=== PATIENT | female | born 1945 | race Caucasian/White ===

== ENCOUNTER → 2017-05-24 | Outpatient (CLI) | payer MEDICARE ==
--- NOTE | 2017-05-24 15:43 | MR ---
MR brain without contrast HISTORY: Change in vision, TIA Multiplanar multisequence imaging through the brain and correlated to prior CT brain 07/03/2014 There are changes of hyperostosis frontalis interna. Mucosal disease present within the maxillary sin uses. The orbits show symmetric appearance. Periventricular white matter shows confluent and scattere d hyperintensities on inversion recovery and T2-weighted sequences. There is cortical atrophy. Impression: no acute abnormality. Chronic small vessel ischemia and cortical atrophy.
== END | disposition home or self-care (01) ==
LOC: RADMRIMAIN 14:24
PROVIDERS: ATTEND Family Medicine
DX: I67.82 Cerebral ischemia (principal); G31.9 Degenerative disease of nervous system, unspecified
CPT/HCPCS: 70551

== ENCOUNTER → 2017-06-28 | Outpatient (CLI) | payer MEDICARE ==
--- NOTE | 2017-06-29 11:20 | MM ---
Reason for exam: screening (asymptomatic). Last mammogram was performed 2 years and 8 months ago. History: Patient is postmenopausal. Physical Findings: A clinical breast exam by your physician is recommended on an annual basis and results should be correlated with mammographic findings. MG 3D Screening Mammo W/Cad Bilateral CC and MLO view(s) were taken. Prior study comparison: October 16, 2014, bilateral MG screening mammo w CAD. August 13, 2002, left breast diagnostic mammogram. The breast tissue is heterogeneously dense. This may lower the sensitivity of mammography. Finding: There are typically benign vascular, round calcifications in both breasts. There is no discrete abnormality. ASSESSMENT: Benign, BI-RAD 2 RECOMMENDATION: Routine screening mammogram of both breasts in 1 year.
== END | disposition home or self-care (01) ==
LOC: RADMAMWWP 10:45
PROVIDERS: ATTEND Family Medicine
DX: Z12.31 Encounter for screening mammogram for malignant neoplasm of breast (principal)
CPT/HCPCS: 77063; G0202

== ENCOUNTER 2017-12-24 16:08 | Emergency (ER) | payer MEDICARE ==
[2017-12-24 16:17] VITALS: BP 144/63; PULSE 88; RESP 18; TEMP 98
--- NOTE | 2017-12-24 16:53 | ED ---
General Adult HPI - General Chief complaint: Upper Respiratory Infection Stated complaint: Cold Symptoms Time Seen by Provider: 12/24/17 16:34 Source: patient Mode of arrival: ambulatory Limitations: no limitations - History of Present Illness Initial comments: 72-year-old female patient presents to the emergency department today for complaints of nasal congestion, postnasal drip, and watery itchy eyes times one month. Patient states that she has been trying natural remedies but it does not seem to be helping. Patient states that she often has a scratchy throat with this. She denies any cough or sputum production. She denies any fevers or chills with this. States that occasionally she does have facial pressure and mild headaches. Patient denies taking any antihistamines or decongestants. Patient denies any recent rash, shortness breath, chest pain, abdominal pain, nausea, vomiting, diarrhea, constipation, back pain, numbness, tingling, dizziness, weakness, hematuria, dysuria, urinary urgency, urinary frequency, visual changes, or any other complaints. - Related Data Previous Rx's Medication Instructions Recorded Fluticasone Nasal [place] [Flonase 0 spr EA NOSTRIL DAILY #1 bottle 12/24/17 Nasal [place]] Loratadine [Claritin] 10 mg PO DAILY #30 tab 12/24/17 Allergies Allergy/AdvReac Type Severity Reaction Status Date / Time Penicillins Allergy Unknown Verified 12/24/17 16:35 Sulfa (Sulfonamide Allergy Unknown Verified 12/24/17 16:35 Antibiotics) Review of Systems ROS Statement: Those systems with pertinent positive or pertinent negative responses have been documented in the HPI. ROS Other: All systems not noted in ROS Statement are negative. Past Medical History Past Medical History: No Reported History History of Any Multi-Drug Resistant Organisms: None Reported Past Surgical History: Section, Hysterectomy Past Psychological History: No Psychological Hx Reported Smoking Status: Never smoker Past Alcohol Use History: None Reported Past Drug Use History: None Reported General Exam Limitations: no limitations General appearance: alert, in no apparent distress, other (This is a well- developed, well-nourished elderly female patient in no acute distress. Vital signs upon presentation are temperature 98.0F, pulse 88, respirations 18, blood pressure 144/63, pulse ox 98% on room air.) Eye exam: Present: normal appearance, PERRL, EOMI. Absent: scleral icterus, conjunctival injection, periorbital swelling ENT exam: Present: normal exam, mucous membranes moist, TM's normal bilaterally , normal external ear exam, other (Nasal passages are erythematous. No frontal or maxillary sinus tenderness.). Absent: normal oropharynx (Postnasal drip) Neck exam: Present: normal inspection. Absent: tenderness, meningismus, lymphadenopathy Respiratory exam: Present: normal lung sounds bilaterally. Absent: respiratory distress, wheezes, rales, rhonchi, stridor Cardiovascular Exam: Present: regular rate, normal rhythm, normal heart sounds. Absent: systolic murmur, diastolic murmur, rubs, gallop, clicks Neurological exam: Present: alert, oriented X3, CN II-XII intact Psychiatric exam: Present: normal affect, normal mood Skin exam: Present: warm, dry, intact, normal color. Absent: rash Course Vital Signs 12/24/17 16:15 Temperature 98 F Pulse Rate 88 Respiratory 18 Rate Blood Pressure 144/63 O2 Sat by Pulse 98 Oximetry Medical Decision Making - Medical Decision Making 72-year-old female patient presented to the emergency department today for evaluation of sinus drainage, postnasal drip, and itchy watery eyes. Physical examination is unremarkable. Nasal passages are erythematous. There doesn't appear to be some postnasal drip. Sinuses are nontender. She is afebrile. We will give her prescription for Claritin and Flonase. She is instructed to use these daily. She is instructed to follow-up with her primary care physician for recheck as soon as possible. She is instructed to return here immediately for any new, worsening, or concerning symptoms. She verbalizes understanding and agrees with this plan. Disposition Clinical Impression: Allergic rhinitis Disposition: HOME SELF-CARE Condition: Good Instructions: Allergic Rhinitis (ED) Additional Instructions: Use Claritin and nasal spray daily. Follow-up with her primary care physician for recheck. Return here immediately for any new, worsening, or concerning symptoms. Prescriptions: Fluticasone Nasal [place] [Flonase Nasal [place]] 0 spr EA NOSTRIL DAILY #1 bottle Loratadine [Claritin] 10 mg PO DAILY #30 tab Referrals: Cecil Nolasco MD [Primary Care Provider] - 1-2 days Time of Disposition: 16:51
== END 2017-12-24 17:01 | disposition home or self-care (01) ==
LOC: EC 16:08
DX: J30.9 Allergic rhinitis, unspecified (principal); Z88.0 Allergy status to penicillin; Z88.2 Allergy status to sulfonamides
CPT/HCPCS: 99283

== ENCOUNTER → 2019-05-13 | Outpatient (CLI) | payer MEDICARE ==
--- NOTE | 2019-05-13 15:33 | CT ---
EXAMINATION TYPE: CT sinus w con, CT brain wo/w con DATE OF EXAM: 05/13/2019 COMPARISON: MRI of the brain dated through . HISTORY: chronic sinus congestion, rt eye drainage X [address] in pacs. 60cc iso [address] DLP: 493.7 (accession [id number]), 1945.3 (accession [id number]) mGycm Automated exposure control for dose reduction was used. CONTRAST: CT scan of the brain and sinuses is performed with IV Contrast, patient injected with 60cc mL of Isov ue 300. TECHNIQUE: CT scan of the remaining and sinuses is performed without contrast, axial images are obtai dav, coronal reformatted images are also reviewed. FINDINGS: Incidental note is made of hyperostosis frontalis internus. Inspissated secretions are seen within th e sphenoid sinus on the right. Very mild mucosal thickening is seen within the ethmoid sinuses and tr linette mucosal thickening is also noted within the maxillary sinuses. The frontal sinuses are well aerat ed. No significant nasal turbinate mucosal hypertrophy is seen. There is undulation of the nasal sept um and very mild leftward nasal septal deviation. The ostiomeatal complexes are patent. The frontal recesses are also patent. The temporomandibular kristen nts are symmetric and display moderate degenerative change. The osseous structures appear intact. Vis ualized mastoid air cells are well aerated. No middle ear cavity fluid is seen. The orbits are symmetric as are the extraocular muscles and optic nerves. The lenses are also symmetr ic and appear in place. No pre or post septal inflammatory fat stranding is seen nor intraconal or ex traconal mass. The lacrimal glands are symmetric and unremarkable. The unenhanced images of the brain demonstrate no acute intracranial hemorrhage. The enhanced images of the brain demonstrate no abnormal intracranial enhancement. There are patchy areas of hypoattenuat ion within the subcortical and periventricular white matter, mild in degree and most commonly on the basis of microangiopathy. There is symmetric prominence of the peripheral sulci and ventricular syste m compatible with age-related volume loss. No suspicious extra-axial fluid collection is seen. IMPRESSION: 1. No evidence of abnormal intracranial enhancement, abnormal enhancement nor asymmetric morphology o f the lacrimal glands, extraconal mass, or intraconal mass in this patient with right eye drainage. 2. Mild paranasal sinus disease with inspissated secretions in the sphenoid sinus. Ostiomeatal comple xes are patent as are the frontal recesses. 3. As seen on the prior MRI brain of 2017 there is mild burden nonspecific white matter change, likel y on the basis of chronic microangiopathy and age-related volume loss.
== END | disposition home or self-care (01) ==
LOC: RADCTMAIN 13:42
PROVIDERS: ATTEND Otolaryngology
DX: J34.89 Other specified disorders of nose and nasal sinuses (principal); R90.89 Other abnormal findings on diagnostic imaging of central nervous system; G50.1 Atypical facial pain; J32.9 Chronic sinusitis, unspecified; H05.20 Unspecified exophthalmos
CPT/HCPCS: 82565; 84520; 70470; 36415; 70487; Q9967

== ENCOUNTER → 2019-05-21 | Outpatient (CLI) | payer MEDICARE | END | disposition home or self-care (01) | LOC: LABWHC1 12:39 | PROVIDERS: ATTEND Otolaryngology | DX: J30.89 Other allergic rhinitis (principal) | CPT/HCPCS: 36415 ==

== ENCOUNTER 2021-10-26 14:53 | Inpatient (IN) | payer MEDICARE ==
--- NOTE | 2021-10-26 15:29 | ED ---
General Adult HPI - General Chief complaint: Neuro Symptoms/Deficit Stated complaint: TIA Source: patient, RN notes reviewed, old records reviewed Mode of arrival: ambulatory Limitations: no limitations - History of Present Illness Initial comments: Patient is a 76-year-old female with past medical history remarkable for ALLERGIES. She presents emergency department over concern for neuro deficits. Patient had a period of aphasia what sounds like mild dysarthria home. She s tates she was unable to find the correct words to speak to her son who came to pick her up earlier today. She states it lasted from about 1 to 1:30pm. She states she also had a mild left-sided headache at this time which continues currently. She denies any nausea or vomiting. She states her symptoms resolved but she called EMS for further evaluation. I evaluated the patient when she was placed in a room. She only has no other acute complaints at this time. She presents over concern for possible TIA or stroke, which she has no prior history of. - Related Data Home Medications Medication Instructions Recorded Confirmed ALPRAZolam [Xanax] 0.25 mg PO HS PRN 10/26/21 10/26/21 Albuterol Sulfate [Proventil Hfa] 1 puff INHALATION RT-Q4H PRN 10/26/21 10/26/21 Montelukast [Singulair] 10 mg PO HS 10/26/21 10/26/21 Allergies Allergy/AdvReac Type Severity Reaction Status Date / Time Penicillins Allergy Unknown Verified 10/26/21 15:42 Sulfa (Sulfonamide Allergy Unknown Verified 10/26/21 15:42 Antibiotics) Review of Systems ROS Statement: Those systems with pertinent positive or pertinent negative responses have been documented in the HPI. Review of Systems: CONST: Denies fever EYES: Denies blurry vision ENT: Denies nasal congestion C/V: Denies Chest pain RESP: Denies shortness of breath GI: Denies abdominal pain : Denies dysuria SKIN: Denies rash. MSK: Denies joint pain. NEURO: Endorses mild left-sided headache. Throbbing. Typical headache for her. ROS Other: All systems not noted in ROS Statement are negative. Past Medical History Past Medical History: No Reported History History of Any Multi-Drug Resistant Organisms: None Reported Past Surgical History: Section, Hysterectomy Past Psychological History: No Psychological Hx Reported Smoking Status: Never smoker Past Alcohol Use History: None Reported Past Drug Use History: None Reported General Exam - General Exam Comments Initial Comments: General: Appears in no acute distress. HEAD: Normal with no signs of head trauma. EYES: PERRLA, EOMI, conjunctiva normal, no discharge. Pupils are 3 mm and equal bilaterally. ENT: Hearing grossly intact, normal oropharynx. RESPIRATORY: Clear breath sounds bilaterally. No wheezes, rales, or rhonchi. C/V: Regular rate and rhythm. S1 and S2 auscultated, no edema, peripheral pulses 2+ and intact throughout ABD: Abd is soft, nontender, nondistended EXT: Normal range of motion, no obvious deformity SKIN: No rashes or lesions observed on exposed skin. NEURO: Alert and oriented x 4. Cranial nerves II-XII intact. No focal sensory or strength deficits. NIH is currently 0. Aphasia mild dysarthria seem to have resolved. GCS is 15. Limitations: no limitations Course Vital Signs 10/26/21 10/26/21 10/26/21 14:55 15:15 15:30 Temperature 97.5 F L Pulse Rate 84 82 86 Respiratory 18 18 18 Rate Blood Pressure 140/75 141/68 126/97 O2 Sat by Pulse 95 95 96 Oximetry 10/26/21 10/26/21 10/26/21 15:45 16:00 16:15 Temperature Pulse Rate 81 73 77 Respiratory 18 18 18 Rate Blood Pressure 136/70 131/74 137/70 O2 Sat by Pulse 95 96 94 L Oximetry Medical Decision Making - Medical Decision Making Based on the patient's presentation and physical exam, I do believe that she needs criteria for strep activation. Deficits started at 1 PM and resolved at 1:30 PM. Therefore last known well was 1 PM. She currently isn't in nature 0. She is technically in the TPA window, however I believe that the risks of administering an elderly the benefits at this time. I spoke with no intervention is circulation sales representative Dr. Love as he was in agreement this plan. Therefore we will obtain imaging as well as laboratory studies. She will likely be admitted for medical management and results of imaging. I discussed this with the patient she was in agreement this plan. Patient's EKG showed no signs of acute ischemia. POC glucose was wnl.Patient's laboratory studies are remarkable for a negative troponin. Covid is negative. Patient's white blood cell count is mildly decreased at 2.3. Patient also has thrombocytopenia at 58, which is lower than her previous low level of 111 obtained 8 years ago. This does appear to be chronic. Chest x-ray showed no acute cardiopulmonary process. CT brain revealed chronic changes with no acute intracranial process. CT angiogram shows no acute process. I discussed the results with the patient of her labs and imaging. I would like to admitted to the hospital for further neurological monitoring. She was in ag reement this plan. She'll be given 325 mg of aspirin. MRI will be ordered. I consulted Dr. Hightower of neurology who was in agreement this plan. I spoke with the admitting team under Dr. Welch who accepted the patient. Patient was therefore admitted in stable condition, for a TIA. Patient was given analgesia for her headache and it improved. - Lab Data Result diagrams: 10/26/21 15:21 10/26/21 15:21 Lab Results 10/26/21 10/26/21 10/26/21 Range/Units 15:21 15:21 15:21 WBC 2.3 L (3.8-10.6) k/uL RBC 4.36 (3.80-5.40) m/uL Hgb 12.0 (11.4-16.0) gm/dL Hct 38.5 (34.0-46.0) % MCV 88.4 (80.0-100.0) fL MCH 27.5 (25.0-35.0) pg MCHC 31.1 (31.0-37.0) g/dL RDW 14.7 (11.5-15.5) % Plt Count 58 L (150-450) k/uL MPV 8.7 Neutrophils % 56 % Lymphocytes % 36 % Monocytes % 5 % Eosinophils % 2 % Basophils % 0 % Neutrophils # 1.3 (1.3-7.7) k/uL Lymphocytes # 0.8 L (1.0-4.8) k/uL Monocytes # 0.1 (0-1.0) k/uL Eosinophils # 0.0 (0-0.7) k/uL Basophils # 0.0 (0-0.2) k/uL Hypochromasia Moderate PT 11.0 (9.0-12.0) sec INR 1.0 (<1.2) APTT 22.1 (22.0-30.0) sec Sodium 139 (137-145) mmol/L Potassium 3.8 (3.5-5.1) mmol/L Chloride 104 (98-107) mmol/L Carbon Dioxide 22 (22-30) mmol/L Anion Gap 13 mmol/L BUN 10 (7-17) mg/dL Creatinine 0.97 (0.52-1.04) mg/dL Est GFR (CKD-EPI)AfAm 65 (>60 ml/min/1.73 sqM) Est GFR (CKD-EPI)NonAf 56 (>60 ml/min/1.73 sqM) Glucose 106 H (74-99) mg/dL POC Glucose (mg/dL) (75-99) mg/dL POC Glu Plant Quality Manager ID Calcium 8.7 (8.4-10.2) mg/dL Total Bilirubin 0.9 (0.2-1.3) mg/dL AST 25 (14-36) U/L ALT 10 (4-34) U/L Alkaline Phosphatase 65 (38-126) U/L Troponin I (0.000-0.034) ng/mL Total Protein 6.2 L (6.3-8.2) g/dL Albumin 4.0 (3.5-5.0) g/dL Coronavirus (PCR) (Not Detectd) 10/26/21 10/26/21 10/26/21 Range/Units 15:21 15:21 16:31 WBC (3.8-10.6) k/uL RBC (3.80-5.40) m/uL Hgb (11.4-16.0) gm/dL Hct (34.0-46.0) % MCV (80.0-100.0) fL MCH (25.0-35.0) pg MCHC (31.0-37.0) g/dL RDW (11.5-15.5) % Plt Count (150-450) k/uL MPV Neutrophils % % Lymphocytes % % Monocytes % % Eosinophils % % Basophils % % Neutrophils # (1.3-7.7) k/uL Lymphocytes # (1.0-4.8) k/uL Monocytes # (0-1.0) k/uL Eosinophils # (0-0.7) k/uL Basophils # (0-0.2) k/uL Hypochromasia PT (9.0-12.0) sec INR (<1.2) APTT (22.0-30.0) sec Sodium (137-145) mmol/L Potassium (3.5-5.1) mmol/L Chloride (98-107) mmol/L Carbon Dioxide (22-30) mmol/L Anion Gap mmol/L BUN (7-17) mg/dL Creatinine (0.52-1.04) mg/dL Est GFR (CKD-EPI)AfAm (>60 ml/min/1.73 sqM) Est GFR (CKD-EPI)NonAf (>60 ml/min/1.73 sqM) Glucose (74-99) mg/dL POC Glucose (mg/dL) 86 (75-99) mg/dL POC Glu Plant Quality Manager ID Sincere Son Calcium (8.4-10.2) mg/dL Total Bilirubin (0.2-1.3) mg/dL AST (14-36) U/L ALT (4-34) U/L Alkaline Phosphatase (38-126) U/L Troponin I <0.012 (0.000-0.034) ng/mL Total Protein (6.3-8.2) g/dL Albumin (3.5-5.0) g/dL Coronavirus (PCR) Not Detected (Not Detectd) - EKG Data -: EKG Interpreted by Me EKG Comments: 12-lead Electrocardiogram Interpretation Note EKG was reviewed and interpreted by myself. 12-lead ECG performed at 1506 is interpreted by me as revealing normal sinus rhythm at a rate of 83 beats per minute. [place] is normal. [place] interval is 140 ms, QRS duration is 76 ms, QTc is 467 ms.. There is an isolated T-wave inversion in lead V2 which is seen on prior ekgs. No other acute ST segment or T-wave abnormalities.. R wave progression across the precordium was satisfactory. By my interpretation this EKG is non-diagnostic for acute ischemia. Critical Care Time Critical Care Time: Yes Total Critical Care Time: 30 Critical Care Time: Upon my evaluation, this patient had a high probability of imminent or life-threatening deterioration due to TIA, stroke pager activation, which required my direct attention, intervention, and personal management. I have personally provided 30 minutes of critical care time exclusive of time spent on separately billable procedures. Time includes review of laboratory data, radiology results, discussion with consultants, and monitoring for potential decompensation. Interventions were performed as documented in my note. Disposition Clinical Impression: Headache, TIA (transient ischemic attack), Thrombocytopenia Disposition: ADMITTED IP TO THIS HOSP Condition: Stable
[2021-10-26 15:31] LABS: Basophils % (A) 0 %; Eosinophils % (A) 2 %; HCT 38.5 % (34.0-46.0); Hypochromasia Moderate; Lymphocytes # (A) 0.8 k/uL (1.0-4.8); Lymphocytes % (A) 36 %; MCH 27.5 pg (25.0-35.0); MCHC 31.1 g/dL (31.0-37.0); MCV 88.4 fL (80.0-100.0); Mean Platelet Volume 8.7; Monocytes # (A) 0.1 k/uL (0-1.0); Monocytes % (A) 5 %; Neutrophils # (A) 1.3 k/uL (1.3-7.7); Neutrophils % (A) 56 %; RBC 4.36 m/uL (3.80-5.40); RDW 14.7 % (11.5-15.5); WBC 2.3 k/uL (3.8-10.6)
[2021-10-26 15:32] LABS: Platelet Count 58 k/uL (150-450)
[2021-10-26 15:33] LABS: Glucose,Whole Blood 86 mg/dL (75-99)
[2021-10-26 15:41] LABS: Calcium 8.7 mg/dL (8.4-10.2); Potassium 3.8 mmol/L (3.5-5.1); Total Bilirubin 0.9 mg/dL (0.2-1.3); Total Protein 6.2 g/dL (6.3-8.2)
--- NOTE | 2021-10-26 15:46 | CT ---
EXAMINATION TYPE: CT brain wo con for TPA DATE OF EXAM: 10/26/2021 COMPARISON: 05/13/2019 INDICATION: Episode of aphasia, altered mental status. DLP: 1075.8 mGycm, Automated exposure control for dose reduction was used. CONTRAST: None CT of the brain is performed utilizing 3 mm thick sections through the posterior fossa and 3 mm thick sections through the remaining calvarium. Study is performed within 24 hours of arrival to the hosp ital. No abnormal hyperdensity is present to suggest an acute intracranial hemorrhage. No mass lesion is evident. No acute infarcts are evident. Very minimal chronic appearing periventricular white matter hypodensit y is present, present previously. Findings are nonspecific but could be related to chronic white penelope er ischemic changes. Ventricles and sulci are appropriate for the patient age. Paranasal sinuses and mastoid air cells within the [id number] are clear.. Hyperostosis frontalis internus is present, normal variant. IMPRESSIONS: 1. Mild chronic appearing periventricular white matter ischemic-type changes. 2. No acute intracranial process. Acute infarct is not radiographically apparent. Consider MRI if luis fernando ser evaluation is required.
[2021-10-26 15:48] LABS: Partial Thromboplastin Time 22.1 sec (22.0-30.0)
--- NOTE | 2021-10-26 16:09 | CT ---
EXAMINATION TYPE: CT angio head neck DATE OF EXAM: 10/26/2021 HISTORY: Episode of aphasia, altered mental status. COMPARISON: CT DLP: 311.8 mGycm. Automated Exposure Control for Dose Reduction was Utilized. TECHNIQUE: CTA scan of the neck is performed with IV Contrast, patient injected with 65 mL of Isovue 300, axial images are obtained, coronal and sagittal reformatted images are reviewed. Three-D recons tructed images are created on an independent workstation and reviewed. Source images are reviewed. FINDINGS: Carotid/Vascular Structures: There is a three-vessel arch. The left vertebral artery is dominant. Com mon carotid arteries appear unremarkable. Some atheromatous calcifications at the left carotid bifurc ation. No significant flow-limiting stenosis within the bilateral internal carotid arteries. Internal carotid arteries are patent to the skull base. Cervical of [place]: Vertebral basilar system appears normal. Posterior cerebral vasculature is unrema rkable. Internal carotid arteries bifurcate normally into A1 and M1 segments. A2 segments are normal. The anterior communicating artery is small but patent. Left Posterior communicating artery is faintl y patent. Right posterior communicating artery is patent. IMPRESSION: 1. No flow-limiting stenosis bilateral carotid bifurcations. 2. Normal burns pa[place] of [place] NASCET criteria was used in interpretation of this exam?
[2021-10-26] MEDS ORDERED: ASPIRIN 325 MG TAB PO STA (16:15)
[2021-10-26] MEDS ORDERED: KETOROLAC 15 MG/ML 1 ML VIAL IVP STA (16:16)
[2021-10-26] MEDS ORDERED: SODIUM CHLORIDE 0.9% 1,000 ML IV STA (16:16)
[2021-10-26] MEDS ORDERED: ALPRAZolam 0.25 MG TAB PO PRN (16:45)
--- NOTE | 2021-10-26 17:41 | XR ---
EXAMINATION TYPE: XR chest 2V DATE OF EXAM: 10/26/2021 COMPARISON: NONE HISTORY: Altered mental status TECHNIQUE: 2 views FINDINGS: Heart is normal. Lungs are clear of infiltrate. There is no heart failure. There are no hil ar masses. There are chest leads. Costophrenic angles are clear. IMPRESSION: No active cardiopulmonary disease. Normal heart.
[2021-10-26 18:06] LABS: Appearance,Urine Clear (Clear); Bilirubin,Urine Negative (Negative); Blood,Urine Negative (Negative); Color,Urine Light Yellow; Glucose,Urine (UA) Negative (Negative); Ketones,Urine Negative (Negative); Leukocyte Esterase,Urine Negative (Negative); Nitrite,Urine Negative (Negative); PH, Urine 5.5 (5.0-8.0); Protein,Urine Negative (Negative); Specific Gravity,Urine 1.032 (1.001-1.035); Urobilinogen,Urine <2.0 mg/dL (<2.0)
[2021-10-26] MEDS ORDERED: LACTULOSE 20 GM/30 ML CUP PO PRN (18:19)
[2021-10-26] MEDS ORDERED: ACETAMINOPHEN TAB 325 MG TAB PO PRN (18:19)
[2021-10-26] MEDS ORDERED: NALOXONE 0.4 MG/ML 1 ML VIAL IV PRN (18:19)
[2021-10-26] MEDS ORDERED: ONDANSETRON 4 MG/2 ML VIAL IVP PRN (18:19)
[2021-10-26] MEDS ORDERED: MELATONIN 3 MG TABLET PO PRN (18:19)
[2021-10-26] MEDS ORDERED: CALCIUM CARBONATE 500 MG CHEWABLE PO PRN (18:19)
--- NOTE | 2021-10-26 18:24 | P.HPIM ---
History of Present Illness H&P Date: 10/26/21 Chief Complaint: Loss of speech History of presenting complaint: This is a pleasant 76-year-old patient follows Dr. Nolasco. Patient has a long- standing history of environmental ALLERGIES supposed to take medications but does not take the same. This morning patient suddenly noticed that she had some light headache. And then she could not speak words are coming on, could not form sentences. She managed to call her son who could not understand her on the phone. Symptoms lasted for about 45 minutes. She had some more significant headache with the same. That all subsided. No change in vision. No trouble walking no trouble swallowing. Patient has trouble sleeping. Otherwise in good health. Fairly active. Patient's daughter at the bedside currently. Review of systems: GEN.: None EYES: Running nose and eyes HEENT: None NECK: None RESPIRATORY: None CARDIOVASCULAR: None GASTROINTESTINAL: None GENITOURINARY: None MUSCULOSKELETAL: None LYMPHATICS: None HEMATOLOGICAL: None PSYCHIATRY: None NEUROLOGICAL: As above Past medical history to include: Environmental ALLERGIES Social history: No history of smoking or alcohol. Lives alone. Physical examination: VITAL SIGNS: Afebrile, 73, 18, 131/74, 96% room air GENERAL: BMI 23, sitting of which edges bed, awake, comfortable. EYES: Pupils equal. Conjunctiva normal. HEENT: External appearance of nose and ears normal, oral cavity grossly normal. NECK: JVD not raised; masses not palpable. HEART: First and second heart sounds are normal; no edema. LUNGS: Respiratory rate normal; clear to auscultation. ABDOMEN: Soft, nontender, liver spleen not palpable, no masses palpable. PSYCH: Alert and oriented x3; mood and affect normal. MUSCULAR skeletal: Evidence of OA especially in the hands NEUROLOGICAL: Cranial nerves grossly intact; no facial asymmetry, power and sensation grossly intact. LYMPHATICS: No lymph nodes palpable in the axilla and neck INVESTIGATIONS, reviewed in the clinical context: White count 2.3 hemoglobin 12 platelets 58 potassium 3.8 creatinine 0.97 UA: Negative Coronavirus [PCR]: Not detected EKG tracing personally reviewed by me-sinus rhythm. Rate 83 per minute. Poor baseline. Chest x-ray film personally reviewed by me-borderline cardiomegaly HEENT head and neck: No stenosis. Assessment and plan: -TIA. Patient manifesting unable to speak speech was garbled for lasting about 45 minutes. Also had associated headache. All resolved. No residual symptoms. Patient does not have any additional risk factors except for her age. Aspirin. Lipitor. 2-D echo. Neuro checks. MR of the brain. -Chronic seasonal ALLERGIES Claritin 5 mg twice a day -Primary osteoarthritis multiple joints bilateral, symptoms well controlled Tylenol when necessary Aspirin, Lipitor, 2-D echo, neuro checks, MRI of the brain, carotid Doppler. Claritin 5 mg twice a day. Melatonin. Subcu heparin. Past Medical History Past Medical History: No Reported History History of Any Multi-Drug Resistant Organisms: None Reported Past Surgical History: Section, Hysterectomy Past Psychological History: No Psychological Hx Reported Smoking Status: Never smoker Past Alcohol Use History: None Reported Past Drug Use History: None Reported Medications and Allergies Home Medications Medication Instructions Recorded Confirmed Type ALPRAZolam [Xanax] 0.25 mg PO HS PRN 10/26/21 10/26/21 History Albuterol Sulfate [Proventil Hfa] 1 puff INHALATION RT-Q4H PRN 10/26/21 10/26/21 History Montelukast [Singulair] 10 mg PO HS 10/26/21 10/26/21 History Allergies Allergy/AdvReac Type Severity Reaction Status Date / Time Penicillins Allergy Unknown Verified 10/26/21 15:42 Sulfa (Sulfonamide Allergy Unknown Verified 10/26/21 15:42 Antibiotics) Physical Exam Vitals: Vital Signs Temp Pulse Resp BP Pulse Ox 10/26/21 16:15 77 18 137/70 94 L 10/26/21 16:00 73 18 131/74 96 10/26/21 15:45 81 18 136/70 95 10/26/21 15:30 86 18 126/97 96 10/26/21 15:15 82 18 141/68 95 10/26/21 14:55 97.5 F L 84 18 140/75 95 Intake and Output 10/26/21 10/26/21 10/26/21 06:59 14:59 22:59 Other: Weight 53.524 kg Results CBC & Chem 7: 10/26/21 15:21 10/26/21 15:21 Labs: Abnormal Lab Results - Last 24 Hours (Table) 10/26/21 10/26/21 Range/Units 15:21 15:21 WBC 2.3 L (3.8-10.6) k/uL Plt Count 58 L (150-450) k/uL Lymphocytes # 0.8 L (1.0-4.8) k/uL Glucose 106 H (74-99) mg/dL Total Protein 6.2 L (6.3-8.2) g/dL
[2021-10-26] MEDS: LORATADINE 10 MG TAB PO SCH (20:17)
[2021-10-26] MEDS: ENOXAPARIN 40 MG/0.4 ML SYRINGE SQ SCH (20:21)
[2021-10-26] MEDS ORDERED: ATORVASTATIN 20 MG TAB PO SCH (21:00)
[2021-10-26] MEDS ORDERED: MONTELUKAST 10 MG TAB PO SCH (21:00)
[2021-10-26] MEDS ORDERED: TEMAZEPAM 7.5 MG CAP PO SCH (21:00)
--- NOTE | 2021-10-26 22:50 | US ---
EXAMINATION TYPE: US carotid duplex BILAT DATE OF EXAM: 10/26/2021 COMPARISON: CTa CLINICAL HISTORY: TIA/loss of speech. TIA/loss of speech. EXAM MEASUREMENTS: RIGHT: Peak Systolic Velocity (PSV) cm/sec ----- Right CCA: 80.6 ----- Right ICA: 87.7 ----- Right ECA: 88.3 ICA/CCA ratio: 1.09 RIGHT: End Diastole cm/sec ----- Right CCA: 22.1 ----- Right ICA: 27.9 ----- Right ECA: 7.8 LEFT: Peak Systolic Velocity (PSV) cm/sec ----- Left CCA: 82.5 ----- Left ICA: 89.0 ----- Left ECA: 82.5 ICA/CCA ratio: 1.08 LEFT: End Diastole cm/sec ----- Left CCA: 20.8 ----- Left ICA: 20.8 ----- Left ECA: 11.7 VERTEBRALS (direction of flow): Right Vertebral: Antegrade Left Vertebral: Antegrade Rhythm: Normal No elevated velocities at this time. Intimal thickening seen bilaterally. Minimal plaque seen within left bulb. Hypoechoic area with hyperechoic center seen right neck: 1.8 x 2.0 x 0.5 cm. IMPRESSION: There is antegrade flow in the vertebral arteries. The images and measurement suggests less than 15% stenosis in both internal carotid arteries. Criteria for Assigning % of Stenosis / Diameter reduction (Estimation based on the indirect measurements of the internal carotid artery velocities (ICA PSV). 1. Normal (no stenosis)=ICA PSV < 125 cm/s: ratio < 2.0: ICA EDV<40 cm/s. 2. Less than 50% stenosis=ICA PSV < 125 cm/s: ratio < 2.0: ICA EDV<40 cm/s. 3. 50 to 69% stenosis=ICA PSV of 125 to 230 cm/s: ration 2.0 ? 4.0: ICA EDV 40-100 cm/s. 4. Greater than 70% stenosis to near occlusion= ICA PSV > 230 cm/s: ratio > 4.0: ICA EDV > 100 cm/s. 5. Near occlusion= ICA PSV velocities may be low or undetectable: variable ratio and ICA EDV. 6. Total occlusion=unable to detect flow.
[2021-10-27] MEDS: LORATADINE 10 MG TAB PO SCH (08:08)
[2021-10-27 08:44] VITALS: RESP 16
[2021-10-27] MEDS ORDERED: ASPIRIN 325 MG TAB PO SCH (09:00)
[2021-10-27 09:40] LABS: Chol/HDL Ratio 3.26 Ratio; LDL Cholesterol,Calculated 60.7 mg/dL (0.0-131.0); VLDL Calculation 15.64 mg/dL (5.00-40.00)
--- NOTE | 2021-10-27 10:03 | MR ---
MR brain without contrast HISTORY: Neuro deficit, acute stroke suspected, episode of aphasia, altered mental status Multiplanar multisequence imaging obtained through the brain, correlation to CT brain dated 10/26/2021, brain MRI 05/24/2017. There is cortical atrophy. No hemorrhage or hydrocephalus. There is no restricted diffusion to sugges t acute or subacute ischemia. Periventricular, pericallosal, subcortical confluent and scattered hype rintensity on inversion recovery and T2-weighted sequences noted similar to prior exam. Mucosal disea se present within the bilateral maxillary sinuses. Corpus callosum, pituitary, cervical medullary garfield ction, cerebellopontine angles are stable. There are expected vascular flow voids. Orbits show symmet jeremías appearance. Hyperostosis from [place] changes are again seen. IMPRESSION: No evident cerebrovascular accident. Age-related changes of atrophy and chronic small ves andrzej ischemia. Sinus disease.
--- NOTE | 2021-10-27 10:13 | P.CNNES ---
History of Present Illness Consult date: 10/27/21 Requesting physician: Jose Daniel Lvoe Reason for Consult: TIA History of Present Illness: This is a 76-year-old right-handed woman who presented emergency departments on 10/26/2021 because of aphasia and mild dysarthria. Patient was having difficulty getting her words out and she felt like she sounded slurred. She fe lt her symptoms started around 1pm on 10/26/2021 and lasted for 15-20 minutes. She had the mild headache over the left side. She denies any other neurological problems. She currently feels back to baseline. She denies history of TIA or stroke in the past. She is not on any medications at home. She denies any significant medical history. She denies of tobacco use, alcohol use or illicit drug use. She resides by herself. Some of the workup in the hospital consisted of: Initial vital signs his blood pressure of 140/75, heart rate of 84, respiratory of 18, temperature of 97.5 Fahrenheit oral and pulse ox of 95% room air. White blood cell is 2.3, lately is 58 otherwise the rest of the CBC with differential is unremarkable Chemistry panel is unremarkable. Calcium is 8.7, AST 25, ALT of 10. PT, INR and PTT are normal. Mckeon virus PCR was not detected. Urinalysis negative for urinary tract infection CT of the head is reported as mild chronic-appearing periventricular white matter ischemic type changes. No acute intracranial process. Personally reviewed the CT of the head and I felt the patient has supple hypodensity over the left parietal region. There is no intraparenchymal bleed or encephalomalacia the was able to appreciate that. CT angiography of the head and neck was reported as normal. NIH stroke scale in the ED was 0. Stroke code was activated by the ED team and they spoke with the stroke attending. No IV TPA since the patient symptoms resolved and had NIH stroke scale of 0. Carotid duplex was reported as no elevated velocities at this time. Intimal thickening seen bilaterally. Minimal plaque seen within the left bulb. Hypoechoic area with hyper echoic centers seen right neck 1.8 x 2 x 0.5 cm Review of Systems Review of system: The 12 point system was reviewed and apparent positive and negative per HPI. Past Medical History Past Medical History: No Reported History History of Any Multi-Drug Resistant Organisms: None Reported Past Surgical History: Section, Hysterectomy Past Psychological History: No Psychological Hx Reported Smoking Status: Never smoker Past Alcohol Use History: None Reported Past Drug Use History: None Reported - Past Family History Son(s) Family Medical History: Diabetes Mellitus Medications and Allergies Home Medications Medication Instructions Recorded Confirmed Type ALPRAZolam [Xanax] 0.25 mg PO HS PRN 10/26/21 10/26/21 History Albuterol Sulfate [Proventil Hfa] 1 puff INHALATION RT-Q4H PRN 10/26/21 10/26/21 History Montelukast [Singulair] 10 mg PO HS 10/26/21 10/26/21 History Aspirin 81 mg PO DAILY tab 10/27/21 Rx Atorvastatin [Lipitor] 20 mg PO HS #30 tab 10/27/21 Rx Loratadine [Claritin] 5 mg PO Q12HR #30 tab 10/27/21 Rx Melatonin 3 mg PO HS #30 tablet 10/27/21 Rx Allergies Allergy/AdvReac Type Severity Reaction Status Date / Time Penicillins Allergy Unknown Verified 10/26/21 15:42 Sulfa (Sulfonamide Allergy Unknown Verified 10/26/21 15:42 Antibiotics) Physical Examination - Vital Signs Vital Signs: Vital Signs Temp Pulse Resp BP Pulse Ox 10/26/21 16:15 77 18 137/70 94 L 10/26/21 16:00 73 18 131/74 96 10/26/21 15:45 81 18 136/70 95 10/26/21 15:30 86 18 126/97 96 10/26/21 15:15 82 18 141/68 95 10/26/21 14:55 97.5 F L 84 18 140/75 95 Intake and Output 10/26/21 10/26/21 10/26/21 06:59 14:59 22:59 Other: Weight 53.524 kg GENERAL: The patient is lying in bed and is not in acute distress. CHEST: The heart rate is regular rate rhythm. No murmurs to auscultation. No carotid bruit bilaterally. LUNG: Clear to auscultation bilaterally no wheezing noted throughout. Not labored breathing. ABDOMEN/GI: Bowel sounds present in all 4 quadrants. No tenderness to palpation throughout. NEUROLOGICAL: Higher mental function: The patient is awake, alert, oriented to self, place and time. Patient is following commands. No aphasia and no neglect. Cranial nerves: The pupils are round, equal and reactive to light and accommodation. Visual hermosillo are full to confrontation throughout. Extraocular movement is intact no nystagmus is noted. Facial sensation is normal to touch throughout. The facial strength is normal throughout. Hearing is mildly decreased bilaterally to hand rub. Tongue is midline and moved [id number] without any difficulty. No dysarthria is noted. Shoulder shrug is normal bi laterally. Motor: Gait is normal with normal arm swings. The strength is 5 over 5 throughout. Normal tone and bulk. Cerebellum: Normal finger to nose bilaterally. Sensation: Sensation is normal to touch throughout. Reflexes (right/left): 2+ throughout except ankles are 1+. Plantars are downgoing bilaterally. 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 I'll decreased aspirin from 325mg to 81mg especially with a thrombocytopenia. I will not start the patient on dual antiplatelets because of the thrombocytopenia. Patient was started on Lipitor 20 mg daily at bedtime for secondary stroke prophylaxis and that to be continued * MRI of the brain is ordered by the ED team * 2-D echo and lipid panel are ordered and are pending * PT, OT and CONSOLE ASSEMBLER are consulted * Continue neuro checks * On cardiac monitoring. So far no a-fib or flutter on cardiac monitoring. * Will defer the rest of medical management to the primary team. * For DVT prophylaxis the patient is on Lovenox * Upon discharge, the patient needs to follow-up with a neurologist within 1-2 weeks as outpatient. The plan is discussed with the patient. Thank you for the consultation. UPDATE: MRI Brain: As reported as no evident cerebrovascular accident. Age-related changes of atrophy and chronic small vessel ischemia. Sinus disease. 2-D echo was reported as a ejection fraction of 55%. Left atrial size is normal. Lipid panel is triglyceride of 78, cholesterol 110, LDL 60 and HDL 33. Since the workup has been complete from a neurological perspective patient is clear for discharge. Recommend patient follow up with a neurologist within 1-2 weeks as an outpatient. Gideon Preston M.D. Neuro-Hospitalist Time with Patient: Greater than 30
[2021-10-27] MEDS: ENOXAPARIN 40 MG/0.4 ML SYRINGE SQ SCH (10:18)
--- NOTE | 2021-10-27 10:28 | ECHOF ---
Referral Reason:Rule out thrombus/TIA MEASUREMENTS -------- HEIGHT: 152.4 cm WEIGHT: 53.5 kg BP: 155/86 RVIDd: 3.2 cm (< 3.3) IVSd: 0.9 cm (0.6 - 1.1) LVIDd: 4.1 cm (3.9 - 5.3) LVPWd: 1.2 cm (0.6 - 1.1) IVSs: 1.3 cm LVIDs: 2.6 cm LVPWs: 1.2 cm LA Diam: 3.6 cm (2.7 - 3.8) Ao Diam: 2.4 cm (2.0 - 3.7) AV Cusp: 1.7 cm (1.5 - 2.6) LA Diam: 3.3 cm (2.7 - 3.8) MV EXCURSION: 16.312 mm (> 18.000) MV EF SLOPE: 72 mm/s (70 - 150) EPSS: 0.2 cm MV E Juan: 0.64 m/s MV DecT: 230 ms MV A Juan: 0.91 m/s MV E/A Ratio: 0.70 RAP: 5.00 mmHg RVSP: 36.66 mmHg FINDINGS -------- Sinus rhythm. This was a technically good study. LV size, wall thickness and systolic function are normal, with an EF greater than 55%. The left gatito tricular size is normal. The right ventricle is normal in size. The left atrial size is normal. The right atrial size is normal. The aortic valve is trileaflet, and appears structurally normal. No aortic stenosis or regurgitation. Mild mitral regurgitation is present. Mild tricuspid regurgitation present. There is mild pulmonary hypertension. The right ventricular systolic pressure, as measured by Doppler, is 36.66mmHg. There is no pulmonic regurgitation present. There is no pericardial effusion. CONCLUSIONS -------- 1. LV size, wall thickness and systolic function are normal, with an EF greater than 55%. 2. The left ventricular size is normal. 3. The right ventricle is normal in size. 4. The left atrial size is normal. 5. The right atrial size is normal. 6. The aortic valve is trileaflet, and appears structurally normal. No aortic stenosis or regurgitati on. 7. Mild mitral regurgitation is present. 8. Mild tricuspid regurgitation present. 9. There is mild pulmonary hypertension. 10. The right ventricular systolic pressure, as measured by Doppler, is 36.66mmHg. 11. There is no pericardial effusion. JOB COUNSELOR: Glo Shaver RDCS
[2021-10-27 12:03] VITALS: BP 124/72; PULSE 77; TEMP 97.9
[2021-10-28] MEDS ORDERED: ASPIRIN 81 MG PO SCH (09:00)
--- NOTE | 2021-10-28 17:23 | P.DS ---
Providers Date of admission: 10/26/21 16:42 Expected date of discharge: 10/28/21 Attending physician: Matt Welch Consults: 10/26/21 16:43 Consult Physician Routine Consulting Provider: Gideon Preston Consult Reason/Comments: tia Do you want consulting provider notified?: Yes Primary care physician: [facility] Course: Chief Complaint: Loss of speech History of presenting complaint: This is a pleasant 76-year-old patient follows Dr. Nolasco. Patient has a long- standing history of environmental ALLERGIES supposed to take medications but does not take the same. This morning patient suddenly noticed that she had some light headache. And then she could not speak words are coming on, could not form sentences. She managed to call her son who could not understand her on the phone. Symptoms lasted for about 45 minutes. She had some more significant headache with the same. That all subsided. No change in vision. No trouble walking no trouble swallowing. Patient has trouble sleeping. Otherwise in good health. Fairly active. Patient's daughter at the bedside currently. 2-D echocardiogram, MRI, carotid Doppler or unremarkable. Cleared by neurology. Discussed with the patient and daughter the bedside. Questions answered. Consultation: Dr. Preston from neurology Past medical history to include: Environmental ALLERGIES Social history: No history of smoking or alcohol. Lives alone. Physical examination: VITAL SIGNS: 97.9, 77, 16, 120/72, 87% room air GENERAL: Sitting up, comfortable. EYES: Pupils equal. Conjunctiva normal. HEENT: External appearance of nose and ears normal, oral cavity grossly normal. NECK: JVD not raised; masses not palpable. HEART: First and second heart sounds are normal; no edema. LUNGS: Respiratory rate normal; clear to auscultation. ABDOMEN: Soft, nontender, liver spleen not palpable, no masses palpable. PSYCH: Alert and oriented x3; mood and affect normal. MUSCULAR skeletal: Evidence of OA especially in the hands NEUROLOGICAL: Cranial nerves grossly intact; no facial asymmetry, power and sensation grossly intact. INVESTIGATIONS, reviewed in the clinical context: MRI brain: Chronic changes. Carotid Doppler: No significant stenosis 2-D echocardiogram: EF greater than 55%. White count 2.3 hemoglobin 12 platelets 58 potassium 3.8 creatinine 0.97 UA: Negative Coronavirus [PCR]: Not detected EKG tracing personally reviewed by me-sinus rhythm. Rate 83 per minute. Poor baseline. Chest x-ray film personally reviewed by me-borderline cardiomegaly HEENT head and neck: No stenosis. Assessment and plan: -TIA. Patient manifesting unable to speak speech was garbled for lasting about 45 minutes. Also had associated headache. All resolved. No residual symptoms. Patient does not have any additional risk factors except for her age. Aspirin. Lipitor. -Chronic seasonal ALLERGIES Claritin 5 mg twice a day -Primary osteoarthritis multiple joints bilateral, symptoms well controlled Tylenol when necessary -Chronic insomnia Melatonin 3 mg daily at bedtime Disposition: Home Plan - Discharge Summary Discharge Rx Participant: No New Discharge Prescriptions: New Aspirin 81 mg PO DAILY tab Loratadine [Claritin] 5 mg PO Q12HR #30 tab Melatonin 3 mg PO HS #30 tablet Atorvastatin [Lipitor] 20 mg PO HS #30 tab Continue Montelukast [Singulair] 10 mg PO HS Albuterol Sulfate [Proventil Hfa] 1 puff INHALATION RT-Q4H PRN PRN Reason: Shortness Of Breath ALPRAZolam [Xanax] 0.25 mg PO HS PRN PRN Reason: Insomnia Discharge Medication List ALPRAZolam [Xanax] 0.25 mg PO HS PRN 10/26/21 [History] Albuterol Sulfate [Proventil Hfa] 1 puff INHALATION RT-Q4H PRN 10/26/21 [History] Montelukast [Singulair] 10 mg PO HS 10/26/21 [History] Aspirin 81 mg PO DAILY tab 10/27/21 [Rx] Atorvastatin [Lipitor] 20 mg PO HS #30 tab 10/27/21 [Rx] Loratadine [Claritin] 5 mg PO Q12HR #30 tab 10/27/21 [Rx] Melatonin 3 mg PO HS #30 tablet 10/27/21 [Rx] Follow up Appointment(s)/Referral(s): Cecil Nolasco MD [Primary Care Provider] - 1-2 days (Please call to schedule follow up appointment.) Dean Berry MD [Medical Doctor] - 1 Week (Please call office to schedule follow up. ) Patient Instructions/Handouts: Transient Ischemic Attack (DC) Discharge Disposition: HOME SELF-CARE
== END 2021-10-27 15:56 | disposition home or self-care (01) | DRG 69 ==
LOC: EC 14:53 → 3SCARD 16:42
PROVIDERS: ADMIT Hospitalist; ATTEND Hospitalist
DX: G45.9 Transient cerebral ischemic attack, unspecified (principal); R47.01 Aphasia; D69.6 Thrombocytopenia, unspecified; R47.1 Dysarthria and anarthria; D72.819 Decreased white blood cell count, unspecified; I08.1 Rheumatic disorders of both mitral and tricuspid valves; F51.04 Psychophysiologic insomnia; J30.2 Other seasonal allergic rhinitis; M15.9 Polyosteoarthritis, unspecified; Z20.822 Contact with and (suspected) exposure to COVID-19; Z79.82 Long term (current) use of aspirin; Z79.899 Other long term (current) drug therapy; Z83.3 Family history of diabetes mellitus; Z90.710 Acquired absence of both cervix and uterus; Z88.0 Allergy status to penicillin; Z88.2 Allergy status to sulfonamides
CPT/HCPCS: 36415; 70450; 70496; 70498; 70551; 71046; 80053; 80061; 81003; 84484; 85025; 85610; 85730; 87635; 93005; 93306; 93880; 96374; 99291

== ENCOUNTER → 2022-01-18 | Outpatient (CLI) | payer MEDICARE ==
--- NOTE | 2022-01-18 18:55 | CT ---
EXAMINATION TYPE: CT ChestAbdPelvis wo con DATE OF EXAM: 01/18/2022 COMPARISON: None available HISTORY: Splenomegaly CT DLP: 316.5 mGycm. Automated Exposure Control for Dose Reduction was Utilized. TECHNIQUE: CT scan of the thorax, abdomen and pelvis is performed without IV contrast. FINDINGS: LUNGS: Extensive bilateral pulmonary centrilobular micronodules seen throughout the lungs with interv ening areas of reduced lung density/COPD, nonspecific. The pulmonary nodules measures up to 2 mm in d iameter. Patent central airways. No pleural effusion. MEDIASTINUM: No gross cardiomegaly. Arterial and coronary atherosclerotic calcifications. No pericard ial effusion. Scattered subcentimeter bilateral axillary, left internal mammary and mediastinal lymph nodes measuring up to 8 mm in the precarinal location. No pathologically enlarged lymph nodes in the chest. OTHER: Tiny bilateral breast calcifications, please correlate with breast ultrasound/mammography res ults. No aggressive bone lesion. LIVER/GB: No definite hepatic focal lesion by this nonenhanced CT scan. No hepatic enlargement. Mary lithiasis without evidence of acute cholecystitis. PANCREAS: No significant abnormality is seen. SPLEEN: Markedly enlarged spleen measuring 10.9 x 20.7 x 26.8 cm. No definite hepatic focal lesion by this nonenhanced CT scan. ADRENALS: 2.5 cm oval-shaped structure is seen adjacent to the right adrenal gland, possibly represen ting a displaced IVC versus an adrenal nodule, suboptimally assessed by this nonenhanced CT scan. Unr emarkable left adrenal. KIDNEYS: The left kidney is compressed by the splenomegaly. Unremarkable right kidney. BOWEL: The stomach is displaced to the right side by the enlarged spleen, and appears nondistended. Suboptimal assessment of the small and large bowel. There is no evidence of bowel obstruction. Fecal loading of the visualized portion of the colon. The small and large bowel are also displaced by splen omegaly. REPRODUCTIVE ORGANS: Suspected previous hysterectomy. No gross adnexal mass. LYMPH NODES: Prominent mesenteric lymph nodes measuring up to 12 mm. Right external iliac lymph node measuring up to 12 mm with prominent bilateral external iliac lymph nodes. No pathologically enlarged inguinal lymph nodes. No gross retroperitoneal lymphadenopathy yet suboptimally assessed. OSSEOUS STRUCTURES: No aggressive bone lesion. OTHER: Scattered arterial atherosclerotic calcifications. No sizable ascites. IMPRESSION: Suboptimal assessment due to the lack of IV contrast administration. Huge splenomegaly with enlarged mesenteric and right external iliac lymph nodes as described above, l ymphoma or other lymphoproliferative disease can't be excluded. Recommend clinical correlation and fu rther workup. Prominent subcentimeter lymph nodes in the chest as described above, nonspecific. No pathologically e nlarged lymph nodes in the chest. Extensive pulmonary centrilobular micronodular infiltration as described above, nonspecific and could be related to chronic infiltrative lung disease. Recommend clinical correlation, correlation with pu lmonary function tests and further pulmonology consultation. Follow-up CT scan in 2-3 months can be c onsidered for reassessment. Other incidental findings as described above.
== END | disposition home or self-care (01) ==
LOC: RADCTMAIN 10:12
PROVIDERS: ATTEND Internal Medicine Hematology & Oncology
DX: R16.1 Splenomegaly, not elsewhere classified (principal); R59.0 Localized enlarged lymph nodes; R91.8 Other nonspecific abnormal finding of lung field
CPT/HCPCS: 36415; 71250; 74176; 82565; 84520

== ENCOUNTER 2022-01-28 22:34 | Emergency (ER) | payer MEDICARE ==
[2022-01-29 01:16] LABS: Albumin 4.2 g/dL (3.5-5.0); Calcium 8.6 mg/dL (8.4-10.2); Potassium 3.1 mmol/L (3.5-5.1); Total Bilirubin 1.1 mg/dL (0.2-1.3); Total Protein 6.7 g/dL (6.3-8.2)
[2022-01-29 01:18] LABS: Creatine Kinase 26 U/L (30-135)
[2022-01-29 01:21] LABS: Basophils % (A) 0 %; Eosinophils # (A) 0.1 k/uL (0-0.7); Eosinophils % (A) 2 %; HCT 35.1 % (34.0-46.0); HGB 11.3 gm/dL (11.4-16.0); Hypochromasia Slight; Lymphocytes % (A) 44 %; MCHC 32.3 g/dL (31.0-37.0); MCV 86.8 fL (80.0-100.0); Mean Platelet Volume 9.3; Monocytes # (A) 0.1 k/uL (0-1.0); Monocytes % (A) 4 %; Neutrophils # (A) 1.1 k/uL (1.3-7.7); Neutrophils % (A) 46 %; RBC 4.04 m/uL (3.80-5.40); RDW 15.7 % (11.5-15.5); WBC 2.4 k/uL (3.8-10.6)
[2022-01-29 01:27] LABS: Creatine Kinase MB 0.4 ng/mL (0.0-2.4); Troponin I <0.012 ng/mL (0.000-0.034)
[2022-01-29] MEDS ORDERED: IBUPROFEN 600 MG TAB PO STA (01:43)
[2022-01-29] MEDS ORDERED: ACETAMINOPHEN TAB 500 MG TAB PO STA (01:43)
[2022-01-29] MEDS ORDERED: SODIUM CHLORIDE 0.9% 500 ML 500 ML IV STA (01:52)
[2022-01-29] MEDS ORDERED: MORPHINE SULFATE 4 MG/ML SYRINGE IV STA (01:52)
[2022-01-29 02:02] LABS: Platelet Count 68 k/uL (150-450)
[2022-01-29] MEDS ORDERED: SODIUM CHLORIDE 0.9% 1,000 ML IV ONE (03:03)
[2022-01-29] MEDS ORDERED: POTASSIUM CHLORIDE ER 20 MEQ TAB.ER PO STA (03:04)
--- NOTE | 2022-01-29 03:07 | ED ---
General Adult HPI - General Chief complaint: Recheck/Abnormal Lab/Rx Stated complaint: back pain Time Seen by Provider: 01/29/22 01:00 Source: patient Mode of arrival: wheelchair Limitations: no limitations - History of Present Illness Initial comments: This patient is 77-year-old woman who is here with aches to the left mid back left abdomen and headache. Patient states she does have history of marked splenomegaly and that this is where the back pain is. She states she has taken Tylenol at home with no relief. Patient has not had any trauma to that area. She is not having fever or chills. In relation to the headache, she is not having worst headache of life. No associated neurologic symptoms. No neck stiffness. The patient initially stating she would not take anything stronger, but after speaking with her daughters she does agree to. -: days(s) Location: head, back Radiation: non-radiation Quality: aching Consistency: constant Improves with: none Worsens with: none Associated Symptoms: denies other symptoms - Related Data Home Medications Medication Instructions Recorded Confirmed Acetaminophen Tab [Tylenol Tab] 500 mg PO Q6H PRN 01/26/22 01/26/22 Vitamin B Complex 1 each PO DAILY 01/26/22 01/26/22 traMADol HCl [Ultram] 50 mg PO Q6HR PRN 01/26/22 01/26/22 Previous Rx's Medication Instructions Recorded Acetaminophen-Codeine 300-30mg 1 tab PO Q4H PRN #20 tablet 01/29/22 [Tylenol w/codeine #3] Docusate Sodium [Dok] 100 mg PO DAILY #30 capsule 01/29/22 Allergies Allergy/AdvReac Type Severity Reaction Status Date / Time Penicillins Allergy Unknown Verified 01/28/22 22:35 Sulfa (Sulfonamide Allergy Unknown Verified 01/28/22 22:35 Antibiotics) Review of Systems ROS Statement: Those systems with pertinent positive or pertinent negative responses have been documented in the HPI. ROS Other: All systems not noted in ROS Statement are negative. Constitutional: Denies: fever, chills, weakness Eyes: Denies: eye pain, vision change ENT: Denies: ear pain Respiratory: Denies: cough, dyspnea Cardiovascular: Denies: chest pain, palpitations, edema Gastrointestinal: Reports: abdominal pain Genitourinary: Denies: dysuria, hematuria Musculoskeletal: Reports: back pain Skin: Denies: rash Neurological: Reports: headache. Denies: weakness, numbness, paresthesias, confusion Past Medical History Past Medical History: No Reported History History of Any Multi-Drug Resistant Organisms: None Reported Past Surgical History: Section, Hysterectomy Past Psychological History: No Psychological Hx Reported Smoking Status: Never smoker Past Alcohol Use History: None Reported Past Drug Use History: None Reported - Past Family History Son(s) Family Medical History: Diabetes Mellitus General Exam Limitations: no limitations General appearance: alert, in no apparent distress Head exam: Present: atraumatic, normocephalic Eye exam: Present: normal appearance, PERRL, EOMI. Absent: scleral icterus, conjunctival injection ENT exam: Present: normal oropharynx Neck exam: Present: normal inspection, full ROM Respiratory exam: Present: normal lung sounds bilaterally. Absent: respiratory distress, wheezes, rales, rhonchi, stridor Cardiovascular Exam: Present: regular rate, normal rhythm, normal heart sounds. Absent: systolic murmur, diastolic murmur, rubs, gallop GI/Abdominal exam: Present: soft, organomegaly. Absent: distended, tenderness, guarding, rebound, rigid, mass Back exam: Present: normal inspection. Absent: CVA tenderness (R), CVA tenderness (L) Neurological exam: Present: alert, oriented X3, CN II-XII intact. Absent: motor sensory deficit Skin exam: Present: warm, dry, intact, normal color. Absent: rash Course Vital Signs 01/28/22 01/29/22 01/29/22 22:35 01:00 02:00 Temperature 97.5 F L Pulse Rate 87 70 74 Respiratory 16 20 20 Rate Blood Pressure 126/69 121/61 125/72 O2 Sat by Pulse 92 L 97 96 Oximetry 01/29/22 04:20 Temperature 98 F Pulse Rate 80 Respiratory 22 Rate Blood Pressure 137/77 O2 Sat by Pulse 97 Oximetry Medical Decision Making - Medical Decision Making Patient is 77-year-old woman with pain related to splenomegaly as well as he adache. She did a cream to take some analgesia and then had relief of most of her symptoms. She is feeling much better after some additional IV fluids and wanted to go home. She does have an already scheduled follow-up for further evaluation and treatment of the splenomegaly. - Lab Data Result diagrams: 01/29/22 00:52 01/29/22 00:52 Lab Results 01/29/22 01/29/22 01/29/22 Range/Units 00:52 00:52 00:52 WBC 2.4 L (3.8-10.6) k/uL RBC 4.04 (3.80-5.40) m/uL Hgb 11.3 L (11.4-16.0) gm/dL Hct 35.1 (34.0-46.0) % MCV 86.8 (80.0-100.0) fL MCH 28.0 (25.0-35.0) pg MCHC 32.3 (31.0-37.0) g/dL RDW 15.7 H (11.5-15.5) % Plt Count 68 L (150-450) k/uL MPV 9.3 Neutrophils % 46 % Lymphocytes % 44 % Monocytes % 4 % Eosinophils % 2 % Basophils % 0 % Neutrophils # 1.1 L (1.3-7.7) k/uL Lymphocytes # 1.0 (1.0-4.8) k/uL Monocytes # 0.1 (0-1.0) k/uL Eosinophils # 0.1 (0-0.7) k/uL Basophils # 0.0 (0-0.2) k/uL Manual Slide Review Performed Hypochromasia Slight Sodium 140 (137-145) mmol/L Potassium 3.1 L (3.5-5.1) mmol/L Chloride 102 (98-107) mmol/L Carbon Dioxide 27 (22-30) mmol/L Anion Gap 11 mmol/L BUN 17 (7-17) mg/dL Creatinine 1.46 H (0.52-1.04) mg/dL Est GFR (CKD-EPI)AfAm 39 (>60 ml/min/1.73 sqM) Est GFR (CKD-EPI)NonAf 34 (>60 ml/min/1.73 sqM) Glucose 106 H (74-99) mg/dL Calcium 8.6 (8.4-10.2) mg/dL Total Bilirubin 1.1 (0.2-1.3) mg/dL AST 22 (14-36) U/L ALT 6 (4-34) U/L Alkaline Phosphatase 75 (38-126) U/L Total Creatine Kinase 26 L (30-135) U/L CK-MB (CK-2) 0.4 (0.0-2.4) ng/mL CK-MB (CK-2) Rel Index 1.5 Troponin I <0.012 (0.000-0.034) ng/mL Total Protein 6.7 (6.3-8.2) g/dL Albumin 4.2 (3.5-5.0) g/dL Disposition Clinical Impression: Splenomegaly, Hypokalemia Disposition: HOME SELF-CARE Condition: Fair Prescriptions: Docusate Sodium [Dok] 100 mg PO DAILY #30 capsule Acetaminophen-Codeine 300-30mg [Tylenol w/codeine #3] 1 tab PO Q4H PRN #20 tablet PRN Reason: Pain Is patient prescribed a controlled substance at d/c from ED?: Yes Referrals: Cecil Nolasco MD [Primary Care Provider] - 1-2 days
[2022-01-29 04:30] VITALS: BP 137/77; PULSE 80; RESP 22; TEMP 98
== END 2022-01-29 04:31 | disposition home or self-care (01) ==
LOC: EC 22:34
DX: E87.6 Hypokalemia (principal); R16.1 Splenomegaly, not elsewhere classified
CPT/HCPCS: 36415; 93005; 80053; 82550; 82553; 84484; 85025; 99284; 96374; 96361; J2270

== ENCOUNTER 2022-01-30 10:51 | Day surgery (SDC) | payer MEDICARE ==
[2022-01-26 14:39] VITALS: BMI 21.4
[~2022-01-30 10:51] MED LIST: LACTATED RINGERS 1,000 ML IV SCH
[2022-01-30 11:38] VITALS: TEMP 98.8
[2022-01-30] MEDS ORDERED: LIDOCAINE 1% (10MG/ML) FOR IV START INTRADERMA ONE (11:50)
[2022-01-30] MEDS ORDERED: PROPOFOL 10 MG/ML 20 ML VIAL IV ONE (12:18)
[2022-01-30 12:57] VITALS: BP 122/69; PULSE 87; RESP 20
[2022-01-30] MEDS ORDERED: Acetaminophen-Codeine 300-30mg TAB ONE (13:24)
[2022-01-30] MEDS ORDERED: Acetaminophen-Codeine 300-30mg TAB PO ONE (13:27)
[2022-01-30 14:14] LABS: Basophils % (A) 2 %; Eosinophils # (A) 0.1 k/uL (0-0.7); Eosinophils % (A) 3 %; HCT 34.5 % (34.0-46.0); HGB 10.8 gm/dL (11.4-16.0); Hypochromasia Moderate; Lymphocytes # (A) 0.7 k/uL (1.0-4.8); Lymphocytes % (A) 41 %; MCH 27.9 pg (25.0-35.0); MCHC 31.4 g/dL (31.0-37.0); MCV 88.9 fL (80.0-100.0); Mean Platelet Volume 8.8; Monocytes # (A) 0.1 k/uL (0-1.0); Monocytes % (A) 5 %; Neutrophils # (A) 0.7 k/uL (1.3-7.7); Neutrophils % (A) 46 %; RBC 3.88 m/uL (3.80-5.40); RDW 15.9 % (11.5-15.5); Reticulocyte % 2.5 % (0.5-2.0); WBC 1.6 k/uL (3.8-10.6)
[2022-01-30 14:37] LABS: Platelet Count 68 k/uL (150-450)
--- NOTE | 2022-01-30 18:22 | PCN ---
PROCEDURE NOTE DATE OF SERVICE: 01/30/2022 PROCEDURE: Bone marrow aspirate and biopsy. INDICATIONS: Splenomegaly and pancytopenia. Rule out lymphoma. PROCEDURE DESCRIPTION: After obtaining consent from the patient, the procedure was performed in the endoscopy suite under general anesthesia performed by anesthesia team. The patient was put in the left lateral decubitus position. The right posterior superior iliac crest was localized. Skin was prepped with ChloraPrep. All sterile procedures were followed. Two mL of 2% xylocaine was used for local anesthetic. Monoject needle was inserted and about 15 mL of aspirate and 1 cm core biopsy was obtained without any difficulties. Pressure was applied afterwards. There was negligible blood loss. Patient tolerated the procedure very well without any immediate complications. MMODL / IJN: [id number] /
== END 2022-01-30 14:10 | disposition home or self-care (01) ==
LOC: OR 10:51
PROVIDERS: ATTEND Internal Medicine Hematology & Oncology
DX: D69.6 Thrombocytopenia, unspecified (principal); D61.818 Other pancytopenia
CPT/HCPCS: 38222; 85025; 85045; J2704

== ENCOUNTER → 2022-02-18 | Outpatient (CLI) | payer MEDICARE ==
--- NOTE | 2022-02-21 06:34 | PE ---
EXAMINATION TYPE: PET CT fusion skull to thigh DATE OF EXAM: 02/18/2022 COMPARISON: Most recent CT January 18, 2022 HISTORY: Non-Hodgkin's lymphoma on recent bone marrow biopsy January 14, 2022 TECHNIQUE: Following the intravenous administration of 10.44 mCi of F-18 FDG, whole body images are performed from the skull base to the midthigh. Images are reviewed on the computer in the coronal, a xial, and sagittal planes. Reconstructed rotating images are created on independent workstation and reviewed on the computer. A localization and attenuation correction CT is performed in conjunction with the PET scan. Blood glucose level equals 111. SCAN: Initial Scan FINDINGS: Mean SUV mediastinum: 1.03 Mean SUV liver: 1.57 SKULL BASE AND NECK: No suspicious hypermetabolic lymph nodes or masses. CHEST, MEDIASTINUM, AND HILAR REGION: Mild underlying emphysematous change with areas of mosaic atten uation seen bilaterally redemonstrated. Some anterior focal atelectasis or consolidation left lung ba se axial image 104 is noted. No abnormal hypermetabolic lymph nodes or masses identified. ABDOMEN AND PELVIS: Marked splenomegaly occupying majority of the left abdomen is redemonstrated. Mil d diffuse hypermetabolic uptake. Mean SUV is 2.28. No suspicious increased abnormal focal hypermetabo lic uptake. Liver is normal in size without suspicious focal increased hypermetabolic uptake. No defi nitive abnormal hypermetabolic enlarged lymph nodes identified in the abdomen or pelvis OSSEOUS STRUCTURES: No focal abnormal hypermetabolic uptake. OTHER CT: Mild to moderate mucosal thickening involving the moderate and maxillary sinuses bilaterall y is present. Rim calcified gallstones in the gallbladder. Uterus surgically absent. IMPRESSION: Marked splenomegaly with local mass effect redemonstrated. Mild diffuse hypermetabolic up take. No hypermetabolic adenopathy or suspicious masses above or below the diaphragm.
== END | disposition home or self-care (01) ==
LOC: RADPETMAIN 12:10
PROVIDERS: ATTEND Internal Medicine Hematology & Oncology
DX: C85.17 Unspecified B-cell lymphoma, spleen (principal); R16.1 Splenomegaly, not elsewhere classified
CPT/HCPCS: 78815; A9552

== ENCOUNTER 2022-02-25 10:11 | Inpatient (IN) | payer MEDICARE ==
[2022-02-25] MEDS ORDERED: IPRATROPIUM-ALBUTEROL 3 ML NEB INHALATION STA (10:46)
[2022-02-25] MEDS ORDERED: MAGNESIUM SULFATE-D5W PMX 1 GM in DEXTROSE/WATER 1 100ML.BAG IVPB ONE (10:46)
[2022-02-25] MEDS ORDERED: methylPREDNISolone SOD SUCCI 125 MG/2 ML VIAL IV STA (10:47)
[2022-02-25 11:20] LABS: Anisocytosis Slight; HCT 30.9 % (34.0-46.0); HGB 9.5 gm/dL (11.4-16.0); Hypochromasia Moderate; MCH 28.1 pg (25.0-35.0); MCHC 30.8 g/dL (31.0-37.0); MCV 91.2 fL (80.0-100.0); RBC 3.39 m/uL (3.80-5.40); RDW 16.2 % (11.5-15.5); WBC 1.9 k/uL (3.8-10.6)
[2022-02-25 11:30] LABS: Partial Thromboplastin Time 23.4 sec (22.0-30.0); Prothrombin Time 11.3 sec (9.0-12.0)
[2022-02-25 11:31] LABS: Albumin 3.3 g/dL (3.5-5.0); Calcium 7.8 mg/dL (8.4-10.2); Potassium 3.5 mmol/L (3.5-5.1); Total Protein 5.8 g/dL (6.3-8.2)
--- NOTE | 2022-02-25 11:34 | XR ---
EXAMINATION TYPE: XR chest 2V DATE OF EXAM: 02/25/2022 COMPARISON: 10/26/2021 HISTORY: Shortness of breath TECHNIQUE: Frontal and lateral views of the chest are obtained. FINDINGS: There has been interval development of small focal partially consolidative opacities in th e right mid and lower lung with marked interval increase in the interstitial markings in the right. F indings are most consistent with an acute pneumonic process. The heart size is normal. The left lung is clear. There is no pleural effusion or pneumothorax. The osseous structures are intact. IMPRESSION: Increased interstitial and airspace infiltrates in the right mid and lower lung zone most consistent with an acute pneumonic process.
[2022-02-25 11:55] LABS: Platelet Count 56 k/uL (150-450)
[2022-02-25 12:21] LABS: Basophils # (M) 0.02 k/uL (0-0.2); Lymphocytes # (M) 0.29 k/uL (1.0-4.8); Monocytes # (M) 0.06 k/uL (0-1.0); Neutrophils # (M) 1.54 k/uL (1.3-7.7); Neutrophils % (M) 81 %; Nucleated Red Blood Cells 0 /100 WBC (0-0); Total Cells Counted 100
[2022-02-25 12:22] LABS: Poikilocytosis (M) Present
[2022-02-25] MEDS ORDERED: CEFEPIME 2 GM in SODIUM CHLORIDE 0.9% 100 ML IVPB STA (12:39)
[2022-02-25] MEDS ORDERED: AZITHROMYCIN 500 MG in SODIUM CHLORIDE 0.9% 250 ML IVPB STA (12:39)
[2022-02-25] MEDS ORDERED: PNEUMONIA PROTOCOL UTILIZED 1 EACH MISC PO PRN (12:39)
[2022-02-25] MEDS ORDERED: NALOXONE 0.4 MG/ML 1 ML VIAL IV PRN (13:10)
--- NOTE | 2022-02-25 13:10 | ED ---
General Adult HPI - General Chief complaint: Shortness of Breath Stated complaint: CLAIRE Time Seen by Provider: 02/25/22 10:25 Source: patient, family, EMS, RN notes reviewed, old records reviewed Mode of arrival: EMS Limitations: no limitations - History of Present Illness Initial comments: Patient is a 77-year-old female with past medical history remarkable for asthma, splenic mass currently being worked up by hematology, oncology presents over concern for worsening infectious symptoms since . Over the last few days it has been acutely worse. Is having a productive cough of greenish yellow mucus. A short of breath. Was found to be hypoxic on room air to 86%. Improved on 6 L nasal cannula. No respiratory distress. Denies any nausea, vomiting. She was not vaccinated for Covid or flu. Denies chest pain. Denies abdominal pain. Denies lower extremity swelling. Endorses chronic abdominal distention secondary to the mass in her spleen which is unchanged. No chemo or radiation. Presents for further evaluation she believes she has never respiratory infection. Was hospitalized within the last 90 days. - Related Data Home Medications Medication Instructions Recorded Confirmed Acetaminophen Tab [Tylenol Tab] 500 mg PO Q6H PRN 01/26/22 02/25/22 Allergies Allergy/AdvReac Type Severity Reaction Status Date / Time Penicillins Allergy Rash/Hives Verified 02/25/22 12:43 Sulfa (Sulfonamide Allergy Rash/Hives Verified 02/25/22 12:43 Antibiotics) Review of Systems ROS Statement: Those systems with pertinent positive or pertinent negative responses have been documented in the HPI. Review of Systems: CONST: Denies fever EYES: Denies blurry vision ENT: Endorses nasal congestion C/V: Denies Chest pain RESP: Endorses shortness breath GI: Denies abdominal pain : Denies dysuria SKIN: Denies rash. MSK: Denies joint pain. NEURO: Denies headache ROS Other: All systems not noted in ROS Statement are negative. Past Medical History Past Medical History: No Reported History Additional Past Medical History / Comment(s): having abdominal and back pain,low platelets, increased fatigue,hx TIAs-no residual History of Any Multi-Drug Resistant Organisms: None Reported Past Surgical History: Section, Hysterectomy Additional Past Surgical History / Comment(s): 3 c sections Past Anesthesia/Blood Transfusion Reactions: No Reported Reaction Past Psychological History: No Psychological Hx Reported Smoking Status: Never smoker Past Alcohol Use History: None Reported Past Drug Use History: None Reported - Past Family History Son(s) Family Medical History: Diabetes Mellitus Additional Family Medical History / Comment(s): kidney recipient General Exam - General Exam Comments Initial Comments: General: Appears in no acute distress. HEAD: Normal with no signs of head trauma. EYES: PERRLA, EOMI, conjunctiva normal, no discharge. ENT: Hearing grossly intact, normal oropharynx. RESPIRATORY: Clear breath sounds bilaterally. No wheezes, rales, or rhonchi. No respiratory distress. Mildly hypoxic on room air improved with oxygen. C/V: Regular rate and rhythm. S1 and S2 auscultated, no edema, peripheral pulses 2+ and intact throughout ABD: Abd is soft, nontender, nondistended EXT: Normal range of motion, no obvious deformity SKIN: No rashes or lesions observed on exposed skin. NEURO: Alert and oriented 4. Limitations: no limitations Course Vital Signs 02/25/22 02/25/22 02/25/22 10:12 10:17 10:21 Temperature 99.4 F Pulse Rate 109 H 107 H Respiratory 18 18 18 Rate Blood Pressure 144/69 136/78 O2 Sat by Pulse 86 L 95 Oximetry 02/25/22 02/25/22 02/25/22 11:02 11:13 11:45 Temperature Pulse Rate 100 101 H 102 H Respiratory 22 Rate Blood Pressure 117/73 O2 Sat by Pulse 92 L Oximetry 02/25/22 13:39 Temperature Pulse Rate 94 Respiratory Rate Blood Pressure O2 Sat by Pulse Oximetry Medical Decision Making - Medical Decision Making This on the patient's presentation and physical exam, I'm concerned for acute upper respiratory infectious etiology for her current symptoms. We will obtain cardiac labs as well as generalized laboratory studies. Covid and flu swabs will be obtained. EKG and chest x-ray will be obtained. She has a mild asthma exacerbation will be started on IV steroids as well as breathing treatments. She was in agreement this plan. EKG showed no signs of acute ischemia. Chest x-ray revealed right mid and lower lobe pneumonia. There are trace studies are remarkable for a mild leukopenia of 1.9. Patient has a normocytic anemia with a hemoglobin of 9.5. Platelet count is low at 56, which has been chronic for the patient. Troponin is undetected. BNP is mildly elevated at 2000. Covid and flu are negative. After the patient that she has a right-sided pneumonia. She'll be started on antibiotics, cefepime as well as azithromycin per our pneumonia admission criteria having been admitted within the last 90 days with a penicillin ALLERGY. They were in agreement this plan. We will continue treating her asthma with steroids as well as breathing treatments. Wheezing has improved at this time. She'll be admitted to the hospital. She is still on nasal cannula oxygen. The vital signs are within normal limits. I spoke with the admitting team, Dr. Kamara who accepted the patient. Patient was admitted in stable condition. I consulted her oncologist Dr. Britt for evaluation while she is here. - Lab Data Result diagrams: 02/25/22 10:39 02/25/22 10:39 Lab Results 02/25/22 02/25/22 02/25/22 Range/Units 10:39 10:39 10:39 WBC 1.9 L (3.8-10.6) k/uL RBC 3.39 L (3.80-5.40) m/uL Hgb 9.5 L (11.4-16.0) gm/dL Hct 30.9 L (34.0-46.0) % MCV 91.2 (80.0-100.0) fL MCH 28.1 (25.0-35.0) pg MCHC 30.8 L (31.0-37.0) g/dL RDW 16.2 H (11.5-15.5) % Plt Count 56 L (150-450) k/uL MPV 9.0 Neutrophils % (Manual) 81 % Lymphocytes % (Manual) 15 % Monocytes % (Manual) 3 % Basophils % (Manual) 1 % Neutrophils # (Manual) 1.54 (1.3-7.7) k/uL Lymphocytes # (Manual) 0.29 L (1.0-4.8) k/uL Monocytes # (Manual) 0.06 (0-1.0) k/uL Basophils # (Manual) 0.02 (0-0.2) k/uL Nucleated RBCs 0 (0-0) /100 WBC Manual Slide Review Performed Hypochromasia Moderate Poikilocytosis (manual Present Anisocytosis Slight PT 11.3 (9.0-12.0) sec INR 1.0 (<1.2) APTT 23.4 (22.0-30.0) sec Sodium 135 L (137-145) mmol/L Potassium 3.5 (3.5-5.1) mmol/L Chloride 103 (98-107) mmol/L Carbon Dioxide 23 (22-30) mmol/L Anion Gap 9 mmol/L BUN 10 (7-17) mg/dL Creatinine 1.05 H (0.52-1.04) mg/dL Est GFR (CKD-EPI)AfAm 58 (>60 ml/min/1.73 sqM) Est GFR (CKD-EPI)NonAf 51 (>60 ml/min/1.73 sqM) Glucose 111 H (74-99) mg/dL Plasma Lactic Acid Black (0.7-2.0) mmol/L Calcium 7.8 L (8.4-10.2) mg/dL Total Bilirubin 1.0 (0.2-1.3) mg/dL AST 25 (14-36) U/L ALT 8 (4-34) U/L Alkaline Phosphatase 69 (38-126) U/L Troponin I (0.000-0.034) ng/mL NT-Pro-B Natriuret Pep pg/mL Total Protein 5.8 L (6.3-8.2) g/dL Albumin 3.3 L (3.5-5.0) g/dL Coronavirus (PCR) (Not Detectd) Influenza Type A RNA (Not Detectd) Influenza Type B (PCR) (Not Detectd) 02/25/22 02/25/22 02/25/22 Range/Units 10:39 10:39 10:39 WBC (3.8-10.6) k/uL RBC (3.80-5.40) m/uL Hgb (11.4-16.0) gm/dL Hct (34.0-46.0) % MCV (80.0-100.0) fL MCH (25.0-35.0) pg MCHC (31.0-37.0) g/dL RDW (11.5-15.5) % Plt Count (150-450) k/uL MPV Neutrophils % (Manual) % Lymphocytes % (Manual) % Monocytes % (Manual) % Basophils % (Manual) % Neutrophils # (Manual) (1.3-7.7) k/uL Lymphocytes # (Manual) (1.0-4.8) k/uL Monocytes # (Manual) (0-1.0) k/uL Basophils # (Manual) (0-0.2) k/uL Nucleated RBCs (0-0) /100 WBC Manual Slide Review Hypochromasia Poikilocytosis (manual Anisocytosis PT (9.0-12.0) sec INR (<1.2) APTT (22.0-30.0) sec Sodium (137-145) mmol/L Potassium (3.5-5.1) mmol/L Chloride (98-107) mmol/L Carbon Dioxide (22-30) mmol/L Anion Gap mmol/L BUN (7-17) mg/dL Creatinine (0.52-1.04) mg/dL Est GFR (CKD-EPI)AfAm (>60 ml/min/1.73 sqM) Est GFR (CKD-EPI)NonAf (>60 ml/min/1.73 sqM) Glucose (74-99) mg/dL Plasma Lactic Acid Black 1.3 (0.7-2.0) mmol/L Calcium (8.4-10.2) mg/dL Total Bilirubin (0.2-1.3) mg/dL AST (14-36) U/L ALT (4-34) U/L Alkaline Phosphatase (38-126) U/L Troponin I <0.012 (0.000-0.034) ng/mL NT-Pro-B Natriuret Pep 2040 pg/mL Total Protein (6.3-8.2) g/dL Albumin (3.5-5.0) g/dL Coronavirus (PCR) (Not Detectd) Influenza Type A RNA (Not Detectd) Influenza Type B (PCR) (Not Detectd) 02/25/22 02/25/22 Range/Units 11:26 11:26 WBC (3.8-10.6) k/uL RBC (3.80-5.40) m/uL Hgb (11.4-16.0) gm/dL Hct (34.0-46.0) % MCV (80.0-100.0) fL MCH (25.0-35.0) pg MCHC (31.0-37.0) g/dL RDW (11.5-15.5) % Plt Count (150-450) k/uL MPV Neutrophils % (Manual) % Lymphocytes % (Manual) % Monocytes % (Manual) % Basophils % (Manual) % Neutrophils # (Manual) (1.3-7.7) k/uL Lymphocytes # (Manual) (1.0-4.8) k/uL Monocytes # (Manual) (0-1.0) k/uL Basophils # (Manual) (0-0.2) k/uL Nucleated RBCs (0-0) /100 WBC Manual Slide Review Hypochromasia Poikilocytosis (manual Anisocytosis PT (9.0-12.0) sec INR (<1.2) APTT (22.0-30.0) sec Sodium (137-145) mmol/L Potassium (3.5-5.1) mmol/L Chloride (98-107) mmol/L Carbon Dioxide (22-30) mmol/L Anion Gap mmol/L BUN (7-17) mg/dL Creatinine (0.52-1.04) mg/dL Est GFR (CKD-EPI)AfAm (>60 ml/min/1.73 sqM) Est GFR (CKD-EPI)NonAf (>60 ml/min/1.73 sqM) Glucose (74-99) mg/dL Plasma Lactic Acid Black (0.7-2.0) mmol/L Calcium (8.4-10.2) mg/dL Total Bilirubin (0.2-1.3) mg/dL AST (14-36) U/L ALT (4-34) U/L Alkaline Phosphatase (38-126) U/L Troponin I (0.000-0.034) ng/mL NT-Pro-B Natriuret Pep pg/mL Total Protein (6.3-8.2) g/dL Albumin (3.5-5.0) g/dL Coronavirus (PCR) Not Detected (Not Detectd) Influenza Type A RNA Not Detected (Not Detectd) Influenza Type B (PCR) Not Detected (Not Detectd) - EKG Data -: EKG Interpreted by Me EKG Comments: 12-lead Electrocardiogram Interpretation Note EKG was reviewed and interpreted by myself. 12-lead ECG performed at 1034 is interpreted by me as revealing sinus tachycardia at a rate of 100 beats per minute. Ferris is normal. OH interval is 145 ms, QRS duration is 90 ms, QTc is 421 ms.. There were no ST or T wave abnormalities to suggest myocardial ischemia or injury. R wave progression across the precordium was satisfactory. By my interpretation this EKG is non-diagnostic for acute ischemia. Disposition Clinical Impression: CAP (community acquired pneumonia), Acute respiratory failure with hypoxia, History of spleen cancer, History of anemia, History of thrombocytopenia Disposition: ADMITTED IP TO THIS HOSP Condition: Stable Time of Disposition: 12:45
[2022-02-25] MEDS: IPRATROPIUM-ALBUTEROL 3 ML NEB INHALATION SCH ×3 (13:38→19:57)
[2022-02-25 16:21] LABS: Glucose,Whole Blood 215 mg/dL (75-99)
[2022-02-25] MEDS: INSULIN ASPART (NovoLOG) 100 UNIT/ML VIAL SQ SCH ×2 (16:48→20:59)
[2022-02-25 17:55] LABS: Appearance,Urine Clear (Clear); Bilirubin,Urine Negative (Negative); Blood,Urine Negative (Negative); Color,Urine Light Yellow; Glucose,Urine (UA) Negative (Negative); Ketones,Urine Negative (Negative); Leukocyte Esterase,Urine Negative (Negative); Nitrite,Urine Negative (Negative); PH, Urine 5.5 (5.0-8.0); Protein,Urine Trace (Negative); Specific Gravity,Urine 1.007 (1.001-1.035); Urobilinogen,Urine <2.0 mg/dL (<2.0)
[2022-02-25] MEDS ORDERED: methylPREDNISolone SOD SUCCI 40 MG/ML 1 ML VIAL IV SCH (18:00)
--- NOTE | 2022-02-25 18:42 | CT ---
EXAMINATION TYPE: CT angio chest DATE OF EXAM: 02/25/2022 COMPARISON: CT scan 02/18/2022 HISTORY: elevated d-dimer CT DLP: 183.2 mGycm Automated exposure control for dose reduction was used. CONTRAST: Performed with IV Contrast, patient injected with 80cc mL of Isovue 370. There are Three-D postprocessed images. There are multiple enlarged mediastinal lymph nodes that measure up to 3 cm. There are enlarged bronc hial lymph nodes up to 1.5 cm. Thoracic aorta is intact. No aneurysm or dissection. Ascending aorta m easures 3 cm. There is no evidence of filling defect in the pulmonary arteries. There is some coarse reticular nodular interstitial type infiltrate throughout both lungs. Heart size is fairly normal. No pericardial effusion. The thoracic spine is intact. Sternum is intact. There is massive splenomegaly. In the axial images s pleen measures 19 cm. There are calcified gallstones. IMPRESSION: No evidence of pulmonary embolism. Mediastinal adenopathy which is increased compared to recent exam. Extensive lung disease appears new compared to the old exam. Massive splenomegaly unchanged.
--- NOTE | 2022-02-25 19:51 | HP ---
HISTORY AND PHYSICAL DATE OF SERVICE: 02/25/2022 CHIEF COMPLAINT: Shortness of breath. HISTORY OF PRESENT ILLNESS: This 77-year-old woman with a past medical history of splenic mass, lymphoma and asthma, being followed by Dr. Britt in the outpatient setting, was not feeling well over the past several weeks. The patient apparently had outpatient antibiotic and with lack of improvement the patient came to [facility] and was admitted for further evaluation and treatment. Evaluation in the ER, including a chest x-ray which was reviewed personally by me, showed significant evidence of infiltrates in the right middle lobe zones with consistent acute pneumonia. Patient was started on IV antibiotics. The influenza and COVID-19 were negative, but please note that the patient has not taken either the influenza vaccination or COVID vaccination. D-dimer is also elevated. There is no history of any fever, rigors or chills. No history of headache, loss of consciousness, seizures. PAST MEDICAL HISTORY: History of lymphoma, history of asthma. HOME MEDICATIONS: Reviewed. They include Tylenol. ALLERGIES: PENICILLIN. FAMILY HISTORY: History of diabetes mellitus, kidney transplantation. SOCIAL HISTORY: No history of smoking. REVIEW OF SYSTEMS: Fourteen-point review of systems negative except as mentioned earlier. PHYSICAL EXAMINATION: Pulse is 100, blood pressure 114/86, respirations 20, pulse ox 92% on 4 L. HEENT: Conjunctivae normal. NECK: No jugular venous distention. CARDIOVASCULAR: S1, S2 muffled. RESPIRATION: Breath sounds diminished at the bases. A few scattered rhonchi and crackles. ABDOMEN: Soft, nontender. Huge splenomegaly present. LEGS: No edema. No swelling. NERVOUS SYSTEM: Higher functions as mentioned earlier. Cranial nerves normal. No focal deficit. SKIN: No ulcer, rash, bleeding. JOINTS: No active deforming arthropathy. LABS: Reviewed. WBC 1.9, hemoglobin 9.5. ASSESSMENT: 1. Acute right-sided pneumonia with failure of outpatient treatment. 2. History of lymphoma and splenomegaly. 3. Elevated D-dimer. 4. History of asthma. 5. Asthma, acute exacerbation. RECOMMENDATIONS AND DISCUSSION: In this 77-year-old woman who presented with multiple complex medical issues, we will monitor the patient closely. I would recommend intensive bronchodilators and IV steroids. I would also recommend continuing the antibiotics. Obtain cultures. COVID- 19 is negative. Recommend RSV also. Flu is also negative. Overall prognosis is guarded because of multiple complex medical issues in this possibly immunosuppressed individual. Further recommendations to follow. MMODL / IJN: [id number] /
[2022-02-25] MEDS: SYMBICORT 160-4.5 MCG INHALER INHALATION SCH (19:57)
[2022-02-25] MEDS ORDERED: IPRATROPIUM-ALBUTEROL 3 ML NEB INHALATION PRN (20:08)
[2022-02-25 20:15] LABS: Glucose,Whole Blood 178 mg/dL (75-99)
[2022-02-25] MEDS: HEPARIN SODIUM,PORCINE/PF 5,000 UNIT/0.5 ML SYRINGE SQ SCH (20:59)
--- NOTE | 2022-02-25 21:32 | US ---
EXAMINATION TYPE: US venous doppler duplex LE DATE OF EXAM: 02/25/2022 9:23 PM COMPARISON: NONE CLINICAL HISTORY: dvt. Elevated D Dimer. SIDE PERFORMED: Bilateral TECHNIQUE: The lower extremity deep venous system is examined utilizing real time linear array sonog ora with graded compression, doppler sonography and color-flow sonography. VESSELS IMAGED: Common Femoral Vein Deep Femoral Vein Greater Saphenous Vein * Femoral Vein Popliteal Vein Small Saphenous Vein * Proximal Calf Veins (* superficial vessels) Right Leg: Duplicate femoral vein noted. Color flow seen in all veins imaged. CFV appears to mamadou s incompletely-possible chronic internal echoes along wall. Hypoechoic area with hyperechoic center seen right groin: 1.4 x 1.6 x 0.4 cm. Left Leg: Color flow seen in all veins imaged. CFV appears to compress incompletely-possible chronic internal echoes along wall. IMPRESSION: There is evidence for some bilateral mild chronic deep vein thrombosis in the femoral ve ins. No evidence of acute deep vein thrombosis.
[2022-02-25] MEDS: guaiFENesin-DM 100-10MG/5ML 10 ML CUP PO PRN (23:03)
[2022-02-25] MEDS: methylPREDNISolone SOD SUCCI 125 MG/2 ML VIAL IV SCH (23:08)
[2022-02-25] MEDS: CEFEPIME 2 GM in SODIUM CHLORIDE 0.9% 100 ML IVPB SCH (23:08)
--- NOTE | 2022-02-26 00:56 | P.CONS ---
History of Present Illness - Reason for Consult Consult date: 02/25/22 Splenomegaly, pancytopenia, B-cell lymphoma - History of Present Illness The patient is 77-year-old white female, well known to our service. She follows with Dr. Britt in the outpatient setting. The patient was referred because of decreased blood counts, especially low platelets. On further evaluation with imaging, she was found to have splenomegaly. Patient's lab workup was essentially negative. She underwent bone marrow aspiration biopsy on 01/30/22 which showed 15-20% involvement with a B-cell lymphoma. However this could not be further classified. The patient was therefore referred to Dr. Painting, [facility], [place] for opinion re treatment. A PET scan was recommended, that was performed this prior to this admission. This showed some diffuse nonspecific uptake throughout the markedly a large spleen, but no other sites of involvement. The patient presented to the ER, and she had developed a cough about 2 weeks ago, that had been persistently worsening since then. It was associated with expectoration of greenish sputum. Patient was also having slowly progressive shortness of breath. In the emergency room. Noted to have evidence of right middle and lower lobe infiltrate consistent with pneumonia. Patient was also complaining of progressive nausea and weakness. She was therefore admitted for further management. Patient was again found to have pancytopenia, which is within her usual baseline Review of Systems Constitutional: Reports fatigue, Reports poor appetite, Reports weight loss Eyes: denies blurred vision, denies pain Ears: deny: decreased hearing, ear discharge, earache, tinnitus Ears, nose, mouth and throat: Denies headache, Denies sore throat Cardiovascular: Reports decreased exercise tolerance Respiratory: Reports cough with sputum, Reports dyspnea, Denies cough Gastrointestinal: Reports abdominal pain, Reports dyspepsia, Reports early satiety, Reports nausea, Reports vomiting Menstruation: Reports postmenopausal Musculoskeletal: Reports muscle weakness Integumentary: Denies pruritus, Denies rash Neurological: Reports weakness Psychiatric: Denies anxiety, Denies depression Endocrine: Reports weight change Hematologic/Lymphatic: Reports as per HPI Past Medical History Past Medical History: No Reported History Additional Past Medical History / Comment(s): having abdominal and back pain,low platelets, increased fatigue,hx TIAs-no residual, splenomegaly, bone marrow positive for lymphoma. History of Any Multi-Drug Resistant Organisms: None Reported Past Surgical History: Section, Hysterectomy Additional Past Surgical History / Comment(s): 3 c sections Past Anesthesia/Blood Transfusion Reactions: No Reported Reaction Past Psychological History: No Psychological Hx Reported Smoking Status: Never smoker Past Alcohol Use History: None Reported Past Drug Use History: None Reported - Past Family History Son(s) Family Medical History: Diabetes Mellitus Additional Family Medical History / Comment(s): kidney recipient Medications and Allergies Home Medications Medication Instructions Recorded Confirmed Type Acetaminophen Tab [Tylenol Tab] 500 mg PO Q6H PRN 01/26/22 02/25/22 History Allergies Allergy/AdvReac Type Severity Reaction Status Date / Time Penicillins Allergy Rash/Hives Verified 02/25/22 12:43 Sulfa (Sulfonamide Allergy Rash/Hives Verified 02/25/22 12:43 Antibiotics) Physical Exam Vitals: Vital Signs Temp Pulse Pulse Resp BP BP Pulse Ox 02/25/22 15:32 95 02/25/22 15:24 94 90 L 02/25/22 14:45 97.4 F L 100 114/66 92 L 02/25/22 13:48 95 02/25/22 13:39 94 02/25/22 11:45 102 H 22 117/73 92 L 02/25/22 11:13 101 H 02/25/22 11:02 100 02/25/22 10:21 107 H 18 136/78 95 02/25/22 10:17 18 02/25/22 10:12 99.4 F 109 H 18 144/69 86 L Intake and Output 02/25/22 02/25/22 02/25/22 06:59 14:59 22:59 Other: # Voids 1 Weight 49.895 kg - Constitutional General appearance: no acute distress, thin - EENT Eyes: EOMI ENT: hearing grossly normal, normal oropharynx - Neck Neck: no lymphadenopathy Thyroid: bilateral: normal size - Respiratory Respiratory: right: rales, left: diminished, bilateral: wheezing - Cardiovascular Rhythm: regular Heart sounds: normal: S1, S2 - Gastrointestinal General gastrointestinal: normal bowel sounds, soft, splenomegaly (extending into distal LLQ) - Integumentary Integumentary: normal - Neurologic Neurologic: CNII-XII intact - Musculoskeletal Musculoskeletal: generalized weakness, strength equal bilaterally - Psychiatric Psychiatric: A&O x's 3, appropriate affect Results CBC & Chem 7: 02/25/22 10:39 02/25/22 10:39 Labs: Abnormal Lab Results - Last 24 Hours (Table) 02/25/22 02/25/22 02/25/22 Range/Units 04:30 04:30 10:39 WBC 1.9 L (3.8-10.6) k/uL RBC 3.39 L (3.80-5.40) m/uL Hgb 9.5 L (11.4-16.0) gm/dL Hct 30.9 L (34.0-46.0) % MCHC 30.8 L (31.0-37.0) g/dL RDW 16.2 H (11.5-15.5) % Plt Count 56 L (150-450) k/uL Lymphocytes # (Manual) 0.29 L (1.0-4.8) k/uL D-Dimer 1.57 H (<0.60) mg/L FEU Sodium (137-145) mmol/L Creatinine (0.52-1.04) mg/dL Glucose (74-99) mg/dL POC Glucose (mg/dL) (75-99) mg/dL Calcium (8.4-10.2) mg/dL C-Reactive Protein 2.3 H (<1.0) mg/dL Total Protein (6.3-8.2) g/dL Albumin (3.5-5.0) g/dL 02/25/22 02/25/22 Range/Units 10:39 16:19 WBC (3.8-10.6) k/uL RBC (3.80-5.40) m/uL Hgb (11.4-16.0) gm/dL Hct (34.0-46.0) % MCHC (31.0-37.0) g/dL RDW (11.5-15.5) % Plt Count (150-450) k/uL Lymphocytes # (Manual) (1.0-4.8) k/uL D-Dimer (<0.60) mg/L FEU Sodium 135 L (137-145) mmol/L Creatinine 1.05 H (0.52-1.04) mg/dL Glucose 111 H (74-99) mg/dL POC Glucose (mg/dL) 215 H (75-99) mg/dL Calcium 7.8 L (8.4-10.2) mg/dL C-Reactive Protein (<1.0) mg/dL Total Protein 5.8 L (6.3-8.2) g/dL Albumin 3.3 L (3.5-5.0) g/dL Comments: PET scan report reviewed Chest x-ray: report reviewed CT scan - chest: report reviewed Assessment and Plan (1) CAP (community acquired pneumonia) Narrative/Plan: The pt is on treatment per the admitting service, with partial improvement. COVID and flu were negative - Defer to admitting service for treatment - Check Ig levels. If low, plan IVIg if pt's response is not optimal Current Visit: Yes Status: Acute Code(s): J18.9 - PNEUMONIA, UNSPECIFIED ORGANISM SNOMED Code(s): 398652191 (2) Splenomegaly Narrative/Plan: Known, stable symptoms. Due to B cell lymphoma. No acute intervention planned Current Visit: No Status: Acute Code(s): R16.1 - SPLENOMEGALY, NOT ELSEWHERE CLASSIFIED SNOMED Code(s): 60777659 (3) B-cell lymphoma Narrative/Plan: Recent diagnosis. The pt is also being seen at [facility] for opinion re treatment, as the lymphoma has not been able to be exactly classified. The PET scan results were discussed with the pt. F/U with Dr Painting and Vasu after d/c Current Visit: Yes Status: Acute Code(s): C85.10 - UNSPECIFIED B-CELL LYMPHOMA, UNSPECIFIED SITE SNOMED Code(s): 255127777 (4) Pancytopenia Narrative/Plan: Most likely due to splenic sequestration, as bone marrow involvement was not very heavy. Counts are stable in the same range as in the office. Follow with m onitoring as all counts are in a safe range ( ANC > 1000, plt > 50, Hgb > 7) Current Visit: Yes Status: Acute Code(s): D61.818 - OTHER PANCYTOPENIA SNOMED Code(s): 318810071
[2022-02-26] MEDS: methylPREDNISolone SOD SUCCI 125 MG/2 ML VIAL IV SCH ×3 (06:24→17:01)
--- NOTE | 2022-02-26 06:56 | XR ---
EXAMINATION TYPE: XR chest 2V DATE OF EXAM: 02/26/2022 COMPARISON: 02/25/2022 HISTORY: Pneumonia TECHNIQUE: Frontal and lateral views of the chest are obtained. FINDINGS: Diffuse mild to moderate interstitial opacity and a few scattered small partially consolid ative airspace opacities in the right mid and lower lung unchanged compared to previous. The heart size normal. There is no pleural effusion or pneumothorax. There is prominence of the right hilum which possibly reflects hilar adenopathy which is unchanged. The osseous structures are intact IMPRESSION: 1. No change in the bilateral lung infiltrates. 2. No change in the right hilar prominence possibly indicating right hilar adenopathy.
[2022-02-26 07:12] LABS: Glucose,Whole Blood 141 mg/dL (75-99)
[2022-02-26] MEDS: INSULIN ASPART (NovoLOG) 100 UNIT/ML VIAL SQ SCH ×4 (07:24→20:59)
[2022-02-26] MEDS: HEPARIN SODIUM,PORCINE/PF 5,000 UNIT/0.5 ML SYRINGE SQ SCH (07:26)
[2022-02-26] MEDS: AZITHROMYCIN 500 MG in SODIUM CHLORIDE 0.9% 250 ML IVPB SCH (08:42)
[2022-02-26] MEDS: IPRATROPIUM-ALBUTEROL 3 ML NEB INHALATION SCH ×4 (08:52→20:47)
[2022-02-26] MEDS: SYMBICORT 160-4.5 MCG INHALER INHALATION SCH ×2 (08:52→20:47)
[2022-02-26 09:18] LABS: African American GFR (CKD) 70.5 (60.0-200.0); Albumin 3.4 g/dL (3.8-4.9); Albumin/Globulin Ratio 1.7 (1.60-3.17); Anion Gap 10.4 mmol/L (10.00-18.00); BUN/Creat Ratio 15.44 Ratio (12.00-20.00); Blood Urea Nitrogen 13.9 mg/dL (9.0-27.0); Calcium 8.1 mg/dL (8.7-10.3); Carbon Dioxide 23.6 mmol/L (20.0-27.5); Non-African American GFR(CKD) 60.8 (60.0-200.0); Total Bilirubin 0.4 mg/dL (0.30-1.20); Total Protein 5.4 g/dL (6.2-8.2)
[2022-02-26 09:29] LABS: Immunoglobulin M <25.0 mg/dL (40.0-280.0)
[2022-02-26 10:05] LABS: Basophils # (A) 0 X 10*3/uL (0.00-0.10); Basophils % (A) 0 %; Eosinophils # (A) 0 X 10*3/uL (0.04-0.35); Eosinophils % (A) 0 %; HCT 25.4 % (37.2-46.3); HGB 7.6 g/dL (12.0-15.0); Immature Grans, Automated 1.3 %; Immature Platelet Fraction 6.1 % (1.1-6.1); Lymphocytes % (A) 25.5 %; MCH 27.4 pg (27.0-32.0); MCHC 29.9 g/dL (32.0-37.0); MCV 91.7 fL (80.0-97.0); Mean Platelet Volume 11.3 fL (9.5-12.2); Monocytes # (A) 0.06 X 10*3/uL (0.20-1.00); Monocytes % (A) 3.8 %; NRBC Per 100 WBC 0 /100 WBCS (0.0-0.0); Neutrophils # (A) 1.09 X 10*3/uL (1.80-7.70); Neutrophils % (A) 69.4 %; Platelet Count 45 X 10*3/uL (140-440); RBC 2.77 X 10*6/uL (4.10-5.20); RDW 17.3 % (11.5-14.5); WBC 1.57 X 10*3/uL (4.50-10.00)
[2022-02-26 11:18] LABS: Glucose,Whole Blood 135 mg/dL (75-99)
[2022-02-26] MEDS: CEFEPIME 2 GM in SODIUM CHLORIDE 0.9% 100 ML IVPB SCH (11:35)
--- NOTE | 2022-02-26 13:08 | P.CNPUL ---
History of Present Illness Consult date: 02/26/22 Requesting physician: Kevin Kamara Reason for consult: dyspnea, abnormal CXR/CT Chief complaint: Shortness of breath, cough, congestion History of present illness: This is a very pleasant 77-year-old female patient with a history of splenomegaly and pancytopenia with a recent diagnosis of non-Hodgkin's B-cell lymphoma via bone marrow biopsy on 01/30/2022 and has been seen by Dr. Britt. She has not received any treatment yet. She presented to the emergency room yesterday with complaints of increasing shortness of breath, cough and congestion. She was found to be hypoxemic at 86% on room air. No nausea vomiting or diarrhea. Positive for chills. Chest x-ray was positive for right lung pneumonia and she was admitted for the same. CT angiogram of the chest ruled out pulmonary embolism. There is noted mediastinal adenopathy which is increased compared to a recent exam of 02/18/2022. Extensive lung disease appears new compared to old exam. Massive splenomegaly unchanged. Dopplers of the lower extremity revealed some mild bilateral chronic DVT in the femoral veins but no acute DVTs. White count 1.57. Hemoglobin 7.6. Platelet count 45,000. Sodium 138. Potassium 4.0. BUN 14. Creatinine 0.9. Glucose 139. D- dimer 1.57. Coronavirus, influenza and RSV screens negative. Urinalysis negative. Today's chest x-ray continues to show diffuse mild to moderate interstitial opacity and a few scattered small partially consolidative airspace opacities in the right mid and lower lung hermosillo. No change in right hilar prominence possibly indicating a right hilar adenopathy. The patient is seen today in consultation on the regular medical floor. She is currently resting fairly comfortably in bed. Awake and alert. Her family is at the bedside. They state she does have some short-term memory issues. She is currently afebrile. Maintaining O2 saturations in the mid 90s on 4 L/m per nasal cannula. Hemodynamically stable. She been initiated on Symbicort, DuoNeb inhalations, IV Solu-Medrol. Antibiotics in the form of cefepime and azithromycin. Heparin for DVT prophylaxis. Review of Systems REVIEW OF SYSTEMS: CONSTITUTIONAL: Positive for 20 pound weight loss. EYES: Denies change in vision. EARS, NOSE, MOUTH, THROAT: Denies headaches, denies sore throat. CARDIOVASCULAR: Denies chest pain, palpitations or syncopal episodes. RESPIRATORY: Positive for shortness of breath, cough, congestion no hemoptysis. GASTROINTESTINAL: Positive for abdominal pain and bloating GENITOURINARY: Denies hematuria, denies infections. MUSKULOSKELETAL: Denies pain, denies swelling. INTEGUMENTARY: Denies rash, denies eczema. NEUROLOGICAL: Denies recent memory loss, no recent seizure activity. PSYCHIATRIC: Denies anxiety, denies depression. HEMATOLOGIC/LYMPHATIC: Positive for anemia and enlarged lymph nodes. Past Medical History Past Medical History: No Reported History Additional Past Medical History / Comment(s): having abdominal and back pain,low platelets, increased fatigue,hx TIAs-no residual, splenomegaly, bone marrow positive for lymphoma. History of Any Multi-Drug Resistant Organisms: None Reported Past Surgical History: Section, Hysterectomy Additional Past Surgical History / Comment(s): 3 c sections Past Anesthesia/Blood Transfusion Reactions: No Reported Reaction Past Psychological History: No Psychological Hx Reported Smoking Status: Never smoker Past Alcohol Use History: None Reported Past Drug Use History: None Reported - Past Family History Son(s) Family Medical History: Diabetes Mellitus Additional Family Medical History / Comment(s): kidney recipient Medications and Allergies Home Medications Medication Instructions Recorded Confirmed Type Acetaminophen Tab [Tylenol Tab] 500 mg PO Q6H PRN 01/26/22 02/25/22 History Allergies Allergy/AdvReac Type Severity Reaction Status Date / Time Penicillins Allergy Rash/Hives Verified 02/25/22 12:43 Sulfa (Sulfonamide Allergy Rash/Hives Verified 02/25/22 12:43 Antibiotics) Physical Exam Vitals: Vital Signs Temp Pulse Pulse Resp BP Pulse Ox 02/26/22 12:38 72 16 02/26/22 09:15 97.5 F L 78 17 116/71 96 02/26/22 09:05 78 18 02/26/22 08:52 75 16 95 02/26/22 01:45 97.5 F L 84 18 111/64 96 02/25/22 20:07 99 02/25/22 19:58 95 02/25/22 19:00 98.0 F 85 18 94/52 93 L 02/25/22 15:32 95 02/25/22 15:24 94 90 L 02/25/22 14:45 97.4 F L 100 114/66 92 L 02/25/22 13:48 95 02/25/22 13:39 94 Intake and Output 02/25/22 02/26/22 02/26/22 22:59 06:59 14:59 Other: Voiding Method Toilet # Voids 1 4 1 GENERAL EXAM: Alert, pleasant 77-year-old female patient, on 4 L nasal cannula, fairly comfortable in no apparent distress. HEAD: Normocephalic. EYES: Normal reaction of pupils, equal size. NOSE: Clear with pink turbinates. THROAT: No erythema or exudates. NECK: No masses, no JVD. CHEST: No chest wall deformity. LUNGS: Equal air entry with crackles, few scattered rhonchi of the right lung. CVS: S1 and S2 normal with no audible murmur, regular rhythm. ABDOMEN: Splenomegaly, normal bowel sounds, no guarding or rigidity. SPINE: No scoliosis or deformity SKIN: No rashes CENTRAL NERVOUS SYSTEM: No focal deficits, tone is normal in all 4 extremities. EXTREMITIES: There is trace peripheral edema. No clubbing, no cyanosis. Peripheral pulses are intact. Results - Laboratory Findings CBC and BMP: 02/26/22 05:26 02/26/22 05:26 PT/INR, D-dimer PT 11.3 sec (9.0-12.0) 02/25/22 10:39 INR 1.0 (<1.2) 02/25/22 10:39 D-Dimer 1.57 mg/L FEU (<0.60) H 02/25/22 04:30 Abnormal lab findings: Abnormal Labs 02/25/22 02/25/22 02/25/22 04:30 04:30 10:39 WBC 1.9 L RBC 3.39 L Hgb 9.5 L Hct 30.9 L MCHC 30.8 L RDW 16.2 H Plt Count 56 L Plt Count Comment Neutrophils # Lymphocytes # Lymphocytes # (Manual) 0.29 L Monocytes # Eosinophils # D-Dimer 1.57 H Sodium Creatinine Glucose POC Glucose (mg/dL) Calcium ALT C-Reactive Protein 2.3 H Total Protein Albumin Procalcitonin Urine Protein IgG IgA IgM 02/25/22 02/25/22 02/25/22 10:39 16:19 17:45 WBC RBC Hgb Hct MCHC RDW Plt Count Plt Count Comment Neutrophils # Lymphocytes # Lymphocytes # (Manual) Monocytes # Eosinophils # D-Dimer Sodium 135 L Creatinine 1.05 H Glucose 111 H POC Glucose (mg/dL) 215 H Calcium 7.8 L ALT C-Reactive Protein Total Protein 5.8 L Albumin 3.3 L Procalcitonin Urine Protein Trace H IgG IgA IgM 02/25/22 02/26/22 02/26/22 20:14 05:26 05:26 WBC 1.57 L RBC 2.77 L Hgb 7.6 L Hct 25.4 L MCHC 29.9 L RDW 17.3 H Plt Count 45 L Plt Count Comment A Neutrophils # 1.09 L Lymphocytes # 0.40 L Lymphocytes # (Manual) Monocytes # 0.06 L Eosinophils # 0 L D-Dimer Sodium Creatinine Glucose 139 H POC Glucose (mg/dL) 178 H Calcium 8.1 L ALT 7 L C-Reactive Protein Total Protein 5.4 L Albumin 3.4 L Procalcitonin Urine Protein IgG IgA IgM 02/26/22 02/26/22 02/26/22 05:26 05:26 07:10 WBC RBC Hgb Hct MCHC RDW Plt Count Plt Count Comment Neutrophils # Lymphocytes # Lymphocytes # (Manual) Monocytes # Eosinophils # D-Dimer Sodium Creatinine Glucose POC Glucose (mg/dL) 141 H Calcium ALT C-Reactive Protein Total Protein Albumin Procalcitonin 0.32 H Urine Protein IgG 621.0 L IgA 386.0 H IgM <25.0 L 02/26/22 11:17 WBC RBC Hgb Hct MCHC RDW Plt Count Plt Count Comment Neutrophils # Lymphocytes # Lymphocytes # (Manual) Monocytes # Eosinophils # D-Dimer Sodium Creatinine Glucose POC Glucose (mg/dL) 135 H Calcium ALT C-Reactive Protein Total Protein Albumin Procalcitonin Urine Protein IgG IgA IgM - Diagnostic Findings Chest x-ray: image reviewed CT scan - chest: image reviewed Assessment and Plan Assessment: 1 Acute hypoxemic respiratory failure secondary to an acute right lung pneumonia, community-acquired. Currently the various, influenza and RSV screens negative 2 Recent diagnosis of non-Hodgkin's B-cell lymphoma, positive bone marrow biopsy 01/30/2022, awaiting recommendations for treatment. 3 Weight loss of approximately 20 pounds secondary to above 4 Splenomegaly secondary to above 5 Pancytopenia secondary to above 6 Chronic bilateral DVTs in lower extremities, Dopplers revealed no acute DVT Plan: The patient was seen and evaluated Chest x-rays, CAT scan and labs reviewed Medications reviewed Continue bronchodilators, IV Solu-Medrol Continue antibiotics in the form of cefepime and azithromycin Pro-calcitonin 0.32 Titrate the FiO2 as tolerated Oncology consult We will continue to follow and make further recommendations based on her clinical status I have personally seen and examined the patient, performed the documentation and the assessment and plan as written. Number of minutes spent on the visit: 20 .
[2022-02-26 16:30] LABS: Glucose,Whole Blood 133 mg/dL (75-99)
[2022-02-26] MEDS: ENOXAPARIN 40 MG/0.4 ML SYRINGE SQ SCH (16:57)
--- NOTE | 2022-02-26 18:16 | PN ---
PROGRESS NOTE DATE OF SERVICE: 03/18/2022 This 77-year-old woman who was admitted with right-sided pneumonia has history of lymphoma also. The most recent chest x-ray showed some bilateral infiltrates, and some bilateral mild chronic DVTs in the femoral veins are noted. Dr. Black is following the patient closely. The patient is receiving bronchodilators and antibiotics at this time. Past medical history reviewed. REVIEW OF SYSTEMS: Fourteen-point review of systems negative except as mentioned earlier. CURRENT MEDICATIONS: Reviewed. They include DuoNeb. Doses and the rest of the medications noted. PHYSICAL EXAMINATION: Pulse is 78, blood pressure 116/74, respiration 17. HEENT: Oral mucosa moist. CARDIOVASCULAR: S1, S2 normal. RESPIRATORY SYSTEM: Bilateral scattered rhonchi and crackles. ABDOMEN: Soft. NERVOUS SYSTEM: No focal deficit. LABS: Hemoglobin 7.6. ASSESSMENT: 1. Acute right-sided pneumonia with failure of outpatient treatment. 2. History of lymphoma and splenomegaly. 3. Elevated D-dimer. 4. History of asthma. 5. Asthma, acute exacerbation. 6. Chronic deep vein thromboses in the lungs. RECOMMENDATIONS AND DISCUSSION: In this 77-year-old woman who presented with multiple complex medical issues, at this time I recommend to continue current medications, continue with bronchodilators, IV steroids. Continue with empiric antibiotics. Closely follow with Pulmonary as well as Hematology/Oncology. Guarded prognosis. Further recommendations to follow. MMODL / IJN: [id number] /
[2022-02-26 20:15] LABS: Glucose,Whole Blood 155 mg/dL (75-99)
[2022-02-26] MEDS: guaiFENesin-DM 100-10MG/5ML 10 ML CUP PO PRN (22:22)
[2022-02-27] MEDS: methylPREDNISolone SOD SUCCI 125 MG/2 ML VIAL IV SCH ×4 (00:25→17:16)
[2022-02-27] MEDS: CEFEPIME 2 GM in SODIUM CHLORIDE 0.9% 100 ML IVPB SCH ×2 (00:27→13:30)
[2022-02-27] MEDS ORDERED: VANCOMYCIN IV PER PHARMACY 1 EACH MISC MISCELLANE PRN (06:37)
[2022-02-27 06:57] LABS: Glucose,Whole Blood 126 mg/dL (75-99)
[2022-02-27] MEDS: INSULIN ASPART (NovoLOG) 100 UNIT/ML VIAL SQ SCH ×4 (07:01→20:57)
[2022-02-27] MEDS: AZITHROMYCIN 500 MG in SODIUM CHLORIDE 0.9% 250 ML IVPB SCH (07:44)
[2022-02-27] MEDS: ENOXAPARIN 40 MG/0.4 ML SYRINGE SQ SCH (07:44)
[2022-02-27] MEDS: IPRATROPIUM-ALBUTEROL 3 ML NEB INHALATION SCH ×4 (08:19→19:54)
[2022-02-27] MEDS: SYMBICORT 160-4.5 MCG INHALER INHALATION SCH ×2 (08:19→19:54)
[2022-02-27] MEDS: VANCOMYCIN 750 MG in SODIUM CHLORIDE 0.9% 250 ML IVPB SCH (09:55)
[2022-02-27 11:37] LABS: Anisocytosis Slight; Basophils % (A) 0 %; Eosinophils % (A) 0 %; HGB 8.7 gm/dL (11.4-16.0); Hypochromasia Marked; Lymphocytes # (A) 0.4 k/uL (1.0-4.8); Lymphocytes % (A) 9 %; MCH 28.8 pg (25.0-35.0); MCHC 31.1 g/dL (31.0-37.0); MCV 92.5 fL (80.0-100.0); Mean Platelet Volume 9.2; Monocytes # (A) 0.1 k/uL (0-1.0); Monocytes % (A) 2 %; Neutrophils # (A) 3.6 k/uL (1.3-7.7); Neutrophils % (A) 87 %; RBC 3.03 m/uL (3.80-5.40); RDW 16.6 % (11.5-15.5); WBC 4.2 k/uL (3.8-10.6)
[2022-02-27 11:39] LABS: Glucose,Whole Blood 159 mg/dL (75-99)
[2022-02-27 11:42] LABS: Platelet Count 66 k/uL (150-450)
[2022-02-27 11:57] LABS: African American GFR (CKD) 58 (>60 ml/min/1.73 sqM); Anion Gap 6 mmol/L; Blood Urea Nitrogen 18 mg/dL (7-17); Calcium 8.1 mg/dL (8.4-10.2); Carbon Dioxide 26 mmol/L (22-30); Chloride 105 mmol/L (98-107); Glucose 144 mg/dL (74-99); Non-African American GFR(CKD) 51 (>60 ml/min/1.73 sqM); Sodium 137 mmol/L (137-145)
--- NOTE | 2022-02-27 13:41 | P.PN ---
Subjective Progress Note Date: 02/27/22 Principal diagnosis: Shortness of breath This is a very pleasant 77-year-old female patient with a history of splenomegaly and pancytopenia with a recent diagnosis of non-Hodgkin's B-cell lymphoma via bone marrow biopsy on 01/30/2022 and has been seen by Dr. Britt. She has not received any treatment yet. She presented to the emergency room yesterday with complaints of increasing shortness of breath, cough and congestion. She was found to be hypoxemic at 86% on room air. No nausea vomiting or diarrhea. Positive for chills. Chest x-ray was positive for right lung pneumonia and she was admitted for the same. CT angiogram of the chest ruled out pulmonary embolism. There is noted mediastinal adenopathy which is increased compared to a recent exam of 02/18/2022. Extensive lung disease appears new compared to old exam. Massive splenomegaly unchanged. Dopplers of the lower extremity revealed some mild bilateral chronic DVT in the femoral veins but no acute DVTs. White count 1.57. Hemoglobin 7.6. Platelet count 45,000. Sodium 138. Potassium 4.0. BUN 14. Creatinine 0.9. Glucose 139. D- dimer 1.57. Coronavirus, influenza and RSV screens negative. Urinalysis negative. Today's chest x-ray continues to show diffuse mild to moderate interstitial opacity and a few scattered small partially consolidative airspace opacities in the right mid and lower lung hermosillo. No change in right hilar prominence possibly indicating a right hilar adenopathy. The patient is seen today in consultation on the regular medical floor. She is currently resting fairly comfortably in bed. Awake and alert. Her family is at the bedside. They state she does have some short-term memory issues. She is currently afebrile. Maintaining O2 saturations in the mid 90s on 4 L/m per nasal cannula. Hemodynamically stable. She been initiated on Symbicort, DuoNeb inhalations, IV Solu-Medrol. Antibiotics in the form of cefepime and azithromycin. Heparin for DVT prophylaxis. On 02/27/2022 patient seen in follow-up on selective care unit. She is currently on 4 L of oxygen, pulse ox is 96%, she is wheezy on today's exam, mild short of breath at rest, but no acute distress noted. She is sitting up in bed, her daughter is at the bedside. Denies any chest discomfort, no hemoptysis, current antibiotic coverage includes azithromycin cefepime and vancomycin, blood culture showed gram-positive cocci in clusters, ID service has been consulted. Patient remains on IV steroids and nebulized bronchodilators. Follow blood culture has been ordered and pending, sputum culture has been ordered, but patient has been unable to produce a sputum sample Objective - Vital Signs Vital signs: Vital Signs Temp 97.9 F 02/27/22 08:00 Pulse 88 02/27/22 12:48 Resp 18 02/27/22 12:48 BP 112/64 02/27/22 08:00 Pulse Ox 96 02/27/22 08:19 Intake & Output 02/26/22 02/27/22 02/27/22 18:59 06:59 18:59 Other: # Voids 1 3 - Exam GENERAL EXAM: Alert, very pleasant, 77-year-old white female, sitting up in bed, short of breath at rest, no acute distress noted, on 4 L of oxygen satting 96% comfortable in no apparent distress. HEAD: Normocephalic/atraumatic. EYES: Normal reaction of pupils, equal size. Conjunctiva pink, sclera white. NOSE: Clear with pink turbinates. THROAT: No erythema or exudates. NECK: No masses, no JVD, no thyroid enlargement, no adenopathy. CHEST: No chest wall deformity. Symmetrical expansion. LUNGS: Equal air entry with diffuse wheezes and coarse bibasilar crackles CVS: Regular rate and rhythm, normal S1 and S2, no gallops, no murmurs, no rubs ABDOMEN: Soft, nontender. No hepatosplenomegaly, normal bowel sounds, no guarding or rigidity. EXTREMITIES: No clubbing, no edema, no cyanosis, 2+ pulses and upper and lower extremities. MUSCULOSKELETAL: Muscle strength and tone normal. SPINE: No scoliosis or deformity SKIN: No rashes CENTRAL NERVOUS SYSTEM: Alert and oriented -3. No focal deficits, tone is n ormal in all 4 extremities. PSYCHIATRIC: Alert and oriented -3. Appropriate affect. Intact judgment and insight. - Labs CBC & Chem 7: 02/27/22 11:10 02/27/22 11:10 Labs: Abnormal Lab Results - Last 24 Hours (Table) 02/26/22 02/26/22 02/27/22 Range/Units 16:28 20:11 06:55 RBC (3.80-5.40) m/uL Hgb (11.4-16.0) gm/dL Hct (34.0-46.0) % RDW (11.5-15.5) % Plt Count (150-450) k/uL Lymphocytes # (1.0-4.8) k/uL BUN (7-17) mg/dL Creatinine (0.52-1.04) mg/dL Glucose (74-99) mg/dL POC Glucose (mg/dL) 133 H 155 H 126 H (75-99) mg/dL Calcium (8.4-10.2) mg/dL 02/27/22 02/27/22 02/27/22 Range/Units 11:10 11:10 11:38 RBC 3.03 L (3.80-5.40) m/uL Hgb 8.7 L (11.4-16.0) gm/dL Hct 28.0 L (34.0-46.0) % RDW 16.6 H (11.5-15.5) % Plt Count 66 L (150-450) k/uL Lymphocytes # 0.4 L (1.0-4.8) k/uL BUN 18 H (7-17) mg/dL Creatinine 1.05 H (0.52-1.04) mg/dL Glucose 144 H (74-99) mg/dL POC Glucose (mg/dL) 159 H (75-99) mg/dL Calcium 8.1 L (8.4-10.2) mg/dL Microbiology - Last 24 Hours (Table) 02/25/22 10:39 Blood Culture Gram Stain - Preliminary Blood 02/25/22 10:39 Blood Culture - Final Blood Assessment and Plan Plan: Assessment: #1. Acute hypoxic respiratory failure secondary to acute right lung pneumonia, possibly community acquired #2. Bacteremia, blood culture showed gram-positive cocci in clusters, final culture is pending. Patient is on vancomycin #3. Recent diagnosis of non-Hodgkin's B-cell lymphoma, patient had a positive bone marrow biopsy on 01/30/2022, has not started treatment yet #4. 20 pound weight loss secondary to the above #5. Splenomegaly #6. Pancytopenia #7. 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 Number of minutes spent on the visit: [10] Time with Patient: Less than 30
[2022-02-27 14:14] VITALS: BMI 21.4
[2022-02-27 14:38] LABS: Phosphorus 3.1 mg/dL (2.5-4.5); Uric Acid 4.8 mg/dL (3.7-7.4)
[2022-02-27 16:27] LABS: Glucose,Whole Blood 176 mg/dL (75-99)
[2022-02-27 20:07] LABS: Glucose,Whole Blood 147 mg/dL (75-99)
[2022-02-28] MEDS: methylPREDNISolone SOD SUCCI 125 MG/2 ML VIAL IV SCH ×2 (00:14→05:52)
[2022-02-28] MEDS: CEFEPIME 2 GM in SODIUM CHLORIDE 0.9% 100 ML IVPB SCH ×2 (00:14→12:12)
[2022-02-28] MEDS: VANCOMYCIN 750 MG in SODIUM CHLORIDE 0.9% 250 ML IVPB SCH ×2 (00:14→16:16)
--- NOTE | 2022-02-28 01:43 | P.PN ---
Subjective Progress Note Date: 02/27/22 This is a 77-year-old female who was recently admitted with shortness of breath and found to have right sided pneumonia and is being closely monitored. Patient has lymphoma as well and oncology consulted and following. Patient is also being followed by pulmonary and is maintained on IV steroids and breathing inhalational treatments and will continue. Patient is maintained on 2-3 L of 02 via NC and recommend to wean FI02 as tolerated. Patient with positive blood cultures and maintained on IV antibiotics and ID consulted. Repeat blood cultures ordered as well as a sputum culture. Patient denies chest pain or palpitations. Patient is afebrile. Patient continues with some shortness of breath although reports feeling a little better today. Daughter at the bedside. Review of systems: Constitutional: No reports of fatigue, fever, or chills Cardiovascular: No reports of chest pain or palpitations Respiratory: reports of shortness of breath and dry cough GI: no reports of nausea, no reports of of vomiting : No reports of dysuria or retention Neurovascular: reports of generalized weakness All medications have been reviewed Active Medications Albuterol/Ipratropium (Ipratropium-Albuterol 3 Ml Neb) 3 ml INHALATION RT-QID [facility] Last Admin: 02/27/22 15:09 Dose: 3 ml Documented by: Albuterol/Ipratropium (Ipratropium-Albuterol 3 Ml Neb) 3 ml INHALATION RT-Q2H PRN PRN Reason: Shortness Of Breath Or Wheezing Budesonide/Formoterol Fumarate (Symbicort 160-4.5 Mcg Inhaler) 2 puff INHALATION RT-BID [facility] Last Admin: 02/27/22 08:19 Dose: 2 puff Documented by: Enoxaparin Sodium (Enoxaparin 40 Mg/0.4 Ml Syringe) 40 mg SQ DAILY [facility] Last Admin: 02/27/22 07:44 Dose: 40 mg Documented by: Guaifenesin/Dextromethorphan (Guaifenesin-Dm 100-10mg/5ml 10 Ml Cup) 10 ml PO Q8HR PRN PRN Reason: Cough Last Admin: 02/26/22 22:22 Dose: 10 ml Documented by: Cefepime HCl 2 gm/ Sodium (Chloride) 100 mls @ 25 mls/hr IVPB Q12H [facility]; Protocol Last Admin: 02/27/22 13:30 Dose: 25 mls/hr Documented by: Azithromycin 500 mg/ Sodium (Chloride) 250 mls @ 250 mls/hr IVPB DAILY [facility]; Protocol Stop: 02/28/22 09:01 Last Admin: 02/27/22 07:44 Dose: 250 mls/hr Documented by: Vancomycin HCl 750 mg/ Sodium (Chloride) 250 mls @ 125 mls/hr IVPB Q16H [facility] Last Admin: 02/27/22 09:55 Dose: 125 mls/hr Documented by: Insulin Aspart (Insulin Aspart (Novolog) 100 Unit/Ml Vial) 0 unit SQ ACHS [facility]; Protocol Last Admin: 02/27/22 12:33 Dose: 1 unit Documented by: Methylprednisolone Sodium Succinate (Methylprednisolone Sod Succi 125 Mg/2 Ml Vial) 60 mg IV Q6HR [facility] Last Admin: 02/27/22 12:31 Dose: 60 mg Documented by: Miscellaneous Information (Pneumonia Protocol Utilized 1 Each [facility]) 1 each PO ONCE PRN PRN Reason: Per Protocol Naloxone HCl (Naloxone 0.4 Mg/Ml 1 Ml Vial) 0.2 mg IV Q2M PRN PRN Reason: Opioid Reversal PHYSICAL EXAMINATION: GENERAL: The patient is alert and oriented x4, Well developed, well nourished. HEENT: Pupils are round and equally reacting to light. EOMI. no scleral icterus. No conjunctival pallor. Normocephalic, atraumatic. No pharyngeal erythema. No thyromegaly. CARDIOVASCULAR: S1 and S2 muffled PULMONARY: diminished breath sounds bilaterally with some scattered rhonchi and expiratory wheezing noted. ABDOMEN: soft. Nontender on exam. non-distended, normoactive bowel sounds. No palpable organomegaly. MUSCULOSKELETAL: No joint swelling or deformity. EXTREMITIES: No cyanosis, clubbing, or pedal edema. NEUROLOGICAL: Gross neurological examination did not reveal any focal deficits. Diffuse weakness SKIN: No rashes. Assessment: Acute right-sided pneumonia with failure of outpatient treatment History of lymphoma and splenomegaly Elevated d-dimer History of asthma asthma, acute exacerbation Chronic deep vein thromboses in the lungs GI prophylaxis DVT prophylaxis Full code Plan: Recommend to continue with current medications and management pulmonary and oncology following. Patient is on IV antibiotic therapy and had a positive blood culture and will repeat and monitor for clearance of bacteremia. ID consulted. Sputum culture pending collection as well as patient not having much phlegm prod uction. Patient is continued on breathing inhalational treatments and IV steroids and will continue. Wean FI02 as tolerated. Encouraged increased activity as tolerated. Encouraged oral intake. Recommend repeat labs in the am. Due to multiple complex medical issues, prognosis is guarded. The impression and plan of care has been dictated by Mable Mann, nurse practitioner as directed. MD Jenna I have performed a history and examination and MDM of this patient, discussed the same with the dictator, and agree with the dictator's assessment and plan as written ,documented as a scribe. Based on total visit time, I have performed more than 50% of the visit. Any additional findings or plans will be noted. Objective - Vital Signs Vital signs: Vital Signs Temp 97.9 F 02/27/22 14:00 Pulse 90 02/27/22 15:20 Resp 18 02/27/22 15:20 BP 113/67 02/27/22 14:00 Pulse Ox 91 L 02/27/22 14:00 Intake & Output 02/26/22 02/27/22 02/27/22 18:59 06:59 18:59 Weight 49.895 kg Other: # Voids 1 3 - Labs CBC & Chem 7: 02/27/22 11:10 02/27/22 11:10 Labs: Abnormal Lab Results - Last 24 Hours (Table) 02/26/22 02/26/22 02/27/22 Range/Units 16:28 20:11 06:55 RBC (3.80-5.40) m/uL Hgb (11.4-16.0) gm/dL Hct (34.0-46.0) % RDW (11.5-15.5) % Plt Count (150-450) k/uL Lymphocytes # (1.0-4.8) k/uL BUN (7-17) mg/dL Creatinine (0.52-1.04) mg/dL Glucose (74-99) mg/dL POC Glucose (mg/dL) 133 H 155 H 126 H (75-99) mg/dL Calcium (8.4-10.2) mg/dL 02/27/22 02/27/22 02/27/22 Range/Units 11:10 11:10 11:38 RBC 3.03 L (3.80-5.40) m/uL Hgb 8.7 L (11.4-16.0) gm/dL Hct 28.0 L (34.0-46.0) % RDW 16.6 H (11.5-15.5) % Plt Count 66 L (150-450) k/uL Lymphocytes # 0.4 L (1.0-4.8) k/uL BUN 18 H (7-17) mg/dL Creatinine 1.05 H (0.52-1.04) mg/dL Glucose 144 H (74-99) mg/dL POC Glucose (mg/dL) 159 H (75-99) mg/dL Calcium 8.1 L (8.4-10.2) mg/dL Microbiology - Last 24 Hours (Table) 02/25/22 10:39 Blood Culture Gram Stain - Preliminary Blood 02/25/22 10:39 Blood Culture - Final Blood
[2022-02-28] MEDS: guaiFENesin-DM 100-10MG/5ML 10 ML CUP PO PRN ×2 (03:59→10:05)
[2022-02-28 05:14] LABS: Anisocytosis Slight; Basophils % (A) 0 %; Eosinophils % (A) 0 %; HCT 28.8 % (34.0-46.0); HGB 8.7 gm/dL (11.4-16.0); Hypochromasia Marked; Lymphocytes # (A) 0.5 k/uL (1.0-4.8); Lymphocytes % (A) 10 %; MCH 28.1 pg (25.0-35.0); MCHC 30.3 g/dL (31.0-37.0); MCV 92.6 fL (80.0-100.0); Mean Platelet Volume 9.3; Monocytes # (A) 0.1 k/uL (0-1.0); Monocytes % (A) 1 %; Neutrophils # (A) 4.1 k/uL (1.3-7.7); Neutrophils % (A) 87 %; RBC 3.11 m/uL (3.80-5.40); RDW 16.6 % (11.5-15.5); WBC 4.7 k/uL (3.8-10.6)
[2022-02-28 05:29] LABS: Platelet Count 76 k/uL (150-450)
[2022-02-28 05:31] LABS: African American GFR (CKD) 67 (>60 ml/min/1.73 sqM); Anion Gap 7 mmol/L; Blood Urea Nitrogen 18 mg/dL (7-17); Calcium 8.3 mg/dL (8.4-10.2); Carbon Dioxide 23 mmol/L (22-30); Chloride 106 mmol/L (98-107); Glucose 136 mg/dL (74-99); Non-African American GFR(CKD) 58 (>60 ml/min/1.73 sqM); Potassium 4.1 mmol/L (3.5-5.1); Sodium 136 mmol/L (137-145)
[2022-02-28 06:50] LABS: Glucose,Whole Blood 133 mg/dL (75-99)
[2022-02-28] MEDS: INSULIN ASPART (NovoLOG) 100 UNIT/ML VIAL SQ SCH ×4 (07:22→21:34)
[2022-02-28] MEDS: AZITHROMYCIN 500 MG in SODIUM CHLORIDE 0.9% 250 ML IVPB SCH (07:29)
[2022-02-28] MEDS: ENOXAPARIN 40 MG/0.4 ML SYRINGE SQ SCH (07:29)
[2022-02-28] MEDS: SYMBICORT 160-4.5 MCG INHALER INHALATION SCH ×2 (09:05→20:36)
[2022-02-28] MEDS: IPRATROPIUM-ALBUTEROL 3 ML NEB INHALATION SCH ×4 (09:05→20:36)
[2022-02-28] MEDS: ACETAMINOPHEN TAB 325 MG TAB PO PRN (09:22)
--- NOTE | 2022-02-28 09:34 | P.CONS ---
History of Present Illness - Reason for Consult Consult date: 02/27/22 Bacteremia Requesting physician: Kevin Kamara - Chief Complaint Shortness of breath and cough x few days - History of Present Illness Patient is a 77 year old female with a past medical history significant for asthma presenting to the hospital 2 days ago for evaluation of increasing shortness of breath and cough symptom has been going on since Easter the patient cough is noted in intensity and has been bringing up some greenish yellow mucus patient was noticed to be hypoxic with O2 sats of 86% with the symptoms and the patient has been evaluated by the ER physician on arrival to the patient did have a low-grade fever of 99.4F the patient did have a leuk openia with white count of 1.9, influenza, de [place] and RSV PCR was negative, patient chest x-ray and it shows interstitial right mid and lower lung infiltrate CT in April was negative for PE however did shows coarse reticulonodular interstitial Infiltrate which is new compared to old exam patient has been admitted to hospital concerning for possible pneumonia currently being treated with vancomycin and cefepime with a blood cultures coming back positive with gram-positive cocci has prompted infectious disease consultation Review of Systems Positive point has been mentioned in the HPI rest of the systems are negative Past Medical History Past Medical History: No Reported History Additional Past Medical History / Comment(s): having abdominal and back pain,low platelets, increased fatigue,hx TIAs-no residual, splenomegaly, bone marrow positive for lymphoma. History of Any Multi-Drug Resistant Organisms: None Reported Past Surgical History: Section, Hysterectomy Additional Past Surgical History / Comment(s): 3 c sections Past Anesthesia/Blood Transfusion Reactions: No Reported Reaction Past Psychological History: No Psychological Hx Reported Smoking Status: Never smoker Past Alcohol Use History: None Reported Past Drug Use History: None Reported - Past Family History Son(s) Family Medical History: Diabetes Mellitus Additional Family Medical History / Comment(s): kidney recipient Medications and Allergies Home Medications Medication Instructions Recorded Confirmed Type Acetaminophen Tab [Tylenol Tab] 500 mg PO Q6H PRN 01/26/22 02/25/22 History Allergies Allergy/AdvReac Type Severity Reaction Status Date / Time Penicillins Allergy Rash/Hives Verified 02/25/22 12:43 Sulfa (Sulfonamide Allergy Rash/Hives Verified 02/25/22 12:43 Antibiotics) Physical Exam Vitals: Vital Signs Temp Pulse Pulse Resp BP Pulse Ox 02/27/22 08:33 88 18 02/27/22 08:19 87 18 96 02/27/22 08:00 97.9 F 84 18 112/64 98 02/27/22 01:09 97.8 F 86 17 117/67 96 02/26/22 21:03 86 02/26/22 20:48 85 02/26/22 18:59 97.8 F 98 17 127/74 96 02/26/22 16:55 86 02/26/22 16:45 90 94 L 02/26/22 14:00 98.0 F 95 18 107/63 91 L 02/26/22 12:50 77 16 02/26/22 12:38 72 16 Intake and Output 02/26/22 02/27/22 02/27/22 22:59 06:59 14:59 Other: # Voids 3 GENERAL DESCRIPTION: An elderly female lying in bed, no distress. No tachypnea or accessory muscle of respiration use. HEENT: Shows Pallor , no scleral icterus. Oral mucous membrane is dry. No pharyngeal erythema or thrush NECK: Trachea central, no thyromegaly. LUNGS: Unlabored breathing. Coarse breath sounds bilaterally. No wheeze or crackle. HEART: S1, S2, regular rate and rhythm. No loud murmur ABDOMEN: Soft, no tenderness , guarding or rigidity, no organomegaly EXTREMITIES: No edema of feet. SKIN: No rash, no masses palpable. NEUROLOGICAL: The patient is awake, alert, oriented x3, mood and affect normal. Results CBC & Chem 7: 02/28/22 04:47 02/28/22 04:47 Labs: Abnormal Lab Results - Last 24 Hours (Table) 02/26/22 02/26/22 02/26/22 Range/Units 05:26 05:26 05:26 WBC 1.57 L (4.50-10.00) X 10*3/uL RBC 2.77 L (4.10-5.20) X 10*6/uL Hgb 7.6 L (12.0-15.0) g/dL Hct 25.4 L (37.2-46.3) % MCHC 29.9 L (32.0-37.0) g/dL RDW 17.3 H (11.5-14.5) % Plt Count 45 L (140-440) X 10*3/uL Plt Count Comment A Neutrophils # 1.09 L (1.80-7.70) X 10*3/uL Lymphocytes # 0.40 L (0.90-5.00) X 10*3/uL Monocytes # 0.06 L (0.20-1.00) X 10*3/uL Eosinophils # 0 L (0.04-0.35) X 10*3/uL POC Glucose (mg/dL) (75-99) mg/dL Procalcitonin 0.32 H (0.02-0.09) ng/mL IgM <25.0 L (40.0-280.0) mg/dL 02/26/22 02/26/22 02/26/22 Range/Units 11:17 16:28 20:11 WBC (4.50-10.00) X 10*3/uL RBC (4.10-5.20) X 10*6/uL Hgb (12.0-15.0) g/dL Hct (37.2-46.3) % MCHC (32.0-37.0) g/dL RDW (11.5-14.5) % Plt Count (140-440) X 10*3/uL Plt Count Comment Neutrophils # (1.80-7.70) X 10*3/uL Lymphocytes # (0.90-5.00) X 10*3/uL Monocytes # (0.20-1.00) X 10*3/uL Eosinophils # (0.04-0.35) X 10*3/uL POC Glucose (mg/dL) 135 H 133 H 155 H (75-99) mg/dL Procalcitonin (0.02-0.09) ng/mL IgM (40.0-280.0) mg/dL 02/27/22 Range/Units 06:55 WBC (4.50-10.00) X 10*3/uL RBC (4.10-5.20) X 10*6/uL Hgb (12.0-15.0) g/dL Hct (37.2-46.3) % MCHC (32.0-37.0) g/dL RDW (11.5-14.5) % Plt Count (140-440) X 10*3/uL Plt Count Comment Neutrophils # (1.80-7.70) X 10*3/uL Lymphocytes # (0.90-5.00) X 10*3/uL Monocytes # (0.20-1.00) X 10*3/uL Eosinophils # (0.04-0.35) X 10*3/uL POC Glucose (mg/dL) 126 H (75-99) mg/dL Procalcitonin (0.02-0.09) ng/mL IgM (40.0-280.0) mg/dL Microbiology - Last 24 Hours (Table) 02/25/22 10:39 Blood Culture - Final Blood Assessment and Plan (1) Bacteremia Current Visit: Yes Status: Acute Code(s): R78.81 - BACTEREMIA SNOMED Code(s): 7348152 Plan: 1 Patient with gram-positive bacteremia in this patient presented to hospital with increasing shortness of breath or cough and yellow sputum with evidence of extensive pneumonia on the CT likely source with pneumonia and question of possible strep pneumo was staph aureus. 2blood cultures will be repeated document clearance of bacteremia. 3obtain a sputum for gram strain and culture. 4Vancomycin pharmacy to dose target trough of 15 while watching kidney function and Vanco trough closely We will follow on clinical condition and cultures to further adjust medication if needed Thank you for this consultation will follow this patient with you
--- NOTE | 2022-02-28 11:01 | P.PN ---
Subjective Progress Note Date: 02/28/22 Principal diagnosis: Bacteremia and pneumonia Patient is a 77 year old female presented to the hospital for increasing shortness of breath or cough productive some greenish sputum in this patient with evidence of pneumonia subsequently did have a positive blood culture with gram-positive cocci. On today's evaluation that is 02/28/2022, the patient denies having any fever or any chills, she has been complaining of some hiccups nausea but no vomiting patient did have a cough and was unable to bring up the sputum no hemoptysis no vomiting no abdominal pain no diarrhea Objective - Vital Signs Vital signs: Vital Signs Temp 97.9 F 02/28/22 08:00 Pulse 96 02/28/22 09:23 Resp 18 02/28/22 08:00 BP 147/80 02/28/22 08:00 Pulse Ox 94 L 02/28/22 08:00 Intake & Output 02/27/22 02/28/22 02/28/22 18:59 06:59 18:59 Intake Total 480 Balance 480 Weight 49.895 kg Intake: Oral 480 Other: # Voids 1 - Exam GENERAL DESCRIPTION: An elderly female lying in bed in no distress RESPIRATORY SYSTEM: Unlabored breathing , course breath sounds bilaterally HEART: S1 S2 regular rate and rhythm , ABDOMEN: Soft , no tenderness EXTREMITIES: No edema feet - Labs CBC & Chem 7: 02/28/22 04:47 02/28/22 04:47 Labs: Abnormal Lab Results - Last 24 Hours (Table) 02/27/22 02/27/22 02/27/22 Range/Units 11:10 11:10 11:38 RBC 3.03 L (3.80-5.40) m/uL Hgb 8.7 L (11.4-16.0) gm/dL Hct 28.0 L (34.0-46.0) % MCHC (31.0-37.0) g/dL RDW 16.6 H (11.5-15.5) % Plt Count 66 L (150-450) k/uL Lymphocytes # 0.4 L (1.0-4.8) k/uL Sodium (137-145) mmol/L BUN 18 H (7-17) mg/dL Creatinine 1.05 H (0.52-1.04) mg/dL Glucose 144 H (74-99) mg/dL POC Glucose (mg/dL) 159 H (75-99) mg/dL Calcium 8.1 L (8.4-10.2) mg/dL 02/27/22 02/27/22 02/28/22 Range/Units 16:25 20:05 04:47 RBC 3.11 L (3.80-5.40) m/uL Hgb 8.7 L (11.4-16.0) gm/dL Hct 28.8 L (34.0-46.0) % MCHC 30.3 L (31.0-37.0) g/dL RDW 16.6 H (11.5-15.5) % Plt Count 76 L (150-450) k/uL Lymphocytes # 0.5 L (1.0-4.8) k/uL Sodium (137-145) mmol/L BUN (7-17) mg/dL Creatinine (0.52-1.04) mg/dL Glucose (74-99) mg/dL POC Glucose (mg/dL) 176 H 147 H (75-99) mg/dL Calcium (8.4-10.2) mg/dL 02/28/22 02/28/22 Range/Units 04:47 06:49 RBC (3.80-5.40) m/uL Hgb (11.4-16.0) gm/dL Hct (34.0-46.0) % MCHC (31.0-37.0) g/dL RDW (11.5-15.5) % Plt Count (150-450) k/uL Lymphocytes # (1.0-4.8) k/uL Sodium 136 L (137-145) mmol/L BUN 18 H (7-17) mg/dL Creatinine (0.52-1.04) mg/dL Glucose 136 H (74-99) mg/dL POC Glucose (mg/dL) 133 H (75-99) mg/dL Calcium 8.3 L (8.4-10.2) mg/dL Microbiology - Last 24 Hours (Table) 02/25/22 10:39 Blood Culture Gram Stain - Final Blood Blood Culture - Final Micrococcus species 02/27/22 16:09 Gram Stain - Preliminary Sputum Sputum Culture - Preliminary Assessment and Plan (1) Bacteremia Current Visit: Yes Status: Acute Code(s): R78.81 - BACTEREMIA SNOMED Code(s): 4437343 Plan: 1 Patient with gram-positive bacteremia in this patient presented to hospital with increasing shortness of breath or cough and yellow sputum with evidence of extensive pneumonia on the CT likely source with pneumonia and initial concern for possible strep pneumo was staph aureus,, however the blood culture had been finalized as Micrococcus more likely contamination 2blood cultures will be repeated document clearance of bacteremia. 3sputum cultures are currently pending. 4patient to continue with Vancomycin pharmacy to dose target trough of 15 while watching kidney function and Vanco trough closely and cefepime while waiting for the sputum culture to be finalize Family at the bedside questions were answered Time with Patient: Less than 30
[2022-02-28 11:30] LABS: Glucose,Whole Blood 125 mg/dL (75-99)
[2022-02-28] MEDS: methylPREDNISolone SOD SUCCI 40 MG/ML 1 ML VIAL IV SCH ×2 (12:11→17:08)
--- NOTE | 2022-02-28 14:00 | P.PN ---
Subjective Progress Note Date: 02/28/22 Principal diagnosis: Shortness of breath This is a very pleasant 77-year-old female patient with a history of splenomegaly and pancytopenia with a recent diagnosis of non-Hodgkin's B-cell lymphoma via bone marrow biopsy on 01/30/2022 and has been seen by Dr. Britt. She has not received any treatment yet. She presented to the emergency room yesterday with complaints of increasing shortness of breath, cough and congestion. She was found to be hypoxemic at 86% on room air. No nausea vomiting or diarrhea. Positive for chills. Chest x-ray was positive for right lung pneumonia and she was admitted for the same. CT angiogram of the chest ruled out pulmonary embolism. There is noted mediastinal adenopathy which is increased compared to a recent exam of 02/18/2022. Extensive lung disease appears new compared to old exam. Massive splenomegaly unchanged. Dopplers of the lower extremity revealed some mild bilateral chronic DVT in the femoral veins but no acute DVTs. White count 1.57. Hemoglobin 7.6. Platelet count 45,000. Sodium 138. Potassium 4.0. BUN 14. Creatinine 0.9. Glucose 139. D- dimer 1.57. Coronavirus, influenza and RSV screens negative. Urinalysis negative. Today's chest x-ray continues to show diffuse mild to moderate interstitial opacity and a few scattered small partially consolidative airspace opacities in the right mid and lower lung hermosillo. No change in right hilar prominence possibly indicating a right hilar adenopathy. The patient is seen today in consultation on the regular medical floor. She is currently resting fairly comfortably in bed. Awake and alert. Her family is at the bedside. They state she does have some short-term memory issues. She is currently afebrile. Maintaining O2 saturations in the mid 90s on 4 L/m per nasal cannula. Hemodynamically stable. She been initiated on Symbicort, DuoNeb inhalations, IV Solu-Medrol. Antibiotics in the form of cefepime and azithromycin. Heparin for DVT prophylaxis. On 02/27/2022 patient seen in follow-up on selective care unit. She is currently on 4 L of oxygen, pulse ox is 96%, she is wheezy on today's exam, mild short of breath at rest, but no acute distress noted. She is sitting up in bed, her daughter is at the bedside. Denies any chest discomfort, no hemoptysis, current antibiotic coverage includes azithromycin cefepime and vancomycin, blood culture showed gram-positive cocci in clusters, ID service has been consulted. Patient remains on IV steroids and nebulized bronchodilators. Follow blood culture has been ordered and pending, sputum culture has been ordered, but patient has been unable to produce a sputum sample On 02/28/2022 patient seen in follow-up on medical surgical floor. Patient is awake and alert, does not look to be in any acute distress, breathing comfortably, she remains on cefepime and vancomycin, compared to yesterday her dyspnea has improved, still has a congested cough, but slightly better. Sputum specimen was sent, pending at this time. Vital signs have been stable, patient is afebrile. Denies any hemoptysis or chest discomfort. Objective - Vital Signs Vital signs: Vital Signs Temp 97.9 F 02/28/22 08:00 Pulse 88 02/28/22 12:41 Resp 18 02/28/22 08:00 BP 147/80 02/28/22 08:00 Pulse Ox 94 L 02/28/22 08:00 Intake & Output 02/27/22 02/28/22 02/28/22 18:59 06:59 18:59 Intake Total 480 Balance 480 Weight 49.895 kg Intake: Oral 480 Other: # Voids 1 - Exam GENERAL EXAM: Alert, very pleasant, 77-year-old white female, sitting up in bed, short of breath at rest, no acute distress noted, on 2 L of oxygen satting 96% comfortable in no apparent distress. HEAD: Normocephalic/atraumatic. EYES: Normal reaction of pupils, equal size. Conjunctiva pink, sclera white. NOSE: Clear with pink turbinates. THROAT: No erythema or exudates. NECK: No masses, no JVD, no thyroid enlargement, no adenopathy. CHEST: No chest wall deformity. Symmetrical expansion. LUNGS: Equal air entry with diffuse wheezes and coarse bibasilar crackles CVS: Regular rate and rhythm, normal S1 and S2, no gallops, no murmurs, no rubs ABDOMEN: Soft, nontender. No hepatosplenomegaly, normal bowel sounds, no guarding or rigidity. EXTREMITIES: No clubbing, no edema, no cyanosis, 2+ pulses and upper and lower extremities. MUSCULOSKELETAL: Muscle strength and tone normal. SPINE: No scoliosis or deformity SKIN: No rashes CENTRAL NERVOUS SYSTEM: Alert and oriented -3. No focal deficits, tone is normal in all 4 extremities. PSYCHIATRIC: Alert and oriented -3. Appropriate affect. Intact judgment and insight. - Labs CBC & Chem 7: 02/28/22 04:47 02/28/22 04:47 Labs: Abnormal Lab Results - Last 24 Hours (Table) 02/27/22 02/27/22 02/28/22 Range/Units 16:25 20:05 04:47 RBC (3.80-5.40) m/uL Hgb (11.4-16.0) gm/dL Hct (34.0-46.0) % MCHC (31.0-37.0) g/dL RDW (11.5-15.5) % Plt Count (150-450) k/uL Lymphocytes # (1.0-4.8) k/uL Sodium (137-145) mmol/L BUN (7-17) mg/dL Glucose (74-99) mg/dL POC Glucose (mg/dL) 176 H 147 H (75-99) mg/dL Calcium (8.4-10.2) mg/dL Procalcitonin 0.22 H (0.02-0.09) ng/mL 02/28/22 02/28/22 02/28/22 Range/Units 04:47 04:47 06:49 RBC 3.11 L (3.80-5.40) m/uL Hgb 8.7 L (11.4-16.0) gm/dL Hct 28.8 L (34.0-46.0) % MCHC 30.3 L (31.0-37.0) g/dL RDW 16.6 H (11.5-15.5) % Plt Count 76 L (150-450) k/uL Lymphocytes # 0.5 L (1.0-4.8) k/uL Sodium 136 L (137-145) mmol/L BUN 18 H (7-17) mg/dL Glucose 136 H (74-99) mg/dL POC Glucose (mg/dL) 133 H (75-99) mg/dL Calcium 8.3 L (8.4-10.2) mg/dL Procalcitonin (0.02-0.09) ng/mL 02/28/22 Range/Units 11:29 RBC (3.80-5.40) m/uL Hgb (11.4-16.0) gm/dL Hct (34.0-46.0) % MCHC (31.0-37.0) g/dL RDW (11.5-15.5) % Plt Count (150-450) k/uL Lymphocytes # (1.0-4.8) k/uL Sodium (137-145) mmol/L BUN (7-17) mg/dL Glucose (74-99) mg/dL POC Glucose (mg/dL) 125 H (75-99) mg/dL Calcium (8.4-10.2) mg/dL Procalcitonin (0.02-0.09) ng/mL Microbiology - Last 24 Hours (Table) 02/27/22 11:10 Blood Culture - Preliminary Blood No Growth after 24 hours 02/25/22 10:39 Blood Culture Gram Stain - Final Blood Blood Culture - Final Micrococcus species 02/27/22 16:09 Gram Stain - Preliminary Sputum Sputum Culture - Preliminary Assessment and Plan Plan: Assessment: #1. Acute hypoxic respiratory failure secondary to acute right lung pneumonia, possibly community acquired #2. Bacteremia, blood culture showed gram-positive cocci in clusters, final culture is pending. Patient is on vancomycin #3. Recent diagnosis of non-Hodgkin's B-cell lymphoma, patient had a positive bone marrow biopsy on 01/30/2022, has not started treatment yet #4. 20 pound weight loss secondary to the above #5. Splenomegaly #6. Pancytopenia #7. 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 Number of minutes spent on the visit: [10] Time with Patient: Less than 30
--- NOTE | 2022-02-28 14:16 | P.PN ---
Subjective Progress Note Date: 02/28/22 Principal diagnosis: Pneumonia/bacteremia. Non-Hodgkin's lymphoma, NOS In follow-up today patient is reporting moderate to severe fatigue, just wants to sleep. She is denying any recent fever, sweats, appetite is poor but denies nausea or vomiting, does have early satiety, abdomen is feeling very bloated from the splenomegaly, no chest pain report, shortness of breath, acute changes in bowel or bladder habits. Objective - Vital Signs Vital signs: Vital Signs Temp 97.9 F 02/28/22 08:00 Pulse 88 02/28/22 12:41 Resp 18 02/28/22 08:00 BP 147/80 02/28/22 08:00 Pulse Ox 94 L 02/28/22 08:00 Intake & Output 02/27/22 02/28/22 02/28/22 18:59 06:59 18:59 Intake Total 480 Balance 480 Weight 49.895 kg Intake: Oral 480 Other: # Voids 1 - Constitutional General appearance: Present: average body habitus, cooperative, no acute distress - EENT Eyes: Present: anicteric sclerae, EOMI ENT: Present: hearing grossly normal - Respiratory Respiratory: bilateral: rhonchi (Anterior) - Cardiovascular Rhythm: regular Heart sounds: normal: S1, S2 Abnormal Heart Sounds: Absent: systolic murmur, diastolic murmur, rub, S3 Gallop, S4 Gallop, click, other - Peripheral edema leg Peripheral Edema: bilateral: None - Gastrointestinal General gastrointestinal: Present: normal bowel sounds, soft, splenomegaly (Palpated into the left lower quadrant) - Integumentary Integumentary: Present: pale - Neurologic Neurologic: Present: CNII-XII intact - Musculoskeletal Musculoskeletal: Present: generalized weakness - Psychiatric Psychiatric: Present: A&O x's 3, appropriate affect, intact judgment & insight - Labs CBC & Chem 7: 02/28/22 04:47 02/28/22 04:47 Labs: Abnormal Lab Results - Last 24 Hours (Table) 02/27/22 02/27/22 02/28/22 Range/Units 16:25 20:05 04:47 RBC (3.80-5.40) m/uL Hgb (11.4-16.0) gm/dL Hct (34.0-46.0) % MCHC (31.0-37.0) g/dL RDW (11.5-15.5) % Plt Count (150-450) k/uL Lymphocytes # (1.0-4.8) k/uL Sodium (137-145) mmol/L BUN (7-17) mg/dL Glucose (74-99) mg/dL POC Glucose (mg/dL) 176 H 147 H (75-99) mg/dL Calcium (8.4-10.2) mg/dL Procalcitonin 0.22 H (0.02-0.09) ng/mL 02/28/22 02/28/22 02/28/22 Range/Units 04:47 04:47 06:49 RBC 3.11 L (3.80-5.40) m/uL Hgb 8.7 L (11.4-16.0) gm/dL Hct 28.8 L (34.0-46.0) % MCHC 30.3 L (31.0-37.0) g/dL RDW 16.6 H (11.5-15.5) % Plt Count 76 L (150-450) k/uL Lymphocytes # 0.5 L (1.0-4.8) k/uL Sodium 136 L (137-145) mmol/L BUN 18 H (7-17) mg/dL Glucose 136 H (74-99) mg/dL POC Glucose (mg/dL) 133 H (75-99) mg/dL Calcium 8.3 L (8.4-10.2) mg/dL Procalcitonin (0.02-0.09) ng/mL 02/28/22 Range/Units 11:29 RBC (3.80-5.40) m/uL Hgb (11.4-16.0) gm/dL Hct (34.0-46.0) % MCHC (31.0-37.0) g/dL RDW (11.5-15.5) % Plt Count (150-450) k/uL Lymphocytes # (1.0-4.8) k/uL Sodium (137-145) mmol/L BUN (7-17) mg/dL Glucose (74-99) mg/dL POC Glucose (mg/dL) 125 H (75-99) mg/dL Calcium (8.4-10.2) mg/dL Procalcitonin (0.02-0.09) ng/mL Microbiology - Last 24 Hours (Table) 02/27/22 11:10 Blood Culture - Preliminary Blood No Growth after 24 hours 02/25/22 10:39 Blood Culture Gram Stain - Final Blood Blood Culture - Final Micrococcus species 02/27/22 16:09 Gram Stain - Preliminary Sputum Sputum Culture - Preliminary Assessment and Plan (1) Splenomegaly Current Visit: Yes Status: Acute Priority: High Code(s): R16.1 - SPLENOMEGALY, NOT ELSEWHERE CLASSIFIED SNOMED Code(s): 53017321 (2) Pancytopenia Current Visit: Yes Status: Acute Priority: High Code(s): D61.818 - OTHER PANCYTOPENIA SNOMED Code(s): 804865589 Plan: Patient currently admitted with pneumonia and bacteremia. Defer treatment of the same to ID and Pulm. Immunoglobulin levels checked, IgG 621, no IVIG ordered at this time. Non-Hodgkin's lymphoma, NOS. Patient was just seen at [facility] in [place] on February 23 for further classification of NHL. We're pending those reports. Massive splenomegaly secondary to above. Patient is currently on Solu-Medrol 60mg every 6 hours per Pulmonary. As this is weaned Oncology will order change it to prednisone 30mg PO twice a day when the IV dose is equal to/going to be less than. Follow-up with Dr. Britt planned.
[2022-02-28 16:00] LABS: Glucose,Whole Blood 185 mg/dL (75-99)
[2022-02-28 20:51] LABS: Glucose,Whole Blood 142 mg/dL (75-99)
[2022-03-01] MEDS: CEFEPIME 2 GM in SODIUM CHLORIDE 0.9% 100 ML IVPB SCH ×2 (00:08→11:53)
[2022-03-01] MEDS: methylPREDNISolone SOD SUCCI 40 MG/ML 1 ML VIAL IV SCH ×4 (00:08→16:58)
--- NOTE | 2022-03-01 01:15 | P.PN ---
Subjective Progress Note Date: 02/28/22 This is a 77-year-old female who was recently admitted with shortness of breath and found to have right sided pneumonia and is being closely monitored. Patient has lymphoma as well and oncology consulted and following. Patient is also being followed by pulmonary and is maintained on IV steroids and breathing inhalational treatments and will continue. Patient is maintained on 2-3 L of 02 via NC and recommend to wean FI02 as tolerated. Patient with positive blood cultures and maintained on IV antibiotics and ID consulted. Repeat blood cultures ordered as well as a sputum culture. Patient denies chest pain or palpitations. Patient is afebrile. Patient continues with some shortness of breath although reports feeling a little better today. Daughter at the bedside. 02/28/2022 Patient is seen in follow-up this morning and is maintained on IV cefepime and vancomycin with ID following closely. Blood cultures showed micrococcus species and awaiting sputum culture as evelyne was able to provide a sputum sample today. Patient is continued on IV steroids and breathing inhalational treatments. Currently continued on 2L via NC and encouraged to wean as tolerated. Possible home 02 evaluation with case management following. Pulmonary and oncology following as well and awaiting medical records from [facility]. Patient will be following with Dr. Dalton outpatient. Repeat blood cultures thus far are negative. Patient is afebrile, denies worsening shortness of breath, or chest pain. Patient continues with frequent coughing spells. Review of systems: Constitutional: No reports of fatigue, fever, or chills Cardiovascular: No reports of chest pain or palpitations Respiratory: reports of shortness of breath and dry cough with some coughing spells more frequently at night GI: no reports of nausea, no reports of of vomiting, reports poor oral intake : No reports of dysuria or retention Neurovascular: reports of generalized weakness All medications have been reviewed Active Medications Acetaminophen (Acetaminophen Tab 325 Mg Tab) 650 mg PO Q6HR PRN PRN Reason: Fever and/ or Pain Albuterol/Ipratropium (Ipratropium-Albuterol 3 Ml Neb) 3 ml INHALATION RT-QID [facility] Last Admin: 02/28/22 09:05 Dose: 3 ml Documented by: Albuterol/Ipratropium (Ipratropium-Albuterol 3 Ml Neb) 3 ml INHALATION RT-Q2H PRN PRN Reason: Shortness Of Breath Or Wheezing Budesonide/Formoterol Fumarate (Symbicort 160-4.5 Mcg Inhaler) 2 puff INHALATION RT-BID [facility] Last Admin: 02/28/22 09:05 Dose: 2 puff Documented by: Enoxaparin Sodium (Enoxaparin 40 Mg/0.4 Ml Syringe) 40 mg SQ DAILY [facility] Last Admin: 02/28/22 07:29 Dose: 40 mg Documented by: Guaifenesin/Dextromethorphan (Guaifenesin-Dm 100-10mg/5ml 10 Ml Cup) 10 ml PO Q8HR PRN PRN Reason: Cough Last Admin: 02/28/22 03:59 Dose: 10 ml Documented by: Cefepime HCl 2 gm/ Sodium (Chloride) 100 mls @ 25 mls/hr IVPB Q12H [facility]; Protocol Last Admin: 02/28/22 00:14 Dose: 25 mls/hr Documented by: Vancomycin HCl 750 mg/ Sodium (Chloride) 250 mls @ 125 mls/hr IVPB Q16H [facility] Last Admin: 02/28/22 00:14 Dose: 125 mls/hr Documented by: Insulin Aspart (Insulin Aspart (Novolog) 100 Unit/Ml Vial) 0 unit SQ ACHS [facility]; Protocol Last Admin: 02/28/22 07:22 Dose: Not Given Documented by: Methylprednisolone Sodium Succinate (Methylprednisolone Sod Succi 125 Mg/2 Ml Vial) 60 mg IV Q6HR [facility] Last Admin: 02/28/22 05:52 Dose: 60 mg Documented by: Miscellaneous Information (Pneumonia Protocol Utilized 1 Each [facility]) 1 each PO ONCE PRN PRN Reason: Per Protocol Naloxone HCl (Naloxone 0.4 Mg/Ml 1 Ml Vial) 0.2 mg IV Q2M PRN PRN Reason: Opioid Reversal PHYSICAL EXAMINATION: GENERAL: The patient is alert and oriented x4, Well developed, well nourished. HEENT: Pupils are round and equally reacting to light. EOMI. no scleral icterus. No conjunctival pallor. Normocephalic, atraumatic. No pharyngeal erythema. No thyromegaly. CARDIOVASCULAR: S1 and S2 muffled PULMONARY: diminished breath sounds bilaterally with some scattered rhonchi and expiratory wheezing noted. ABDOMEN: soft. Nontender on exam. non-distended, normoactive bowel sounds. No palpable organomegaly. MUSCULOSKELETAL: No joint swelling or deformity. EXTREMITIES: No cyanosis, clubbing, or pedal edema. NEUROLOGICAL: Gross neurological examination did not reveal any focal deficits. Diffuse weakness SKIN: No rashes. Assessment: Acute right-sided pneumonia with failure of outpatient treatment History of lymphoma and splenomegaly Elevated d-dimer History of asthma asthma, acute exacerbation Chronic deep vein thromboses in the lungs GI prophylaxis DVT prophylaxis Full code Plan: Recommend to continue with current medications and management pulmonary and oncology following. Patient is on IV antibiotic therapy and had a positive blood culture and will repeat and monitor for clearance of bacteremia. ID following. Sputum culture has been collected and sent. Pending at this time. Blood culture grew micrococcus species and repeat thus far are negative. Patient is continued on breathing inhalational treatments and IV steroids and will continue. Wean FI02 as tolerated. Encouraged increased activity as tolerated. Encouraged oral intake. Recommend repeat labs in the am. Room was cold upon entry for examinati on and discussed with the patient as well as family at bedside about keeping room air warm and encouraged coughing and deep breathing. Will add incentive spirometer and follow up chest xray in the am. Due to multiple complex medical issues, prognosis is guarded. The impression and plan of care has been dictated by Mable Mann, nurse practitioner as directed. MD Jenna I have performed a history and examination and MDM of this patient, discussed the same with the dictator, and agree with the dictator's assessment and plan as written ,documented as a scribe. Based on total visit time, I have performed more than 50% of the visit. Any additional findings or plans will be noted. Objective - Vital Signs Vital signs: Vital Signs Temp 98.1 F 02/28/22 00:25 Pulse 89 02/28/22 00:25 Resp 14 02/28/22 00:25 BP 121/67 02/28/22 00:25 Pulse Ox 95 02/28/22 00:25 Intake & Output 02/27/22 02/28/22 02/28/22 18:59 06:59 18:59 Intake Total 480 Balance 480 Weight 49.895 kg Intake: Oral 480 Other: # Voids 1 - Labs CBC & Chem 7: 02/28/22 04:47 02/28/22 04:47 Labs: Abnormal Lab Results - Last 24 Hours (Table) 02/27/22 02/27/22 02/27/22 Range/Units 11:10 11:10 11:38 RBC 3.03 L (3.80-5.40) m/uL Hgb 8.7 L (11.4-16.0) gm/dL Hct 28.0 L (34.0-46.0) % MCHC (31.0-37.0) g/dL RDW 16.6 H (11.5-15.5) % Plt Count 66 L (150-450) k/uL Lymphocytes # 0.4 L (1.0-4.8) k/uL Sodium (137-145) mmol/L BUN 18 H (7-17) mg/dL Creatinine 1.05 H (0.52-1.04) mg/dL Glucose 144 H (74-99) mg/dL POC Glucose (mg/dL) 159 H (75-99) mg/dL Calcium 8.1 L (8.4-10.2) mg/dL 02/27/22 02/27/22 02/28/22 Range/Units 16:25 20:05 04:47 RBC 3.11 L (3.80-5.40) m/uL Hgb 8.7 L (11.4-16.0) gm/dL Hct 28.8 L (34.0-46.0) % MCHC 30.3 L (31.0-37.0) g/dL RDW 16.6 H (11.5-15.5) % Plt Count 76 L (150-450) k/uL Lymphocytes # 0.5 L (1.0-4.8) k/uL Sodium (137-145) mmol/L BUN (7-17) mg/dL Creatinine (0.52-1.04) mg/dL Glucose (74-99) mg/dL POC Glucose (mg/dL) 176 H 147 H (75-99) mg/dL Calcium (8.4-10.2) mg/dL 02/28/22 02/28/22 Range/Units 04:47 06:49 RBC (3.80-5.40) m/uL Hgb (11.4-16.0) gm/dL Hct (34.0-46.0) % MCHC (31.0-37.0) g/dL RDW (11.5-15.5) % Plt Count (150-450) k/uL Lymphocytes # (1.0-4.8) k/uL Sodium 136 L (137-145) mmol/L BUN 18 H (7-17) mg/dL Creatinine (0.52-1.04) mg/dL Glucose 136 H (74-99) mg/dL POC Glucose (mg/dL) 133 H (75-99) mg/dL Calcium 8.3 L (8.4-10.2) mg/dL Microbiology - Last 24 Hours (Table) 02/27/22 16:09 Gram Stain - Preliminary Sputum Sputum Culture - Preliminary 02/25/22 10:39 Blood Culture Gram Stain - Preliminary Blood
[2022-03-01 04:43] LABS: Anisocytosis Slight; Basophils % (A) 0 %; Eosinophils % (A) 0 %; HCT 27.7 % (34.0-46.0); HGB 8.1 gm/dL (11.4-16.0); Hypochromasia Marked; Lymphocytes # (A) 0.5 k/uL (1.0-4.8); Lymphocytes % (A) 13 %; MCH 27.1 pg (25.0-35.0); MCHC 29.3 g/dL (31.0-37.0); MCV 92.4 fL (80.0-100.0); Mean Platelet Volume 8.5; Monocytes # (A) 0.1 k/uL (0-1.0); Monocytes % (A) 3 %; Neutrophils # (A) 3.3 k/uL (1.3-7.7); Neutrophils % (A) 83 %; RDW 16.3 % (11.5-15.5)
[2022-03-01 04:55] LABS: Platelet Count 74 k/uL (150-450)
[2022-03-01 06:17] LABS: African American GFR (CKD) 62 (>60 ml/min/1.73 sqM); Anion Gap 8 mmol/L; Blood Urea Nitrogen 17 mg/dL (7-17); Calcium 8.3 mg/dL (8.4-10.2); Carbon Dioxide 22 mmol/L (22-30); Chloride 109 mmol/L (98-107); Glucose 122 mg/dL (74-99); Magnesium 2.5 mg/dL (1.6-2.3); Non-African American GFR(CKD) 54 (>60 ml/min/1.73 sqM); Potassium 3.8 mmol/L (3.5-5.1); Sodium 139 mmol/L (137-145)
[2022-03-01 07:02] LABS: Glucose,Whole Blood 117 mg/dL (75-99)
[2022-03-01] MEDS: IPRATROPIUM-ALBUTEROL 3 ML NEB INHALATION SCH ×4 (07:09→19:13)
[2022-03-01] MEDS: INSULIN ASPART (NovoLOG) 100 UNIT/ML VIAL SQ SCH ×4 (07:09→21:45)
[2022-03-01] MEDS: SYMBICORT 160-4.5 MCG INHALER INHALATION SCH ×2 (07:09→19:13)
[2022-03-01] MEDS: VANCOMYCIN 750 MG in SODIUM CHLORIDE 0.9% 250 ML IVPB SCH (07:13)
[2022-03-01] MEDS: ENOXAPARIN 40 MG/0.4 ML SYRINGE SQ SCH (07:13)
[2022-03-01] MEDS: ACETAMINOPHEN TAB 325 MG TAB PO PRN (08:02)
--- NOTE | 2022-03-01 09:08 | XR ---
EXAMINATION TYPE: XR chest 2V DATE OF EXAM: 03/01/2022 COMPARISON: 02/26/2022 TECHNIQUE: PA and lateral views submitted. HISTORY: Cough FINDINGS: The lungs are clear and there is no pneumothorax, pleural effusion, or focal pneumonia. Heart size is prominent there is a coarsened interstitium. Diffuse osteopenia. Arthropathy of the shoulders. IMPRESSION: 1. Correlate for chronic interstitial lung disease or superimposed interstitial pneumonitis.. Mild im provement in some of the areas of small consolidation
[2022-03-01 11:10] LABS: Glucose,Whole Blood 122 mg/dL (75-99)
--- NOTE | 2022-03-01 13:51 | P.PN ---
Subjective Progress Note Date: 03/01/22 This is a 77-year-old female who was recently admitted with shortness of breath and found to have right sided pneumonia and is being closely monitored. Patient has lymphoma as well and oncology consulted and following. Patient is also being followed by pulmonary and is maintained on IV steroids and breathing inhalational treatments and will continue. Patient is maintained on 2-3 L of 02 via NC and recommend to wean FI02 as tolerated. Patient with positive blood cultures and maintained on IV antibiotics and ID consulted. Repeat blood cultures ordered as well as a sputum culture. Patient denies chest pain or palpitations. Patient is afebrile. Patient continues with some shortness of breath although reports feeling a little better today. Daughter at the bedside. 02/28/2022 Patient is seen in follow-up this morning and is maintained on IV cefepime and vancomycin with ID following closely. Blood cultures showed micrococcus species and awaiting sputum culture as evelyne was able to provide a sputum sample today. Patient is continued on IV steroids and breathing inhalational treatments. Currently continued on 2L via NC and encouraged to wean as tolerated. Possible home 02 evaluation with case management following. Pulmonary and oncology following as well and awaiting medical records from [facility] in [place]. Patient will be following with Dr. Dalton outpatient. Repeat blood cultures thus far are negative. Patient is afebrile, denies worsening shortness of breath, or chest pain. Patient continues with frequent coughing spells. 03/01/2022 Patient is seen this morning and is being closely monitored with multiple medical consultations. Patient continues on IV antibiotics in the form of cefepime and vancomycin. Initial blood cultures revealed micrococcus and per infectious disease recommendations possibly a contaminant with repeat blood cultures being negative. Grams sputum culture showing Evita albicans and will initiate Diflucan. Patient is continued on IV steroids and are being titrated down and also continued breathing inhalational treatments and patient also using Robitussin as needed. Encourage the patient to use cough suppressant minimally as we would encourage coughing and deep breathing given the extent of pneumonia. Patient remains afebrile and currently continued on 2 L via nasal cannula. Chest x-ray this morning shows for correlating for chronic interstitial lung disease or superimposed interstitial pneumonitis with mild improvement and some small area of consolidation. Oncology also following as well. Review of systems: Constitutional: No reports of fatigue, fever, or chills Cardiovascular: No reports of chest pain or palpitations Respiratory: reports of shortness of breath and dry cough with some coughing spells more frequently at night GI: no reports of nausea, no reports of of vomiting, reports slightly improved oral intake : No reports of dysuria or retention Neurovascular: reports of generalized weakness All medications have been reviewed Active Medications Acetaminophen (Acetaminophen Tab 325 Mg Tab) 650 mg PO Q6HR PRN PRN Reason: Fever and/ or Pain Last Admin: 03/01/22 08:02 Dose: 650 mg Documented by: Albuterol/Ipratropium (Ipratropium-Albuterol 3 Ml Neb) 3 ml INHALATION RT-QID ARGELIA Last Admin: 03/01/22 07:09 Dose: Not Given Documented by: Albuterol/Ipratropium (Ipratropium-Albuterol 3 Ml Neb) 3 ml INHALATION RT-Q2H PRN PRN Reason: Shortness Of Breath Or Wheezing Budesonide/Formoterol Fumarate (Symbicort 160-4.5 Mcg Inhaler) 2 puff INHALATION RT-BID [facility] Last Admin: 03/01/22 07:09 Dose: Not Given Documented by: Enoxaparin Sodium (Enoxaparin 40 Mg/0.4 Ml Syringe) 40 mg SQ DAILY [facility] Last Admin: 03/01/22 07:13 Dose: 40 mg Documented by: Guaifenesin/Dextromethorphan (Guaifenesin-Dm 100-10mg/5ml 10 Ml Cup) 10 ml PO Q8HR PRN PRN Reason: Cough Last Admin: 02/28/22 10:05 Dose: 10 ml Documented by: Cefepime HCl 2 gm/ Sodium (Chloride) 100 mls @ 25 mls/hr IVPB Q12H [facility]; Protocol Last Admin: 03/01/22 00:08 Dose: 25 mls/hr Documented by: Vancomycin HCl 750 mg/ Sodium (Chloride) 250 mls @ 125 mls/hr IVPB Q16H ARGELIA Last Admin: 03/01/22 07:13 Dose: 125 mls/hr Documented by: Insulin Aspart (Insulin Aspart (Novolog) 100 Unit/Ml Vial) 0 unit SQ ACHS ARGELIA; Protocol Last Admin: 03/01/22 07:09 Dose: Not Given Documented by: Methylprednisolone Sodium Succinate (Methylprednisolone Sod Succi 40 Mg/Ml 1 Ml Vial) 40 mg IV Q6HR ARGELIA Last Admin: 03/01/22 06:27 Dose: 40 mg Documented by: Miscellaneous Information (Pneumonia Protocol Utilized 1 Each [facility]) 1 each PO ONCE PRN PRN Reason: Per Protocol Naloxone HCl (Naloxone 0.4 Mg/Ml 1 Ml Vial) 0.2 mg IV Q2M PRN PRN Reason: Opioid Reversal PHYSICAL EXAMINATION: GENERAL: The patient is alert and oriented x4, Well developed, well nourished. HEENT: Pupils are round and equally reacting to light. EOMI. no scleral icterus. No conjunctival pallor. Normocephalic, atraumatic. No pharyngeal erythema. No thyromegaly. CARDIOVASCULAR: S1 and S2 muffled PULMONARY: diminished breath sounds bilaterally with some scattered rhonchi and expiratory wheezing noted. Improved aeration and mild wheezing noted on expiration. ABDOMEN: soft. Nontender on exam. non-distended, normoactive bowel sounds. No palpable organomegaly. MUSCULOSKELETAL: No joint swelling or deformity. EXTREMITIES: No cyanosis, clubbing, or pedal edema. NEUROLOGICAL: Gross neurological examination did not reveal any focal deficits. Diffuse weakness SKIN: No rashes. 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 Patient is on IV antibiotic therapy and had a positive blood culture and have repeated and monitoring for clearance of bacteremia. ID following. Sputum culture showing Evita albicans and will add oral Diflucan. Blood culture grew micrococcus species and repeat thus far are negative. Patient is continued on breathing inhalational treatments and IV steroids and will continue. IV steroids being titrated down with pulmonary following closely. Wean FI02 as tolerated. Patient continues to require 2 L of oxygen via nasal cannula and may require oxygen on discharge. Discussed with case management and will perform home O2 eval. Patient will need supplemental oxygen at 2 L to manage asthma and underlying COPD. Encouraged increased activity as tolerated. Encouraged oral intake. Discussed with family about bringing in foods that she will like and eat to encourage oral intake. Recommend repeat labs and chest x-ray in the am. Recommend to continue encouraging coughing and deep breathing along with incentive spirometer use. Due to multiple complex medical issues, prognosis is guarded. The impression and plan of care has been dictated by Mable Mann, nurse practitioner as directed. MD Jenna I have performed a history and examination and MDM of this patient, discussed the same with the dictator, and agree with the dictator's assessment and plan as written ,documented as a scribe. Based on total visit time, I have performed more than 50% of the visit. Any additional findings or plans will be noted. Objective - Vital Signs Vital signs: Vital Signs Temp 97.5 F L 03/01/22 08:22 Pulse 84 03/01/22 08:22 Resp 20 03/01/22 08:22 BP 128/65 03/01/22 08:22 Pulse Ox 95 03/01/22 08:22 Intake & Output 02/28/22 03/01/22 03/01/22 18:59 06:59 18:59 Intake Total 1080 180 Balance 1080 180 Intake: Oral 1080 180 Other: Voiding Method Toilet # Voids 3 3 # Bowel Movements 2 - Labs CBC & Chem 7: 03/01/22 03:11 03/01/22 03:11 Labs: Abnormal Lab Results - Last 24 Hours (Table) 02/28/22 02/28/22 02/28/22 Range/Units 04:47 11:29 15:59 RBC (3.80-5.40) m/uL Hgb (11.4-16.0) gm/dL Hct (34.0-46.0) % MCHC (31.0-37.0) g/dL RDW (11.5-15.5) % Plt Count (150-450) k/uL Lymphocytes # (1.0-4.8) k/uL Chloride (98-107) mmol/L Glucose (74-99) mg/dL POC Glucose (mg/dL) 125 H 185 H (75-99) mg/dL Calcium (8.4-10.2) mg/dL Magnesium (1.6-2.3) mg/dL Procalcitonin 0.22 H (0.02-0.09) ng/mL 02/28/22 03/01/22 03/01/22 Range/Units 20:50 03:11 03:11 RBC 3.00 L (3.80-5.40) m/uL Hgb 8.1 L (11.4-16.0) gm/dL Hct 27.7 L (34.0-46.0) % MCHC 29.3 L (31.0-37.0) g/dL RDW 16.3 H (11.5-15.5) % Plt Count 74 L (150-450) k/uL Lymphocytes # 0.5 L (1.0-4.8) k/uL Chloride 109 H (98-107) mmol/L Glucose 122 H (74-99) mg/dL POC Glucose (mg/dL) 142 H (75-99) mg/dL Calcium 8.3 L (8.4-10.2) mg/dL Magnesium 2.5 H (1.6-2.3) mg/dL Procalcitonin (0.02-0.09) ng/mL 03/01/22 Range/Units 06:59 RBC (3.80-5.40) m/uL Hgb (11.4-16.0) gm/dL Hct (34.0-46.0) % MCHC (31.0-37.0) g/dL RDW (11.5-15.5) % Plt Count (150-450) k/uL Lymphocytes # (1.0-4.8) k/uL Chloride (98-107) mmol/L Glucose (74-99) mg/dL POC Glucose (mg/dL) 117 H (75-99) mg/dL Calcium (8.4-10.2) mg/dL Magnesium (1.6-2.3) mg/dL Procalcitonin (0.02-0.09) ng/mL Microbiology - Last 24 Hours (Table) 02/27/22 16:09 Gram Stain - Final Sputum Sputum Culture - Final Evita albicans 02/28/22 04:47 Blood Culture - Preliminary Blood No Growth after 24 hours 02/27/22 11:10 Blood Culture - Preliminary Blood No Growth after 24 hours 02/25/22 10:39 Blood Culture Gram Stain - Final Blood Blood Culture - Final Micrococcus species
[2022-03-01] MEDS: FLUCONAZOLE 100 MG TAB PO SCH (14:15)
--- NOTE | 2022-03-01 14:58 | P.PN ---
Subjective Progress Note Date: 03/01/22 Principal diagnosis: Shortness of breath This is a very pleasant 77-year-old female patient with a history of splenomegaly and pancytopenia with a recent diagnosis of non-Hodgkin's B-cell lymphoma via bone marrow biopsy on 01/30/2022 and has been seen by Dr. Britt. She has not received any treatment yet. She presented to the emergency room yesterday with complaints of increasing shortness of breath, cough and congestion. She was found to be hypoxemic at 86% on room air. No nausea vomiting or diarrhea. Positive for chills. Chest x-ray was positive for right lung pneumonia and she was admitted for the same. CT angiogram of the chest ruled out pulmonary embolism. There is noted mediastinal adenopathy which is increased compared to a recent exam of 02/18/2022. Extensive lung disease appears new compared to old exam. Massive splenomegaly unchanged. Dopplers of the lower extremity revealed some mild bilateral chronic DVT in the femoral veins but no acute DVTs. White count 1.57. Hemoglobin 7.6. Platelet count 45,000. Sodium 138. Potassium 4.0. BUN 14. Creatinine 0.9. Glucose 139. D- dimer 1.57. Coronavirus, influenza and RSV screens negative. Urinalysis negative. Today's chest x-ray continues to show diffuse mild to moderate interstitial opacity and a few scattered small partially consolidative airspace opacities in the right mid and lower lung hermosillo. No change in right hilar prominence possibly indicating a right hilar adenopathy. The patient is seen today in consultation on the regular medical floor. She is currently resting fairly comfortably in bed. Awake and alert. Her family is at the bedside. They state she does have some short-term memory issues. She is currently afebrile. Maintaining O2 saturations in the mid 90s on 4 L/m per nasal cannula. Hemodynamically stable. She been initiated on Symbicort, DuoNeb inhalations, IV Solu-Medrol. Antibiotics in the form of cefepime and azithromycin. Heparin for DVT prophylaxis. On 02/27/2022 patient seen in follow-up on selective care unit. She is currently on 4 L of oxygen, pulse ox is 96%, she is wheezy on today's exam, mild short of breath at rest, but no acute distress noted. She is sitting up in bed, her daughter is at the bedside. Denies any chest discomfort, no hemoptysis, current antibiotic coverage includes azithromycin cefepime and vancomycin, blood culture showed gram-positive cocci in clusters, ID service has been consulted. Patient remains on IV steroids and nebulized bronchodilators. Follow blood culture has been ordered and pending, sputum culture has been ordered, but patient has been unable to produce a sputum sample On 02/28/2022 patient seen in follow-up on medical surgical floor. Patient is awake and alert, does not look to be in any acute distress, breathing comfortably, she remains on cefepime and vancomycin, compared to yesterday her dyspnea has improved, still has a congested cough, but slightly better. Sputum specimen was sent, pending at this time. Vital signs have been stable, patient is afebrile. Denies any hemoptysis or chest discomfort. On 03/01/2022 patient seen in follow-up on medical surgical floor. Patient is awake and alert, in no acute distress. She is breathing comfortably, she remains on 2 L of oxygen pulse ox is 94%, she's been afebrile, hemodynamically she has been stable. Generally patient is weak, but denies any worsening symptoms of shortness of breath,ore cough. Today's chest x-ray showing chronic interstitial lung disease with superimposed interstitial pneumonitis, and mild improvements at some of the areas of small consolidation. Today's labs have been reviewed, white blood cell count is 4.0, hemoglobin is 8.1, platelet count is 74, total level is improving and is down to 0.22. Márquez no acute events overnight. Patient remains on cefepime for antibiotic coverage, IV steroids with Solu-Medrol 40 mg every 6 hours, and nebulized bronchodilators. Objective - Vital Signs Vital signs: Vital Signs Temp 98.3 F 03/01/22 13:07 Pulse 92 03/01/22 13:07 Resp 24 03/01/22 13:07 BP 110/54 03/01/22 13:07 Pulse Ox 94 L 03/01/22 13:07 Intake & Output 02/28/22 03/01/22 03/01/22 18:59 06:59 18:59 Intake Total 1080 180 Balance 1080 180 Intake: Oral 1080 180 Other: Voiding Method Toilet # Voids 3 3 # Bowel Movements 2 - Exam GENERAL EXAM: Alert, very pleasant, 77-year-old white female, sitting up in bed, short of breath at rest, no acute distress noted, on 2 L of oxygen satting 96% comfortable in no apparent distress. HEAD: Normocephalic/atraumatic. EYES: Normal reaction of pupils, equal size. Conjunctiva pink, sclera white. NOSE: Clear with pink turbinates. THROAT: No erythema or exudates. NECK: No masses, no JVD, no thyroid enlargement, no adenopathy. CHEST: No chest wall deformity. Symmetrical expansion. LUNGS: Equal air entry with diffuse wheezes and coarse bibasilar crackles CVS: Regular rate and rhythm, normal S1 and S2, no gallops, no murmurs, no rubs ABDOMEN: Soft, nontender. No hepatosplenomegaly, normal bowel sounds, no guarding or rigidity. EXTREMITIES: No clubbing, no edema, no cyanosis, 2+ pulses and upper and lower extremities. MUSCULOSKELETAL: Muscle strength and tone normal. SPINE: No scoliosis or deformity SKIN: No rashes CENTRAL NERVOUS SYSTEM: Alert and oriented -3. No focal deficits, tone is normal in all 4 extremities. PSYCHIATRIC: Alert and oriented -3. Appropriate affect. Intact judgment and insight. - Labs CBC & Chem 7: 03/01/22 03:11 03/01/22 03:11 Labs: Abnormal Lab Results - Last 24 Hours (Table) 02/28/22 02/28/22 03/01/22 Range/Units 15:59 20:50 03:11 RBC 3.00 L (3.80-5.40) m/uL Hgb 8.1 L (11.4-16.0) gm/dL Hct 27.7 L (34.0-46.0) % MCHC 29.3 L (31.0-37.0) g/dL RDW 16.3 H (11.5-15.5) % Plt Count 74 L (150-450) k/uL Lymphocytes # 0.5 L (1.0-4.8) k/uL Chloride (98-107) mmol/L Glucose (74-99) mg/dL POC Glucose (mg/dL) 185 H 142 H (75-99) mg/dL Calcium (8.4-10.2) mg/dL Magnesium (1.6-2.3) mg/dL 05/11/22 05/11/22 05/11/22 Range/Units 03:11 06:59 11:08 RBC (3.80-5.40) m/uL Hgb (11.4-16.0) gm/dL Hct (34.0-46.0) % MCHC (31.0-37.0) g/dL RDW (11.5-15.5) % Plt Count (150-450) k/uL Lymphocytes # (1.0-4.8) k/uL Chloride 109 H (98-107) mmol/L Glucose 122 H (74-99) mg/dL POC Glucose (mg/dL) 117 H 122 H (75-99) mg/dL Calcium 8.3 L (8.4-10.2) mg/dL Magnesium 2.5 H (1.6-2.3) mg/dL Microbiology - Last 24 Hours (Table) 02/27/22 11:10 Blood Culture - Preliminary Blood No Growth after 48 hours 02/27/22 16:09 Gram Stain - Final Sputum Sputum Culture - Final Evita albicans 02/28/22 04:47 Blood Culture - Preliminary Blood No Growth after 24 hours Assessment and Plan Plan: Assessment: #1. Acute hypoxic respiratory failure secondary to acute right lung pneumonia, possibly community acquired #2. Bacteremia, blood culture showed gram-positive cocci in clusters, final culture is pending. Patient is on vancomycin #3. Recent diagnosis of non-Hodgkin's B-cell lymphoma, patient had a positive bone marrow biopsy on 01/30/2022, has not started treatment yet #4. 20 pound weight loss secondary to the above #5. Splenomegaly #6. Pancytopenia #7. 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 Number of minutes spent on the visit: [10] Time with Patient: Less than 30
[2022-03-01 16:23] LABS: Glucose,Whole Blood 185 mg/dL (75-99)
[2022-03-01 21:23] LABS: Glucose,Whole Blood 169 mg/dL (75-99)
[2022-03-02] MEDS: methylPREDNISolone SOD SUCCI 40 MG/ML 1 ML VIAL IV SCH ×4 (00:39→19:25)
[2022-03-02] MEDS: CEFEPIME 2 GM in SODIUM CHLORIDE 0.9% 100 ML IVPB SCH ×3 (00:39→22:57)
[2022-03-02 07:05] LABS: Glucose,Whole Blood 140 mg/dL (75-99)
--- NOTE | 2022-03-02 07:19 | P.PN ---
Subjective Progress Note Date: 03/01/22 Principal diagnosis: Bacteremia and pneumonia Patient is a 77 year old female presented to the hospital for increasing shortness of breath or cough productive some greenish sputum in this patient with evidence of pneumonia subsequently did have a positive blood culture with gram-positive cocci. On today's evaluation that is 03/01/2022, the patient is afebrile, the patient is breathing comfortably on nasal cannula Oxygen patient denies nausea no vomiting patient did have a cough which has decreased in intensity occasional sputum, no abdominal pain no diarrhea Objective - Vital Signs Vital signs: Vital Signs Temp 97.5 F L 03/01/22 08:22 Pulse 72 03/01/22 10:57 Resp 20 03/01/22 08:22 BP 128/65 03/01/22 08:22 Pulse Ox 95 03/01/22 08:22 Intake & Output 02/28/22 03/01/22 03/01/22 18:59 06:59 18:59 Intake Total 1080 180 Balance 1080 180 Intake: Oral 1080 180 Other: Voiding Method Toilet # Voids 3 3 # Bowel Movements 2 - Exam GENERAL DESCRIPTION: An elderly female lying in bed in no distress RESPIRATORY SYSTEM: Unlabored breathing , course breath sounds bilaterally HEART: S1 S2 regular rate and rhythm , ABDOMEN: Soft , no tenderness EXTREMITIES: No edema feet - Labs CBC & Chem 7: 03/01/22 03:11 03/01/22 03:11 Labs: Abnormal Lab Results - Last 24 Hours (Table) 02/28/22 02/28/22 03/01/22 Range/Units 15:59 20:50 03:11 RBC 3.00 L (3.80-5.40) m/uL Hgb 8.1 L (11.4-16.0) gm/dL Hct 27.7 L (34.0-46.0) % MCHC 29.3 L (31.0-37.0) g/dL RDW 16.3 H (11.5-15.5) % Plt Count 74 L (150-450) k/uL Lymphocytes # 0.5 L (1.0-4.8) k/uL Chloride (98-107) mmol/L Glucose (74-99) mg/dL POC Glucose (mg/dL) 185 H 142 H (75-99) mg/dL Calcium (8.4-10.2) mg/dL Magnesium (1.6-2.3) mg/dL 03/01/22 03/01/22 03/01/22 Range/Units 03:11 06:59 11:08 RBC (3.80-5.40) m/uL Hgb (11.4-16.0) gm/dL Hct (34.0-46.0) % MCHC (31.0-37.0) g/dL RDW (11.5-15.5) % Plt Count (150-450) k/uL Lymphocytes # (1.0-4.8) k/uL Chloride 109 H (98-107) mmol/L Glucose 122 H (74-99) mg/dL POC Glucose (mg/dL) 117 H 122 H (75-99) mg/dL Calcium 8.3 L (8.4-10.2) mg/dL Magnesium 2.5 H (1.6-2.3) mg/dL Microbiology - Last 24 Hours (Table) 02/27/22 16:09 Gram Stain - Final Sputum Sputum Culture - Final Evita albicans 02/28/22 04:47 Blood Culture - Preliminary Blood No Growth after 24 hours 02/27/22 11:10 Blood Culture - Preliminary Blood No Growth after 24 hours 02/25/22 10:39 Blood Culture Gram Stain - Final Blood Blood Culture - Final Micrococcus species Assessment and Plan (1) Bacteremia Current Visit: Yes Status: Acute Code(s): R78.81 - BACTEREMIA SNOMED Code(s): 9550170 Plan: 1 Patient with gram-positive bacteremia in this patient presented to hospital with increasing shortness of breath or cough and yellow sputum with evidence of extensive pneumonia on the CT likely source with pneumonia and initial concern for possible strep pneumo was staph aureus,, however the blood culture had been finalized as Micrococcus more likely contamination 2blood cultures repeat or so far negative 3sputum cultures are currently pending. 4patient to continue with cefepime for the pneumonia while waiting for the sputum culture to be finalize Time with Patient: Less than 30
--- NOTE | 2022-03-02 07:33 | XR ---
EXAMINATION TYPE: XR chest 1V portable DATE OF EXAM: 03/02/2022 Comparison: 03/01/2022 Clinical History: 77-year-old female Shortness of breath Findings: Heart upper limits of normal in size. Mild to moderate interstitial infiltrates persist. No progressi ve consolidation or pleural effusion. Bilateral hilar prominence. Impression: Ongoing interstitial infiltrates, possible atypical pneumonia/infection including possibility of TB/f ungal infections or infectious bronchitis. Hilar lymphadenopathy ongoing.
[2022-03-02] MEDS: INSULIN ASPART (NovoLOG) 100 UNIT/ML VIAL SQ SCH ×4 (07:50→21:42)
[2022-03-02] MEDS: IPRATROPIUM-ALBUTEROL 3 ML NEB INHALATION SCH ×4 (09:00→21:11)
[2022-03-02] MEDS: SYMBICORT 160-4.5 MCG INHALER INHALATION SCH ×2 (09:01→21:11)
[2022-03-02] MEDS: ENOXAPARIN 40 MG/0.4 ML SYRINGE SQ SCH (09:50)
[2022-03-02] MEDS: FLUCONAZOLE 100 MG TAB PO SCH (09:50)
[2022-03-02 11:35] LABS: Glucose,Whole Blood 149 mg/dL (75-99)
--- NOTE | 2022-03-02 12:11 | P.PN ---
Subjective Progress Note Date: 03/02/22 Principal diagnosis: Pneumonia/bacteremia. Non-Hodgkin's lymphoma, NOS In follow-up today patient is sitting up in the chair eating a cookie. She states feeling pretty decent today. No fevers, sweats, her breathing is much more comfortable, abdominal bloating from splenomegaly is somewhat improved. No other complaints today. Objective - Vital Signs Vital signs: Vital Signs Temp 97.9 F 03/02/22 07:49 Pulse 78 03/02/22 11:53 Resp 20 03/02/22 07:49 BP 123/62 03/02/22 07:49 Pulse Ox 88 L 03/02/22 09:01 Intake & Output 03/01/22 03/02/22 03/02/22 18:59 06:59 18:59 Intake Total 180 360 Balance 180 360 Intake: Oral 180 360 Other: Voiding Method Toilet # Voids 3 - Constitutional General appearance: Present: average body habitus, cooperative, no acute distress - EENT Eyes: Present: anicteric sclerae, EOMI ENT: Present: hearing grossly normal - Respiratory Respiratory: bilateral: CTA - Cardiovascular Rhythm: regular Heart sounds: normal: S1, S2 Abnormal Heart Sounds: Absent: systolic murmur, diastolic murmur, rub, S3 Gallop, S4 Gallop, click, other - Peripheral edema leg Peripheral Edema: bilateral: None - Gastrointestinal General gastrointestinal: Present: normal bowel sounds, soft, splenomegaly - Neurologic Neurologic: Present: CNII-XII intact - Psychiatric Psychiatric: Present: A&O x's 3, appropriate affect, intact judgment & insight - Labs CBC & Chem 7: 03/01/22 03:11 03/01/22 03:11 Labs: Abnormal Lab Results - Last 24 Hours (Table) 03/01/22 03/01/22 03/02/22 Range/Units 16:21 21:22 07:03 POC Glucose (mg/dL) 185 H 169 H 140 H (75-99) mg/dL 03/02/22 Range/Units 11:33 POC Glucose (mg/dL) 149 H (75-99) mg/dL Microbiology - Last 24 Hours (Table) 02/28/22 04:47 Blood Culture - Preliminary Blood No Growth after 48 hours 02/27/22 11:10 Blood Culture - Preliminary Blood No Growth after 48 hours 02/27/22 16:09 Gram Stain - Final Sputum Sputum Culture - Final Evita albicans - Imaging and Cardiology Chest x-ray: report reviewed Assessment and Plan (1) Splenomegaly Current Visit: Yes Status: Inactive Priority: High Code(s): R16.1 - SPLENOMEGALY, NOT ELSEWHERE CLASSIFIED SNOMED Code(s): 04493311 (2) Pancytopenia Current Visit: Yes Status: Acute Priority: High Code(s): D61.818 - OTHER PANCYTOPENIA SNOMED Code(s): 924953280 Plan: Patient currently admitted with pneumonia and bacteremia. Defer treatment of the same to ID and Pulm. Immunoglobulin levels checked, IgG 621, no IVIG ordered at this time. Non-Hodgkin's lymphoma, NOS. Patient was just seen at [facility] in [place] on February 23 for further classification of NHL. We're pending those reports. Massive splenomegaly secondary to above. Patient is currently on Solu-Medrol 60mg every 6 hours per Pulmonary. Confirmed with Dr. Britt, Pulmonary steroid taper is perfectly adequate. Follow-up with Dr. Britt next week.
--- NOTE | 2022-03-02 12:33 | P.PN ---
Subjective Progress Note Date: 03/02/22 Principal diagnosis: Shortness of breath This is a very pleasant 77-year-old female patient with a history of splenomegaly and pancytopenia with a recent diagnosis of non-Hodgkin's B-cell lymphoma via bone marrow biopsy on 01/30/2022 and has been seen by Dr. Britt. She has not received any treatment yet. She presented to the emergency room yesterday with complaints of increasing shortness of breath, cough and congestion. She was found to be hypoxemic at 86% on room air. No nausea vomiting or diarrhea. Positive for chills. Chest x-ray was positive for right lung pneumonia and she was admitted for the same. CT angiogram of the chest ruled out pulmonary embolism. There is noted mediastinal adenopathy which is increased compared to a recent exam of 02/18/2022. Extensive lung disease appears new compared to old exam. Massive splenomegaly unchanged. Dopplers of the lower extremity revealed some mild bilateral chronic DVT in the femoral veins but no acute DVTs. White count 1.57. Hemoglobin 7.6. Platelet count 45,000. Sodium 138. Potassium 4.0. BUN 14. Creatinine 0.9. Glucose 139. D- dimer 1.57. Coronavirus, influenza and RSV screens negative. Urinalysis negative. Today's chest x-ray continues to show diffuse mild to moderate interstitial opacity and a few scattered small partially consolidative airspace opacities in the right mid and lower lung hermosillo. No change in right hilar prominence possibly indicating a right hilar adenopathy. The patient is seen today in consultation on the regular medical floor. She is currently resting fairly comfortably in bed. Awake and alert. Her family is at the bedside. They state she does have some short-term memory issues. She is currently afebrile. Maintaining O2 saturations in the mid 90s on 4 L/m per nasal cannula. Hemodynamically stable. She been initiated on Symbicort, DuoNeb inhalations, IV Solu-Medrol. Antibiotics in the form of cefepime and azithromycin. Heparin for DVT prophylaxis. On 02/27/2022 patient seen in follow-up on selective care unit. She is currently on 4 L of oxygen, pulse ox is 96%, she is wheezy on today's exam, mild short of breath at rest, but no acute distress noted. She is sitting up in bed, her daughter is at the bedside. Denies any chest discomfort, no hemoptysis, current antibiotic coverage includes azithromycin cefepime and vancomycin, blood culture showed gram-positive cocci in clusters, ID service has been consulted. Patient remains on IV steroids and nebulized bronchodilators. Follow blood culture has been ordered and pending, sputum culture has been ordered, but patient has been unable to produce a sputum sample On 02/28/2022 patient seen in follow-up on medical surgical floor. Patient is awake and alert, does not look to be in any acute distress, breathing comfortably, she remains on cefepime and vancomycin, compared to yesterday her dyspnea has improved, still has a congested cough, but slightly better. Sputum specimen was sent, pending at this time. Vital signs have been stable, patient is afebrile. Denies any hemoptysis or chest discomfort. On 03/01/2022 patient seen in follow-up on medical surgical floor. Patient is awake and alert, in no acute distress. She is breathing comfortably, she remains on 2 L of oxygen pulse ox is 94%, she's been afebrile, hemodynamically she has been stable. Generally patient is weak, but denies any worsening symptoms of shortness of breath,ore cough. Today's chest x-ray showing chronic interstitial lung disease with superimposed interstitial pneumonitis, and mild improvements at some of the areas of small consolidation. Today's labs have been reviewed, white blood cell count is 4.0, hemoglobin is 8.1, platelet count is 74, total level is improving and is down to 0.22. Márquez no acute events overnight. Patient remains on cefepime for antibiotic coverage, IV steroids with Solu-Medrol 40 mg every 6 hours, and nebulized bronchodilators. On 03/02/2022 patient seen in follow-up on medical surgical floor. She is awake and alert, in no acute distress, vital signs have been stable, patient is on 3 L of oxygen pulse ox of 90%, room air pulse ox is 80%, she does qualify for home oxygen. Afebrile, she is breathing quite comfortably, no chest discomfort, no hemoptysis, lung sounds are positive for some coarse crackles at the bases, no wheezing. Chest x-ray showing some interstitial infiltrates with hilar lymphadenopathy. No progressive consolidation or pleural effusion. Patient remains on cefepime for antibiotic coverage, vancomycin has been discontinued. Culture showed Evita albicans, follow blood cultures have been negative, today's labs are still pending, yesterday's labs have been reviewed showing normal white count of 4.0, hemoglobin of 8.1, platelet count of 74, electrolytes and renal profile were unremarkable. Objective - Vital Signs Vital signs: Vital Signs Temp 97.9 F 03/02/22 07:49 Pulse 78 03/02/22 12:02 Resp 20 03/02/22 07:49 BP 123/62 03/02/22 07:49 Pulse Ox 98 03/02/22 12:02 Intake & Output 03/01/22 03/02/22 03/02/22 18:59 06:59 18:59 Intake Total 180 360 Balance 180 360 Intake: Oral 180 360 Other: Voiding Method Toilet # Voids 3 - Exam GENERAL EXAM: Alert, very pleasant, 77-year-old white female, sitting up in bed, short of breath at rest, no acute distress noted, on 3 L of oxygen satting 98% comfortable in no apparent distress. HEAD: Normocephalic/atraumatic. EYES: Normal reaction of pupils, equal size. Conjunctiva pink, sclera white. NOSE: Clear with pink turbinates. THROAT: No erythema or exudates. NECK: No masses, no JVD, no thyroid enlargement, no adenopathy. CHEST: No chest wall deformity. Symmetrical expansion. LUNGS: Equal air entry with diffuse wheezes and coarse bibasilar crackles CVS: Regular rate and rhythm, normal S1 and S2, no gallops, no murmurs, no rubs ABDOMEN: Soft, nontender. No hepatosplenomegaly, normal bowel sounds, no gua rding or rigidity. EXTREMITIES: No clubbing, no edema, no cyanosis, 2+ pulses and upper and lower extremities. MUSCULOSKELETAL: Muscle strength and tone normal. SPINE: No scoliosis or deformity SKIN: No rashes CENTRAL NERVOUS SYSTEM: Alert and oriented -3. No focal deficits, tone is normal in all 4 extremities. PSYCHIATRIC: Alert and oriented -3. Appropriate affect. Intact judgment and insight. - Labs CBC & Chem 7: 03/01/22 03:11 03/01/22 03:11 Labs: Abnormal Lab Results - Last 24 Hours (Table) 03/01/22 03/01/22 03/02/22 Range/Units 16:21 21:22 07:03 POC Glucose (mg/dL) 185 H 169 H 140 H (75-99) mg/dL 03/02/22 Range/Units 11:33 POC Glucose (mg/dL) 149 H (75-99) mg/dL Microbiology - Last 24 Hours (Table) 02/28/22 04:47 Blood Culture - Preliminary Blood No Growth after 48 hours 02/27/22 11:10 Blood Culture - Preliminary Blood No Growth after 48 hours 02/27/22 16:09 Gram Stain - Final Sputum Sputum Culture - Final Evita albicans Assessment and Plan Plan: Assessment: #1. Acute hypoxic respiratory failure secondary to acute right lung pneumonia, possibly community acquired #2. Bacteremia, blood culture showed gram-positive cocci in clusters, final culture is pending. Patient is on vancomycin #3. Recent diagnosis of non-Hodgkin's B-cell lymphoma, patient had a positive bone marrow biopsy on 01/30/2022, has not started treatment yet #4. 20 pound weight loss secondary to the above #5. Splenomegaly #6. Pancytopenia #7. 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 Moreno in the office in one or 2 weeks Antibiotic recommendation upon discharge per ID service I have personally seen and examined the patient, performed the documentation and the assessment and plan as written. Number of minutes spent on the visit: [10] Time with Patient: Less than 30
--- NOTE | 2022-03-02 14:59 | PN ---
PROGRESS NOTE DATE OF SERVICE: 03/02/2022 This 77-year-old woman who was admitted with acute right-sided pneumonia and failure of outpatient treatment also had lymphoma. The is improving significantly, but patient is short of breath and complains of significant weakness also. Patient is on IV steroids. No chest pain. No palpitations. No fever. PHYSICAL EXAMINATION: Pulse is 89, blood pressure 120/60, respiration 20. CHEST: Bilateral scattered rhonchi and crackles. ABDOMEN: Soft. Splenomegaly. NERVOUS SYSTEM: Diffusely weak. LABS: Reviewed. ASSESSMENT: 1. Acute right-sided pneumonia with failure of outpatient treatment. 2. History of lymphoma and splenomegaly. 3. Elevated D-dimer. 4. Shortness of breath. 5. Gait dysfunction. 6. Asthma, acute exacerbation, with underlying chronic obstructive pulmonary disease. RECOMMENDATIONS AND DISCUSSION: I recommend to continue current medications, continue with the monitoring, symptomatic treatment. Continue with IV steroids. Continue with the rest of the medications. PT/OT evaluation. Possible ECF rehab. I had a detailed discussion with the patient and family. Discussed with the counseling case manager. Further recommendations to follow. MMODL / IJN: [id number] / EVER
[2022-03-02 16:18] LABS: Glucose,Whole Blood 157 mg/dL (75-99)
[2022-03-02 16:26] LABS: African American GFR (CKD) 61 (>60 ml/min/1.73 sqM); Anion Gap 7 mmol/L; Blood Urea Nitrogen 19 mg/dL (7-17); Calcium 8.2 mg/dL (8.4-10.2); Carbon Dioxide 23 mmol/L (22-30); Chloride 106 mmol/L (98-107); Glucose 160 mg/dL (74-99); Non-African American GFR(CKD) 53 (>60 ml/min/1.73 sqM); Potassium 4.4 mmol/L (3.5-5.1); Sodium 136 mmol/L (137-145)
[2022-03-02 21:30] LABS: Glucose,Whole Blood 213 mg/dL (75-99)
--- NOTE | 2022-03-02 22:27 | P.PN ---
Subjective Progress Note Date: 03/02/22 Principal diagnosis: Bacteremia and pneumonia Patient is a 77 year old female presented to the hospital for increasing shortness of breath or cough productive some greenish sputum in this patient with evidence of pneumonia subsequently did have a positive blood culture with gram-positive cocci. On today's evaluation that is 03/02/2022, the patient remains to be afebrile, the patient is breathing comfortably on nasal cannula Oxygen patient denies nausea no vomiting patient cough has decreased in intensity occasional sputum, no abdominal pain no diarrhea Objective - Vital Signs Vital signs: Vital Signs Temp 97.9 F 03/02/22 07:49 Pulse 78 03/02/22 12:02 Resp 20 03/02/22 07:49 BP 123/62 03/02/22 07:49 Pulse Ox 98 03/02/22 12:02 Intake & Output 03/01/22 03/02/22 03/02/22 18:59 06:59 18:59 Intake Total 180 360 Balance 180 360 Intake: Oral 180 360 Other: Voiding Method Toilet # Voids 3 - Exam GENERAL DESCRIPTION: An elderly female lying in bed in no distress RESPIRATORY SYSTEM: Unlabored breathing , course breath sounds bilaterally HEART: S1 S2 regular rate and rhythm , ABDOMEN: Soft , no tenderness EXTREMITIES: No edema feet - Labs CBC & Chem 7: 03/01/22 03:11 03/02/22 15:16 Labs: Abnormal Lab Results - Last 24 Hours (Table) 03/01/22 03/01/22 03/02/22 Range/Units 16:21 21:22 07:03 POC Glucose (mg/dL) 185 H 169 H 140 H (75-99) mg/dL 03/02/22 Range/Units 11:33 POC Glucose (mg/dL) 149 H (75-99) mg/dL Microbiology - Last 24 Hours (Table) 02/28/22 04:47 Blood Culture - Preliminary Blood No Growth after 48 hours 02/27/22 11:10 Blood Culture - Preliminary Blood No Growth after 48 hours 02/27/22 16:09 Gram Stain - Final Sputum Sputum Culture - Final Evita albicans Assessment and Plan (1) Bacteremia Current Visit: Yes Status: Acute Code(s): R78.81 - BACTEREMIA SNOMED Code(s): 1111093 Plan: 1 Patient with gram-positive bacteremia in this patient presented to hospital with increasing shortness of breath or cough and yellow sputum with evidence of extensive pneumonia on the CT likely source with pneumonia and initial concern for possible strep pneumo was staph aureus,, however the blood culture had been finalized as Micrococcus more likely contamination 2blood cultures repeat or so far negative 3sputum cultures growing Evita likely colonizer 4patient has shown overall clinical improvement and will continue with cefepime for the pneumonia with a plan to finish therapy with oral Ceftin Time with Patient: Less than 30
[2022-03-03] MEDS: methylPREDNISolone SOD SUCCI 40 MG/ML 1 ML VIAL IV SCH ×2 (05:50→06:08)
[2022-03-03 06:56] LABS: Glucose,Whole Blood 144 mg/dL (75-99)
[2022-03-03] MEDS: INSULIN ASPART (NovoLOG) 100 UNIT/ML VIAL SQ SCH ×2 (07:39→11:43)
[2022-03-03] MEDS: FLUCONAZOLE 100 MG TAB PO SCH (07:39)
[2022-03-03] MEDS: ENOXAPARIN 40 MG/0.4 ML SYRINGE SQ SCH (07:39)
[2022-03-03 07:59] VITALS: BP 124/73; RESP 17; TEMP 97.6
[2022-03-03] MEDS: SYMBICORT 160-4.5 MCG INHALER INHALATION SCH (08:31)
[2022-03-03] MEDS: IPRATROPIUM-ALBUTEROL 3 ML NEB INHALATION SCH ×2 (08:31→12:29)
[2022-03-03 09:32] LABS: African American GFR (CKD) 62.1 (60.0-200.0); Albumin 3.7 g/dL (3.8-4.9); Albumin/Globulin Ratio 1.85 (1.60-3.17); BUN/Creat Ratio 21.6 Ratio (12.00-20.00); Blood Urea Nitrogen 21.6 mg/dL (9.0-27.0); Calcium 8.5 mg/dL (8.7-10.3); Non-African American GFR(CKD) 53.5 (60.0-200.0); Potassium 4.3 mmol/L (3.5-5.5); Total Bilirubin 0.4 mg/dL (0.30-1.20); Total Protein 5.7 g/dL (6.2-8.2)
[2022-03-03 10:22] LABS: HCT 29.1 % (37.2-46.3); HGB 8.6 g/dL (12.0-15.0); MCH 27.3 pg (27.0-32.0); MCHC 29.6 g/dL (32.0-37.0); MCV 92.4 fL (80.0-97.0); Mean Platelet Volume 10.7 fL (9.5-12.2); NRBC Per 100 WBC 0 /100 WBCS (0.0-0.0); Platelet Count 67 X 10*3/uL (140-440); RBC 3.15 X 10*6/uL (4.10-5.20); RDW 17.6 % (11.5-14.5)
[2022-03-03 10:30] LABS: Basophils # (M) 0 X 10*3/uL (0.00-0.10); Eosinophils # (M) 0 X 10*3/uL (0.04-0.35); Immature Platelet Fraction 5.3 % (1.1-6.1); Lymphocytes # (M) 0.23 X 10*3/uL (0.90-5.00); Metamyelocytes % 1 % (0-0); Monocytes # (M) 0.12 X 10*3/uL (0.20-1.00); Myelocytes % 4 % (0-0); Neutrophils # (M) 5.16 X 10*3/uL (2.00-8.90); Neutrophils % (M) 89 %
[2022-03-03 11:37] LABS: Glucose,Whole Blood 131 mg/dL (75-99)
[2022-03-03] MEDS: CEFEPIME 2 GM in SODIUM CHLORIDE 0.9% 100 ML IVPB SCH (11:46)
--- NOTE | 2022-03-03 12:27 | P.PN ---
Subjective Progress Note Date: 03/03/22 This is a very pleasant 77-year-old female patient with a history of splenomegaly and pancytopenia with a recent diagnosis of non-Hodgkin's B-cell lymphoma via bone marrow biopsy on 01/30/2022 and has been seen by Dr. Britt. She has not received any treatment yet. She presented to the emergency room yes terday with complaints of increasing shortness of breath, cough and congestion. She was found to be hypoxemic at 86% on room air. No nausea vomiting or diarrhea. Positive for chills. Chest x-ray was positive for right lung pneumonia and she was admitted for the same. CT angiogram of the chest ruled out pulmonary embolism. There is noted mediastinal adenopathy which is increased compared to a recent exam of 02/18/2022. Extensive lung disease appears new compared to old exam. Massive splenomegaly unchanged. Dopplers of the lower extremity revealed some mild bilateral chronic DVT in the femoral veins but no acute DVTs. White count 1.57. Hemoglobin 7.6. Platelet count 45,000. Sodium 138. Potassium 4.0. BUN 14. Creatinine 0.9. Glucose 139. D- dimer 1.57. Coronavirus, influenza and RSV screens negative. Urinalysis negative. Today's chest x-ray continues to show diffuse mild to moderate interstitial opacity and a few scattered small partially consolidative airspace opacities in the right mid and lower lung hermos[place]. No change in right hilar prominence possibly indicating a right hilar adenopathy. The patient is seen today in consultation on the regular medical floor. She is currently resting fairly comfortably in bed. Awake and alert. Her family is at the bedside. They state she does have some short-term memory issues. She is currently afebrile. Maintaining O2 saturations in the mid 90s on 4 L/m per nasal cannula. Hemodynamically stable. She been initiated on Symbicort, DuoNeb inhalations, IV Solu-Medrol. Antibiotics in the form of cefepime and azithromycin. Heparin for DVT prophylaxis. On 02/27/2022 patient seen in follow-up on selective care unit. She is currently on 4 L of oxygen, pulse ox is 96%, she is wheezy on today's exam, mild short of breath at rest, but no acute distress noted. She is sitting up in bed, her daughter is at the bedside. Denies any chest discomfort, no hemoptysis, current antibiotic coverage includes azithromycin cefepime and vancomycin, blood culture showed gram-positive cocci in clusters, ID service has been consulted. Patient remains on IV steroids and nebulized bronchodilators. Follow blood culture has been ordered and pending, sputum culture has been ordered, but patient has been unable to produce a sputum sample On 02/28/2022 patient seen in follow-up on medical surgical floor. Patient is awake and alert, does not look to be in any acute distress, breathing comfortably, she remains on cefepime and vancomycin, compared to yesterday her dyspnea has improved, still has a congested cough, but slightly better. Sputum specimen was sent, pending at this time. Vital signs have been stable, patient is afebrile. Denies any hemoptysis or chest discomfort. On 03/01/2022 patient seen in follow-up on medical surgical floor. Patient is awake and alert, in no acute distress. She is breathing comfortably, she remains on 2 L of oxygen pulse ox is 94%, she's been afebrile, hemodynamically she has been stable. Generally patient is weak, but denies any worsening symptoms of shortness of breath,ore cough. Today's chest x-ray showing chronic interstitial lung disease with superimposed interstitial pneumonitis, and mild improvements at some of the areas of small consolidation. Today's labs have been reviewed, white blood cell count is 4.0, hemoglobin is 8.1, platelet count is 74, total level is improving and is down to 0.22. Márquez no acute events overnight. Patient remains on cefepime for antibiotic coverage, IV steroids with Solu-Medrol 40 mg every 6 hours, and nebulized bronchodilators. On 03/02/2022 patient seen in follow-up on medical surgical floor. She is awake and alert, in no acute distress, vital signs have been stable, patient is on 3 L of oxygen pulse ox of 90%, room air pulse ox is 80%, she does qualify for home oxygen. Afebrile, she is breathing quite comfortably, no chest discomfort, no hemoptysis, lung sounds are positive for some coarse crackles at the bases, no wheezing. Chest x-ray showing some interstitial infiltrates with hilar lymphadenopathy. No progressive consolidation or pleural effusion. Patient remains on cefepime for antibiotic coverage, vancomycin has been discontinued. Culture showed Evita albicans, follow blood cultures have been negative, today's labs are still pending, yesterday's labs have been reviewed showing normal white count of 4.0, hemoglobin of 8.1, platelet count of 74, electrolytes and renal profile were unremarkable. The patient is seen today 03/03/2022 in follow-up on the regular medical floor. She is currently sitting up in the recliner. Awake and alert in no acute distress. Maintaining good O2 saturations in the 90s on 2 L/m per nasal cannula. Afebrile. Hemodynamically stable. Blood culture revealed no growth. Sputum culture revealed Evita only. White count 5.8. Hemoglobin 8.6. Platelet count 67,000. Sodium 139. Potassium 4.3. BUN 21. Creatinine 1.0. Glucose 143. She is continued on DuoNeb inhalations, Symbicort. Lovenox for DVT prophylaxis. Antibiotics in the form of cefepime and Diflucan. Objective - Vital Signs Vital signs: Vital Signs Temp 97.6 F 03/03/22 07:58 Pulse 85 03/03/22 08:45 Resp 17 03/03/22 07:58 BP 124/73 03/03/22 07:58 Pulse Ox 92 L 03/03/22 08:32 Intake & Output 03/02/22 03/03/22 03/03/22 18:59 06:59 18:59 Intake Total 540 Balance 540 Weight 49.895 kg Intake: Oral 540 Other: Voiding Method Toilet # Voids 2 # Bowel Movements 1 - Exam GENERAL EXAM: Alert, pleasant, 77-year-old female, sitting up in the chair, no acute distress noted, on 2 L of oxygen satting 92% comfortable in no apparent distress. HEAD: Normocephalic/atraumatic. EYES: Normal reaction of pupils, equal size. Conjunctiva pink, sclera white. NOSE: Clear with pink turbinates. THROAT: No erythema or exudates. NECK: No masses, no JVD, no thyroid enlargement, no adenopathy. CHEST: No chest wall deformity. Symmetrical expansion. LUNGS: Equal air entry with end expiratory wheeze wheezes and coarse bibasilar crackles CVS: Regular rate and rhythm, normal S1 and S2, no gallops, no murmurs, no rubs ABDOMEN: Soft, nontender. No hepatosplenomegaly, normal bowel sounds, no guarding or rigidity. EXTREMITIES: No clubbing, no edema, no cyanosis, 2+ pulses and upper and lower extremities. MUSCULOSKELETAL: Muscle strength and tone normal. SPINE: No scoliosis or deformity SKIN: No rashes CENTRAL NERVOUS SYSTEM: No focal deficits, tone is normal in all 4 extremities. PSYCHIATRIC: Alert and oriented -3. Appropriate affect. Intact judgment and insight. - Labs CBC & Chem 7: 03/03/22 06:00 03/03/22 06:00 Labs: Abnormal Lab Results - Last 24 Hours (Table) 03/02/22 03/02/22 03/02/22 Range/Units 15:16 16:14 21:28 RBC (4.10-5.20) X 10*6/uL Hgb (12.0-15.0) g/dL Hct (37.2-46.3) % MCHC (32.0-37.0) g/dL RDW (11.5-14.5) % Plt Count (140-440) X 10*3/uL Plt Count Comment Metamyelocytes % (0-0) % Myelocytes % (0-0) % Lymphocytes # (Manual) (0.90-5.00) X 10*3/uL Monocytes # (Manual) (0.20-1.00) X 10*3/uL Eosinophils # (Manual) (0.04-0.35) X 10*3/uL Sodium 136 L (137-145) mmol/L BUN 19 H (7-17) mg/dL Est GFR (CKD-EPI)NonAf (60.0-200.0) BUN/Creatinine Ratio (12.00-20.00) Ratio Glucose 160 H (74-99) mg/dL POC Glucose (mg/dL) 157 H 213 H (75-99) mg/dL Calcium 8.2 L (8.4-10.2) mg/dL AST (13-35) U/L Total Protein (6.2-8.2) g/dL Albumin (3.8-4.9) g/dL 03/03/22 03/03/22 03/03/22 Range/Units 06:00 06:00 06:55 RBC 3.15 L (4.10-5.20) X 10*6/uL Hgb 8.6 L (12.0-15.0) g/dL Hct 29.1 L (37.2-46.3) % MCHC 29.6 L (32.0-37.0) g/dL RDW 17.6 H (11.5-14.5) % Plt Count 67 L (140-440) X 10*3/uL Plt Count Comment DECREASED A Metamyelocytes % 1 H (0-0) % Myelocytes % 4 H (0-0) % Lymphocytes # (Manual) 0.23 L (0.90-5.00) X 10*3/uL Monocytes # (Manual) 0.12 L (0.20-1.00) X 10*3/uL Eosinophils # (Manual) 0 L (0.04-0.35) X 10*3/uL Sodium (137-145) mmol/L BUN (7-17) mg/dL Est GFR (CKD-EPI)NonAf 53.5 L (60.0-200.0) BUN/Creatinine Ratio 21.60 H (12.00-20.00) Ratio Glucose 143 H (74-99) mg/dL POC Glucose (mg/dL) 144 H (75-99) mg/dL Calcium 8.5 L (8.4-10.2) mg/dL AST 12 L (13-35) U/L Total Protein 5.7 L (6.2-8.2) g/dL Albumin 3.7 L (3.8-4.9) g/dL 03/03/22 Range/Units 11:36 RBC (4.10-5.20) X 10*6/uL Hgb (12.0-15.0) g/dL Hct (37.2-46.3) % MCHC (32.0-37.0) g/dL RDW (11.5-14.5) % Plt Count (140-440) X 10*3/uL Plt Count Comment Metamyelocytes % (0-0) % Myelocytes % (0-0) % Lymphocytes # (Manual) (0.90-5.00) X 10*3/uL Monocytes # (Manual) (0.20-1.00) X 10*3/uL Eosinophils # (Manual) (0.04-0.35) X 10*3/uL Sodium (137-145) mmol/L BUN (7-17) mg/dL Est GFR (CKD-EPI)NonAf (60.0-200.0) BUN/Creatinine Ratio (12.00-20.00) Ratio Glucose (74-99) mg/dL POC Glucose (mg/dL) 131 H (75-99) mg/dL Calcium (8.4-10.2) mg/dL AST (13-35) U/L Total Protein (6.2-8.2) g/dL Albumin (3.8-4.9) g/dL Microbiology - Last 24 Hours (Table) 02/28/22 04:47 Blood Culture - Preliminary Blood No Growth after 72 hours 02/27/22 11:10 Blood Culture - Preliminary Blood No Growth after 72 hours Assessment and Plan Assessment: 1 Acute hypoxemic respiratory failure secondary to an acute right lung pneumonia, community-acquired. Currently the various, influenza and RSV screens negative 2 Recent diagnosis of non-Hodgkin's B-cell lymphoma, positive bone marrow biopsy 01/30/2022, awaiting recommendations for treatment. 3 Weight loss of approximately 20 pounds secondary to above 4 Splenomegaly secondary to above 5 Pancytopenia secondary to above 6 Chronic bilateral DVTs in lower extremities, Dopplers revealed no acute DVT Plan: The patient was seen and evaluated Labs and medications reviewed Continue bronchodilators Discontinue Solu-Medrol Antibiotics per ID service Evaluated for possible home oxygen Home once cleared by medicine I have personally seen and examined the patient, performed the documentation and the assessment and plan as written. Number of minutes spent on the visit: 10.
[2022-03-03 12:41] VITALS: PULSE 91
== END 2022-03-03 13:47 | disposition home or self-care (01) | DRG 193 ==
LOC: EC 10:11 → 6NMEDSUR 12:41 → 4SSUR 12:46
PROVIDERS: ADMIT Internal Medicine; ATTEND Internal Medicine
DX: J18.9 Pneumonia, unspecified organism (principal); J96.01 Acute respiratory failure with hypoxia; D61.818 Other pancytopenia; J45.901 Unspecified asthma with (acute) exacerbation; J44.0 Chronic obstructive pulmonary disease with (acute) lower respiratory infection; I82.513 Chronic embolism and thrombosis of femoral vein, bilateral; C85.99 Non-Hodgkin lymphoma, unspecified, extranodal and solid organ sites; R16.1 Splenomegaly, not elsewhere classified; Z20.822 Contact with and (suspected) exposure to COVID-19; J84.89 Other specified interstitial pulmonary diseases; Z86.73 Personal history of transient ischemic attack (TIA), and cerebral infarction without residual deficits; Z88.0 Allergy status to penicillin; Z88.2 Allergy status to sulfonamides; Z90.710 Acquired absence of both cervix and uterus; Z83.3 Family history of diabetes mellitus; Z84.1 Family history of disorders of kidney and ureter
CPT/HCPCS: 36415; 71045; 71046; 71275; 80048; 80053; 81003; 82784; 83605; 83735; 83880; 84100; 84145; 84484; 84550; 85025; 85379; 85610; 85652; 85730; 86140; 87040; 87070; 87205; 87502; 87634; 87635; 93005; 93970; 94640; 94760; 96365; 96367; 96368; 96375; 99285

== ENCOUNTER 2022-03-24 10:44 | Inpatient (IN) | payer MEDICARE ==
[2022-03-24] MEDS ORDERED: SODIUM CHLORIDE 0.9% 1,000 ML IV STA (10:59)
[2022-03-24] MEDS ORDERED: ACETAMINOPHEN TAB 500 MG TAB PO STA (11:02)
--- NOTE | 2022-03-24 11:14 | ED ---
Fever HPI - General Chief Complaint: Fever Stated Complaint: Fever Time Seen by Provider: 03/24/22 10:52 Source: patient, family, RN notes reviewed Mode of arrival: wheelchair Limitations: no limitations - History of Present Illness Initial Comments: This is a 77-year-old female with a past medical history of non-Hodgkin's lymphoma recently diagnosed 2 months ago, who presents to the emergency department with a fever. This morning her temperature was 102.5 degrees F and in the emergency department it is 102.6. They contacted Dr. Britt, her oncologi st, who advised she come to the emergency department out of concern for an infectious process, low white blood cell count, and low platelets. Patient was admitted to the hospital from 02/25-03/03 for hypoxia secondary to pneumonia. She denies any shortness of breath, coughing, or chest pain associated with the fever. She does however feel slightly fatigued and has been experiencing hot flashes. Also had some nausea yesterday which was treated with Zofran and has since resolved. She did not take any medication for the fever this morning. Denies any chills, sore throat, cough, dyspnea, chest pain, palpitations, abdominal pain, nausea, vomiting, diarrhea, back pain, or headaches. MD Complaint: fever Context: recent antibiotic use, on chemotherapy - Related Data Home Medications Medication Instructions Recorded Confirmed Acetaminophen Tab [Tylenol] 1,000 mg PO Q6H PRN 01/26/22 03/24/22 Albuterol Inhaler [Ventolin Hfa 2 puff INHALATION RT-Q4H PRN 03/24/22 03/24/22 Inhaler] Albuterol Nebulized [Ventolin 2.5 mg INHALATION RT-Q4H PRN 03/24/22 03/24/22 Nebulized] allopurinoL [Zyloprim] 300 mg PO DAILY 03/24/22 03/24/22 Previous Rx's Medication Instructions Recorded Budesonide-Formot 160-4.5 Mcg 2 puff INHALATION RT-BID 30 Days 03/03/22 [Symbicort 160-4.5 Mcg Inhaler] #1 gm Allergies Allergy/AdvReac Type Severity Reaction Status Date / Time Penicillins Allergy Dyspnea Verified 03/24/22 11:52 Sulfa (Sulfonamide Allergy Rash/Hives Verified 03/24/22 11:52 Antibiotics) Review of Systems ROS Statement: Those systems with pertinent positive or pertinent negative responses have been documented in the HPI. ROS Other: All systems not noted in ROS Statement are negative. 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 NON HODGKINS LYMPHOMA. History of Any Multi-Drug Resistant Organisms: None Reported Past Surgical History: Section, Hysterectomy Additional Past Surgical History / Comment(s): 3 c sections Past Anesthesia/Blood Transfusion Reactions: No Reported Reaction Past Psychological History: No Psychological Hx Reported Smoking Status: Never smoker Past Alcohol Use History: None Reported Past Drug Use History: None Reported - Past Family History Son(s) Family Medical History: Diabetes Mellitus Additional Family Medical History / Comment(s): kidney recipient General Exam Limitations: no limitations General appearance: alert, in no apparent distress Head exam: Present: atraumatic, normocephalic, normal inspection Respiratory exam: Present: normal lung sounds bilaterally. Absent: respiratory distress, wheezes, rales, rhonchi, stridor Cardiovascular Exam: Present: regular rate, normal rhythm, normal heart sounds. Absent: systolic murmur, diastolic murmur, rubs, gallop, clicks Neurological exam: Present: alert, oriented X3, CN II-XII intact Psychiatric exam: Present: normal affect, normal mood Skin exam: Present: warm, dry, intact, normal color. Absent: rash Course Vital Signs 03/24/22 03/24/22 03/24/22 10:49 11:06 12:03 Temperature 102.6 F H Pulse Rate 119 H 110 H 109 H Respiratory 16 18 18 Rate Blood Pressure 111/54 122/47 127/59 O2 Sat by Pulse 93 L 93 L 94 L Oximetry 03/24/22 03/24/22 13:08 14:03 Temperature 101.3 F H 100.0 F H Pulse Rate 104 H 98 Respiratory 18 18 Rate Blood Pressure 102/55 96/47 O2 Sat by Pulse 94 L 9 L Oximetry Medical Decision Making - Medical Decision Making This is a 77-year-old female who presents to the emergency department for a fever. Given the patient's recent history of pneumonia and immunocompromised state secondary to non-Hodgkin's lymphoma and chemotherapy, will obtain a full panel of lab work and a chest x-ray. Chest x-ray revealed no acute cardiopulmonary process. Patient given normal saline and Tylenol for the fever. Her temperature went down from 102.6 to 101.3 after approximately 1.5 hours. Her white blood cell count returned at 2.2 and her platelets were 75,000. Both her neutrophils and lymphocytes were also low. I contacted hematology oncology, who advised she be admitted. At this point there is no source of the fever and she must be fever free for 24 hours prior to discharge. Per the request of hem/onc she'll be started on cefepime and vancomycin after blood cultures are obtained. This case was discussed in detail with the attending ED physician. Presentation, findings, and treatment plan discussed in detail as well. - Lab Data Result diagrams: 03/24/22 11:29 03/24/22 11:29 Lab Results 03/24/22 03/24/22 03/24/22 Range/Units 11:29 11:29 11:29 WBC 2.2 L (3.8-10.6) k/uL RBC 3.55 L (3.80-5.40) m/uL Hgb 10.0 L D (11.4-16.0) gm/dL Hct 32.5 L (34.0-46.0) % MCV 91.3 (80.0-100.0) fL MCH 28.1 (25.0-35.0) pg MCHC 30.7 L (31.0-37.0) g/dL RDW 16.4 H (11.5-15.5) % Plt Count 75 L (150-450) k/uL MPV 8.4 Neutrophils % Not Reportable Neutrophils % (Manual) 56 % Band Neuts % (Manual) 3 % Lymphocytes % Not Reportable Lymphocytes % (Manual) 22 % Monocytes % Not Reportable Monocytes % (Manual) 16 % Eosinophils % Not Reportable Eosinophils % (Manual) 5 % Basophils % Not Reportable Neutrophils # Not Reportable Neutrophils # (Manual) 1.20 L (1.3-7.7) k/uL Lymphocytes # Not Reportable Lymphocytes # (Manual) 0.48 L (1.0-4.8) k/uL Monocytes # Not Reportable Monocytes # (Manual) 0.35 (0-1.0) k/uL Eosinophils # Not Reportable Eosinophils # (Manual) 0.11 (0-0.7) k/uL Basophils # Not Reportable Nucleated RBCs 0 (0-0) /100 WBC Manual Slide Review Performed Toxic Vacuolation Present Hypochromasia Slight Anisocytosis Slight Tear Drop Cells Present Sodium 133 L (137-145) mmol/L Potassium 4.7 (3.5-5.1) mmol/L Chloride 101 (98-107) mmol/L Carbon Dioxide 23 (22-30) mmol/L Anion Gap 9 mmol/L BUN 10 (7-17) mg/dL Creatinine 0.94 (0.52-1.04) mg/dL Est GFR (CKD-EPI)AfAm 67 (>60 ml/min/1.73 sqM) Est GFR (CKD-EPI)NonAf 58 (>60 ml/min/1.73 sqM) Glucose 116 H (74-99) mg/dL Plasma Lactic Acid Black (0.7-2.0) mmol/L Calcium 8.0 L (8.4-10.2) mg/dL Total Bilirubin 1.3 (0.2-1.3) mg/dL AST 22 (14-36) U/L ALT 9 (4-34) U/L Alkaline Phosphatase 62 (38-126) U/L Troponin I (0.000-0.034) ng/mL Total Protein 6.1 L (6.3-8.2) g/dL Albumin 3.8 (3.5-5.0) g/dL Urine Color Yellow Urine Appearance Clear (Clear) Urine pH 7.0 (5.0-8.0) Ur Specific [place] 1.013 (1.001-1.035) Urine Protein Trace H (Negative) Urine Glucose (UA) Negative (Negative) Urine Ketones Negative (Negative) Urine Blood Negative (Negative) Urine Nitrite Negative (Negative) Urine Bilirubin Negative (Negative) Urine Urobilinogen 8.0 (<2.0) mg/dL Ur Leukocyte Esterase Negative (Negative) Coronavirus (PCR) (Not Detectd) Influenza Type A RNA (Not Detectd) Influenza Type B (PCR) (Not Detectd) 03/24/22 03/24/22 03/24/22 Range/Units 11:29 11:29 11:29 WBC (3.8-10.6) k/uL RBC (3.80-5.40) m/uL Hgb (11.4-16.0) gm/dL Hct (34.0-46.0) % MCV (80.0-100.0) fL MCH (25.0-35.0) pg MCHC (31.0-37.0) g/dL RDW (11.5-15.5) % Plt Count (150-450) k/uL MPV Neutrophils % Neutrophils % (Manual) % Band Neuts % (Manual) % Lymphocytes % Lymphocytes % (Manual) % Monocytes % Monocytes % (Manual) % Eosinophils % Eosinophils % (Manual) % Basophils % Neutrophils # Neutrophils # (Manual) (1.3-7.7) k/uL Lymphocytes # Lymphocytes # (Manual) (1.0-4.8) k/uL Monocytes # Monocytes # (Manual) (0-1.0) k/uL Eosinophils # Eosinophils # (Manual) (0-0.7) k/uL Basophils # Nucleated RBCs (0-0) /100 WBC Manual Slide Review Toxic Vacuolation Hypochromasia Anisocytosis Tear Drop Cells Sodium (137-145) mmol/L Potassium (3.5-5.1) mmol/L Chloride (98-107) mmol/L Carbon Dioxide (22-30) mmol/L Anion Gap mmol/L BUN (7-17) mg/dL Creatinine (0.52-1.04) mg/dL Est GFR (CKD-EPI)AfAm (>60 ml/min/1.73 sqM) Est GFR (CKD-EPI)NonAf (>60 ml/min/1.73 sqM) Glucose (74-99) mg/dL Plasma Lactic Acid Black 1.6 (0.7-2.0) mmol/L Calcium (8.4-10.2) mg/dL Total Bilirubin (0.2-1.3) mg/dL AST (14-36) U/L ALT (4-34) U/L Alkaline Phosphatase (38-126) U/L Troponin I <0.012 (0.000-0.034) ng/mL Total Protein (6.3-8.2) g/dL Albumin (3.5-5.0) g/dL Urine Color Urine Appearance (Clear) Urine pH (5.0-8.0) Ur Specific [place] (1.001-1.035) Urine Protein (Negative) Urine Glucose (UA) (Negative) Urine Ketones (Negative) Urine Blood (Negative) Urine Nitrite (Negative) Urine Bilirubin (Negative) Urine Urobilinogen (<2.0) mg/dL Ur Leukocyte Esterase (Negative) Coronavirus (PCR) (Not Detectd) Influenza Type A RNA Not Detected (Not Detectd) Influenza Type B (PCR) Not Detected (Not Detectd) 03/24/22 Range/Units 11:29 WBC (3.8-10.6) k/uL RBC (3.80-5.40) m/uL Hgb (11.4-16.0) gm/dL Hct (34.0-46.0) % MCV (80.0-100.0) fL MCH (25.0-35.0) pg MCHC (31.0-37.0) g/dL RDW (11.5-15.5) % Plt Count (150-450) k/uL MPV Neutrophils % Neutrophils % (Manual) % Band Neuts % (Manual) % Lymphocytes % Lymphocytes % (Manual) % Monocytes % Monocytes % (Manual) % Eosinophils % Eosinophils % (Manual) % Basophils % Neutrophils # Neutrophils # (Manual) (1.3-7.7) k/uL Lymphocytes # Lymphocytes # (Manual) (1.0-4.8) k/uL Monocytes # Monocytes # (Manual) (0-1.0) k/uL Eosinophils # Eosinophils # (Manual) (0-0.7) k/uL Basophils # Nucleated RBCs (0-0) /100 WBC Manual Slide Review Toxic Vacuolation Hypochromasia Anisocytosis Tear Drop Cells Sodium (137-145) mmol/L Potassium (3.5-5.1) mmol/L Chloride (98-107) mmol/L Carbon Dioxide (22-30) mmol/L Anion Gap mmol/L BUN (7-17) mg/dL Creatinine (0.52-1.04) mg/dL Est GFR (CKD-EPI)AfAm (>60 ml/min/1.73 sqM) Est GFR (CKD-EPI)NonAf (>60 ml/min/1.73 sqM) Glucose (74-99) mg/dL Plasma Lactic Acid Black (0.7-2.0) mmol/L Calcium (8.4-10.2) mg/dL Total Bilirubin (0.2-1.3) mg/dL AST (14-36) U/L ALT (4-34) U/L Alkaline Phosphatase (38-126) U/L Troponin I (0.000-0.034) ng/mL Total Protein (6.3-8.2) g/dL Albumin (3.5-5.0) g/dL Urine Color Urine Appearance (Clear) Urine pH (5.0-8.0) Ur Specific [place] (1.001-1.035) Urine Protein (Negative) Urine Glucose (UA) (Negative) Urine Ketones (Negative) Urine Blood (Negative) Urine Nitrite (Negative) Urine Bilirubin (Negative) Urine Urobilinogen (<2.0) mg/dL Ur Leukocyte Esterase (Negative) Coronavirus (PCR) Not Detected (Not Detectd) Influenza Type A RNA (Not Detectd) Influenza Type B (PCR) (Not Detectd) - EKG Data EKG Comments: Sinus tachycardia. Ventricular rate 114 bpm, MD interval 137 ms, QRS duration 82 ms, QTC 379 ms. - Radiology Data Radiology results: report reviewed, image reviewed Disposition Clinical Impression: Neutropenic fever Disposition: ADMITTED IP TO THIS HOSP Referrals: Meeta Mendiola MD [Primary Care Provider] - 1-2 days
[2022-03-24 12:01] LABS: Anisocytosis Slight; HCT 32.5 % (34.0-46.0); Hypochromasia Slight; MCH 28.1 pg (25.0-35.0); MCHC 30.7 g/dL (31.0-37.0); MCV 91.3 fL (80.0-100.0); Mean Platelet Volume 8.4; RBC 3.55 m/uL (3.80-5.40); RDW 16.4 % (11.5-15.5); WBC 2.2 k/uL (3.8-10.6)
[2022-03-24 12:09] LABS: Appearance,Urine Clear (Clear); Bilirubin,Urine Negative (Negative); Blood,Urine Negative (Negative); Color,Urine Yellow; Glucose,Urine (UA) Negative (Negative); Ketones,Urine Negative (Negative); Leukocyte Esterase,Urine Negative (Negative); Nitrite,Urine Negative (Negative); Protein,Urine Trace (Negative); Specific Gravity,Urine 1.013 (1.001-1.035)
[2022-03-24 12:16] LABS: Albumin 3.8 g/dL (3.5-5.0); Potassium 4.7 mmol/L (3.5-5.1); Total Bilirubin 1.3 mg/dL (0.2-1.3); Total Protein 6.1 g/dL (6.3-8.2)
--- NOTE | 2022-03-24 12:28 | XR ---
EXAMINATION TYPE: XR chest 2V DATE OF EXAM: 03/24/2022 COMPARISON: Chest x-ray March 02, 2022. HISTORY: History of cancer with fever. TECHNIQUE: Frontal and lateral views of the chest are obtained. FINDINGS: Mild chronic parenchymal changes bilaterally redemonstrated. There is no suspicious new fo [place] air space opacity, pleural effusion, or pneumothorax seen. The cardiac silhouette size remains w ithin normal limits with atherosclerotic change aortic knob. The osseous structures are intact. IMPRESSION: Chronic changes without acute pulmonary process.
[2022-03-24 12:46] LABS: Band Neutrophils % 3 %; Eosinophils # (M) 0.11 k/uL (0-0.7); Lymphocytes # (M) 0.48 k/uL (1.0-4.8); Monocytes # (M) 0.35 k/uL (0-1.0); Neutrophils % (M) 56 %; Nucleated Red Blood Cells 0 /100 WBC (0-0); Tear Drop Cells Present; Total Cells Counted 200; Toxic Vacuolation Present
[2022-03-24 12:47] LABS: Platelet Count 75 k/uL (150-450)
[2022-03-24] MEDS ORDERED: VANCOMYCIN IV PER PHARMACY 1 EACH MISC MISCELLANE PRN (13:31)
[2022-03-24] MEDS ORDERED: CEFEPIME 2 GM in SODIUM CHLORIDE 0.9% 100 ML IVPB STA (13:31)
[2022-03-24] MEDS ORDERED: ONDANSETRON 4 MG/2 ML VIAL IVP PRN (13:51)
[2022-03-24] MEDS ORDERED: HYDROcodone/APAP 5-325MG 1 EACH TAB PO PRN (13:51)
[2022-03-24] MEDS ORDERED: NALOXONE 0.4 MG/ML 1 ML VIAL IV PRN (13:51)
[2022-03-24] MEDS: SODIUM CHLORIDE 0.9% 1,000 ML IV SCH (13:59)
[2022-03-24] MEDS ORDERED: VANCOMYCIN 750 MG in SODIUM CHLORIDE 0.9% 250 ML IVPB ONE (14:00)
[2022-03-24 16:40] LABS: INR 1.2 (<1.2); Partial Thromboplastin Time 26.7 sec (22.0-30.0); Prothrombin Time 12.6 sec (9.0-12.0)
[2022-03-24 16:43] LABS: Reticulocyte % 3.8 % (0.5-2.0)
[2022-03-24 16:55] LABS: Uric Acid 2.8 mg/dL (3.7-7.4)
[2022-03-24] MEDS ORDERED: ALBUTEROL NEBULIZED 2.5 MG/3 ML INHALATION PRN (16:55)
[2022-03-24] MEDS ORDERED: ALBUTEROL HFA INHALER INHALATION PRN (16:55)
--- NOTE | 2022-03-24 18:01 | HP ---
HISTORY AND PHYSICAL CHIEF COMPLAINTS: Fever and weakness. HISTORY OF PRESENT ILLNESS: This 77-year-old woman with a past medical history of multiple medical problems, including history of non-Hodgkin lymphoma, history of TIA and splenomegaly, being followed by [facility] in the outpatient setting, is also receiving chemotherapy per Oncology. The patient received her first cycle of chemotherapy recently and then yesterday the patient was found to have pancytopenia and found to be leukopenic and today the patient has a fever and some chills. The temperature was up to 102.6 and the patient was admitted for further evaluation. Broad-spectrum IV antibiotics were initiated. There is no history of any dysuria. No history headache, loss of consciousness or seizures. PAST MEDICAL HISTORY: Past medical history includes recent non-Hodgkin lymphoma, on chemotherapy. HOME MEDICATIONS: These include Symbicort b.i.d. Doses and the rest of the medications are reviewed. ALLERGIES: ALLERGIES INCLUDE PENICILLIN. FAMILY HISTORY: History of diabetes. SOCIAL HISTORY: No history of smoking. REVIEW OF SYSTEMS: Fourteen-point review of systems negative except as mentioned earlier. PHYSICAL EXAMINATION: Pulse is 104, blood pressure ntd_, respiration 18, temperature 100.3. HEENT: Conjunctivae normal. Oral mucosa moist. NECK: No jugular venous distention. CARDIOVASCULAR: S1, S2 muffled. RESPIRATION: Breath sounds diminished at the bases. No rhonchi. ABDOMEN: Soft, distended. Splenomegaly present up to the midline of the abdomen. No ascites. Bowel sounds present. LEGS: No edema. No swelling. NERVOUS SYSTEM: Higher functions as mentioned earlier. Moves all 4 limbs. No focal motor or sensory deficit. LYMPHATICS: No lymph node palpable in neck, axillae or groin. SKIN: No ulcer, rash, bleeding. JOINTS: No active deforming arthropathy. LABS: Reviewed. They include WBC 2.2. ASSESSMENT: 1. Neutropenic sepsis, present on admission. 2. Non-Hodgkin lymphoma, on chemotherapy. 3. Splenomegaly. RECOMMENDATIONS AND DISCUSSION: In this 77-year-old woman who presented with multiple complex medical issues, we will monitor the patient closely, broad-spectrum IV antibiotics, cultures, hematology/oncology consultation. The prognosis is guarded because of multiple complex medical issues. Further recommendations to follow. A copy of this dictation is being forwarded to who is the primary physician. MMODL / IJN: [id number] / EVER
[2022-03-24] MEDS: SYMBICORT 160-4.5 MCG INHALER INHALATION SCH (20:00)
[2022-03-24] MEDS: ACETAMINOPHEN TAB 325 MG TAB PO PRN (21:46)
--- NOTE | 2022-03-24 22:40 | P.CONS ---
History of Present Illness - Reason for Consult Consult date: 03/24/22 B Cell Lymphoma - Chief Complaint Fever - History of Present Illness This is a very nice lady who was referred because of thrombocytopenia and leukoepnia found during routine blood work. On 05/09/2017,CBC revealed total wbc 1.86K,platelets counts of 101K,hgh 12.6gm/dl On 08/19/2018,CBC revealed total wbc of 2.06K,ANC 1.12,platelets counts 88K,hgh 13.5 gm/dl,CMP was remarkable for creatinine of 1.2,normal LFT. On 12/02/2021,serum B12 was 224,CBC revealed total wbc of 2.49K,ANC 1.2,platelets counts 79K,hgh 12.1gm/dl. On 01/18/2022,laboratory work showed small IgG Lambda M protein (0.8 gm/dl). On 01/18/2022,CT scan of chest/abdomen/pelvis without contrast revealed massive splenomegaly,borderline enlarged mesenteric nodes (12 mm) On 01/30/2022,bone marrow biopsy revealed hypercellular bone marrow,20% lambda restricted monoclonal B cell ,CD10 positive by flow but negative by IHC,FISH n egative for BCL2 and IGH 14q32. She feels was recently in the hospital for pnemonia,recovered,finishing a course of oral antibiotics tomorrow,she was give a course of steroids as inpatient and her symptoms from large spleen slightly improved. 03/14/22-Pt fell Sunday, reports from family that pt fell on her butt, no bruising but, noted lump on abd LUQ, showed up on Sunday evening. She has bruising on the lt lateral foot. Denies fever, no recent BM to assess consistency or color, no other bleeding, no N,V She is status post cycle one of Rituxan and treanda and spiked fever of 102.7 at home therefore presenting to hospital. Full epstein cultures ordered and drawn and then broad spectrum antibiotics and fluid bolus given per [facility] in ER. She is hypotensive after bolus and fever only decreased to 101 after tylenol. Therefore recommendation was to continue with admission to monitor and await results of cultures Review of Systems All systems: negative Constitutional: Reports as per HPI Past Medical History Past Medical History: Cancer Additional Past Medical History / Comment(s): having abdominal and back pain,low platelets, increased fatigue,hx TIAs-no residual, splenomegaly, bone marrow positive for lymphoma. NON HODGKINS LYMPHOMA. History of Any Multi-Drug Resistant Organisms: None Reported Past Surgical History: Section, Hysterectomy Additional Past Surgical History / Comment(s): 3 c sections Past Anesthesia/Blood Transfusion Reactions: No Reported Reaction Past Psychological History: No Psychological Hx Reported Smoking Status: Never smoker Past Alcohol Use History: None Reported Past Drug Use History: None Reported - Past Family History Son(s) Family Medical History: Diabetes Mellitus Additional Family Medical History / Comment(s): kidney recipient Medications and Allergies Home Medications Medication Instructions Recorded Confirmed Type Acetaminophen Tab [Tylenol] 1,000 mg PO Q6H PRN 01/26/22 03/24/22 History Budesonide-Formot 160-4.5 Mcg 2 puff INHALATION RT-BID 30 Days 03/03/22 03/24/22 Rx [Symbicort 160-4.5 Mcg Inhaler] #1 gm Albuterol Inhaler [Ventolin Hfa 2 puff INHALATION RT-Q4H PRN 03/24/22 03/24/22 History Inhaler] Albuterol Nebulized [Ventolin 2.5 mg INHALATION RT-Q4H PRN 03/24/22 03/24/22 History Nebulized] allopurinoL [Zyloprim] 300 mg PO DAILY 03/24/22 03/24/22 History Allergies Allergy/AdvReac Type Severity Reaction Status Date / Time Penicillins Allergy Dyspnea Verified 03/24/22 11:52 Sulfa (Sulfonamide Allergy Rash/Hives Verified 03/24/22 11:52 Antibiotics) Physical Exam Vitals: Vital Signs Temp Pulse Resp BP Pulse Ox 03/24/22 15:45 98.7 F 90 18 106/55 98 03/24/22 14:46 100.1 F H 93 16 98/50 03/24/22 14:03 100.0 F H 98 18 96/47 9 L 03/24/22 13:08 101.3 F H 104 H 18 102/55 94 L 03/24/22 12:03 109 H 18 127/59 94 L 03/24/22 11:06 110 H 18 122/47 93 L 03/24/22 10:49 102.6 F H 119 H 16 111/54 93 L Intake and Output 03/24/22 03/24/22 03/24/22 06:59 14:59 22:59 Other: Weight 46.72 kg - Constitutional General appearance: cooperative, no acute distress - EENT Eyes: EOMI ENT: NA/AT - Neck Neck: normal ROM - Respiratory Respiratory: bilateral: CTA - Cardiovascular Rhythm: regularly irregular - Gastrointestinal General gastrointestinal: soft, splenomegaly - Integumentary Integumentary: pale - Neurologic Neurologic: CNII-XII intact - Musculoskeletal Musculoskeletal: generalized weakness - Psychiatric Psychiatric: A&O x's 3, appropriate affect, intact judgment & insight Results CBC & Chem 7: 03/24/22 11:29 03/24/22 11:29 Labs: Abnormal Lab Results - Last 24 Hours (Table) 03/24/22 03/24/22 03/24/22 Range/Units 11:29 11:29 11:29 WBC 2.2 L (3.8-10.6) k/uL RBC 3.55 L (3.80-5.40) m/uL Hgb 10.0 L D (11.4-16.0) gm/dL Hct 32.5 L (34.0-46.0) % MCHC 30.7 L (31.0-37.0) g/dL RDW 16.4 H (11.5-15.5) % Plt Count 75 L (150-450) k/uL Neutrophils # (Manual) 1.20 L (1.3-7.7) k/uL Lymphocytes # (Manual) 0.48 L (1.0-4.8) k/uL Sodium 133 L (137-145) mmol/L Glucose 116 H (74-99) mg/dL Calcium 8.0 L (8.4-10.2) mg/dL Total Protein 6.1 L (6.3-8.2) g/dL Urine Protein Trace H (Negative) Assessment and Plan (1) Neutropenic fever Narrative/Plan: Leukopenia, Neutrophils are adequate at this time but immunosuppression secondary to B cell lymphoma diagnosis and T-Max 102.7 Continue to awit results of cultures - Await lysis work-up, possible from initial tumor burden and necrosis resultin elevated temp, but full infectious work-up necessary - Continue broad spectrum in interim and supportive care - Monitor DIC with SIRS, possible sepsis Current Visit: Yes Status: Acute Code(s): D70.9 - NEUTROPENIA, UNSPECIFIED; R50.81 - FEVER PRESENTING WITH CONDITIONS CLASSIFIED ELSEWHERE SNOMED Code(s): 148078838 (2) B-cell lymphoma Narrative/Plan: Status post first cycle Rituxan and Treanda on 03/17/22 On hold until resolution of hospital admission Current Visit: No Status: Acute Code(s): C85.10 - UNSPECIFIED B-CELL LYMPHOMA, UNSPECIFIED SITE SNOMED Code(s): 927944319 (3) Pancytopenia Narrative/Plan: Secondary to cancer and chemo Transfuse Irradiated PRBC Hg<7, pLatlets <15K Current Visit: No Status: Acute Priority: High Code(s): D61.818 - OTHER PANCYTOPENIA SNOMED Code(s): 404292721 Plan: Dr. Rodriguez: I have completed the full history and physical and developed the above impression and plan, agree with dictation, dictated as a scribe
[2022-03-24 23:46] LABS: % Iron Saturation 4.91 (12.00-45.00); Ferritin 93.8 ng/mL (10.0-291.0)
[2022-03-25] MEDS: SODIUM CHLORIDE 0.9% 1,000 ML IV SCH ×2 (02:34→14:37)
[2022-03-25] MEDS: ACETAMINOPHEN TAB 325 MG TAB PO PRN ×3 (05:00→20:24)
[2022-03-25] MEDS: VANCOMYCIN 750 MG in SODIUM CHLORIDE 0.9% 250 ML IVPB SCH ×2 (05:03→22:00)
[2022-03-25] MEDS: SYMBICORT 160-4.5 MCG INHALER INHALATION SCH ×2 (07:44→18:59)
[2022-03-25] MEDS: allopurinoL 300 MG TAB PO SCH (08:11)
[2022-03-25] MEDS: LORATADINE 10 MG TAB PO SCH (09:29)
[2022-03-25 11:34] LABS: African American GFR (CKD) 66.4 (60.0-200.0); Albumin 2.9 g/dL (3.8-4.9); Albumin/Globulin Ratio 1.89 (1.60-3.17); Anion Gap 8.4 mmol/L (10.00-18.00); BUN/Creat Ratio 13.11 Ratio (12.00-20.00); Blood Urea Nitrogen 12.4 mg/dL (9.0-27.0); Carbon Dioxide 20.6 mmol/L (20.0-27.5); Globulin 1.5 g/dL (1.6-3.3); HGB 6.7 g/dL (12.0-15.0); MCHC 30.5 g/dL (32.0-37.0); MCV 92.1 fL (80.0-97.0); Magnesium 1.8 mg/dL (1.5-2.4); NRBC Per 100 WBC 0 /100 WBCS (0.0-0.0); Non-African American GFR(CKD) 57.3 (60.0-200.0); Platelet Count 95 X 10*3/uL (140-440); Potassium 3.6 mmol/L (3.5-5.5); RBC 2.39 X 10*6/uL (4.10-5.20); RDW 17.1 % (11.5-14.5); Total Bilirubin 0.8 mg/dL (0.30-1.20); Total Protein 4.4 g/dL (6.2-8.2); WBC 2.46 X 10*3/uL (4.50-10.00)
[2022-03-25 12:12] LABS: Basophils # (A) 0.01 X 10*3/uL (0.00-0.10); Basophils % (A) 0.4 %; Eosinophils # (A) 0.11 X 10*3/uL (0.04-0.35); Eosinophils % (A) 4.5 %; Immature Grans, Automated 1.6 %; Lymphocytes # (A) 0.29 X 10*3/uL (0.90-5.00); Lymphocytes % (A) 11.8 %; Monocytes # (A) 0.26 X 10*3/uL (0.20-1.00); Monocytes % (A) 10.6 %; Neutrophils # (A) 1.75 X 10*3/uL (1.80-7.70); Neutrophils % (A) 71.1 %
[2022-03-25 12:13] LABS: Acanthocytes 2+; Hypochromasia (M) 2+; Polychromasia 2+; Sickle Cells 2+; Tear Drop Cells 2+
[2022-03-25] MEDS ORDERED: VANCOMYCIN IV PER PHARMACY 1 EACH MISC MISCELLANE PRN (13:04)
[2022-03-25] MEDS: PANTOPRAZOLE 40 MG/10 ML VIAL IVP SCH ×2 (13:26→22:00)
[2022-03-25] MEDS ORDERED: CEFEPIME 2 GM in SODIUM CHLORIDE 0.9% 100 ML IVPB SCH (14:00)
--- NOTE | 2022-03-25 15:06 | PN ---
PROGRESS NOTE DATE OF SERVICE: 03/25/2022 This 77-year-old woman who was admitted with neutropenic sepsis is being closely monitored at this time. Patient recently started chemotherapy. Tumor lysis syndrome is another consideration, per Dr. Garcia No chest pain. No palpitations. The patient has some vomiting also. Past medical history reviewed. REVIEW OF SYSTEMS: Fourteen-point review of systems negative except as mentioned earlier. Patient is vomiting also. CURRENT MEDICATIONS: Reviewed. They include [place]. Doses and the rest of the medications noted. PHYSICAL EXAMINATION: Pulse is 120, blood pressure is 103/60, respirations 16, temperature 101.7. HEENT: Conjunctivae normal. NECK: No jugular venous distention. CARDIOVASCULAR: S1, S2 muffled. RESPIRATION: Breath sounds diminished at the bases. A few scattered rhonchi. ABDOMEN: Soft, nontender. LEGS: No edema. No swelling. NERVOUS SYSTEM: No focal deficit. LABS: Hemoglobin 6.7. Sodium 133. Other labs are noted. ASSESSMENT: 1. Acute neutropenic sepsis. 2. Vomiting, acute gastritis. 3. Non-Hodgkin lymphoma, on chemotherapy. 4. Splenomegaly. 5. Anemia, possibly secondary to malignancy and chemotherapy. RECOMMENDATIONS AND DISCUSSION: I recommend to continue current medications, continue with the monitoring, symptomatic treatment. One unit transfusion. Infectious disease evaluation. Continue with IV fluids. Monitor closely. Repeat cultures. The prognosis is guarded because of multiple complex medical issues. Further recommendations to follow. MMGILBERTOL / JAMES: [id number] /
[2022-03-25 15:08] VITALS: BMI 20.1
--- NOTE | 2022-03-25 16:24 | P.PN ---
Subjective Progress Note Date: 03/25/22 This is afebrile today with temperature intermittently in the 101 range. Blood pressure is improved. She denies any new symptoms, specifically any symptoms localizing for infection. No nausea or vomiting. Generalized weakness and fatigue persists. Objective - Vital Signs Vital signs: Vital Signs Temp 98.3 F 03/25/22 14:37 Pulse 121 H 03/25/22 13:00 Resp 16 03/25/22 13:00 BP 112/61 03/25/22 13:00 Pulse Ox 93 L 03/25/22 13:00 FiO2 Intake & Output 03/24/22 03/25/22 03/25/22 18:59 06:59 18:59 Intake Total 150 590 Balance 150 590 Weight 46.72 kg 46.72 kg Intake: Intake, IV Titration 150 Amount Sodium Chloride 0.9% 1, 150 000 ml @ 75 mls/hr IV . [id number] [facility] Rx#:[id number] Oral 590 Other: Voiding Method Toilet # Voids 1 - Constitutional General appearance: Present: no acute distress - EENT Eyes: Present: EOMI ENT: Present: hearing grossly normal, normal oropharynx - Respiratory Respiratory: bilateral: CTA - Cardiovascular Rhythm: regular Heart sounds: normal: S1, S2 - Gastrointestinal General gastrointestinal: Present: soft, splenomegaly - Integumentary Integumentary: Present: normal - Neurologic Neurologic: Present: CNII-XII intact - Musculoskeletal Musculoskeletal: Present: generalized weakness, strength equal bilaterally - Psychiatric Psychiatric: Present: A&O x's 3 - Labs CBC & Chem 7: 03/25/22 07:03 03/25/22 07:03 Labs: Abnormal Lab Results - Last 24 Hours (Table) 03/24/22 03/24/22 03/24/22 Range/Units 16:17 16:17 16:17 WBC (4.50-10.00) X 10*3/uL RBC (4.10-5.20) X 10*6/uL Hgb (12.0-15.0) g/dL Hct (37.2-46.3) % MCHC (32.0-37.0) g/dL RDW (11.5-14.5) % Plt Count (140-440) X 10*3/uL Plt Count Comment Neutrophils # (1.80-7.70) X 10*3/uL Lymphocytes # (0.90-5.00) X 10*3/uL Retic Count 3.8 H (0.5-2.0) % PT 12.6 H (9.0-12.0) sec INR 1.2 H (<1.2) Sodium (135-145) mmol/L Anion Gap (10.00-18.00) mmol/L Est GFR (CKD-EPI)NonAf (60.0-200.0) Uric Acid 2.8 L (3.7-7.4) mg/dL Calcium (8.7-10.3) mg/dL Iron 12 L (50-170) ug/dL % Saturation 4.91 L (12.00-45.00) Transferrin 179.0 L (204.0-354.0) mg/dL ALT (8-44) U/L Total Protein (6.2-8.2) g/dL Albumin (3.8-4.9) g/dL Globulin (1.6-3.3) g/dL Vitamin B12 192.0 L (200.0-944.0) pg/mL Crossmatch 03/25/22 03/25/22 03/25/22 Range/Units 07:03 07:03 12:53 WBC 2.46 L (4.50-10.00) X 10*3/uL RBC 2.39 L (4.10-5.20) X 10*6/uL Hgb 6.7 L* (12.0-15.0) g/dL Hct 22.0 L (37.2-46.3) % MCHC 30.5 L (32.0-37.0) g/dL RDW 17.1 H (11.5-14.5) % Plt Count 95 L (140-440) X 10*3/uL Plt Count Comment DECREASED A Neutrophils # 1.75 L (1.80-7.70) X 10*3/uL Lymphocytes # 0.29 L (0.90-5.00) X 10*3/uL Retic Count (0.5-2.0) % PT (9.0-12.0) sec INR (<1.2) Sodium 133 L (135-145) mmol/L Anion Gap 8.40 L (10.00-18.00) mmol/L Est GFR (CKD-EPI)NonAf 57.3 L (60.0-200.0) Uric Acid (3.7-7.4) mg/dL Calcium 7.0 L (8.7-10.3) mg/dL Iron (50-170) ug/dL % Saturation (12.00-45.00) Transferrin (204.0-354.0) mg/dL ALT 6 L (8-44) U/L Total Protein 4.4 L (6.2-8.2) g/dL Albumin 2.9 L (3.8-4.9) g/dL Globulin 1.5 L (1.6-3.3) g/dL Vitamin B12 (200.0-944.0) pg/mL Crossmatch See Detail Microbiology - Last 24 Hours (Table) 03/24/22 13:55 Blood Culture - Preliminary Blood No Growth after 24 hours 03/24/22 13:40 Blood Culture - Preliminary Blood No Growth after 24 hours 03/24/22 14:44 Urine Culture - Preliminary Urine,Clean Catch Assessment and Plan (1) SIRS (systemic inflammatory response syndrome) Narrative/Plan: The patient is friendly with fever, and hypertension. While her total WBC is low, she is actually not neutropenic from the infectious standpoint, with ANC persistently greater than 1000. - At this point the differential includes infection causing sepsis, versus source related to tumor necrosis from the effect of recent treatment initiation on her non-Hodgkin's lymphoma. - Case discussed with the admitting service. Cultures are negative so far. Await finalization of cultures. Continue antibiotics in the meantime. - The only if ANC drops to below 1000. continue to monitor. Current Visit: Yes Status: Acute Code(s): R65.10 - SIRS OF NON-INFECTIOUS ORIGIN W/O ACUTE ORGAN DYSFUNCTION SNOMED Code(s): 112704808 (2) Pancytopenia Narrative/Plan: The patient had underlying cytopenias even prior to starting treatment, due to her non-Hodgkin lymphoma and splenomegaly. During this admission, likely due to recent chemotherapy, as well as ongoing acute inflammation, counts are lower than baseline. Hemoglobin was 6.7. Transfuse 1 unit. Transfuse to keep hemoglobin greater than 7, and platelets > 10. Current Visit: No Status: Acute Priority: High Code(s): D61.818 - OTHER PANCYTOPENIA SNOMED Code(s): 617223314
[2022-03-25] MEDS ORDERED: FUROSEMIDE 10 MG/ML 2 ML VIAL IV ONE (17:00)
[2022-03-25] MEDS: FOLIC ACID 1 MG TAB PO SCH (17:31)
[2022-03-25] MEDS: CYANOCOBALAMIN 1,000 MCG/ML 1 ML VIAL IM SCH (17:31)
[2022-03-26] MEDS: CEFEPIME 2 GM in SODIUM CHLORIDE 0.9% 100 ML IVPB SCH ×2 (02:49→13:14)
[2022-03-26] MEDS: SODIUM CHLORIDE 0.9% 1,000 ML IV SCH ×2 (02:50→14:18)
[2022-03-26] MEDS: ACETAMINOPHEN TAB 325 MG TAB PO PRN ×3 (05:54→18:05)
[2022-03-26] MEDS: SYMBICORT 160-4.5 MCG INHALER INHALATION SCH ×2 (07:30→20:01)
[2022-03-26 08:02] LABS: African American GFR (CKD) 55 (>60 ml/min/1.73 sqM); Anion Gap 7 mmol/L; Blood Urea Nitrogen 16 mg/dL (7-17); Calcium 6.9 mg/dL (8.4-10.2); Carbon Dioxide 18 mmol/L (22-30); Chloride 105 mmol/L (98-107); Glucose 96 mg/dL (74-99); Non-African American GFR(CKD) 48 (>60 ml/min/1.73 sqM); Potassium 3.8 mmol/L (3.5-5.1); Sodium 130 mmol/L (137-145)
[2022-03-26 08:30] LABS: Anisocytosis Slight; Basophils % (A) 1 %; Eosinophils # (A) 0.1 k/uL (0-0.7); Eosinophils % (A) 3 %; HCT 26.7 % (34.0-46.0); Hypochromasia Slight; Lymphocytes # (A) 0.2 k/uL (1.0-4.8); Lymphocytes % (A) 5 %; MCH 27.8 pg (25.0-35.0); MCHC 30.7 g/dL (31.0-37.0); MCV 90.5 fL (80.0-100.0); Mean Platelet Volume 9.3; Monocytes # (A) 0.2 k/uL (0-1.0); Monocytes % (A) 5 %; Neutrophils # (A) 3.5 k/uL (1.3-7.7); Neutrophils % (A) 85 %; Poikilocytosis Slight; RBC 2.95 m/uL (3.80-5.40); RDW 16.4 % (11.5-15.5); WBC 4.2 k/uL (3.8-10.6)
[2022-03-26 08:45] LABS: HGB 8.2 gm/dL (11.4-16.0); Platelet Count 88 k/uL (150-450)
[2022-03-26] MEDS: FOLIC ACID 1 MG TAB PO SCH (09:38)
[2022-03-26] MEDS: allopurinoL 300 MG TAB PO SCH (09:38)
[2022-03-26] MEDS: LORATADINE 10 MG TAB PO SCH (09:38)
[2022-03-26] MEDS: PANTOPRAZOLE 40 MG/10 ML VIAL IVP SCH ×2 (09:38→20:23)
[2022-03-26] MEDS: CYANOCOBALAMIN 1,000 MCG/ML 1 ML VIAL IM SCH (09:39)
[2022-03-26] MEDS: VANCOMYCIN 750 MG in SODIUM CHLORIDE 0.9% 250 ML IVPB SCH (14:17)
--- NOTE | 2022-03-26 14:17 | P.PN ---
Subjective Progress Note Date: 03/26/22 Patient continues to complain of generalized weakness. Fever pattern persistent with T-max in the 101 range. No chills or rigors. Objective - Vital Signs Vital signs: Vital Signs Temp 98.4 F 03/26/22 13:57 Pulse 86 03/26/22 13:57 Resp 16 03/26/22 13:57 BP 101/57 03/26/22 13:57 Pulse Ox 94 L 03/26/22 13:57 FiO2 Intake & Output 03/25/22 03/26/22 03/26/22 18:59 06:59 18:59 Intake Total 1368 1942 Output Total 1 Balance 1367 1942 Weight 46.72 kg Intake: Intake, IV Titration 1250 350 Amount Cefepime 2 gm In Sodium 100 Chloride 0.9% 100 ml @ 25 mls/hr IVPB Q12H [facility] Rx# :[id number] Cefepime 2 gm In Sodium 100 Chloride 0.9% 100 ml @ 25 mls/hr IVPB Q8H [facility] Rx#: [id number] Sodium Chloride 0.9% 1, 900 000 ml @ 75 mls/hr IV . [id number] [facility] Rx#:[id number] Vancomycin 750 mg In 250 250 Sodium Chloride 0.9% 250 ml @ 125 mls/hr IVPB Q16H [facility] Rx#:[id number] Oral 118 1310 Blood Product 0 282 Rc Pheresis 2 As3 Unit 0 282 [id number] Output: Emesis 1 Other: Voiding Method Toilet Toilet # Voids 1 2 1 # Bowel Movements 1 1 - Constitutional General appearance: Present: no acute distress - EENT Eyes: Present: EOMI ENT: Present: hearing grossly normal, normal oropharynx - Respiratory Respiratory: bilateral: CTA - Cardiovascular Rhythm: regular Heart sounds: normal: S1, S2 - Gastrointestinal General gastrointestinal: Present: soft, splenomegaly - Integumentary Integumentary: Present: normal - Neurologic Neurologic: Present: CNII-XII intact - Musculoskeletal Musculoskeletal: Present: generalized weakness, strength equal bilaterally - Psychiatric Psychiatric: Present: A&O x's 3, appropriate affect - Labs CBC & Chem 7: 03/26/22 07:19 03/26/22 07:19 Labs: Abnormal Lab Results - Last 24 Hours (Table) 03/25/22 03/26/22 03/26/22 Range/Units 12:53 07:19 07:19 RBC 2.95 L (3.80-5.40) m/uL Hgb 8.2 L D (11.4-16.0) gm/dL Hct 26.7 L (34.0-46.0) % MCHC 30.7 L (31.0-37.0) g/dL RDW 16.4 H (11.5-15.5) % Plt Count 88 L (150-450) k/uL Lymphocytes # 0.2 L (1.0-4.8) k/uL Sodium 130 L (137-145) mmol/L Carbon Dioxide 18 L (22-30) mmol/L Creatinine 1.10 H (0.52-1.04) mg/dL Calcium 6.9 L (8.4-10.2) mg/dL Crossmatch See Detail Microbiology - Last 24 Hours (Table) 03/24/22 14:44 Urine Culture - Final Urine,Clean Catch 03/24/22 13:55 Blood Culture - Preliminary Blood No Growth after 24 hours 03/24/22 13:40 Blood Culture - Preliminary Blood No Growth after 24 hours Assessment and Plan (1) SIRS (systemic inflammatory response syndrome) Narrative/Plan: Her fever continues to persist, without any definite localizing signs for infection. Cultures are negative so far. Ongoing tumor necrosis related fever remains in the differential. The patient's WBC was noted to have increased today, and therefore cytokine release from WBC recovery could also be a contributing factor. - ID following. Patient continues on antibiotics. Current Visit: Yes Status: Acute Code(s): R65.10 - SIRS OF NON-INFECTIOUS ORIGIN W/O ACUTE ORGAN DYSFUNCTION SNOMED Code(s): 012248053 (2) Pancytopenia Narrative/Plan: Hemoglobin improved posttransfusion into the 8+ range. Continue to monitor and transfuse to keep hemoglobin greater than 7. Platelets remain in a safe range. WBC is actually improved into the 4,000 range. As noted previously the patient has actually not been neutropenic during this admission. Current Visit: No Status: Acute Priority: High Code(s): D61.818 - OTHER PANCYTOPENIA SNOMED Code(s): 721564074
--- NOTE | 2022-03-26 15:33 | PN ---
PROGRESS NOTE DATE OF SERVICE: 03/26/2022 This 77-year-old woman with a past medical history of no significant medical problems was admitted with sepsis. Cultures negative. The patient is running some fever. No chest pain. No palpitation. PHYSICAL EXAMINATION: Pulse is 101. Blood pressure 107/56, respirations 16, T-max is 100.8. HEENT: Conjunctivae normal. Neck: No JVD. Cardiovascular: S1, S2. Respiration: Breath sounds diminished in the bases. Abdomen: Splenomegaly. Nervous System: No focal deficits. LABS: Hemoglobin 8.2, white count is 4.2. ASSESSMENT: 1. Acute neutropenic sepsis possibly. 2. Vomiting and acute gastritis. 3. lymphoma on chemotherapy. 4. Splenomegaly. 5. Anemia, possibly secondary to malignancy as well as chemotherapy. RECOMMENDATIONS AND DISCUSSION: Recommend to continue management and symptomatic treatment. Continued broad spectrum IV antibiotics. Repeat cultures. Closely follow with Infectious Disease, Hematology/Oncology. Further recommendations to follow. MMODL / IJN: [id number] /
[2022-03-26] MEDS: IOPAMIDOL CONTRAST (ORAL USE) VIAL PO PRN ×2 (15:36→16:56)
--- NOTE | 2022-03-26 18:28 | CT ---
EXAMINATION TYPE: CT abdomen pelvis wo con DATE OF EXAM: 03/26/2022 COMPARISON: 01/18/2022 HISTORY: abdominal pain, fever CT DLP: 242 mGycm Automated exposure control for dose reduction was used. Images obtained from the diaphragm to the floor the pelvis with no contrast. There is a mild left pleural effusion. Heart is top normal in size. No pericardial effusion. There is some mild infiltrate and atelectasis left lung base. Spleen is moderately enlarged and measures 19 cm. There are calcified gallstones. The bile ducts are not dilated. Liver shows no focal defect. Stomach is intact. There is no sign of a pancreatic mass. Kidneys are small. No hydronephrosis. Ureters are not dilated. There is no retroperitoneal adenopathy . The bladder distends smoothly. No inguinal hernia. No free fluid in the pelvis. There is oral contr ast in the small bowel which appears fairly normal. No evidence of a bowel obstruction. No ascites or free air. No mesenteric edema. Contrast material extends down to the rectum. The lumbar vertebrae have normal alignment. There is narrowing at the L5-S1 disc space. Bony pelvis i s intact. IMPRESSION: There is massive splenomegaly which is slightly decreased compared to old exam. There is a left pleur al effusion and left basilar pulmonary infiltrate which is new compared to old exam. No bowel obstruc tion.
--- NOTE | 2022-03-26 22:46 | P.CONS ---
History of Present Illness - Reason for Consult Consult date: 03/26/22 Sepsis Requesting physician: Rhoda Brown - Chief Complaint Fever 1 day - History of Present Illness Patient is a 77-year-old female with a past medical he significant for non-Hodgkin lymphoma diagnosed about 2 months ago for the patient being started on chemotherapy last chemo has been about a week ago patient started having a problem with weakness and a fever of 102 F for which the patient presented to hospital patient denies having any significant headache or URI symptoms denies having any chest pain no shortness with occasional cough no abdominal discomfort no nausea no vomiting no diarrhea no urinary symptoms patient on presentation to the hospital was running a fever of 102.6 F patient did have tachycardia did have a low white count but not neutropenic kidney function was normal liver enzymes were normal urine has been negative influenza and de [place] PCR was negative patient did have a chest x-ray chronic changes without acute pulmonary process patient has been admitted to hospital started on cefepime and vancomycin infectious disease was consulted for further management of antibiotic therapy Review of Systems Positive point has been mentioned in the HPI rest of the systems are negative Past Medical History Past Medical History: Cancer Additional Past Medical History / Comment(s): having abdominal and back pain,low platelets, increased fatigue,hx TIAs-no residual, splenomegaly, bone marrow positive for lymphoma. NON HODGKINS LYMPHOMA. History of Any Multi-Drug Resistant Organisms: None Reported Past Surgical History: Section, Hysterectomy Additional Past Surgical History / Comment(s): 3 c sections Past Anesthesia/Blood Transfusion Reactions: No Reported Reaction Past Psychological History: No Psychological Hx Reported Smoking Status: Never smoker Past Alcohol Use History: None Reported Past Drug Use History: None Reported - Past Family History Son(s) Family Medical History: Diabetes Mellitus Additional Family Medical History / Comment(s): kidney recipient Medications and Allergies Home Medications Medication Instructions Recorded Confirmed Type Acetaminophen Tab [Tylenol] 1,000 mg PO Q6H PRN 01/26/22 03/24/22 History Budesonide-Formot 160-4.5 Mcg 2 puff INHALATION RT-BID 30 Days 03/03/22 03/24/22 Rx [Symbicort 160-4.5 Mcg Inhaler] #1 gm Albuterol Inhaler [Ventolin Hfa 2 puff INHALATION RT-Q4H PRN 03/24/22 03/24/22 History Inhaler] Albuterol Nebulized [Ventolin 2.5 mg INHALATION RT-Q4H PRN 03/24/22 03/24/22 History Nebulized] allopurinoL [Zyloprim] 300 mg PO DAILY 03/24/22 03/24/22 History Loratadine 10 mg PO DAILY 03/25/22 03/25/22 History Allergies Allergy/AdvReac Type Severity Reaction Status Date / Time Penicillins Allergy Dyspnea Verified 03/24/22 11:52 Sulfa (Sulfonamide Allergy Rash/Hives Verified 03/24/22 11:52 Antibiotics) Physical Exam Vitals: Vital Signs Temp Pulse Pulse Resp BP BP Pulse Ox 03/26/22 09:30 99.3 F 03/26/22 08:07 101.3 F H 03/26/22 05:56 100.8 F H 116 H 03/26/22 05:00 99.0 F 101 H 16 107/56 94 L 03/25/22 21:00 99.3 F 104 H 16 112/54 96 03/25/22 20:34 100.4 F H 109 H 24 110/53 94 L 03/25/22 18:30 99.5 F 100 18 104/51 94 L 03/25/22 18:00 99.1 F 97 18 95/51 93 L 03/25/22 17:50 98.3 F 97 20 97/55 94 L 03/25/22 14:37 98.3 F Intake and Output 03/25/22 03/26/22 03/26/22 22:59 06:59 14:59 Intake Total 2009 1300 Output Total Balance 2008 1300 Intake: Intake, IV Titration 1250 350 Amount Cefepime 2 gm In Sodium 100 Chloride 0.9% 100 ml @ 25 mls/hr IVPB Q12H [facility] Rx# :[id number] Cefepime 2 gm In Sodium 100 Chloride 0.9% 100 ml @ 25 mls/hr IVPB Q8H [facility] Rx#: [id number] Sodium Chloride 0.9% 1, 900 000 ml @ 75 mls/hr IV . [id number] [facility] Rx#:[id number] Vancomycin 750 mg In 250 250 Sodium Chloride 0.9% 250 ml @ 125 mls/hr IVPB Q16H [facility] Rx#:[id number] Oral 478 950 Blood Product 282 Rc Pheresis 2 As3 Unit 282 [id number] Output: Emesis 1 Other: Voiding Method Toilet Toilet # Voids 1 2 1 # Bowel Movements 1 1 GENERAL DESCRIPTION: Elderly female lying in bed, no distress. No tachypnea or accessory muscle of respiration use. HEENT: Shows Pallor , no scleral icterus. Oral mucous membrane is dry. No pharyngeal erythema or thrush NECK: Trachea central, no thyromegaly. LUNGS: Unlabored breathing. Clear to auscultation anteriorly. No wheeze or crackle. HEART: S1, S2, regular rate and rhythm. No loud murmur ABDOMEN: Soft, no tenderness , splenomegaly EXTREMITIES: No edema of feet. SKIN: No rash, no masses palpable. NEUROLOGICAL: The patient is awake, alert, oriented x3, mood and affect normal. Results CBC & Chem 7: 03/26/22 07:19 03/27/22 05:40 Labs: Abnormal Lab Results - Last 24 Hours (Table) 03/25/22 03/26/22 03/26/22 Range/Units 12:53 07:19 07:19 RBC 2.95 L (3.80-5.40) m/uL Hgb 8.2 L D (11.4-16.0) gm/dL Hct 26.7 L (34.0-46.0) % MCHC 30.7 L (31.0-37.0) g/dL RDW 16.4 H (11.5-15.5) % Plt Count 88 L (150-450) k/uL Lymphocytes # 0.2 L (1.0-4.8) k/uL Sodium 130 L (137-145) mmol/L Carbon Dioxide 18 L (22-30) mmol/L Creatinine 1.10 H (0.52-1.04) mg/dL Calcium 6.9 L (8.4-10.2) mg/dL Crossmatch See Detail Microbiology - Last 24 Hours (Table) 03/24/22 14:44 Urine Culture - Final Urine,Clean Catch 03/24/22 13:55 Blood Culture - Preliminary Blood No Growth after 24 hours 03/24/22 13:40 Blood Culture - Preliminary Blood No Growth after 24 hours Assessment and Plan (1) SIRS (systemic inflammatory response syndrome) Current Visit: Yes Status: Acute Code(s): R65.10 - SIRS OF NON-INFECTIOUS ORIGIN W/O ACUTE ORGAN DYSFUNCTION SNOMED Code(s): 746263338 Plan: 1patient with a fever in this patient who do have a history of non-Hodgkin's lymphoma with recent chemo patient currently do not have any localizing signs or symptoms of infection and initial work-up has been negative with negative chest x-ray and UA patient did have significant splenomegaly on abdominal examination but no significant tenderness, questionable the fever related to tumor fever versus tumor lysis. 2we will obtain a CT abdominal pelvis to complete the work-up looking for the source for this fever. 3continue with the vancomycin and cefepime while waiting for the culture to finalize. We will follow on clinical condition and cultures to further adjust medication if needed Thank you for this consultation will follow this patient along with you Time with Patient: Greater than 30
[2022-03-27] MEDS: CEFEPIME 2 GM in SODIUM CHLORIDE 0.9% 100 ML IVPB SCH ×2 (02:30→13:38)
[2022-03-27] MEDS ORDERED: VANCOMYCIN TROUGH DUE 1 EACH MISC MISCELLANE ONE (05:00)
[2022-03-27] MEDS: VANCOMYCIN 750 MG in SODIUM CHLORIDE 0.9% 250 ML IVPB SCH ×2 (05:42→20:55)
[2022-03-27] MEDS: ACETAMINOPHEN TAB 325 MG TAB PO PRN ×2 (05:43→16:51)
[2022-03-27 06:50] LABS: African American GFR (CKD) 61 (>60 ml/min/1.73 sqM); Anion Gap 8 mmol/L; Blood Urea Nitrogen 15 mg/dL (7-17); Calcium 7.1 mg/dL (8.4-10.2); Carbon Dioxide 17 mmol/L (22-30); Chloride 106 mmol/L (98-107); Glucose 87 mg/dL (74-99); Non-African American GFR(CKD) 53 (>60 ml/min/1.73 sqM); Potassium 3.5 mmol/L (3.5-5.1); Sodium 131 mmol/L (137-145)
[2022-03-27] MEDS: SYMBICORT 160-4.5 MCG INHALER INHALATION SCH ×2 (07:40→19:39)
[2022-03-27] MEDS: FOLIC ACID 1 MG TAB PO SCH (09:46)
[2022-03-27] MEDS: allopurinoL 300 MG TAB PO SCH (09:46)
[2022-03-27] MEDS: PANTOPRAZOLE 40 MG/10 ML VIAL IVP SCH ×2 (09:46→20:50)
[2022-03-27] MEDS: SODIUM CHLORIDE 0.9% 1,000 ML IV SCH ×2 (09:46→20:51)
[2022-03-27] MEDS: LORATADINE 10 MG TAB PO SCH (09:46)
[2022-03-27] MEDS: CYANOCOBALAMIN 1,000 MCG/ML 1 ML VIAL IM SCH (09:47)
[2022-03-27 09:55] LABS: Anisocytosis Slight; Basophils % (A) 0 %; Eosinophils # (A) 0.1 k/uL (0-0.7); Eosinophils % (A) 3 %; HCT 28.1 % (34.0-46.0); HGB 8.8 gm/dL (11.4-16.0); Hypochromasia Marked; Lymphocytes # (A) 0.2 k/uL (1.0-4.8); Lymphocytes % (A) 5 %; MCH 28.9 pg (25.0-35.0); MCHC 31.2 g/dL (31.0-37.0); MCV 92.4 fL (80.0-100.0); Mean Platelet Volume 10.4; Monocytes # (A) 0.1 k/uL (0-1.0); Monocytes % (A) 2 %; Neutrophils # (A) 4.1 k/uL (1.3-7.7); Neutrophils % (A) 88 %; Platelet Count 71 k/uL (150-450); Poikilocytosis Slight; RBC 3.04 m/uL (3.80-5.40); RDW 16.9 % (11.5-15.5); WBC 4.7 k/uL (3.8-10.6)
[2022-03-27 12:54] VITALS: RESP 16
--- NOTE | 2022-03-27 17:31 | P.PN ---
Subjective Progress Note Date: 03/27/22 Principal diagnosis: neutropenic fever, MZL In f/u today pt does have a small appetite, she did have fever overnight, denies oral irritation, nausea, chest pain, SOB, abd pain, she has ambulated to the bathroom. Objective - Vital Signs Vital signs: Vital Signs Temp 98.2 F 03/27/22 12:53 Pulse 92 03/27/22 12:53 Resp 16 03/27/22 12:53 BP 102/64 03/27/22 12:53 Pulse Ox 95 03/27/22 12:53 FiO2 Intake & Output 03/26/22 03/27/22 03/27/22 18:59 06:59 18:59 Intake Total 1000 Balance 1000 Intake: Intake, IV Titration 1000 Amount Cefepime 2 gm In Sodium 100 Chloride 0.9% 100 ml @ 25 mls/hr IVPB Q12H [facility] Rx# :[id number] Sodium Chloride 0.9% 1, 900 000 ml @ 75 mls/hr IV . [id number] [facility] Rx#:[id number] Other: Voiding Method Toilet Toilet Toilet # Voids 2 # Bowel Movements 1 1 - Constitutional General appearance: Present: average body habitus, cooperative, no acute distress - EENT Eyes: Present: anicteric sclerae, EOMI ENT: Present: hearing grossly normal, normal oropharynx - Respiratory Respiratory: bilateral: CTA - Cardiovascular Rhythm: regular Heart sounds: normal: S1, S2 - Peripheral edema leg Peripheral Edema: bilateral: None - Gastrointestinal General gastrointestinal: Present: normal bowel sounds, soft, splenomegaly, tenderness - Integumentary Integumentary: Present: normal - Neurologic Neurologic: Present: CNII-XII intact - Musculoskeletal Musculoskeletal: Present: strength equal bilaterally - Psychiatric Psychiatric: Present: A&O x's 3, appropriate affect, intact judgment & insight - Labs CBC & Chem 7: 03/27/22 05:40 03/27/22 05:40 Labs: Abnormal Lab Results - Last 24 Hours (Table) 03/27/22 03/27/22 Range/Units 05:40 05:40 RBC 3.04 L (3.80-5.40) m/uL Hgb 8.8 L (11.4-16.0) gm/dL Hct 28.1 L (34.0-46.0) % RDW 16.9 H (11.5-15.5) % Plt Count 71 L (150-450) k/uL Lymphocytes # 0.2 L (1.0-4.8) k/uL Sodium 131 L (137-145) mmol/L Carbon Dioxide 17 L (22-30) mmol/L Calcium 7.1 L (8.4-10.2) mg/dL Microbiology - Last 24 Hours (Table) 03/25/22 14:47 Blood Culture - Preliminary Blood No Growth after 48 hours 03/25/22 14:53 Blood Culture - Preliminary Blood No Growth after 48 hours 03/24/22 13:55 Blood Culture - Preliminary Blood No Growth after 72 hours 03/24/22 13:40 Blood Culture - Preliminary Blood No Growth after 72 hours 03/26/22 12:21 Blood Culture - Preliminary Blood No Growth after 24 hours 03/26/22 12:41 Blood Culture - Preliminary Blood No Growth after 24 hours - Imaging and Cardiology CT scan - abdomen: report reviewed (no bowel obstruction, splenomegaly) CT scan - chest: report reviewed (lt pulm infiltrate, small effusion) Assessment and Plan (1) Neutropenic fever Current Visit: Yes Status: Acute Priority: High Code(s): D70.9 - NEUTROPENIA, UNSPECIFIED; R50.81 - FEVER PRESENTING WITH CONDITIONS CLASSIFIED ELSEWHERE SNOMED Code(s): 428849251 (2) Marginal zone B-cell lymphoma Current Visit: Yes Status: Acute Priority: High Code(s): C85.80 - OTH TYPES OF NON-HODGKIN LYMPHOMA, UNSPECIFIED SITE SNOMED Code(s): 685935234 (3) Bicytopenia Current Visit: Yes Status: Acute Priority: Medium Code(s): D75.89 - OTHER SPECIFIED DISEASES OF BLOOD AND BLOOD-FORMING ORGANS SNOMED Code(s): 86118226 (4) B12 deficiency Current Visit: Yes Status: Acute Priority: Medium Code(s): E53.8 - DEFICIENCY OF OTHER SPECIFIED B GROUP VITAMINS SNOMED Code(s): 507908951 Plan: Neutropenic fever on admit. WBC/ANC have recovered, cultures all neg. Pt did have a temp of 100.9F-possibly tumor fever? Pt cont on empiric abx for now. Pending 24 hours no fever for discharge Pt is s/p 1st cycle of BR for MZL. Plan to continue treatment once completely recovered from current condition. Anemia and thrombocytopenia-transfuse for Hgb <7 unless symptomatic and plt count <10K unless symptomatic. CBC monitoring while inpt. B12 deficiency-started of IM B12 regimen, will cont outpt
[2022-03-27] MEDS ORDERED: POTASSIUM CHLORIDE ER 20 MEQ TAB.ER PO STA (22:21)
--- NOTE | 2022-03-27 22:32 | P.PN ---
Subjective Progress Note Date: 03/27/22 This is a 77 year old female who presents to the hospital with fever 102.5. She was diagnosed with non-Hodgkins lymphoma 2 months ago. She is status post first cycle of chemotherapy. Patient continues with low grade fever, T max in the last 24 hours 99.4. Underwent abdominal pelvis CT yesterday which reveals massive splenomegaly which is slightly decreased compared to previous imaging. There is also left pleural effusion and basilar pulmonary infiltrate which is new. She did have an episode of vomiting on admission. Infectious disease is following patient, as well as oncology. She continues on IV cefepime, IV vancomycin. Blood cultures have remained negative pending final cultures from the . Blood pressure on the lower side 90s systolic. Labs today showing white count 4.7, hgb 8.8, platelets 71, sodium 131, potassium 3.5, BUN 15, creat 1.02, magnesium 1.7. Review of Systems Constitutional: Reports fatigue, reports fever Cardio vascular: denied any chest pain, palpitations Gastrointestinal: denied any nausea, vomiting, diarrhea Pulmonary: Denied any shortness of breath cough Neurologic denied any new focal deficits All inpatient medications were reviewed and appropriate changes in these medications as dictated in the interval history and assessment and plan. PHYSICAL EXAMINATION: GENERAL: The patient is alert and oriented x3, not in any acute distress. Well developed, well nourished. HEENT: Pupils are round and equally reacting to light. EOMI. No scleral icterus. No conjunctival pallor. Normocephalic, atraumatic. No pharyngeal erythema. No thyromegaly. CARDIOVASCULAR: S1 and S2 present. No murmurs, rubs, or gallops. PULMONARY: Chest is clear to auscultation, no wheezing or crackles. ABDOMEN: Soft, nontender, nondistended, normoactive bowel sounds. No palpable organomegaly. MUSCULOSKELETAL: No joint swelling or deformity. EXTREMITIES: No cyanosis, clubbing, or pedal edema. NEUROLOGICAL: Gross neurological examination did not reveal any focal deficits. SKIN: No rashes. Assessment and Plan Neutropenic fever with possible sepsis which has resolved Anemia and thrombocytopenia History lymphoma with recent diagnosis status post 1st cycle of treatment Vomiting and acute gastritis, resolved Splenomegaly Hypomagnesemia History TIA with no residuals GI prophylaxis DVT prophylaxis deferrred Full Code Plan Continue empiric antibiotics Continue to monitor for fever Pending finalized blood cultures Replace electrolytes Follow up AM chest xray AM labs Encoure IS The impression and plan of care has been dictated by Kaleigh Meade, Nurse Practitioner as directed. Dr. Jose Alfredo MD I have performed a history and physical examination and medical decision making of this patient, discussed the same with the dictator, and agree with the dictators assessment and plan as written, documented as a scribe. Based on total visit time, I have performed more than 50% of this visit. Objective - Vital Signs Vital signs: Vital Signs Temp 99.4 F 03/27/22 05:00 Pulse 111 H 03/27/22 05:00 Resp 18 03/27/22 05:00 BP 104/50 03/27/22 05:00 Pulse Ox 94 L 03/27/22 05:00 FiO2 Intake & Output 03/26/22 03/27/22 03/27/22 18:59 06:59 18:59 Intake Total 1000 Balance 1000 Intake: Intake, IV Titration 1000 Amount Cefepime 2 gm In Sodium 100 Chloride 0.9% 100 ml @ 25 mls/hr IVPB Q12H [facility] Rx# :[id number] Sodium Chloride 0.9% 1, 900 000 ml @ 75 mls/hr IV . [id number] [facility] Rx#:[id number] Other: Voiding Method Toilet Toilet # Voids 2 # Bowel Movements 1 1 - Labs CBC & Chem 7: 03/27/22 05:40 03/27/22 05:40 Labs: Abnormal Lab Results - Last 24 Hours (Table) 03/27/22 Range/Units 05:40 Sodium 131 L (137-145) mmol/L Carbon Dioxide 17 L (22-30) mmol/L Calcium 7.1 L (8.4-10.2) mg/dL Microbiology - Last 24 Hours (Table) 03/25/22 14:47 Blood Culture - Preliminary Blood No Growth after 24 hours 03/25/22 14:53 Blood Culture - Preliminary Blood No Growth after 24 hours 03/24/22 13:55 Blood Culture - Preliminary Blood No Growth after 48 hours 03/24/22 13:40 Blood Culture - Preliminary Blood No Growth after 48 hours Assessment and Plan Time with Patient: Less than 30
[2022-03-27] MEDS: MAGNESIUM SULFATE-D5W PMX 1 GM in DEXTROSE/WATER 1 100ML.BAG IVPB SCH (23:54)
[2022-03-28] MEDS: MAGNESIUM SULFATE-D5W PMX 1 GM in DEXTROSE/WATER 1 100ML.BAG IVPB SCH (03:35)
[2022-03-28] MEDS: CEFEPIME 2 GM in SODIUM CHLORIDE 0.9% 100 ML IVPB SCH ×2 (05:08→14:08)
[2022-03-28 07:08] LABS: African American GFR (CKD) 71 (>60 ml/min/1.73 sqM); Anion Gap 6 mmol/L; Blood Urea Nitrogen 14 mg/dL (7-17); Calcium 7.1 mg/dL (8.4-10.2); Carbon Dioxide 17 mmol/L (22-30); Chloride 108 mmol/L (98-107); Glucose 97 mg/dL (74-99); Magnesium 2.6 mg/dL (1.6-2.3); Non-African American GFR(CKD) 61 (>60 ml/min/1.73 sqM); Potassium 3.7 mmol/L (3.5-5.1); Sodium 131 mmol/L (137-145)
--- NOTE | 2022-03-28 07:42 | XR ---
EXAMINATION TYPE: XR chest 2V DATE OF EXAM: 03/28/2022 COMPARISON: 03/24/2022 TECHNIQUE: PA and lateral views submitted. HISTORY: Abnormal x-ray FINDINGS: Heart size is stable and there is no pleural effusion or pneumothorax. Persistent subsegmental change s left lung base. Coarsened interstitium unchanged. IMPRESSION: 1. subsegmental linear changes left lung base atelectasis favored. Correlate clinically.
[2022-03-28] MEDS: SYMBICORT 160-4.5 MCG INHALER INHALATION SCH (08:02)
[2022-03-28] MEDS: LORATADINE 10 MG TAB PO SCH (08:42)
[2022-03-28] MEDS: PANTOPRAZOLE 40 MG/10 ML VIAL IVP SCH (08:42)
[2022-03-28] MEDS: allopurinoL 300 MG TAB PO SCH (08:42)
[2022-03-28] MEDS: FOLIC ACID 1 MG TAB PO SCH (08:42)
[2022-03-28] MEDS: ACETAMINOPHEN TAB 325 MG TAB PO PRN (08:45)
[2022-03-28] MEDS: CYANOCOBALAMIN 1,000 MCG/ML 1 ML VIAL IM SCH (08:45)
[2022-03-28] MEDS: SODIUM CHLORIDE 0.9% 1,000 ML IV SCH (09:01)
[2022-03-28 09:15] LABS: HCT 28.6 % (37.2-46.3); HGB 8.8 g/dL (12.0-15.0); MCH 27.7 pg (27.0-32.0); MCHC 30.8 g/dL (32.0-37.0); MCV 89.9 fL (80.0-97.0); Mean Platelet Volume 12.8 fL (9.5-12.2); NRBC Per 100 WBC 0 /100 WBCS (0.0-0.0); Platelet Count 84 X 10*3/uL (140-440); RBC 3.18 X 10*6/uL (4.10-5.20); RDW 17.6 % (11.5-14.5); WBC 5.92 X 10*3/uL (4.50-10.00)
[2022-03-28 10:54] LABS: Basophils # (A) 0.01 X 10*3/uL (0.00-0.10); Basophils % (A) 0.2 %; Eosinophils # (A) 0.19 X 10*3/uL (0.04-0.35); Eosinophils % (A) 3.2 %; Lymphocytes % (A) 10.1 %; Monocytes % (A) 5.1 %; Neutrophils # (A) 4.76 X 10*3/uL (1.80-7.70); Neutrophils % (A) 80.4 %
[2022-03-28 12:37] VITALS: BP 100/63; PULSE 85; TEMP 98.2
[2022-03-28] MEDS: VANCOMYCIN 750 MG in SODIUM CHLORIDE 0.9% 250 ML IVPB SCH (14:07)
[2022-03-28] MEDS ORDERED: POTASSIUM CHLORIDE ER 20 MEQ TAB.ER PO STA (14:40)
--- NOTE | 2022-03-29 22:28 | P.DS ---
Providers Date of admission: 03/24/22 15:11 Attending physician: Rhoda Brown Consults: 03/24/22 13:51 Consult Physician Urgent Consulting Provider: Lamont Garcia Consult Reason/Comments: neutropenic fever, non-Hodgkin's lymphoma Do you want consulting provider notified?: Yes 03/25/22 13:01 Consult Physician Urgent Consulting Provider: Mitul Jones Consult Reason/Comments: sepsis Do you want consulting provider notified?: Yes Primary care physician: Meeta Mendiola MD Hospital Course: Final Diagnosis Neutropenic fever with possible sepsis which has resolved Atelectasis left lung base Anemia and thrombocytopenia History lymphoma with recent diagnosis status post 1st cycle of treatment Vomiting and acute gastritis, resolved Splenomegaly Hypomagnesemia History TIA with no residuals Discharge Disposition Patient is discharge in fair condition. Follow up with primary care, which appointment is scheduled for April 03. She is scheduled to follow up with oncology on 04/05/22. New discharge medications include ceftin 500 mg PO BID for 7 more days, protonix, folic acid and she will continue with vitamin B12 IM injections at oncology office. Repeat labs in 1-2 days as well. Hospital Course This is a 77 year old female who presents to the hospital with fever 102.5. She was diagnosed with non-Hodgkins lymphoma 2 months ago. She is status post first cycle of chemotherapy. Patient was started on empiric antibiotic coverage with IV cefepime and IV vancomycin and evaluate [facility]. Blood cultures have remained negative, urinalysis negative. Underwent abdominal pelvis CT which reveals massive splenomegaly which is slightly decreased compared to previous imaging. There is also left pleural effusion and basilar pulmonary infiltrate which is new. She did have an episode of vomiting on admission. Follow up chest xray completed on 03/28 showing subsegmental linear changes left lung base atelectasis favored, there is possibility for trace pneumonia and for this patient will continue on 7 more days of oral antibiotic therapy. Hemoglobin did drop to 6.7 on 03/25 and patient received 1 unit of PRBC's and hemoglobin improved to 8.8. Chest Xray on admission showing chronic changes without acute process. EKG on admission showing sinus tachycardia with heart rate 114, QT interval 379, no ST or T wave changes. Labs on admission showing white count 2.2, hgb 10.0, platelet count 75 Retic count 3.8, LDH 376 Sodium 133, potassium 4.7, BUN 10, creat 0.94, calcium 8.0, magnesium 1.8 Iron studies - iron 12, TIBC 251, %saturation 4.91, transferrin 179.0, ferritin 93.8 Vitamin B12 192, folate 12.00, she was started on folic acid and B12 injections. COVID / Influenza A / Influenza B negative 03/28/2022 Paitent evaluated today resting in bed she is hoping to be discharged today. She has remained fever free for the last day and a half and will complete antibiotic therapy outpatient. Labs today showing white count 5.92, hgb stable at 8.8, platelets 84, sodium 131, potassium 3.7, mag 2.6. She denies chest pain, shortness of breath. Denies pain, nausea, vomiting or diarrhea. Denies dysuria. There has been no evidence for acute bleeding. Hemoglobin has remained stable. Denies fever. Lungs are clear, s1, s2 auscultated, abdomen is soft and non tender. She has been evaluated by physical therapy who is recommending home with home care. Her daughter has been at the bedside today and updated on discharge plan, both patient and family are agreeable. She is educated on importance of using incentive spirometer and will continue to monitor for fever. Vital signs today temp 98.2, heart rate 85, blood pressure 100/63, 96% on room air. Please see medication reconciliation for a list of current medication. Thank you for allowing us to participate in the care of this patient. The impression and plan of care has been dictated by Kaleigh Meade, Nurse Practitioner as directed. Dr. Jose Alfredo MD I have performed a history and physical examination and medical decision making of this patient, discussed the same with the dictator, and agree with the dictators assessment and plan as written, documented as a scribe. Based on total visit time, I have performed more than 50% of this visit. Patient Condition at Discharge: Fair Plan - Discharge Summary Discharge Rx Participant: Yes New Discharge Prescriptions: New Folic Acid 1 mg PO DAILY #30 tab Pantoprazole Sodium [Protonix] 40 mg PO DAILY #30 tab Cyanocobalamin [Vitamin B-12 Injection] 1,000 mcg IM DAILY each Cefuroxime Axetil [Ceftin] 500 mg PO BID 7 Days #14 tab Continue Acetaminophen Tab [Tylenol] 1,000 mg PO Q6H PRN PRN Reason: Pain Albuterol Nebulized [Ventolin Nebulized] 2.5 mg INHALATION RT-Q4H PRN PRN Reason: Shortness Of Breath Budesonide-Formot 160-4.5 Mcg [Symbicort 160-4.5 Mcg Inhaler] 2 puff INHAL ATION RT-BID 30 Days #1 gm allopurinoL [Zyloprim] 300 mg PO DAILY Albuterol Inhaler [Ventolin Hfa Inhaler] 2 puff INHALATION RT-Q4H PRN PRN Reason: Shortness Of Breath Loratadine 10 mg PO DAILY Discharge Medication List Acetaminophen Tab [Tylenol] 1,000 mg PO Q6H PRN 01/26/22 [History] Budesonide-Formot 160-4.5 Mcg [Symbicort 160-4.5 Mcg Inhaler] 2 puff INHALATION RT-BID 30 Days #1 gm 03/03/22 [Rx] Albuterol Inhaler [Ventolin Hfa Inhaler] 2 puff INHALATION RT-Q4H PRN 03/24/22 [History] Albuterol Nebulized [Ventolin Nebulized] 2.5 mg INHALATION RT-Q4H PRN 03/24/22 [History] allopurinoL [Zyloprim] 300 mg PO DAILY 03/24/22 [History] Loratadine 10 mg PO DAILY 03/25/22 [History] Cefuroxime Axetil [Ceftin] 500 mg PO BID 7 Days #14 tab 03/28/22 [Rx] Cyanocobalamin [Vitamin B-12 Injection] 1,000 mcg IM DAILY each 03/28/22 [Rx] Folic Acid 1 mg PO DAILY #30 tab 03/28/22 [Rx] Pantoprazole Sodium [Protonix] 40 mg PO DAILY #30 tab 03/28/22 [Rx] Follow up Appointment(s)/Referral(s): Meeta Mendiola MD [Primary Care Provider] - 04/03/22 3:00 pm Julio Britt MD [STAFF PHYSICIAN] - 04/05/22 1:45 pm Ambulatory/Diagnostic Orders: Basic Metabolic Panel [LAB.AMB] Time Frame: 2 Days, Location: None Selected Complete Blood Count w/diff [LAB.AMB] Time Frame: 2 Days, Location: None Selected Patient Instructions/Handouts: Cefuroxime (By mouth), Folic Acid (By mouth), Pantoprazole (By mouth) Activity/Diet/Wound Care/Special Instructions: Continue to monitor for fever Complete all antibiotics Follow up with PCP in 1-2 days Follow up with oncology Repeat labs in 1-2 days Discharge Disposition: HOME WITH HOME HEALTH SERVICES
== END 2022-03-28 18:14 | disposition home health service (06) | DRG 871 ==
LOC: EC 10:44 → 5NMEDONC 15:11
PROVIDERS: ADMIT Hospitalist; ATTEND Hospitalist
PROC: 30233N1 Transfusion of Nonautologous Red Blood Cells into Peripheral Vein, Percutaneous Approach (ICD-10-PCS; principal; 2022-03-25)
DX: A41.9 Sepsis, unspecified organism (principal); D65 Disseminated intravascular coagulation [defibrination syndrome]; D61.810 Antineoplastic chemotherapy induced pancytopenia; J90 Pleural effusion, not elsewhere classified; J98.11 Atelectasis; D84.9 Immunodeficiency, unspecified; C85.10 Unspecified B-cell lymphoma, unspecified site; Z20.822 Contact with and (suspected) exposure to COVID-19; D70.2 Other drug-induced agranulocytosis; K29.00 Acute gastritis without bleeding; D64.81 Anemia due to antineoplastic chemotherapy; S90.32XA Contusion of left foot, initial encounter; E53.8 Deficiency of other specified B group vitamins; E83.42 Hypomagnesemia; I10 Essential (primary) hypertension; N95.1 Menopausal and female climacteric states; R16.1 Splenomegaly, not elsewhere classified; T45.1X5A Adverse effect of antineoplastic and immunosuppressive drugs, initial encounter; Z79.51 Long term (current) use of inhaled steroids; Z79.899 Other long term (current) drug therapy; Z83.3 Family history of diabetes mellitus; Z86.73 Personal history of transient ischemic attack (TIA), and cerebral infarction without residual deficits; Z87.01 Personal history of pneumonia (recurrent); Z90.710 Acquired absence of both cervix and uterus; Z88.0 Allergy status to penicillin; Z88.2 Allergy status to sulfonamides
CPT/HCPCS: 36415; 71046; 74176; 80048; 80053; 80202; 81003; 82533; 82607; 82728; 82746; 83540; 83550; 83605; 83615; 83735; 83921; 84100; 84484; 84550; 85025; 85045; 85384; 85610; 85730; 86850; 86900; 86901; 86920; 87040; 87086; 87502; 87635; 93005; 94640; 96361; 96365; 96367; 99285

== ENCOUNTER 2022-04-12 17:30 | Observation (INO) | payer MEDICARE ==
--- NOTE | 2022-04-12 17:45 | ED ---
General Adult HPI - General Chief complaint: Fever Stated complaint: Fever,Altered Mental Status Time Seen by Provider: 04/12/22 17:34 Source: patient, EMS, RN notes reviewed, old records reviewed - History of Present Illness Initial comments: Patient is a pleasantly confused 77-year-old female was brought into the emergency room by EMS after her family called them due to the development of abdominal/back pain and fever after her chemotherapy earlier today. She received her second round of chemotherapy at the [facility] center today for non-Hodgkin's lymphoma. She developed a fever and was hospitalized afterward her first round of chemotherapy as well. She has a past medical history also significant for TIAs, GERD and splenomegaly. She received Zofran for nausea by EMS and Tylenol at home by her family prior to coming to the hospital. She was also having some hypoxia and oxygen sat of 88% on room air and was placed on 2 L nasal cannula by EMS to improve her oxygenation. She denies any shortness of breath but is complaining of abdominal pain and back pain that is overall generalized but not severe at this time. she has had some acute confusion since her chemotherapy treatment which she had last time as well. The family is concerned that it is due to Benadryl that she received prior to her treatment however given her fevers is unsure if that is the etiology. - Related Data Home Medications Medication Instructions Recorded Confirmed Acetaminophen Tab [Tylenol] 1,000 mg PO Q6H PRN 01/26/22 03/24/22 Albuterol Inhaler [Ventolin Hfa 2 puff INHALATION RT-Q4H PRN 03/24/22 03/24/22 Inhaler] Albuterol Nebulized [Ventolin 2.5 mg INHALATION RT-Q4H PRN 03/24/22 03/24/22 Nebulized] allopurinoL [Zyloprim] 300 mg PO DAILY 03/24/22 03/24/22 Loratadine 10 mg PO DAILY 03/25/22 03/25/22 Previous Rx's Medication Instructions Recorded Budesonide-Formot 160-4.5 Mcg 2 puff INHALATION RT-BID 30 Days 03/03/22 [Symbicort 160-4.5 Mcg Inhaler] #1 gm Cyanocobalamin [Vitamin B-12 1,000 mcg IM DAILY each 03/28/22 Injection] Folic Acid 1 mg PO DAILY #30 tab 03/28/22 Pantoprazole Sodium [Protonix] 40 mg PO DAILY #30 tab 03/28/22 cefUROXime axetiL [Ceftin] 500 mg PO BID 7 Days #14 tab 03/28/22 Allergies Allergy/AdvReac Type Severity Reaction Status Date / Time Penicillins Allergy Dyspnea Verified 03/24/22 11:52 Sulfa (Sulfonamide Allergy Rash/Hives Verified 03/24/22 11:52 Antibiotics) Review of Systems ROS Statement: Those systems with pertinent positive or pertinent negative responses have been documented in the HPI. ROS Other: All systems not noted in ROS Statement are negative. 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 NON HODGKINS LYMPHOMA. History of Any Multi-Drug Resistant Organisms: None Reported Past Surgical History: Section, Hysterectomy Additional Past Surgical History / Comment(s): 3 c sections Past Anesthesia/Blood Transfusion Reactions: No Reported Reaction Past Psychological History: No Psychological Hx Reported Smoking Status: Never smoker Past Alcohol Use History: None Reported Past Drug Use History: None Reported - Past Family History Son(s) Family Medical History: Diabetes Mellitus Additional Family Medical History / Comment(s): kidney recipient General Exam General appearance: alert Head exam: Present: atraumatic, normocephalic, normal inspection Eye exam: Present: normal appearance, PERRL, EOMI. Absent: scleral icterus, conjunctival injection, periorbital swelling ENT exam: Present: normal exam, mucous membranes moist Neck exam: Present: normal inspection. Absent: tenderness, meningismus, lymphadenopathy Respiratory exam: Present: normal lung sounds bilaterally. Absent: respiratory distress, wheezes, rales, rhonchi, stridor, accessory muscle use Cardiovascular Exam: Present: regular rate, normal rhythm, normal heart sounds. Absent: systolic murmur, diastolic murmur, rubs, gallop, clicks GI/Abdominal exam: Present: tenderness, normal bowel sounds, organomegaly (splenomegaly), other (rounded but soft) Extremities exam: Present: normal inspection, full ROM, normal capillary refill. Absent: tenderness, pedal edema, joint swelling, calf tenderness Neurological exam: Present: alert, CN II-XII intact Expanded Neurological exam: Present: memory loss-recent event Patient oriented to: Absent: place, time Psychiatric exam: Present: normal affect Skin exam: Present: warm, dry, intact, normal color. Absent: rash Course Vital Signs 04/12/22 04/12/22 17:37 19:24 Temperature 101.7 F H 99.4 F Pulse Rate 117 H 101 H Respiratory 22 20 Rate Blood Pressure 128/64 97/49 O2 Sat by Pulse 94 L 97 Oximetry - Reevaluation(s) Reevaluation #1: Lactic acid elevated however white count low per her normal. No obvious sign of infection at this time. Chest x-ray negative for active pulmonary pulmonary cardiopulmonary disease. Due to febrile state, confusion and concern for reaction patient to be admitted for observation to sound physician. Case and plan of care discussed with Dr. Patel. Will consult Dr. Dalton her oncologist. No indication for antibiotic therapy at this time. Time: 21:06 Medical Decision Making - Lab Data Result diagrams: 04/12/22 17:51 04/12/22 17:51 Lab Results 04/12/22 04/12/22 04/12/22 Range/Units 17:51 17:51 17:51 WBC 3.5 L (3.8-10.6) k/uL RBC 3.26 L (3.80-5.40) m/uL Hgb 10.2 L (11.4-16.0) gm/dL Hct 31.5 L (34.0-46.0) % MCV 96.5 (80.0-100.0) fL MCH 31.2 (25.0-35.0) pg MCHC 32.3 (31.0-37.0) g/dL RDW 19.9 H (11.5-15.5) % MPV 9.2 Hypochromasia Moderate Poikilocytosis Slight Anisocytosis Slight Macrocytosis Slight Sodium 136 L (137-145) mmol/L Potassium 4.5 (3.5-5.1) mmol/L Chloride 104 (98-107) mmol/L Carbon Dioxide 24 (22-30) mmol/L Anion Gap 8 mmol/L BUN 11 (7-17) mg/dL Creatinine 0.79 (0.52-1.04) mg/dL Est GFR (CKD-EPI)AfAm 83 (>60 ml/min/1.73 sqM) Est GFR (CKD-EPI)NonAf 72 (>60 ml/min/1.73 sqM) Glucose 154 H (74-99) mg/dL Lactic Ac Sepsis Rflx Plasma Lactic Acid Black (0.7-2.0) mmol/L Calcium 8.1 L (8.4-10.2) mg/dL Total Bilirubin 1.1 (0.2-1.3) mg/dL AST 28 (14-36) U/L ALT 16 (4-34) U/L Alkaline Phosphatase 64 (38-126) U/L Total Protein 5.5 L (6.3-8.2) g/dL Albumin 3.3 L (3.5-5.0) g/dL Urine Color Light Yellow Urine Appearance Clear (Clear) Urine pH 5.5 (5.0-8.0) Ur Specific [place] 1.011 (1.001-1.035) Urine Protein Negative (Negative) Urine Glucose (UA) Negative (Negative) Urine Ketones Negative (Negative) Urine Blood Negative (Negative) Urine Nitrite Negative (Negative) Urine Bilirubin Negative (Negative) Urine Urobilinogen <2.0 (<2.0) mg/dL Ur Leukocyte Esterase Negative (Negative) Coronavirus (PCR) (Not Detectd) Influenza Type A RNA (Not Detectd) Influenza Type B (PCR) (Not Detectd) 04/12/22 04/12/22 04/12/22 Range/Units 17:51 17:51 17:51 WBC (3.8-10.6) k/uL RBC (3.80-5.40) m/uL Hgb (11.4-16.0) gm/dL Hct (34.0-46.0) % MCV (80.0-100.0) fL MCH (25.0-35.0) pg MCHC (31.0-37.0) g/dL RDW (11.5-15.5) % MPV Hypochromasia Poikilocytosis Anisocytosis Macrocytosis Sodium (137-145) mmol/L Potassium (3.5-5.1) mmol/L Chloride (98-107) mmol/L Carbon Dioxide (22-30) mmol/L Anion Gap mmol/L BUN (7-17) mg/dL Creatinine (0.52-1.04) mg/dL Est GFR (CKD-EPI)AfAm (>60 ml/min/1.73 sqM) Est GFR (CKD-EPI)NonAf (>60 ml/min/1.73 sqM) Glucose (74-99) mg/dL Lactic Ac Sepsis Rflx Plasma Lactic Acid Black 3.0 H* (0.7-2.0) mmol/L Calcium (8.4-10.2) mg/dL Total Bilirubin (0.2-1.3) mg/dL AST (14-36) U/L ALT (4-34) U/L Alkaline Phosphatase (38-126) U/L Total Protein (6.3-8.2) g/dL Albumin (3.5-5.0) g/dL Urine Color Urine Appearance (Clear) Urine pH (5.0-8.0) Ur Specific [place] (1.001-1.035) Urine Protein (Negative) Urine Glucose (UA) (Negative) Urine Ketones (Negative) Urine Blood (Negative) Urine Nitrite (Negative) Urine Bilirubin (Negative) Urine Urobilinogen (<2.0) mg/dL Ur Leukocyte Esterase (Negative) Coronavirus (PCR) Not Detected (Not Detectd) Influenza Type A RNA Not Detected (Not Detectd) Influenza Type B (PCR) Not Detected (Not Detectd) 04/12/22 Range/Units 18:25 WBC (3.8-10.6) k/uL RBC (3.80-5.40) m/uL Hgb (11.4-16.0) gm/dL Hct (34.0-46.0) % MCV (80.0-100.0) fL MCH (25.0-35.0) pg MCHC (31.0-37.0) g/dL RDW (11.5-15.5) % MPV Hypochromasia Poikilocytosis Anisocytosis Macrocytosis Sodium (137-145) mmol/L Potassium (3.5-5.1) mmol/L Chloride (98-107) mmol/L Carbon Dioxide (22-30) mmol/L Anion Gap mmol/L BUN (7-17) mg/dL Creatinine (0.52-1.04) mg/dL Est GFR (CKD-EPI)AfAm (>60 ml/min/1.73 sqM) Est GFR (CKD-EPI)NonAf (>60 ml/min/1.73 sqM) Glucose (74-99) mg/dL Lactic Ac Sepsis Rflx Y Plasma Lactic Acid Black (0.7-2.0) mmol/L Calcium (8.4-10.2) mg/dL Total Bilirubin (0.2-1.3) mg/dL AST (14-36) U/L ALT (4-34) U/L Alkaline Phosphatase (38-126) U/L Total Protein (6.3-8.2) g/dL Albumin (3.5-5.0) g/dL Urine Color Urine Appearance (Clear) Urine pH (5.0-8.0) Ur Specific [place] (1.001-1.035) Urine Protein (Negative) Urine Glucose (UA) (Negative) Urine Ketones (Negative) Urine Blood (Negative) Urine Nitrite (Negative) Urine Bilirubin (Negative) Urine Urobilinogen (<2.0) mg/dL Ur Leukocyte Esterase (Negative) Coronavirus (PCR) (Not Detectd) Influenza Type A RNA (Not Detectd) Influenza Type B (PCR) (Not Detectd) - Radiology Data Radiology results: report reviewed, image reviewed No active cardiopulmonary disease, no changes. Disposition Clinical Impression: Neutropenic fever Disposition: ADMITTED IP TO THIS HOSP Is patient prescribed a controlled substance at d/c from ED?: No Referrals: Meeta Mendiola MD [Primary Care Provider] - 1-2 days Time of Disposition: 21:08
[2022-04-12 18:16] LABS: Albumin 3.3 g/dL (3.5-5.0); Calcium 8.1 mg/dL (8.4-10.2); Potassium 4.5 mmol/L (3.5-5.1); Total Bilirubin 1.1 mg/dL (0.2-1.3); Total Protein 5.5 g/dL (6.3-8.2)
[2022-04-12 18:22] LABS: Anisocytosis Slight; HCT 31.5 % (34.0-46.0); HGB 10.2 gm/dL (11.4-16.0); Hypochromasia Moderate; MCH 31.2 pg (25.0-35.0); MCHC 32.3 g/dL (31.0-37.0); MCV 96.5 fL (80.0-100.0); Macrocytosis Slight; Mean Platelet Volume 9.2; Poikilocytosis Slight; RBC 3.26 m/uL (3.80-5.40); RDW 19.9 % (11.5-15.5); WBC 3.5 k/uL (3.8-10.6)
--- NOTE | 2022-04-12 19:04 | XR ---
EXAMINATION TYPE: XR chest 2V DATE OF EXAM: 04/12/2022 COMPARISON: 03/28/2022 HISTORY: Hypoxemia TECHNIQUE: 2 views FINDINGS: Heart is normal. Lungs are clear of consolidation. There are no hilar masses. Bony thorax i s intact. There is no pleural effusion. IMPRESSION: No active cardiopulmonary disease. No change.
[2022-04-12 20:26] LABS: Appearance,Urine Clear (Clear); Bilirubin,Urine Negative (Negative); Blood,Urine Negative (Negative); Color,Urine Light Yellow; Glucose,Urine (UA) Negative (Negative); Ketones,Urine Negative (Negative); Leukocyte Esterase,Urine Negative (Negative); Nitrite,Urine Negative (Negative); PH, Urine 5.5 (5.0-8.0); Protein,Urine Negative (Negative); Specific Gravity,Urine 1.011 (1.001-1.035); Urobilinogen,Urine <2.0 mg/dL (<2.0)
[2022-04-12] MEDS ORDERED: CEFEPIME 2 GM in SODIUM CHLORIDE 0.9% 100 ML IVPB STA (21:10)
[2022-04-12] MEDS ORDERED: VANCOMYCIN IV PER PHARMACY 1 EACH MISC MISCELLANE PRN (21:10)
[2022-04-12] MEDS ORDERED: NALOXONE 0.4 MG/ML 1 ML VIAL IV PRN (21:12)
[2022-04-12] MEDS ORDERED: IBUPROFEN 400 MG TAB PO PRN (21:12)
[2022-04-12] MEDS ORDERED: CEFEPIME 2 GM in SODIUM CHLORIDE 0.9% 100 ML IVPB ONE (21:16)
[2022-04-12 21:32] LABS: Band Neutrophils % 2 %; Basophils # (M) 0.07 k/uL (0-0.2); Eosinophils # (M) 0.04 k/uL (0-0.7); Lymphocytes # (M) 0.07 k/uL (1.0-4.8); Monocytes # (M) 0.21 k/uL (0-1.0); Neutrophils % (M) 87 %; Nucleated Red Blood Cells 0 /100 WBC (0-0); Platelet Count 49 k/uL (150-450); Total Cells Counted 100
[2022-04-12] MEDS ORDERED: VANCOMYCIN 1,000 MG in SODIUM CHLORIDE 0.9% 250 ML IVPB ONE (22:00)
[2022-04-12] MEDS: ACETAMINOPHEN TAB 325 MG TAB PO PRN (22:18)
[2022-04-13] MEDS ORDERED: MORPHINE SULFATE 4 MG/ML SYRINGE IVP STA (01:34)
[2022-04-13] MEDS ORDERED: ONDANSETRON 4 MG/2 ML VIAL IVP PRN (01:34)
[2022-04-13] MEDS ORDERED: ONDANSETRON 4 MG/2 ML VIAL IVP STA (01:34)
[2022-04-13] MEDS ORDERED: SODIUM CHLORIDE 0.9% 1,000 ML IV ONE (02:09)
--- NOTE | 2022-04-13 02:17 | P.HPIM ---
History of Present Illness H&P Date: 04/12/22 The patient is a 77-year-old female with a PMH of non-Hodgkin's lymphoma (diagnosed 01/2022) currently undergoing chemotherapy who presents to the emergency room complaints of fever. The history is supplemented by the patient's daughter at the bedside. The patient received the second dose of her chemotherapy earlier today and shortly after returning home developed chills with a fever of 102.4F as measured by her daughter. The patient denied any additional complaints. Of note, the patient developed a fever after her initial round of chemotherapy as well, at which point she was hospitalized and received broad-spectrum IV antibiotics from 03/24-03/28. All cultures were negative during that admission. The patient was noted to be hypoxic by EMS upon arrival with 88% on room air and was started on supplemental oxygen. The patient herself however denied experiencing chest discomfort, cough, nausea, vomiting, abdominal pain, diarrhea. Chest x-ray in the emergency room was unremarkable. Laboratory evaluation was remarkable for WBC count of 3.5, neutrophils 87%, lactic acid 3.0, unremarkable UA, coronavirus and influenza testing negative. Review of systems: Pertinent positives and negatives as discussed in HPI, a complete review of systems was performed and all other systems are negative. Physical examination: General: non toxic, no distress, appears at stated age, normal weight Derm: no unusual rashes/lesions, warm Head: atraumatic, normocephalic, symmetric Eyes: EOMI, no lid lag, anicteric sclera, pupils equal round reactive to light ENT: Nose and ears atraumatic Neck: No cervical lymphadenopathy, trachea midline, supple Mouth: no lip lesion, mucus membranes moist Cardiovascular: S1S2 reg, no murmur, positive dorsalis pedis pulse bilateral, no edema Lungs: CTA bilateral, no rhonchi, no rales, no accessory muscle use Abdominal: soft, nontender to palpation, no guarding Ext: muscle strength 5 out of 5 in all 4 extremities grossly, no gross muscle atrophy, no contractures, Neuro: CN II-XI grossly intact, no gross focal neuro deficits Psych: Alert, oriented to person and place, not oriented to time Assessment/plan SIRS without clear infectious source -Continue empiric treatment with broad-spectrum antibiotics -Suspect that fever may be reactive to chemotherapy as was with the first round -Continue with above management in light of elevated lactate and leukopenia -Oncology consulted -Follow cultures Lactic acidosis -Monitor for resolution DVT prophylaxis -Lovenox The patient is admitted with an anticipated greater than 2 midnight stay for evaluation of severe sepsis. CODE STATUS: Full Code Discussed with: Patient Anticipated discharge date: 2-[address]: Home Past Medical History Past Medical History: Cancer Additional Past Medical History / Comment(s): having abdominal and back pain,low platelets, increased fatigue,hx TIAs-no residual, splenomegaly, bone marrow positive for lymphoma. NON HODGKINS LYMPHOMA. History of Any Multi-Drug Resistant Organisms: None Reported Past Surgical History: Section, Hysterectomy Additional Past Surgical History / Comment(s): 3 c sections Past Anesthesia/Blood Transfusion Reactions: No Reported Reaction Past Psychological History: No Psychological Hx Reported Smoking Status: Never smoker Past Alcohol Use History: None Reported Past Drug Use History: None Reported - Past Family History Son(s) Family Medical History: Diabetes Mellitus Additional Family Medical History / Comment(s): kidney recipient Medications and Allergies Home Medications Medication Instructions Recorded Confirmed Type Acetaminophen Tab [Tylenol] 1,000 mg PO Q6H PRN 01/26/22 04/12/22 History allopurinoL [Zyloprim] 300 mg PO DAILY 03/24/22 04/12/22 History Loratadine 10 mg PO DAILY 03/25/22 04/12/22 History Folic Acid 1 mg PO DAILY #30 tab 03/28/22 04/12/22 Rx Pantoprazole Sodium [Protonix] 40 mg PO DAILY #30 tab 03/28/22 04/12/22 Rx Furosemide [Lasix] 20 mg PO DAILY 04/12/22 04/12/22 History Ondansetron [Zofran] 4 mg PO DAILY 04/12/22 04/12/22 History Potassium Chloride ER [K-Dur 10] 10 meq PO DAILY 04/12/22 04/12/22 History Allergies Allergy/AdvReac Type Severity Reaction Status Date / Time Penicillins Allergy Dyspnea Verified 04/12/22 21:32 Sulfa (Sulfonamide Allergy Rash/Hives Verified 04/12/22 21:32 Antibiotics) Physical Exam Vitals: Vital Signs Temp Pulse Resp BP Pulse Ox 04/12/22 21:24 104 H 101/57 04/12/22 19:24 99.4 F 101 H 20 97/49 97 04/12/22 17:37 101.7 F H 117 H 22 128/64 94 L Intake and Output 04/12/22 04/12/22 04/13/22 14:59 22:59 06:59 Other: Weight 50.802 kg Results CBC & Chem 7: 04/12/22 17:51 04/12/22 17:51 Labs: Abnormal Lab Results - Last 24 Hours (Table) 04/12/22 04/12/22 04/12/22 Range/Units 17:51 17:51 17:51 WBC 3.5 L (3.8-10.6) k/uL RBC 3.26 L (3.80-5.40) m/uL Hgb 10.2 L (11.4-16.0) gm/dL Hct 31.5 L (34.0-46.0) % RDW 19.9 H (11.5-15.5) % Plt Count 49 L (150-450) k/uL Lymphocytes # (Manual) 0.07 L (1.0-4.8) k/uL Sodium 136 L (137-145) mmol/L Glucose 154 H (74-99) mg/dL Plasma Lactic Acid Black 3.0 H* (0.7-2.0) mmol/L Calcium 8.1 L (8.4-10.2) mg/dL Total Protein 5.5 L (6.3-8.2) g/dL Albumin 3.3 L (3.5-5.0) g/dL 04/12/22 Range/Units 21:20 WBC (3.8-10.6) k/uL RBC (3.80-5.40) m/uL Hgb (11.4-16.0) gm/dL Hct (34.0-46.0) % RDW (11.5-15.5) % Plt Count (150-450) k/uL Lymphocytes # (Manual) (1.0-4.8) k/uL Sodium (137-145) mmol/L Glucose (74-99) mg/dL Plasma Lactic Acid Black 2.2 H* (0.7-2.0) mmol/L Calcium (8.4-10.2) mg/dL Total Protein (6.3-8.2) g/dL Albumin (3.5-5.0) g/dL
[2022-04-13] MEDS: SODIUM CHLORIDE 0.9% 1,000 ML IV SCH ×3 (06:47→17:41)
[2022-04-13] MEDS ORDERED: CEFEPIME 2 GM in SODIUM CHLORIDE 0.9% 100 ML IVPB SCH (07:00)
[2022-04-13] MEDS: MORPHINE SULFATE 4 MG/ML SYRINGE IV PRN ×2 (11:03→17:35)
[2022-04-13] MEDS: ACETAMINOPHEN TAB 325 MG TAB PO PRN (11:09)
[2022-04-13 12:13] LABS: Anisocytosis Slight; Basophils % (A) 0 %; Eosinophils # (A) 0.1 k/uL (0-0.7); Eosinophils % (A) 4 %; HCT 24.9 % (34.0-46.0); Hypochromasia Marked; Lymphocytes # (A) 0.1 k/uL (1.0-4.8); Lymphocytes % (A) 3 %; MCH 31.1 pg (25.0-35.0); MCHC 31.8 g/dL (31.0-37.0); MCV 97.7 fL (80.0-100.0); Macrocytosis Moderate; Mean Platelet Volume 11.3; Monocytes # (A) 0.2 k/uL (0-1.0); Monocytes % (A) 6 %; Neutrophils # (A) 2.9 k/uL (1.3-7.7); Neutrophils % (A) 86 %; Poikilocytosis Slight; RBC 2.55 m/uL (3.80-5.40); RDW 19.8 % (11.5-15.5); WBC 3.4 k/uL (3.8-10.6)
[2022-04-13 12:18] LABS: INR 1.7 (<1.2)
[2022-04-13 12:22] LABS: Platelet Count 45 k/uL (150-450)
[2022-04-13 12:24] LABS: HGB 7.9 gm/dL (11.4-16.0)
[2022-04-13 12:32] LABS: ALT 14 U/L (4-34); AST 25 U/L (14-36); African American GFR (CKD) 57 (>60 ml/min/1.73 sqM); Albumin 2.5 g/dL (3.5-5.0); Albumin/Globulin Ratio 1.3; Alkaline Phosphatase 50 U/L (38-126); Anion Gap 7 mmol/L; Blood Urea Nitrogen 21 mg/dL (7-17); Calcium 6.7 mg/dL (8.4-10.2); Carbon Dioxide 21 mmol/L (22-30); Chloride 106 mmol/L (98-107); Globulin 1.9 g/dL; Glucose 103 mg/dL (74-99); LDH 535 U/L (313-618); Magnesium 1.5 mg/dL (1.6-2.3); Non-African American GFR(CKD) 50 (>60 ml/min/1.73 sqM); Phosphorus 3.6 mg/dL (2.5-4.5); Potassium 4.1 mmol/L (3.5-5.1); Sodium 134 mmol/L (137-145); Total Protein 4.4 g/dL (6.3-8.2); Uric Acid 2.5 mg/dL (3.7-7.4)
--- NOTE | 2022-04-13 15:03 | P.PN ---
Subjective Progress Note Date: 04/13/22 Principal diagnosis: fever patient is still spiking fevers of 102.4 this afternoon. She is having sweats and chills. No n/v. Objective - Vital Signs Vital signs: Vital Signs Temp 98.6 F 04/13/22 13:52 Pulse 104 H 04/13/22 12:53 Resp 17 04/13/22 12:53 BP 95/53 04/13/22 12:53 Pulse Ox 94 L 04/13/22 12:53 FiO2 Intake & Output 04/12/22 04/13/22 04/13/22 18:59 06:59 18:59 Weight 50.802 kg 51.5 kg Other: Voiding Method Diaper - Exam Constitutional: No acute distress, conversant, pleasant Eyes:Anicteric sclerae, moist conjunctiva, no lid-lag, PERRLA, ENMT: Oropharynx clear, no erythema, exudates Neck: Supple, FROM, no masses, or JVD, No carotid bruits, No thyromegaly Lungs: Clear to auscultation, Clear to percussion, Normal respiratory effort, no accessory muscle use Cardiovascular: Heart regular in rate and rhythm, No murmurs, gallops, or rubs, No peripheral edema Abdominal: Soft, Nontender, no guarding, rebound or rigidity, Normoactive bowel sounds, No hepatomegaly, No splenomegaly, No palpable mass Skin: Normal temperature, tone, texture, turgor, no induration, No subcutaneous nodules, No rash, lesions, No ulcers Extremities: No digital cyanosis, No clubbing, Pedal pulses intact and symmetrical, Radial pulses intact and symmetrical, No calf tenderness Psychiatric: Alert and oriented to person, place and time, appropriate affect, intact judgement Neuro: Muscles Strength 5/5 in all 4 extremities, Sensation to light touch grossly present throughout, Cranial nerves II-XII grossly intact, no focal sens ory deficits - Labs CBC & Chem 7: 04/13/22 11:53 04/13/22 11:53 Labs: Abnormal Lab Results - Last 24 Hours (Table) 04/12/22 04/12/22 04/12/22 Range/Units 17:51 17:51 17:51 WBC 3.5 L (3.8-10.6) k/uL RBC 3.26 L (3.80-5.40) m/uL Hgb 10.2 L (11.4-16.0) gm/dL Hct 31.5 L (34.0-46.0) % RDW 19.9 H (11.5-15.5) % Plt Count 49 L (150-450) k/uL Lymphocytes # (1.0-4.8) k/uL Lymphocytes # (Manual) 0.07 L (1.0-4.8) k/uL PT (9.0-12.0) sec INR (<1.2) APTT (22.0-30.0) sec Sodium 136 L (137-145) mmol/L Carbon Dioxide (22-30) mmol/L BUN (7-17) mg/dL Creatinine (0.52-1.04) mg/dL Glucose 154 H (74-99) mg/dL Plasma Lactic Acid Black 3.0 H* (0.7-2.0) mmol/L Uric Acid (3.7-7.4) mg/dL Calcium 8.1 L (8.4-10.2) mg/dL Magnesium (1.6-2.3) mg/dL Total Protein 5.5 L (6.3-8.2) g/dL Albumin 3.3 L (3.5-5.0) g/dL 04/12/22 04/13/22 04/13/22 Range/Units 21:20 00:27 11:53 WBC 3.4 L (3.8-10.6) k/uL RBC 2.55 L (3.80-5.40) m/uL Hgb 7.9 L D (11.4-16.0) gm/dL Hct 24.9 L (34.0-46.0) % RDW 19.8 H (11.5-15.5) % Plt Count 45 L (150-450) k/uL Lymphocytes # 0.1 L (1.0-4.8) k/uL Lymphocytes # (Manual) (1.0-4.8) k/uL PT (9.0-12.0) sec INR (<1.2) APTT (22.0-30.0) sec Sodium (137-145) mmol/L Carbon Dioxide (22-30) mmol/L BUN (7-17) mg/dL Creatinine (0.52-1.04) mg/dL Glucose (74-99) mg/dL Plasma Lactic Acid Black 2.2 H* 2.2 H* (0.7-2.0) mmol/L Uric Acid (3.7-7.4) mg/dL Calcium (8.4-10.2) mg/dL Magnesium (1.6-2.3) mg/dL Total Protein (6.3-8.2) g/dL Albumin (3.5-5.0) g/dL 04/13/22 04/13/22 Range/Units 11:53 11:53 WBC (3.8-10.6) k/uL RBC (3.80-5.40) m/uL Hgb (11.4-16.0) gm/dL Hct (34.0-46.0) % RDW (11.5-15.5) % Plt Count (150-450) k/uL Lymphocytes # (1.0-4.8) k/uL Lymphocytes # (Manual) (1.0-4.8) k/uL PT 17.0 H (9.0-12.0) sec INR 1.7 H (<1.2) APTT 31.0 H (22.0-30.0) sec Sodium 134 L (137-145) mmol/L Carbon Dioxide 21 L (22-30) mmol/L BUN 21 H (7-17) mg/dL Creatinine 1.07 H (0.52-1.04) mg/dL Glucose 103 H (74-99) mg/dL Plasma Lactic Acid Black (0.7-2.0) mmol/L Uric Acid 2.5 L (3.7-7.4) mg/dL Calcium 6.7 L (8.4-10.2) mg/dL Magnesium 1.5 L (1.6-2.3) mg/dL Total Protein 4.4 L (6.3-8.2) g/dL Albumin 2.5 L (3.5-5.0) g/dL Assessment and Plan Plan: SIRS without clear infectious source Fever likely sec to chemo -Continue empiric treatment with broad-spectrum antibiotics in light of elevated lactate and leukopenia -Oncology consulted -Follow cultures Lactic acidosis -Monitor for resolution Non hodgkin's lymphoma with pancytopenia -per oncology Hypomagnesemia -Replace and follow DVT prophylaxis -SCDs CODE STATUS: Full Code Discussed with: Patient Anticipated discharge date: 1-[address]: Home
[2022-04-13] MEDS: MAGNESIUM SULFATE-D5W PMX 1 GM in DEXTROSE/WATER 1 100ML.BAG IVPB SCH ×2 (15:23→17:27)
[2022-04-13] MEDS: POTASSIUM CHLORIDE ER 10 MEQ TAB.ER.PRT PO SCH (15:24)
[2022-04-13] MEDS: PANTOPRAZOLE 40 MG TABLET PO SCH (15:24)
[2022-04-13] MEDS: allopurinoL 300 MG TAB PO SCH (15:24)
[2022-04-13] MEDS: ONDANSETRON 4 MG TAB PO SCH (15:24)
[2022-04-13] MEDS: FOLIC ACID 1 MG TAB PO SCH (15:24)
[2022-04-13] MEDS: LORATADINE 10 MG TAB PO SCH (15:24)
[2022-04-13] MEDS: FUROSEMIDE 20 MG TAB PO SCH (15:24)
[2022-04-13] MEDS: ACETAMINOPHEN TAB 500 MG TAB PO PRN (17:30)
[2022-04-13] MEDS: CEFEPIME 2 GM in SODIUM CHLORIDE 0.9% 100 ML IVPB SCH (20:27)
[2022-04-13] MEDS: VANCOMYCIN 1,000 MG in SODIUM CHLORIDE 0.9% 250 ML IVPB SCH (20:27)
--- NOTE | 2022-04-13 20:56 | P.CONS ---
History of Present Illness - Reason for Consult Consult date: 04/13/22 NHL Requesting physician: Tram Johnson - History of Present Illness his is a very nice lady who was referred because of thrombocytopenia and leukoepnia found during routine blood work. On 05/09/2017,CBC revealed total wbc 1.86K,platelets counts of 101K,hgh 12.6gm/dl On 08/19/2018,CBC revealed total wbc of 2.06K,ANC 1.12,platelets counts 88K,hgh 13.5 gm/dl,CMP was remarkable for creatinine of 1.2,normal LFT. On 12/02/2021,serum B12 was 224,CBC revealed total wbc of 2.49K,ANC 1.2,platelets counts 79K,hgh 12.1gm/dl. On 01/18/2022,laboratory work showed small IgG Lambda M protein (0.8 gm/dl). On 01/18/2022,CT scan of chest/abdomen/pelvis without contrast revealed massive splenomegaly,borderline enlarged mesenteric nodes (12 mm) On 01/30/2022,bone marrow biopsy revealed hypercellular bone marrow,20% lambda restricted monoclonal B cell ,CD10 positive by flow but negative by IHC,FISH n egative for BCL2 and IGH 14q32. On 03/16/2022,she started BR regimen (reduced B dose). She was admitted to [facility] after cycle#1 with neutropenic fever,fully recovered dischagred after 3 days in hospital She feels better,her early satiety is better,no systemic symptoms,continues to have some leg edema,her counts have improved. She presents to ER after day one of cycle two of chemo with fevers. FUll epstein cultures and empiric antibiotics have been ordered. PLatelets yesterday 49K. Review of Systems All systems: negative Constitutional: Reports as per HPI Past Medical History Past Medical History: Cancer Additional Past Medical History / Comment(s): having abdominal and back pain,low platelets, increased fatigue,hx TIAs-no residual, splenomegaly, bone marrow po sitive for lymphoma. NON HODGKINS LYMPHOMA. History of Any Multi-Drug Resistant Organisms: None Reported Past Surgical History: Section, Hysterectomy Additional Past Surgical History / Comment(s): 3 c sections Past Anesthesia/Blood Transfusion Reactions: No Reported Reaction Past Psychological History: No Psychological Hx Reported Smoking Status: Never smoker Past Alcohol Use History: None Reported Past Drug Use History: None Reported - Past Family History Son(s) Family Medical History: Diabetes Mellitus Additional Family Medical History / Comment(s): kidney recipient Medications and Allergies Home Medications Medication Instructions Recorded Confirmed Type Acetaminophen Tab [Tylenol] 1,000 mg PO Q6H PRN 01/26/22 04/12/22 History allopurinoL [Zyloprim] 300 mg PO DAILY 03/24/22 04/12/22 History Loratadine 10 mg PO DAILY 03/25/22 04/12/22 History Folic Acid 1 mg PO DAILY #30 tab 03/28/22 04/12/22 Rx Pantoprazole Sodium [Protonix] 40 mg PO DAILY #30 tab 03/28/22 04/12/22 Rx Furosemide [Lasix] 20 mg PO DAILY 04/12/22 04/12/22 History Ondansetron [Zofran] 4 mg PO DAILY 04/12/22 04/12/22 History Potassium Chloride ER [K-Dur 10] 10 meq PO DAILY 04/12/22 04/12/22 History Allergies Allergy/AdvReac Type Severity Reaction Status Date / Time ibuprofen Allergy Unknown Verified 04/13/22 06:18 Penicillins Allergy Dyspnea Verified 04/12/22 21:32 Sulfa (Sulfonamide Allergy Rash/Hives Verified 04/12/22 21:32 Antibiotics) Physical Exam Vitals: Vital Signs Temp Pulse Resp BP Pulse Ox 04/13/22 06:00 98 99/53 95 04/13/22 04:00 100 95/50 04/13/22 03:00 80 95/52 04/13/22 01:45 101 H 28 H 151/121 04/13/22 00:00 98.5 F 104 H 99/44 04/12/22 21:24 104 H 101/57 04/12/22 19:24 99.4 F 101 H 20 97/49 97 04/12/22 17:37 101.7 F H 117 H 22 128/64 94 L Intake and Output 04/12/22 04/13/22 04/13/22 22:59 06:59 14:59 Other: Weight 50.802 kg - Constitutional General appearance: cooperative, no acute distress - EENT Eyes: EOMI ENT: NA/AT - Neck Neck: normal ROM - Respiratory Respiratory: bilateral: diminished - Cardiovascular Rhythm: regularly irregular - Gastrointestinal General gastrointestinal: soft - Integumentary Integumentary: pale - Neurologic Neurologic: CNII-XII intact - Musculoskeletal Musculoskeletal: generalized weakness - Psychiatric Psychiatric: A&O x's 3 Results CBC & Chem 7: 04/12/22 17:51 04/12/22 17:51 Labs: Abnormal Lab Results - Last 24 Hours (Table) 04/12/22 04/12/22 04/12/22 Range/Units 17:51 17:51 17:51 WBC 3.5 L (3.8-10.6) k/uL RBC 3.26 L (3.80-5.40) m/uL Hgb 10.2 L (11.4-16.0) gm/dL Hct 31.5 L (34.0-46.0) % RDW 19.9 H (11.5-15.5) % Plt Count 49 L (150-450) k/uL Lymphocytes # (Manual) 0.07 L (1.0-4.8) k/uL Sodium 136 L (137-145) mmol/L Glucose 154 H (74-99) mg/dL Plasma Lactic Acid Black 3.0 H* (0.7-2.0) mmol/L Calcium 8.1 L (8.4-10.2) mg/dL Total Protein 5.5 L (6.3-8.2) g/dL Albumin 3.3 L (3.5-5.0) g/dL 04/12/22 04/13/22 Range/Units 21:20 00:27 WBC (3.8-10.6) k/uL RBC (3.80-5.40) m/uL Hgb (11.4-16.0) gm/dL Hct (34.0-46.0) % RDW (11.5-15.5) % Plt Count (150-450) k/uL Lymphocytes # (Manual) (1.0-4.8) k/uL Sodium (137-145) mmol/L Glucose (74-99) mg/dL Plasma Lactic Acid Black 2.2 H* 2.2 H* (0.7-2.0) mmol/L Calcium (8.4-10.2) mg/dL Total Protein (6.3-8.2) g/dL Albumin (3.5-5.0) g/dL Assessment and Plan (1) B-cell lymphoma Narrative/Plan: Status Post Cycle one of Rituxan and Treanda, and day one of cycle 2 on 04.12.22 Has not yet received Neulasta for this cycle as chemotherapy day 2 was scheduled for today, but she has now been admitted. Monitor for TLS, repeat labs today and daily Current Visit: No Status: Acute Code(s): C85.10 - UNSPECIFIED B-CELL LYMPHOMA, UNSPECIFIED SITE SNOMED Code(s): 968334589 (2) Pancytopenia Narrative/Plan: Secondary to lymphoma and chemo HOLD ASA, NSAIDS while platelets less than 50K Current Visit: No Status: Acute Priority: High Code(s): D61.818 - OTHER PANCYTOPENIA SNOMED Code(s): 673515391 (3) Fever Narrative/Plan: ID Following Epstein cultures Infectious versus tumor fever Current Visit: Yes Status: Acute Code(s): R50.9 - FEVER, UNSPECIFIED SNOMED Code(s): 488323419
[2022-04-14] MEDS: SODIUM CHLORIDE 0.9% 1,000 ML IV SCH ×3 (01:45→17:09)
[2022-04-14] MEDS: POTASSIUM CHLORIDE ER 10 MEQ TAB.ER.PRT PO SCH (07:38)
[2022-04-14] MEDS: CEFEPIME 2 GM in SODIUM CHLORIDE 0.9% 100 ML IVPB SCH ×2 (07:38→19:01)
[2022-04-14] MEDS: FOLIC ACID 1 MG TAB PO SCH (07:38)
[2022-04-14] MEDS: ONDANSETRON 4 MG TAB PO SCH (07:39)
[2022-04-14] MEDS: PANTOPRAZOLE 40 MG TABLET PO SCH (07:39)
[2022-04-14] MEDS: FUROSEMIDE 20 MG TAB PO SCH (07:39)
[2022-04-14] MEDS: LORATADINE 10 MG TAB PO SCH (07:39)
[2022-04-14] MEDS: allopurinoL 300 MG TAB PO SCH (07:39)
[2022-04-14 09:24] LABS: African American GFR (CKD) 55.3 (60.0-200.0); Albumin 2.8 g/dL (3.8-4.9); Anion Gap 8.8 mmol/L (10.00-18.00); BUN/Creat Ratio 23.18 Ratio (12.00-20.00); Blood Urea Nitrogen 25.5 mg/dL (9.0-27.0); Calcium 7.4 mg/dL (8.7-10.3); Carbon Dioxide 23.2 mmol/L (20.0-27.5); Globulin 1.4 g/dL (1.6-3.3); Magnesium 2.5 mg/dL (1.5-2.4); Non-African American GFR(CKD) 47.7 (60.0-200.0); Potassium 4.6 mmol/L (3.5-5.5); Total Bilirubin 0.8 mg/dL (0.30-1.20); Total Protein 4.2 g/dL (6.2-8.2)
[2022-04-14 09:38] LABS: HCT 25.4 % (37.2-46.3); HGB 7.6 g/dL (12.0-15.0); MCH 29.2 pg (27.0-32.0); MCHC 29.9 g/dL (32.0-37.0); MCV 97.7 fL (80.0-97.0); Mean Platelet Volume 12.8 fL (9.5-12.2); NRBC Per 100 WBC 0 /100 WBCS (0.0-0.0); Platelet Count 34 X 10*3/uL (140-440); RDW 20.8 % (11.5-14.5); WBC 2.44 X 10*3/uL (4.50-10.00)
[2022-04-14 09:52] LABS: Basophils # (A) 0 X 10*3/uL (0.00-0.10); Basophils % (A) 0 %; Eosinophils % (A) 12.3 %; Immature Grans, Automated 0.4 %; Lymphocytes # (A) 0.08 X 10*3/uL (0.90-5.00); Lymphocytes % (A) 3.3 %; Monocytes # (A) 0.22 X 10*3/uL (0.20-1.00); Neutrophils # (A) 1.83 X 10*3/uL (1.80-7.70)
[2022-04-14 09:53] LABS: Immature Platelet Fraction 8.3 % (1.1-6.1)
--- NOTE | 2022-04-14 11:40 | P.PN ---
Subjective Progress Note Date: 04/14/22 Principal diagnosis: fever Patient last fever was yesterday during the day around midday. That time she spiked a fever of 102.4. Since then she did not spike any fevers. No chest pain or shortness of breath. No nausea or vomiting. Objective - Vital Signs Vital signs: Vital Signs Temp 98.6 F 04/14/22 04:29 Pulse 107 H 04/14/22 04:29 Resp 18 04/14/22 04:29 BP 112/66 04/14/22 04:29 Pulse Ox 99 04/14/22 04:29 FiO2 Intake & Output 04/13/22 04/14/22 04/14/22 18:59 06:59 18:59 Intake Total 120 360 Balance 120 360 Weight 51.5 kg Intake: Oral 120 360 Other: Voiding Method Diaper Diaper # Voids 2 - Exam Constitutional: No acute distress, conversant, pleasant Eyes:Anicteric sclerae, moist conjunctiva, no lid-lag, PERRLA, ENMT: Oropharynx clear, no erythema, exudates Neck: Supple, FROM, no masses, or JVD, No carotid bruits, No thyromegaly Lungs: Clear to auscultation, Clear to percussion, Normal respiratory effort, no accessory muscle use Cardiovascular: Heart regular in rate and rhythm, No murmurs, gallops, or rubs, No peripheral edema Abdominal: Soft, Nontender, no guarding, rebound or rigidity, Normoactive bowel sounds, No hepatomegaly, No splenomegaly, No palpable mass Skin: Normal temperature, tone, texture, turgor, no induration, No subcutaneous nodules, No rash, lesions, No ulcers Extremities: No digital cyanosis, No clubbing, Pedal pulses intact and symmetrical, Radial pulses intact and symmetrical, No calf tenderness Psychiatric: Alert and oriented to person, place and time, appropriate affect, intact judgement Neuro: Muscles Strength 5/5 in all 4 extremities, Sensation to light touch grossly present throughout, Cranial nerves II-XII grossly intact, no focal sensory deficits - Labs CBC & Chem 7: 04/14/22 06:25 04/14/22 06:25 Labs: Abnormal Lab Results - Last 24 Hours (Table) 04/13/22 04/13/22 04/13/22 Range/Units 11:53 11:53 11:53 WBC 3.4 L (3.8-10.6) k/uL RBC 2.55 L (3.80-5.40) m/uL Hgb 7.9 L D (11.4-16.0) gm/dL Hct 24.9 L (34.0-46.0) % MCV (80.0-97.0) fL MCHC (32.0-37.0) g/dL RDW 19.8 H (11.5-15.5) % Plt Count 45 L (150-450) k/uL Plt Count Comment MPV (9.5-12.2) fL Lymphocytes # 0.1 L (1.0-4.8) k/uL Immature Plt Fraction (1.1-6.1) % PT 17.0 H (9.0-12.0) sec INR 1.7 H (<1.2) APTT 31.0 H (22.0-30.0) sec Sodium 134 L (137-145) mmol/L Carbon Dioxide 21 L (22-30) mmol/L Anion Gap (10.00-18.00) mmol/L BUN 21 H (7-17) mg/dL Creatinine 1.07 H (0.52-1.04) mg/dL Est GFR (CKD-EPI)AfAm (60.0-200.0) Est GFR (CKD-EPI)NonAf (60.0-200.0) BUN/Creatinine Ratio (12.00-20.00) Ratio Glucose 103 H (74-99) mg/dL Uric Acid 2.5 L (3.7-7.4) mg/dL Calcium 6.7 L (8.4-10.2) mg/dL Magnesium 1.5 L (1.6-2.3) mg/dL Total Protein 4.4 L (6.3-8.2) g/dL Albumin 2.5 L (3.5-5.0) g/dL Globulin (1.6-3.3) g/dL IgG (700.0-1600.0) mg/dL 04/13/22 04/14/22 04/14/22 Range/Units 11:53 06:25 06:25 WBC 2.44 L (3.8-10.6) k/uL RBC 2.60 L (3.80-5.40) m/uL Hgb 7.6 L (11.4-16.0) gm/dL Hct 25.4 L (34.0-46.0) % MCV 97.7 H (80.0-97.0) fL MCHC 29.9 L (32.0-37.0) g/dL RDW 20.8 H (11.5-15.5) % Plt Count 34 L (150-450) k/uL Plt Count Comment A MPV 12.8 H (9.5-12.2) fL Lymphocytes # 0.08 L (1.0-4.8) k/uL Immature Plt Fraction 8.3 H (1.1-6.1) % PT (9.0-12.0) sec INR (<1.2) APTT (22.0-30.0) sec Sodium (137-145) mmol/L Carbon Dioxide (22-30) mmol/L Anion Gap 8.80 L (10.00-18.00) mmol/L BUN (7-17) mg/dL Creatinine (0.52-1.04) mg/dL Est GFR (CKD-EPI)AfAm 55.3 L (60.0-200.0) Est GFR (CKD-EPI)NonAf 47.7 L (60.0-200.0) BUN/Creatinine Ratio 23.18 H (12.00-20.00) Ratio Glucose (74-99) mg/dL Uric Acid (3.7-7.4) mg/dL Calcium 7.4 L (8.4-10.2) mg/dL Magnesium 2.5 H (1.6-2.3) mg/dL Total Protein 4.2 L (6.3-8.2) g/dL Albumin 2.8 L (3.5-5.0) g/dL Globulin 1.4 L (1.6-3.3) g/dL IgG 382.0 L (700.0-1600.0) mg/dL Microbiology - Last 24 Hours (Table) 04/12/22 22:33 Blood Culture - Preliminary Blood No Growth after 24 hours 04/12/22 17:51 Blood Culture - Preliminary Blood No Growth after 24 hours Assessment and Plan Plan: SIRS without clear infectious source Fever likely sec to chemo -Continue empiric treatment with broad-spectrum antibiotics in light of elevated lactate and leukopenia -Oncology consulted -Blood cultures showing no growth to date Lactic acidosis -Monitor for resolution Non hodgkin's lymphoma with pancytopenia -per oncology Hypomagnesemia -Replaced DVT prophylaxis -SCDs CODE STATUS: Full Code Discussed with: Patient Anticipated discharge date: 1-[address]: Home
[2022-04-14] MEDS: ACETAMINOPHEN TAB 500 MG TAB PO PRN ×2 (12:42→21:51)
[2022-04-14] MEDS: MORPHINE SULFATE 4 MG/ML SYRINGE IV PRN ×3 (13:53→22:26)
[2022-04-14 15:20] LABS: INR 1.2 (<1.2); Partial Thromboplastin Time 31.3 sec (22.0-30.0); Prothrombin Time 12.9 sec (9.0-12.0)
[2022-04-14 15:51] VITALS: BMI 22.1
--- NOTE | 2022-04-14 20:54 | P.PN ---
Subjective Progress Note Date: 04/14/22 Principal diagnosis: Fever and lymphoma She is laying in bed, is still a bit confused. Daughters at bedside. Questions regarding ongoing treatment, explained these justin be on hold until resolution of current hospital issues, felt to be related to tumor response to rituxan and alfredo motherapy. no fevers today, t-max 100. Objective - Vital Signs Vital signs: Vital Signs Temp 100 F H 04/14/22 13:13 Pulse 106 H 04/14/22 13:13 Resp 18 04/14/22 13:13 BP 111/67 04/14/22 13:13 Pulse Ox 92 L 04/14/22 13:13 FiO2 Intake & Output 04/13/22 04/14/22 04/14/22 18:59 06:59 18:59 Intake Total 120 360 Balance 120 360 Weight 51.5 kg Intake: Oral 120 360 Other: Voiding Method Diaper Diaper Bedside Commode # Voids 2 - Exam - Constitutional General appearance: cooperative, no acute distress - EENT Eyes: EOMI ENT: NA/AT - Neck Neck: normal ROM - Respiratory Respiratory: bilateral: diminished - Cardiovascular Rhythm: regularly irregular - Gastrointestinal General gastrointestinal: soft - Integumentary Integumentary: pale - Neurologic Neurologic: CNII-XII intact - Musculoskeletal Musculoskeletal: generalized weakness - Psychiatric Psychiatric: A&O x's 3 - Labs CBC & Chem 7: 04/14/22 06:25 04/14/22 06:25 Labs: Abnormal Lab Results - Last 24 Hours (Table) 04/13/22 04/14/22 04/14/22 Range/Units 11:53 06:25 06:25 WBC 2.44 L (4.50-10.00) X 10*3/uL RBC 2.60 L (4.10-5.20) X 10*6/uL Hgb 7.6 L (12.0-15.0) g/dL Hct 25.4 L (37.2-46.3) % MCV 97.7 H (80.0-97.0) fL MCHC 29.9 L (32.0-37.0) g/dL RDW 20.8 H (11.5-14.5) % Plt Count 34 L (140-440) X 10*3/uL Plt Count Comment A MPV 12.8 H (9.5-12.2) fL Lymphocytes # 0.08 L (0.90-5.00) X 10*3/uL Immature Plt Fraction 8.3 H (1.1-6.1) % Anion Gap 8.80 L (10.00-18.00) mmol/L Est GFR (CKD-EPI)AfAm 55.3 L (60.0-200.0) Est GFR (CKD-EPI)NonAf 47.7 L (60.0-200.0) BUN/Creatinine Ratio 23.18 H (12.00-20.00) Ratio Calcium 7.4 L (8.7-10.3) mg/dL Magnesium 2.5 H (1.5-2.4) mg/dL Total Protein 4.2 L (6.2-8.2) g/dL Albumin 2.8 L (3.8-4.9) g/dL Globulin 1.4 L (1.6-3.3) g/dL IgG 382.0 L (700.0-1600.0) mg/dL Microbiology - Last 24 Hours (Table) 04/12/22 22:33 Blood Culture - Preliminary Blood No Growth after 24 hours 04/12/22 17:51 Blood Culture - Preliminary Blood No Growth after 24 hours Assessment and Plan (1) B-cell lymphoma Narrative/Plan: Status Post Cycle one of Rituxan and Treanda, and day one of cycle 2 on 04.12.22 Has not yet received Neulasta for this cycle as chemotherapy day 2 was scheduled for today, but she has now been admitted. Monitor for TLS, repeat labs today and daily Likely will restage and start on PO therapy, explained this will be discussed in follow-up with pncologist after discharge Current Visit: No Status: Acute Code(s): C85.10 - UNSPECIFIED B-CELL LYMPHOMA, UNSPECIFIED SITE SNOMED Code(s): 693633405 (2) Pancytopenia Narrative/Plan: Secondary to lymphoma and chemo HOLD ASA, NSAIDS while platelets less than 50KPlatelets worsening, INR 1.7 yesterday recheck today Current Visit: No Status: Acute Priority: High Code(s): D61.818 - OTHER PANCYTOPENIA SNOMED Code(s): 274068868 (3) Fever Narrative/Plan: ID Following Encarnacion cultures Infectious versus tumor fever T-Max 102.4 (04/13/22) Chest xray, blood cultures and urinalysis negative at this time. Current Visit: Yes Status: Acute Code(s): R50.9 - FEVER, UNSPECIFIED SNOMED Code(s): 121626443 Plan: Mental status anxious and a buit lethargic, daughter was at bedside, discussed with her and rn. Increase activity, up in chair encouraged with family at bedside to avoid declin e of overall performance PT/OT consulted
[2022-04-14] MEDS: VANCOMYCIN 1,000 MG in SODIUM CHLORIDE 0.9% 250 ML IVPB SCH (20:55)
[2022-04-14] MEDS: NYSTATIN 100,000 UNIT/ML SUSP 500,000 UNIT/5 ML CUP PO SCH (21:53)
[2022-04-15] MEDS: SODIUM CHLORIDE 0.9% 1,000 ML IV SCH ×4 (00:48→23:53)
[2022-04-15] MEDS: MORPHINE SULFATE 4 MG/ML SYRINGE IV PRN (05:26)
[2022-04-15] MEDS: FOLIC ACID 1 MG TAB PO SCH (08:37)
[2022-04-15] MEDS: ONDANSETRON 4 MG TAB PO SCH (08:37)
[2022-04-15] MEDS: FUROSEMIDE 20 MG TAB PO SCH (08:37)
[2022-04-15] MEDS: LORATADINE 10 MG TAB PO SCH (08:37)
[2022-04-15] MEDS: CEFEPIME 2 GM in SODIUM CHLORIDE 0.9% 100 ML IVPB SCH ×2 (08:37→18:02)
[2022-04-15] MEDS: allopurinoL 300 MG TAB PO SCH (08:37)
[2022-04-15] MEDS: PANTOPRAZOLE 40 MG TABLET PO SCH (08:37)
[2022-04-15] MEDS: POTASSIUM CHLORIDE ER 10 MEQ TAB.ER.PRT PO SCH (08:37)
[2022-04-15] MEDS: NYSTATIN 100,000 UNIT/ML SUSP 500,000 UNIT/5 ML CUP PO SCH ×4 (08:38→22:51)
[2022-04-15] MEDS: ACETAMINOPHEN TAB 500 MG TAB PO PRN ×2 (12:28→19:54)
--- NOTE | 2022-04-15 12:37 | P.PN ---
Subjective Progress Note Date: 04/15/22 Principal diagnosis: fever Patient is significantly weak according to her daughter, she needs to be lifted to try to move her to the bedside commode. She is still having pain and that is being treated with IV morphine. Had a low grade temp of 100 yesterday afternoon. Objective - Vital Signs Vital signs: Vital Signs Temp 98.4 F 04/15/22 05:33 Pulse 87 04/15/22 05:33 Resp 16 04/15/22 05:33 BP 125/74 04/15/22 05:33 Pulse Ox 96 04/15/22 05:33 FiO2 Intake & Output 04/14/22 04/15/22 04/15/22 18:59 06:59 18:59 Intake Total 3020 240 Balance 3020 240 Weight 51.5 kg Intake: Intake, IV Titration 1880 Amount Cefepime 2 gm In Sodium 200 Chloride 0.9% 100 ml @ 25 mls/hr IVPB Q12H ARGEL[facility] Rx# :[id number] Sodium Chloride 0.9% 1, 1430 000 ml @ 130 mls/hr IV . Q7H42M [facility] Rx#:[id number] Vancomycin 1,000 mg In 250 Sodium Chloride 0.9% 250 ml @ 125 mls/hr IVPB Q24H [facility] Rx#:[id number] Oral 1140 240 Other: Voiding Method Bedside Commode Bedside Commode Bedside Commode # Voids 3 2 - Exam Constitutional: No acute distress, conversant, pleasant Eyes:Anicteric sclerae, moist conjunctiva, no lid-lag, PERRLA, ENMT: Oropharynx clear, no erythema, exudates Neck: Supple, FROM, no masses, or JVD, No carotid bruits, No thyromegaly Lungs: Clear to auscultation, Clear to percussion, Normal respiratory effort, no accessory muscle use Cardiovascular: Heart regular in rate and rhythm, No murmurs, gallops, or rubs, No peripheral edema Abdominal: Soft, Nontender, no guarding, rebound or rigidity, Normoactive bowel sounds, No hepatomegaly, No splenomegaly, No palpable mass Skin: Normal temperature, tone, texture, turgor, no induration, No subcutaneous nodules, No rash, lesions, No ulcers Extremities: No digital cyanosis, No clubbing, Pedal pulses intact and symmetrical, Radial pulses intact and symmetrical, No calf tenderness Psychiatric: Alert and oriented to person, place and time, appropriate affect, intact judgement Neuro: Muscles Strength 5/5 in all 4 extremities, Sensation to light touch grossly present throughout, Cranial nerves II-XII grossly intact, no focal sensory deficits - Labs CBC & Chem 7: 04/14/22 06:25 04/14/22 06:25 Labs: Abnormal Lab Results - Last 24 Hours (Table) 04/14/22 Range/Units 13:50 PT 12.9 H (9.0-12.0) sec INR 1.2 H (<1.2) APTT 31.3 H (22.0-30.0) sec D-Dimer 3.17 H (<0.60) mg/L FEU Microbiology - Last 24 Hours (Table) 04/12/22 22:33 Blood Culture - Preliminary Blood No Growth after 48 hours 04/12/22 17:51 Blood Culture - Preliminary Blood No Growth after 48 hours Assessment and Plan Plan: SIRS without clear infectious source Fever likely sec to chemo -Continue empiric treatment with broad-spectrum antibiotics in light of elevated lactate and leukopenia -Oncology following -Blood cultures showing no growth to date Lactic acidosis -Monitor for resolution Non hodgkin's lymphoma with pancytopenia -per oncology Hypomagnesemia -Replaced General weakness -PT/OT DVT prophylaxis -SCDs CODE STATUS: Full Code Discussed with: Patient Anticipated discharge date: 1-[address]: Home
[2022-04-15 13:06] LABS: African American GFR (CKD) 62.1 (60.0-200.0); Anion Gap 11.8 mmol/L (10.00-18.00); BUN/Creat Ratio 23.6 Ratio (12.00-20.00); Blood Urea Nitrogen 23.6 mg/dL (9.0-27.0); Calcium 7.5 mg/dL (8.7-10.3); Carbon Dioxide 20.2 mmol/L (20.0-27.5); Non-African American GFR(CKD) 53.5 (60.0-200.0); Potassium 4.1 mmol/L (3.5-5.5)
[2022-04-15 13:09] LABS: Basophils # (A) 0.01 X 10*3/uL (0.00-0.10); Basophils % (A) 0.4 %; Eosinophils # (A) 0.33 X 10*3/uL (0.04-0.35); Eosinophils % (A) 13.3 %; HGB 7.6 g/dL (12.0-15.0); Immature Grans, Automated 0.8 %; Immature Platelet Fraction 6.6 % (1.1-6.1); Lymphocytes # (A) 0.16 X 10*3/uL (0.90-5.00); Lymphocytes % (A) 6.4 %; MCH 29.5 pg (27.0-32.0); MCHC 30.4 g/dL (32.0-37.0); MCV 96.9 fL (80.0-97.0); Mean Platelet Volume 11.6 fL (9.5-12.2); NRBC Per 100 WBC 0 /100 WBCS (0.0-0.0); Neutrophils # (A) 1.77 X 10*3/uL (1.80-7.70); Neutrophils % (A) 71.1 %; Platelet Count 31 X 10*3/uL (140-440); RBC 2.58 X 10*6/uL (4.10-5.20); RDW 20.2 % (11.5-14.5); WBC 2.49 X 10*3/uL (4.50-10.00)
[2022-04-15 17:02] LABS: Appearance,Urine Clear (Clear); Bilirubin,Urine Negative (Negative); Blood,Urine Negative (Negative); Color,Urine Light Yellow; Glucose,Urine (UA) Negative (Negative); Ketones,Urine Negative (Negative); Leukocyte Esterase,Urine Negative (Negative); Nitrite,Urine Negative (Negative); Protein,Urine Negative (Negative); Specific Gravity,Urine 1.005 (1.001-1.035); Urobilinogen,Urine <2.0 mg/dL (<2.0)
[2022-04-15] MEDS: VANCOMYCIN 1,000 MG in SODIUM CHLORIDE 0.9% 250 ML IVPB SCH (22:54)
[2022-04-16] MEDS: ACETAMINOPHEN TAB 500 MG TAB PO PRN ×4 (02:35→23:05)
[2022-04-16] MEDS: ONDANSETRON 4 MG TAB PO SCH (07:51)
[2022-04-16] MEDS: allopurinoL 300 MG TAB PO SCH (07:51)
[2022-04-16] MEDS: FOLIC ACID 1 MG TAB PO SCH (07:52)
[2022-04-16] MEDS: FUROSEMIDE 20 MG TAB PO SCH (07:52)
[2022-04-16] MEDS: CEFEPIME 2 GM in SODIUM CHLORIDE 0.9% 100 ML IVPB SCH ×2 (07:52→18:01)
[2022-04-16] MEDS: PANTOPRAZOLE 40 MG TABLET PO SCH (07:52)
[2022-04-16] MEDS: POTASSIUM CHLORIDE ER 10 MEQ TAB.ER.PRT PO SCH (07:52)
[2022-04-16] MEDS: LORATADINE 10 MG TAB PO SCH (07:52)
[2022-04-16] MEDS: SODIUM CHLORIDE 0.9% 1,000 ML IV SCH ×2 (07:55→18:01)
[2022-04-16] MEDS: NYSTATIN 100,000 UNIT/ML SUSP 500,000 UNIT/5 ML CUP PO SCH ×4 (07:58→21:38)
[2022-04-16 11:18] LABS: African American GFR (CKD) 68.9 (60.0-200.0); Anion Gap 8.3 mmol/L (10.00-18.00); BUN/Creat Ratio 21.16 Ratio (12.00-20.00); Blood Urea Nitrogen 19.4 mg/dL (9.0-27.0); Carbon Dioxide 21.5 mmol/L (20.0-27.5); Non-African American GFR(CKD) 59.5 (60.0-200.0); Potassium 3.4 mmol/L (3.5-5.5)
[2022-04-16] MEDS ORDERED: POTASSIUM CHLORIDE ER 20 MEQ TAB.ER PO STA (11:19)
[2022-04-16 11:46] LABS: Basophils # (A) 0.01 X 10*3/uL (0.00-0.10); Basophils % (A) 0.5 %; Eosinophils # (A) 0.36 X 10*3/uL (0.04-0.35); Eosinophils % (A) 16.2 %; HCT 24.5 % (37.2-46.3); HGB 7.4 g/dL (12.0-15.0); Immature Grans, Automated 0.9 %; Immature Platelet Fraction 7.5 % (1.1-6.1); Lymphocytes # (A) 0.16 X 10*3/uL (0.90-5.00); Lymphocytes % (A) 7.2 %; MCH 29.4 pg (27.0-32.0); MCHC 30.2 g/dL (32.0-37.0); MCV 97.2 fL (80.0-97.0); Mean Platelet Volume 13.6 fL (9.5-12.2); Monocytes # (A) 0.25 X 10*3/uL (0.20-1.00); Monocytes % (A) 11.3 %; NRBC Per 100 WBC 0 /100 WBCS (0.0-0.0); Neutrophils # (A) 1.42 X 10*3/uL (1.80-7.70); Neutrophils % (A) 63.9 %; Platelet Count 29 X 10*3/uL (140-440); RBC 2.52 X 10*6/uL (4.10-5.20); RDW 19.9 % (11.5-14.5); WBC 2.22 X 10*3/uL (4.50-10.00)
--- NOTE | 2022-04-16 14:56 | P.PN ---
Subjective Progress Note Date: 04/16/22 Principal diagnosis: fever Patient is currently stronger, she is able to stand up with assistance. She had a low grade temp 99.9 last night. Fever currently resolved. Objective - Vital Signs Vital signs: Vital Signs Temp 98.9 F 04/16/22 13:00 Pulse 91 04/16/22 13:00 Resp 16 04/16/22 13:00 BP 111/54 04/16/22 13:00 Pulse Ox 97 04/16/22 13:00 FiO2 Intake & Output 04/15/22 04/16/22 04/16/22 18:59 06:59 18:59 Other: Voiding Method Bedside Commode Bedside Commode Bedside Commode # Voids 4 3 # Bowel Movements 1 - Exam Constitutional: No acute distress, conversant, pleasant Eyes:Anicteric sclerae, moist conjunctiva, no lid-lag, PERRLA, ENMT: Oropharynx clear, no erythema, exudates Neck: Supple, FROM, no masses, or JVD, No carotid bruits, No thyromegaly Lungs: Clear to auscultation, Clear to percussion, Normal respiratory effort, no accessory muscle use Cardiovascular: Heart regular in rate and rhythm, No murmurs, gallops, or rubs, No peripheral edema Abdominal: Soft, Nontender, no guarding, rebound or rigidity, Normoactive bowel sounds, No hepatomegaly, No splenomegaly, No palpable mass Skin: Normal temperature, tone, texture, turgor, no induration, No subcutaneous nodules, No rash, lesions, No ulcers Extremities: No digital cyanosis, No clubbing, Pedal pulses intact and symmetrical, Radial pulses intact and symmetrical, No calf tenderness Psychiatric: Alert and oriented to person, place and time, appropriate affect, intact judgement Neuro: Muscles Strength 5/5 in all 4 extremities, Sensation to light touch grossly present throughout, Cranial nerves II-XII grossly intact, no focal sensory deficits - Labs CBC & Chem 7: 04/16/22 06:09 04/16/22 06:09 Labs: Abnormal Lab Results - Last 24 Hours (Table) 04/16/22 04/16/22 Range/Units 06:09 06:09 WBC 2.22 L (4.50-10.00) X 10*3/uL RBC 2.52 L (4.10-5.20) X 10*6/uL Hgb 7.4 L (12.0-15.0) g/dL Hct 24.5 L (37.2-46.3) % MCV 97.2 H (80.0-97.0) fL MCHC 30.2 L (32.0-37.0) g/dL RDW 19.9 H (11.5-14.5) % Plt Count 29 L (140-440) X 10*3/uL Plt Count Comment A MPV 13.6 H (9.5-12.2) fL Neutrophils # 1.42 L (1.80-7.70) X 10*3/uL Lymphocytes # 0.16 L (0.90-5.00) X 10*3/uL Eosinophils # 0.36 H (0.04-0.35) X 10*3/uL Immature Plt Fraction 7.5 H (1.1-6.1) % Potassium 3.4 L (3.5-5.5) mmol/L Anion Gap 8.30 L (10.00-18.00) mmol/L Est GFR (CKD-EPI)NonAf 59.5 L (60.0-200.0) BUN/Creatinine Ratio 21.16 H (12.00-20.00) Ratio Calcium 7.0 L (8.7-10.3) mg/dL Microbiology - Last 24 Hours (Table) 04/12/22 22:33 Blood Culture - Preliminary Blood No Growth after 72 hours 04/12/22 17:51 Blood Culture - Preliminary Blood No Growth after 72 hours Assessment and Plan Plan: SIRS without clear infectious source Fever likely sec to chemo -Continue empiric treatment with broad-spectrum antibiotics in light of elevated lactate and leukopenia -Oncology following -Blood cultures showing no growth to date Lactic acidosis -Monitor for resolution Non hodgkin's lymphoma with pancytopenia -per oncology Hypomagnesemia -Replaced General weakness -PT/OT DVT prophylaxis -SCDs CODE STATUS: Full Code Discussed with: daughter Anticipated discharge date: tomorrow Anticipated discharge place: Home
[2022-04-16] MEDS ORDERED: VANCOMYCIN TROUGH DUE 1 EACH MISC MISCELLANE ONE (20:00)
[2022-04-16] MEDS: VANCOMYCIN 1,000 MG in SODIUM CHLORIDE 0.9% 250 ML IVPB SCH (21:38)
[2022-04-17] MEDS: SODIUM CHLORIDE 0.9% 1,000 ML IV SCH ×3 (00:21→15:54)
[2022-04-17] MEDS: POTASSIUM CHLORIDE ER 10 MEQ TAB.ER.PRT PO SCH (09:00)
[2022-04-17] MEDS: ACETAMINOPHEN TAB 500 MG TAB PO PRN (09:00)
[2022-04-17] MEDS: FUROSEMIDE 20 MG TAB PO SCH (09:01)
[2022-04-17] MEDS: PANTOPRAZOLE 40 MG TABLET PO SCH (09:01)
[2022-04-17] MEDS: allopurinoL 300 MG TAB PO SCH (09:01)
[2022-04-17] MEDS: FOLIC ACID 1 MG TAB PO SCH (09:01)
[2022-04-17] MEDS: ONDANSETRON 4 MG TAB PO SCH (09:01)
[2022-04-17] MEDS: CEFEPIME 2 GM in SODIUM CHLORIDE 0.9% 100 ML IVPB SCH (09:01)
[2022-04-17] MEDS: LORATADINE 10 MG TAB PO SCH (09:01)
[2022-04-17] MEDS: NYSTATIN 100,000 UNIT/ML SUSP 500,000 UNIT/5 ML CUP PO SCH ×2 (09:02→12:49)
[2022-04-17 09:44] LABS: Anisocytosis Slight; Basophils % (A) 1 %; Eosinophils # (A) 0.4 k/uL (0-0.7); Eosinophils % (A) 14 %; HCT 25.8 % (34.0-46.0); Hypochromasia Marked; Lymphocytes # (A) 0.3 k/uL (1.0-4.8); Lymphocytes % (A) 9 %; MCH 30.9 pg (25.0-35.0); MCHC 31.1 g/dL (31.0-37.0); MCV 99.5 fL (80.0-100.0); Macrocytosis Moderate; Mean Platelet Volume 9.9; Monocytes # (A) 0.2 k/uL (0-1.0); Monocytes % (A) 7 %; Neutrophils % (A) 68 %; WBC 2.9 k/uL (3.8-10.6)
[2022-04-17 09:47] LABS: Platelet Count 34 k/uL (150-450)
[2022-04-17 12:34] VITALS: BP 115/64; PULSE 86; RESP 17; TEMP 97.9
--- NOTE | 2022-04-17 15:47 | P.DS ---
Providers Date of admission: 04/12/22 20:27 Expected date of discharge: 04/17/22 Attending physician: Anna Frank DO Consults: 04/12/22 21:16 Consult Physician Routine Consulting Provider: Julio Britt Consult Reason/Comments: Non-Hodgkin's lymphoma Do you want consulting provider notified?: Yes Primary care physician: Meeta Mendiola MD Hospital Course: 77-year-old female with a PMH of non-Hodgkin's lymphoma (diagnosed 01/2022) currently undergoing chemotherapy who presents to the emergency room complaints of fever. The history is supplemented by the patient's daughter at the bedside. The patient received the second dose of her chemotherapy earlier today and shortly after returning home developed chills with a fever of 102.4F as measured by her daughter. The patient denied any additional complaints. Of note, the patient developed a fever after her initial round of chemotherapy as well, at which point she was hospitalized and received broad-spectrum IV antibiotics from 03/24-03/28. All cultures were negative during that admission. The patient was noted to be hypoxic by EMS upon arrival with 88% on room air and was started on supplemental oxygen. The patient herself however denied experiencing chest discomfort, cough, nausea, vomiting, abdominal pain, diarrhea. Chest x-ray in the emergency room was unremarkable. Laboratory evaluation was remarkable for WBC count of 3.5, neutrophils 87%, lactic acid 3.0, unremarkable UA, coronavirus and influenza testing negative. Patient was admitted to the hospital, she was started on broad-spectrum a ntibiotics with cefepime and vancomycin. She continued to have fevers on and off during the hospitalization. He was feeling significantly weak and could not hold herself up with standing. She received physical therapy and got stronger. She was seen by oncology service. She was pancytopenic upon discharge, this is likely secondary to her lymphoma and/or chemotherapy. Blood cultures remained n egative upon discharge. She is currently feeling much stronger and did not have any fevers over the past 24-48 hours. She will be discharged home on oral antibiotics. She is following up with oncology tomorrow. Time for discharge 35 minutes. Plan - Discharge Summary Discharge Rx Participant: Yes New Discharge Prescriptions: New Cefdinir [Omnicef] 300 mg PO Q12HR 5 Days #10 capsule Continue Acetaminophen Tab [Tylenol] 1,000 mg PO Q6H PRN PRN Reason: Pain Folic Acid 1 mg PO DAILY #30 tab Potassium Chloride ER [K-Dur 10] 10 meq PO DAILY Furosemide [Lasix] 20 mg PO DAILY allopurinoL [Zyloprim] 300 mg PO DAILY Loratadine 10 mg PO DAILY Pantoprazole Sodium [Protonix] 40 mg PO DAILY #30 tab Ondansetron [Zofran] 4 mg PO DAILY Discharge Medication List Acetaminophen Tab [Tylenol] 1,000 mg PO Q6H PRN 01/26/22 [History] allopurinoL [Zyloprim] 300 mg PO DAILY 03/24/22 [History] Loratadine 10 mg PO DAILY 03/25/22 [History] Folic Acid 1 mg PO DAILY #30 tab 03/28/22 [Rx] Pantoprazole Sodium [Protonix] 40 mg PO DAILY #30 tab 03/28/22 [Rx] Furosemide [Lasix] 20 mg PO DAILY 04/12/22 [History] Ondansetron [Zofran] 4 mg PO DAILY 04/12/22 [History] Potassium Chloride ER [K-Dur 10] 10 meq PO DAILY 04/12/22 [History] Cefdinir [Omnicef] 300 mg PO Q12HR 5 Days #10 capsule 04/17/22 [Rx] Follow up Appointment(s)/Referral(s): Meeta Mendiola MD [Primary Care Provider] - 1-2 days
--- NOTE | 2022-04-17 16:32 | P.PN ---
Subjective Progress Note Date: 04/17/22 Principal diagnosis: Feveer unknown origin, B-cell lymphoma In f/u today pt is feeling well, denies fever, nausea, oral irritation, cough, abd pain, diarrhea, swelling or pain. She is tolerating oral intake Objective - Vital Signs Vital signs: Vital Signs Temp 97.9 F 04/17/22 11:40 Pulse 86 04/17/22 11:40 Resp 17 04/17/22 11:40 BP 115/64 04/17/22 11:40 Pulse Ox 96 04/17/22 11:40 FiO2 Intake & Output 04/16/22 04/17/22 04/17/22 18:59 06:59 18:59 Other: Voiding Method Bedside Commode Bedside Commode Bedside Commode # Voids 4 2 # Bowel Movements 1 - Constitutional General appearance: Present: average body habitus, cooperative, no acute distress - EENT Eyes: Present: anicteric sclerae, EOMI ENT: Present: hearing grossly normal, normal oropharynx - Neck Neck: Absent: lymphadenopathy - Respiratory Respiratory: bilateral: CTA - Cardiovascular Rhythm: regular Heart sounds: normal: S1, S2 Abnormal Heart Sounds: Present: systolic murmur - Peripheral edema leg Peripheral Edema: bilateral: None - Gastrointestinal General gastrointestinal: Present: normal bowel sounds, soft, splenomegaly - Integumentary Integumentary: Present: normal - Neurologic Neurologic: Present: CNII-XII intact - Musculoskeletal Musculoskeletal: Present: generalized weakness, strength equal bilaterally - Psychiatric Psychiatric: Present: A&O x's 3, appropriate affect, intact judgment & insight - Labs CBC & Chem 7: 04/17/22 05:27 04/17/22 05:27 Labs: Abnormal Lab Results - Last 24 Hours (Table) 04/17/22 Range/Units 05:27 WBC 2.9 L (3.8-10.6) k/uL RBC 2.60 L (3.80-5.40) m/uL Hgb 8.0 L (11.4-16.0) gm/dL Hct 25.8 L (34.0-46.0) % RDW 19.0 H (11.5-15.5) % Plt Count 34 L (150-450) k/uL Lymphocytes # 0.3 L (1.0-4.8) k/uL Microbiology - Last 24 Hours (Table) 04/12/22 22:33 Blood Culture - Preliminary Blood No Growth after 96 hours 04/12/22 17:51 Blood Culture - Preliminary Blood No Growth after 96 hours Assessment and Plan (1) Neutropenic fever Current Visit: Yes Status: Acute Priority: High Code(s): D70.9 - NEUTROPENIA, UNSPECIFIED; R50.81 - FEVER PRESENTING WITH CONDITIONS CLASSIFIED ELSEWHERE SNOMED Code(s): 198065006 (2) B-cell lymphoma Current Visit: Yes Status: Acute Priority: High Code(s): C85.10 - UNSPECIFIED B-CELL LYMPHOMA, UNSPECIFIED SITE SNOMED Code(s): 171508956 (3) Pancytopenia Current Visit: Yes Status: Acute Priority: High Code(s): D61.818 - OTHER PANCYTOPENIA SNOMED Code(s): 841404386 Plan: Pancultures remained neg. Empiric abx with improvement in her fever pattern. Comp oral abx on DC as prescribed. Suspect mAb treatment fever. Pancytopenia, did not require transfusion. Stable counts. Reported hospitalization to Primary Onc. pending recommendations for upcoming treatment plan, will contact pt with the same.
== END 2022-04-17 16:10 | disposition home or self-care (01) ==
LOC: EC 17:30 → 5NMEDONC 20:27 → INTOOBSV 20:27 → 5NMEDONC 04-13 10:13 → UNDODISIN 04-17 16:10
PROVIDERS: ADMIT Internal Medicine; ATTEND Internal Medicine
DX: D70.9 Neutropenia, unspecified (principal); R50.81 Fever presenting with conditions classified elsewhere; D61.810 Antineoplastic chemotherapy induced pancytopenia; T45.1X5A Adverse effect of antineoplastic and immunosuppressive drugs, initial encounter; C85.10 Unspecified B-cell lymphoma, unspecified site; E87.2 Acidosis; R65.10 Systemic inflammatory response syndrome (SIRS) of non-infectious origin without acute organ dysfunction; R09.02 Hypoxemia; K21.9 Gastro-esophageal reflux disease without esophagitis; E83.42 Hypomagnesemia; Z28.310 Unvaccinated for COVID-19; Z20.822 Contact with and (suspected) exposure to COVID-19; Z79.51 Long term (current) use of inhaled steroids; Z79.899 Other long term (current) drug therapy; Z88.0 Allergy status to penicillin; Z88.2 Allergy status to sulfonamides; Z88.6 Allergy status to analgesic agent; Z98.891 History of uterine scar from previous surgery; Z98.890 Other specified postprocedural states; Z90.710 Acquired absence of both cervix and uterus; Z86.73 Personal history of transient ischemic attack (TIA), and cerebral infarction without residual deficits; Z83.3 Family history of diabetes mellitus; Z84.1 Family history of disorders of kidney and ureter
CPT/HCPCS: 96376 ×5; 96361 ×6; 96366 ×7; 96367; 96368; 96365; 96375; 99285; 36415; 97162; 97166; 85379; 80053 ×3; 80048 ×2; 82565; 83605 ×2; 83615; 83735 ×2; 84100; 84550; 85025 ×6; 80202; 85384 ×2; 85610 ×2; 85730 ×2; 81003 ×2; 87040; 82784; 87502; 87635; 71046; G0378 ×6; J3370 ×4; J2270 ×3; J2405 ×2; J0692 ×6; J3475

== ENCOUNTER → 2022-08-04 | Outpatient (CLI) | payer MEDICARE ==
--- NOTE | 2022-08-04 15:40 | PE ---
Nuclear medicine PET CT HISTORY: Lymphoma, subsequent Patient received 9.3 mCi F-18 FDG intravenously and delayed scanning was performed from skull base to the mid thighs. The localization and attenuation correction CT scan was performed. Correlation prior nuclear medicine PET CT 02/18/2022, CT abdomen and pelvis 03/26/2020, prior CT 01/19/20 22 Average mediastinal uptake SUV 1.3, average number uptake SUV 2.2. Neck and chest: No suspicious supraclavicular, mediastinal, cervical, axillary, or hilar uptake. Scat tered areas of abnormal density are present within the lungs, refer to prior chest CT 01/18/2022. No e ndobronchial lesion, pleuropericardial effusion. No suspicious uptake. Uptake along the chest wall on the left thought likely to be physiologic. ABDOMEN: Spleen is markedly enlarged but improved as compared to prior exam, no suspicious uptake. Th ere is no retroperitoneal adenopathy or ascites. No definite liver mass. Calcified gallstones are aga in noted. Osseous structures show no suspicious uptake. IMPRESSION: No suspicious uptake. Heterogeneous density within the lungs is noted and may be related to patient's previous identified micronodular densities within the lungs. Spleen is improved in size compared to prior exam.
== END | disposition home or self-care (01) ==
LOC: RADXRMAIN 08:06
PROVIDERS: ATTEND Internal Medicine Hematology & Oncology
DX: C85.17 Unspecified B-cell lymphoma, spleen (principal); J98.4 Other disorders of lung
CPT/HCPCS: 78815; A9552

== ENCOUNTER 2024-10-06 19:59 | Inpatient (IN) | payer MEDICARE ==
--- NOTE | 2024-10-06 20:06 | ED ---
General Adult HPI - General Source: patient, family Mode of arrival: wheelchair <Yuri Foreman - Last Filed: 10/06/24 20:05> - General Source: patient, family, RN notes reviewed, old records reviewed Mode of arrival: wheelchair Limitations: no limitations - History of Present Illness -: days(s) Location: chest, abdomen Radiation: abdomen Severity scale (1-10): 7 Quality: aching Consistency: intermittent Improves with: none Worsens with: none Associated Symptoms: loss of appetite, nausea/vomiting, weakness Treatments Prior to Arrival: none <Hossein Cho - Last Filed: 10/12/24 22:14> - General Stated complaint: vomiting Time Seen by Provider: 10/06/24 20:05 - History of Present Illness Initial comments: 79-year-old female presenting with chief complaint of nausea and vomiting. Symptoms started yesterday. Denies abdominal pain or diarrhea. (Yuri Foreman) This is an 79-year-old female with nausea vomiting nausea vomiting with left lower quadrant abdominal pain some epigastric chest pain. Is complaining of shortness of breath has recent concern for fevers, patient persist here in the ER with o shortness of breath possible concern for fevers. (Hossein Cho) - Related Data Home Medications Medication Instructions Recorded Confirmed Potassium Chloride ER [K-Dur 10] 10 meq PO BID 04/12/22 10/07/24 Aspirin EC [Ecotrin Low Dose] 81 mg PO DAILY 10/07/24 10/07/24 Escitalopram Oxalate [Lexapro] 10 mg PO DAILY 10/07/24 10/07/24 Memantine [Namenda] 5 mg PO BID 10/07/24 10/07/24 Multivitamins, Thera [Multivitamin 1 tab PO DAILY 10/07/24 10/07/24 (formulary)] QUEtiapine [SEROquel] 25 mg PO QAM 10/07/24 10/07/24 QUEtiapine [SEROquel] 100 mg PO HS 10/07/24 10/07/24 Previous Rx's Medication Instructions Recorded Folic Acid 1 mg PO DAILY #30 tab 03/28/22 Acetaminophen Tab [Tylenol] 650 mg PO Q4HR PRN tab 10/12/24 Calamine/Zinc Oxide Lotion 1 applic TOPICAL QID PRN each 10/12/24 [Calamine Lotion] Levofloxacin [Levaquin] 250 mg PO Q24H 10 Days #10 tab 10/12/24 diphenhydrAMINE [Benadryl] 25 mg PO TID PRN cap 10/12/24 methylPREDNISolone Dose Pack 4 mg PO DIRECTED #21 tab 10/12/24 [Medrol Dose Pack] Allergies Allergy/AdvReac Type Severity Reaction Status Date / Time ceftriaxone Allergy Rash/Hives Verified 10/10/24 12:52 ibuprofen Allergy Unknown Verified 10/07/24 07:02 Penicillins Allergy Dyspnea Verified 10/07/24 07:02 strawberry Allergy Rash/Hives Verified 10/07/24 07:02 Sulfa (Sulfonamide Allergy Anaphylaxis Verified 10/07/24 07:02 Antibiotics) Review of Systems ROS Other: All systems not noted in ROS Statement are negative. <Yuri Foreman - Last Filed: 10/06/24 20:05> ROS Other: All systems not noted in ROS Statement are negative. <Hossein Cho - Last Filed: 10/12/24 22:14> ROS Statement: Those systems with pertinent positive or pertinent negative responses have been documented in the HPI. 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 NON HODGKINS LYMPHOMA. History of Any Multi-Drug Resistant Organisms: None Reported Past Surgical History: Section, Hysterectomy Additional Past Surgical History / Comment(s): 3 c sections Past Anesthesia/Blood Transfusion Reactions: No Reported Reaction Past Psychological History: No Psychological Hx Reported Smoking Status: Never smoker Past Alcohol Use History: None Reported Past Drug Use History: None Reported - Past Family History Son(s) Family Medical History: Diabetes Mellitus Additional Family Medical History / Comment(s): kidney recipient <Yuri Foreman - Last Filed: 10/06/24 20:05> General Exam <Yuri Foreman - Last Filed: 10/06/24 20:05> Limitations: altered mental status General appearance: alert, in no apparent distress, anxious, in distress Head exam: Present: atraumatic, normocephalic, normal inspection Eye exam: Present: normal appearance, PERRL, EOMI. Absent: scleral icterus, conjunctival injection, periorbital swelling ENT exam: Present: normal exam, mucous membranes moist Neck exam: Present: normal inspection. Absent: tenderness, meningismus, lymphadenopathy Respiratory exam: Present: normal lung sounds bilaterally. Absent: respiratory distress, wheezes, rales, rhonchi, stridor Cardiovascular Exam: Present: regular rate, normal rhythm, normal heart sounds. Absent: systolic murmur, diastolic murmur, rubs, gallop, clicks GI/Abdominal exam: Present: soft, normal bowel sounds. Absent: distended, tenderness, guarding, rebound, rigid Extremities exam: Present: normal inspection, full ROM, normal capillary refill. Absent: tenderness, pedal edema, joint swelling, calf tenderness Back exam: Present: normal inspection Neurological exam: Present: alert, oriented X3, CN II-XII intact Psychiatric exam: Present: normal affect, normal mood Skin exam: Present: warm, dry, intact, normal color. Absent: rash <Hossein Cho - Last Filed: 10/12/24 22:14> - General Exam Comments Initial Comments: Visual Physical Exam General: Well-appearing, nontoxic, no acute distress. Head: Normocephalic, atraumatic Eyes: PERRLA, EOMI ENT: Airway patent Chest: Nonlabored breathing Skin: No visual rash, normal skin tone Neuro: Alert and oriented 3 Musculoskeletal: No gross abnormalities (Yuri Foreman) Course <Hossein Cho B - Last Filed: 10/12/24 22:14> Vital Signs 10/06/24 10/06/24 10/06/24 20:05 20:48 23:14 Temperature 98.7 F 99.3 F Pulse Rate 100 90 83 Respiratory 17 16 16 Rate Blood Pressure 89/45 106/54 102/50 O2 Sat by Pulse 93 L 91 L 96 Oximetry 10/07/24 10/07/24 10/07/24 01:29 02:14 03:12 Temperature Pulse Rate 83 83 80 Respiratory 16 16 16 Rate Blood Pressure 111/54 103/52 107/57 O2 Sat by Pulse 97 97 94 L Oximetry 10/07/24 10/07/24 05:12 06:03 Temperature 97.8 F Pulse Rate 78 82 Respiratory 16 16 Rate Blood Pressure 107/51 117/52 O2 Sat by Pulse 97 Oximetry - Reevaluation(s) Reevaluation #1: 10/06/24 22:47 Medical records reviewed (Hossein Cho) Reevaluation #2: 10/06/24 22:47 Patient symptoms improving (Hossein Cho) Reevaluation #3: 10/06/24 22:47 Patient informed of results and questions answered (Hossein Cho) Reevaluation #4: Was pt. sent in by a medical professional or institution ([facility]ES[facility] [place], INVESTIGATION MANAGER, urgent care, hospital, or detention...) When possible be specific @ -no Did you speak to anyone other than the patient for history (EMS, parent, family, police, friend...)? What history was obtained from this source @ -no Did you review nursing and triage notes (agree or disagree)? Why? @ -agree Are old charts reviewed (outside hosp., previous admission, EMS record, old EKG, old radiological studies, urgent care reports/EKG's, detention records)? Report findings @ -yes Differential Diagnosis (chest pain, altered mental status, abdominal pain women, abdominal pain men, vaginal bleeding, weakness, fever, dyspnea, syncope, headache, dizziness, GI bleed, back pain, seizure, CVA, palpatations, mental health, musculoskeletal)? @ -prior EKG interpreted by me (3pts min.). @ -yes X-rays interpreted by me (1pt min.). @ -yes positive for pneumonia CT interpreted by me (1pt min.). @ -no U/S interpreted by me (1pt. min.). @ -no What testing was considered but not performed or refused? (CT, X-rays, U/S, labs)? Why? @ -none What meds were considered but not given or refused? Why? @ -none Did you discuss the management of the patient with other professionals (professionals i.e. WESLEY Tom[place], INVESTIGATION MANAGER, lab, RT, psych nurse, director of social services, performance test engineer, teacher, parachute/combatant diver officer, rehabilitation caseworker)? Give summary @ -no Was smoking cessation discussed for >3mins.? @ -no Was critical care preformed (if so, how long)? @ -yes31 Were there social determinants of health that impacted care today? How? (Homelessness, low income, unemployed, alcoholism, drug addiction, transportation, low edu. Level, literacy, decrease access to med. care, retirement, rehab)? @ -none Was there de-escalation of care discussed even if they declined (Discuss DNR or withdrawal of care, Hospice)? DNR status @ -no What co-morbidities impacted this encounter? (DM, HTN, Smoking, COPD, CAD, Cancer, CVA, ARF, Chemo, Hep., AIDS, mental health diagnosis, sleep apnea, morbid obesity)? @ -none Was patient admitted / discharged? Hospital course, mention meds given and route, prescriptions, significant lab abnormalities, going to OR and other pertinent info. @ - 79 female with significant medical history, severe hypoxia and sepsis here in the ER. Patient will admit for pneumonia nausea vomiting diarrhea Admitted Undiagnosed new problem with uncertain prognosis? @ -no Drug Therapy requiring intensive monitoring for toxicity (Heparin, Nitro, Insulin, Cardizem)? @ -no Were any procedures done? @ -no Diagnosis/symptom? @ -Pneumonia with sepsis nausea vomiting diarrhea weakness Acute, or Chronic, or Acute on Chronic? @ -Acute Uncomplicated (without systemic symptoms) or Complicated (systemic symptoms)? @ -Complicated Side effects of treatment? @ -no Exacerbation, Progression, or Severe Exacerbation? @ -exacerbation Poses a threat to life or bodily function? How? (Chest pain, [place], [place], pneumonia, PE, COPD, DKA, ARF, appy, cholecystitis, CVA, Diverticulitis, Homicidal, Suicidal, threat to staff... and all critical care pts) @ -yes with significant illness, sepsis (Hossein Cho) Reevaluation #5: Differential Abdominal Pain Women: Appendicitis, Cholecystitis, diverticulosis, ischemic bowel, pancreatitis, hepatitis, UTI, gastroenteritis, AAA, incarcerated hernia, bowel obstruction, constipation, inflammatory bowel, hepatitis, peptic ulcer disease, splenic infarction, perforated viscus, vulvitis, ovarian torsion, PID, kidney stone, placenta abruption, this is not meant to be an all-inclusive list Differential Weakness: Hypoglycemia, shock, sepsis, hyponatremia, anemia, infection, [place], ETOH, adverse medicine reaction, overdose, stroke, this is not meant to be an all-inclusive list. (Hossein Cho) - Consultations Consultation #1: Spoke with [facility] who agrees to admit this patient (Hossein Cho) EKG Findings - EKG Comments: EKG Findings:: EKG is sinus 75 IA 150 QRS 86 QTc 444 - EKG Results: EKG: interpreted by ERMD <Hossein Cho - Last Filed: 10/12/24 22:14> Procedures - Sepsis Sepsis Focused Exam #1 Time Sepsis Criteria Met: 23:00 Sepsis Focused Exam Date: 10/07/24 Sepsis Focused Exam Time: 02:00 Sepsis Focused Exam Complete: Yes Vital Signs & RN Notes Reviewed: Yes Capillary Refill: < 2 Seconds: Fingers, Toes Peripheral Pulses: Normal: Radial (R), Radial (L), Posterior Tibialis (R), Posterior Tibialis (L), Dorsalis Pedis (R), Dorsalis Pedis (L) Skin Color: Normal for Patient Respiratory Exam: rales, rhonchi, decreased breath sounds Cardiovascular Exam: regular rate <Hossein Cho - Last Filed: 10/12/24 22:14> Medical Decision Making <Yuri Foreman - Last Filed: 10/06/24 20:05> - Lab Data Result diagrams: 10/12/24 07:42 10/12/24 07:42 <Hossein Cho - Last Filed: 10/12/24 22:14> - Medical Decision Making I performed the quick note portion of this visit, electronically signed Yuri Foreman PA-C (Yuri Foreman) 79 female with significant medical history, severe hypoxia and sepsis here in the ER. Patient will admit for pneumonia nausea vomiting diarrhea (Hossein Cho) - Lab Data Lab Results 10/06/24 10/06/24 10/06/24 Range/Units 20:46 20:46 20:46 WBC 23.9 H (3.8-10.6) k/uL RBC 4.20 (3.80-5.40) m/uL Hgb 12.2 (11.4-16.0) gm/dL Hct 36.9 (34.0-46.0) % MCV 87.8 (80.0-100.0) fL MCH 28.9 (25.0-35.0) pg MCHC 32.9 (31.0-37.0) g/dL RDW 16.2 H (11.5-15.5) % Plt Count 124 L (150-450) k/uL MPV 9.5 Neutrophils % 93 % Lymphocytes % 2 % Monocytes % 3 % Eosinophils % 2 % Basophils % 0 % Neutrophils # 22.3 H (1.3-7.7) k/uL Lymphocytes # 0.4 L (1.0-4.8) k/uL Monocytes # 0.7 (0-1.0) k/uL Eosinophils # 0.4 (0-0.7) k/uL Basophils # 0.0 (0-0.2) k/uL Anisocytosis Slight Sodium 132 L (137-145) mmol/L Potassium 3.7 (3.5-5.1) mmol/L Chloride 97 L (98-107) mmol/L Carbon Dioxide 23 (22-30) mmol/L Anion Gap 12 mmol/L BUN 27 H (7-17) mg/dL Creatinine 1.38 H (0.52-1.04) mg/dL Est GFR (CKD-EPI)AfAm 41 (>60 ml/min/1.73 sqM) Est GFR (CKD-EPI)NonAf 36 (>60 ml/min/1.73 sqM) Glucose 189 H (74-99) mg/dL Lactic Ac Sepsis Rflx Plasma Lactic Acid Black 4.1 H* (0.7-2.0) mmol/L Calcium 8.5 (8.4-10.2) mg/dL Phosphorus 2.7 (2.5-4.5) mg/dL Magnesium 1.7 (1.6-2.3) mg/dL Total Bilirubin 1.9 H (0.2-1.3) mg/dL AST 31 (14-36) U/L ALT 21 (4-34) U/L Alkaline Phosphatase 103 (38-126) U/L Total Protein 5.5 L (6.3-8.2) g/dL Albumin 3.8 (3.5-5.0) g/dL Amylase <30 L (30-110) U/L Lipase 13 L (23-300) U/L 12/16/24 Range/Units 22:09 WBC (3.8-10.6) k/uL RBC (3.80-5.40) m/uL Hgb (11.4-16.0) gm/dL Hct (34.0-46.0) % MCV (80.0-100.0) fL MCH (25.0-35.0) pg MCHC (31.0-37.0) g/dL RDW (11.5-15.5) % Plt Count (150-450) k/uL MPV Neutrophils % % Lymphocytes % % Monocytes % % Eosinophils % % Basophils % % Neutrophils # (1.3-7.7) k/uL Lymphocytes # (1.0-4.8) k/uL Monocytes # (0-1.0) k/uL Eosinophils # (0-0.7) k/uL Basophils # (0-0.2) k/uL Anisocytosis Sodium (137-145) mmol/L Potassium (3.5-5.1) mmol/L Chloride (98-107) mmol/L Carbon Dioxide (22-30) mmol/L Anion Gap mmol/L BUN (7-17) mg/dL Creatinine (0.52-1.04) mg/dL Est GFR (CKD-EPI)AfAm (>60 ml/min/1.73 sqM) Est GFR (CKD-EPI)NonAf (>60 ml/min/1.73 sqM) Glucose (74-99) mg/dL Lactic Ac Sepsis Rflx Y Plasma Lactic Acid Black (0.7-2.0) mmol/L Calcium (8.4-10.2) mg/dL Phosphorus (2.5-4.5) mg/dL Magnesium (1.6-2.3) mg/dL Total Bilirubin (0.2-1.3) mg/dL AST (14-36) U/L ALT (4-34) U/L Alkaline Phosphatase (38-126) U/L Total Protein (6.3-8.2) g/dL Albumin (3.5-5.0) g/dL Amylase (30-110) U/L Lipase (23-300) U/L Critical Care Time Critical Care Time: Yes Total Critical Care Time: 31 <Hossein Cho - Last Filed: 10/12/24 22:14> Disposition <Yuri Foreman - Last Filed: 10/06/24 20:05> Is patient prescribed a controlled substance at d/c from ED?: No Time of Disposition: 22:50 <Hossein Cho - Last Filed: 10/12/24 22:14> Clinical Impression: SIRS (systemic inflammatory response syndrome), Dehydration, Gastroenteritis, CAP (community acquired pneumonia), History of spleen cancer, History of anemia, History of thrombocytopenia, B-cell lymphoma, Pancytopenia Disposition: ADMITTED IP TO THIS HOSP Condition: Serious
[2024-10-06] MEDS: ONDANSETRON 4 MG/2 ML VIAL IVP STA (20:55)
[2024-10-06 21:00] LABS: Anisocytosis Slight; Basophils % (A) 0 %; Eosinophils # (A) 0.4 k/uL (0-0.7); Eosinophils % (A) 2 %; HCT 36.9 % (34.0-46.0); HGB 12.2 gm/dL (11.4-16.0); Lymphocytes # (A) 0.4 k/uL (1.0-4.8); Lymphocytes % (A) 2 %; MCH 28.9 pg (25.0-35.0); MCHC 32.9 g/dL (31.0-37.0); MCV 87.8 fL (80.0-100.0); Mean Platelet Volume 9.5; Monocytes # (A) 0.7 k/uL (0-1.0); Monocytes % (A) 3 %; Neutrophils # (A) 22.3 k/uL (1.3-7.7); Neutrophils % (A) 93 %; Platelet Count 124 k/uL (150-450); RDW 16.2 % (11.5-15.5); WBC 23.9 k/uL (3.8-10.6)
[2024-10-06] MEDS: SODIUM CHLORIDE 0.9% 1,000 ML IV STA ×2 (21:00→22:07)
[2024-10-06 21:19] LABS: ALT 21 U/L (4-34); AST 31 U/L (14-36); African American GFR (CKD) 41 (>60 ml/min/1.73 sqM); Albumin 3.8 g/dL (3.5-5.0); Alkaline Phosphatase 103 U/L (38-126); Amylase <30 U/L (30-110); Anion Gap 12 mmol/L; Blood Urea Nitrogen 27 mg/dL (7-17); Calcium 8.5 mg/dL (8.4-10.2); Carbon Dioxide 23 mmol/L (22-30); Chloride 97 mmol/L (98-107); Glucose 189 mg/dL (74-99); Lipase 13 U/L (23-300); Magnesium 1.7 mg/dL (1.6-2.3); Non-African American GFR(CKD) 36 (>60 ml/min/1.73 sqM); Phosphorus 2.7 mg/dL (2.5-4.5); Potassium 3.7 mmol/L (3.5-5.1); Sodium 132 mmol/L (137-145); Total Bilirubin 1.9 mg/dL (0.2-1.3); Total Protein 5.5 g/dL (6.3-8.2)
--- NOTE | 2024-10-06 22:53 | CT ---
EXAMINATION TYPE: CT abdomen pelvis wo con DATE OF EXAM: 10/06/2024 HISTORY: Nausea/vomiting since yesterday.no diarrhea or fevers noted. pt complaining of left side of pain. no blood on emesis or stool per pt. 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 CT DLP: 436.8 mGycm. Automated Exposure Control for Dose Reduction was Utilized. TECHNIQUE: CT scan of the abdomen and pelvis is performed without oral or IV contrast. COMPARISON: Prior CT March 26, 2022 FINDINGS: Within the limitations of a non-contrast study, the following observations are made. LUNG BASES: There is tiny left pleural effusion. There is focal left lingular consolidation with air bronchograms on current study. LIVER/GB: There are internal calcified gallstones. Gallbladder shows no surrounding inflammatory ortiz ge. PANCREAS: No significant abnormality is seen. SPLEEN: Mild splenomegaly on current study measuring 13.2 cm long axis axial image 53. This is improv ed from prior study. ADRENALS: No significant abnormality is seen. KIDNEYS: No renal stones or hydronephrosis seen bilaterally. BOWEL: No abnormal small or large bowel dilatation. GENITAL ORGANS: Uterus is surgically absent. LYMPH NODES: No greater than 1cm abdominal or pelvic lymph nodes are appreciated. OSSEOUS STRUCTURES: Moderate to severe disc space narrowing at the lumbosacral junction is redemonstr ated. OTHER: No significant additional abnormality is seen. IMPRESSION: 1. No bowel obstruction. Mild splenomegaly is improved from prior study. No significant new or acute finding to account for patient's symptoms. 2. Tiny left pleural effusion. There is focal lingular consolidation with air bronchograms. Correlate for pneumonia. [facility], , 10/06/2024 10:51 PM
[2024-10-06] MEDS: metroNIDAZOLE-NS PMX 500 MG in SALINE 1 100ML.BAG IVPB STA (22:59)
[2024-10-06] MEDS: LEVOFLOXACIN 750MG-D5W PMX 750 MG in DEXTROSE/WATER 1 150ML.BAG IVPB ONE (23:13)
[2024-10-06] MEDS ORDERED: PNEUMONIA PROTOCOL UTILIZED 1 EACH MISC PO PRN (23:15)
[2024-10-07] MEDS: LEVOFLOXACIN 750MG-D5W PMX 750 MG in DEXTROSE/WATER 1 150ML.BAG IVPB STA (00:19)
[2024-10-07] MEDS: SODIUM CHLORIDE 0.9% 1,000 ML IV SCH (00:26)
[2024-10-07] MEDS: ACETAMINOPHEN TAB 325 MG TAB PO PRN (00:55)
--- NOTE | 2024-10-07 01:00 | XR ---
EXAMINATION TYPE: XR chest 2V DATE OF EXAM: 10/07/2024 12:52 AM COMPARISON: Prior chest x-ray April 12, 2022 . Prior PET/CT August 04, 2022 CLINICAL INDICATION: Female, 79 years old with history of cough, TECHNIQUE: Frontal and lateral views of the chest are obtained. FINDINGS: There is new left mid to lower lung increased opacity. Silhouetting of left heart border i s not seen. Right lung remains clear. The cardiac silhouette size remains within normal limits. The osseous structures are intact. IMPRESSION: There is new lingular and posterior left lower lobe acute infiltrate and/or atelectasis [facility], , 10/07/2024 12:58 AM
[2024-10-07 07:37] LABS: Appearance,Urine Clear (Clear); Bilirubin,Urine Negative (Negative); Blood,Urine Negative (Negative); Color,Urine Yellow; Glucose,Urine (UA) Negative (Negative); Hyaline Casts,Urine 5 /lpf (0-2); Ketones,Urine Negative (Negative); Leukocyte Esterase,Urine Trace (Negative); Mucus,Urine Rare /hpf; Nitrite,Urine Negative (Negative); PH, Urine 5.5 (5.0-8.0); Protein,Urine Trace (Negative); RBC,Urine 1 /hpf (0-5); Specific Gravity,Urine 1.022 (1.001-1.035); Squamous Epithelial Cell,Urine 1 /hpf (0-4); WBC,Urine 4 /hpf (0-5); Waxy Casts,Urine 3 /lpf (0)
[2024-10-07 10:55] LABS: HGB 11.3 gm/dL (11.4-16.0); RBC 3.77 m/uL (3.80-5.40); WBC 14.2 k/uL (3.8-10.6)
[2024-10-07 10:56] LABS: Anisocytosis Slight; Basophils % (A) 0 %; Eosinophils # (A) 0.1 k/uL (0-0.7); Eosinophils % (A) 1 %; Lymphocytes # (A) 0.5 k/uL (1.0-4.8); Lymphocytes % (A) 4 %; MCH 30.1 pg (25.0-35.0); MCHC 33.4 g/dL (31.0-37.0); Mean Platelet Volume 10.1; Monocytes # (A) 0.4 k/uL (0-1.0); Monocytes % (A) 3 %; Neutrophils # (A) 13.1 k/uL (1.3-7.7); Neutrophils % (A) 92 %; Platelet Count 109 k/uL (150-450); RDW 16.5 % (11.5-15.5)
[2024-10-07] MEDS: AZITHROMYCIN 500 MG TAB PO SCH (11:01)
[2024-10-07 11:25] LABS: African American GFR (CKD) 57 (>60 ml/min/1.73 sqM); Anion Gap 6 mmol/L; Blood Urea Nitrogen 25 mg/dL (7-17); Calcium 8.3 mg/dL (8.4-10.2); Carbon Dioxide 26 mmol/L (22-30); Chloride 102 mmol/L (98-107); Glucose 91 mg/dL (74-99); Non-African American GFR(CKD) 49 (>60 ml/min/1.73 sqM); Potassium 3.7 mmol/L (3.5-5.1); Sodium 134 mmol/L (137-145)
[2024-10-07] MEDS ORDERED: ONDANSETRON 4 MG/2 ML VIAL IVP PRN (11:35)
[2024-10-07] MEDS: PANTOPRAZOLE 40 MG/10 ML VIAL IVP SCH (13:42)
[2024-10-07] MEDS: MEMANTINE 5 MG TAB PO SCH (20:35)
[2024-10-07] MEDS: HEPARIN SODIUM,PORCINE 5,000 UNIT/ML 1 ML VIAL SQ SCH (20:35)
[2024-10-07] MEDS: QUEtiapine 100 MG TAB PO SCH (20:35)
--- NOTE | 2024-10-07 22:59 | P.HPIM ---
History of Present Illness H&P Date: 10/07/24 Chief Complaint: Nausea and vomiting Patient is a 79-year-old female with a past medical history of non-Hodgkin's lymphoma in 2021 currently in remission, CKD, Alzheimer's dementia, chronic back pain. Patient is currently staying with her daughter who is her legal guardian. Patient was brought to the hospital due to complaints of nausea and vomiting. Started yesterday. Patient also having some left lower quadrant abdominal pain and epigastric pain on admission. Denied any chest pain or shortness of breath. Patient was also having subjective fevers. Patient's daughter states that there is a chance that she may have aspirated. On admission blood pressure 89/45 pulse is 100 respiration 17 pulse ox 93% on room air. Laboratory data showed WBC 23.9 hemoglobin 12.2, RDW 16.2 and platelets 124 and neutrophils 22.3 Sodium 132 potassium 3.7 chloride 97 BUN 27 and creatinine 1.38 and blood sugar 189 and lactic acid 4.1 on admission magnesium 1.7 AST ALT alk phos within normal limits. Lipase 13 amylase less than 30 and influenza A B RSV and COVID- 19 PCR not detected. Patient was given a dose of levofloxacin and metronidazole in the ER. CT of the abdomen pelvis showed no bowel obstruction. Mild splenomegaly is improved from prior study. No significant new or acute finding to account for patient's symptoms. Tiny left pleural effusion. There is focal lingular consolidation with air bronchograms. Correlate for pneumonia. Chest x-ray showed there is new lingular and posterior left lower lobe acute infiltrate and or atelectasis. EKG showed sinus rhythm with heart rate 79. Review of Systems Constitutional: Patient does have subjective fever and chills.. Generalized weakness and fatigue.. Abdomen: Patient complained nausea, vomiting and abdominal pain. No diarrhea. Cardiovascular: Patient denies any chest pain or short of breath no palpitations. Respiratory: patient denied any cough or sputum production. No shortness of breath Neurologic: Patient denied any numbness or tingling. no headache. Musculoskeletal: Patient denies any complaints of joint swelling or deformity. Skin: Negative Psychiatric: Negative Endocrine: No heat or cold intolerance. No recent weight gain. Genitourinary: No dysuria or hematuria. All other 14 point ROS negative except the above Past Medical History Past Medical History: Cancer Additional Past Medical History / Comment(s): having abdominal and back pain,low platelets, increased fatigue,hx TIAs-no residual, splenomegaly, bone marrow positive for lymphoma. NON HODGKINS LYMPHOMA 2021 and in remission for past 2 y ears, CKD, alxheimers dementia, pt's daughter is legal guardian (paperwork scanned in paper chart) History of Any Multi-Drug Resistant Organisms: None Reported Past Surgical History: Section, Hysterectomy Additional Past Surgical History / Comment(s): 3 c sections Past Anesthesia/Blood Transfusion Reactions: No Reported Reaction Past Psychological History: No Psychological Hx Reported Smoking Status: Never smoker Past Alcohol Use History: None Reported Past Drug Use History: None Reported - Past Family History Son(s) Family Medical History: Diabetes Mellitus Additional Family Medical History / Comment(s): kidney recipient Medications and Allergies Home Medications Medication Instructions Recorded Confirmed Type Folic Acid 1 mg PO DAILY #30 tab 03/28/22 10/07/24 Rx Potassium Chloride ER [K-Dur 10] 10 meq PO BID 04/12/22 10/07/24 History Aspirin EC [Ecotrin Low Dose] 81 mg PO DAILY 10/07/24 10/07/24 History Escitalopram Oxalate [Lexapro] 10 mg PO DAILY 10/07/24 10/07/24 History Memantine [Namenda] 5 mg PO BID 10/07/24 10/07/24 History Multivitamins, Thera [Multivitamin 1 tab PO DAILY 10/07/24 10/07/24 History (formulary)] QUEtiapine [SEROquel] 25 mg PO QAM 10/07/24 10/07/24 History QUEtiapine [SEROquel] 100 mg PO HS 10/07/24 10/07/24 History Allergies Allergy/AdvReac Type Severity Reaction Status Date / Time ibuprofen Allergy Unknown Verified 10/07/24 07:02 Penicillins Allergy Dyspnea Verified 10/07/24 07:02 strawberry Allergy Rash/Hives Verified 10/07/24 07:02 Sulfa (Sulfonamide Allergy Anaphylaxis Verified 10/07/24 07:02 Antibiotics) Physical Exam Vitals: Vital Signs Temp Pulse Pulse Resp BP BP Pulse Ox 10/07/24 08:45 93 L 10/07/24 07:39 98.1 F 82 16 101/63 96 10/07/24 06:03 97.8 F 82 16 117/52 97 10/07/24 05:12 78 16 107/51 10/07/24 03:12 80 16 107/57 94 L 10/07/24 02:14 83 16 103/52 97 10/07/24 01:29 83 16 111/54 97 10/06/24 23:14 83 16 102/50 96 10/06/24 20:48 99.3 F 90 16 106/54 91 L 10/06/24 20:05 98.7 F 100 17 89/45 93 L Intake and Output 10/06/24 10/07/24 10/07/24 22:59 06:59 14:59 Other: Weight 67.132 kg PHYSICAL EXAMINATION: Patient is lying in the bed comfortably, no acute distress, awake alert and oriented.. HEENT: Normocephalic. Neck is supple. Pupils reactive. Nostrils clear. Oral cavity is moist. Neck reveals no JVD, carotid bruits, or thyromegaly. CHEST EXAMINATION: Trachea is central. Symmetrical expansion. Left basilar crackles/coarse sounds. No wheezing. Nonlabored breathing.. CARDIAC: Normal S1, S2 with no gallops. No murmurs ABDOMEN: Soft. Bowel sounds normal. No organomegaly. No abdominal bruits. Extremities: reveal no edema. No clubbing or cyanosis Neurologically awake, alert, oriented x 1-2. Cognitive impairment. Able to move all extremities. No gross focal deficits noted Skin: No rash or skin lesions. Psychiatric: Coperative. Nonsuicidal Musculoskeletal: No joint swelling or deformity. Normal range of motion. Results CBC & Chem 7: 10/07/24 10:37 10/07/24 10:37 Labs: Abnormal Lab Results - Last 24 Hours (Table) 10/06/24 10/06/24 10/06/24 Range/Units 20:46 20:46 20:46 WBC 23.9 H (3.8-10.6) k/uL RDW 16.2 H (11.5-15.5) % Plt Count 124 L (150-450) k/uL Neutrophils # 22.3 H (1.3-7.7) k/uL Lymphocytes # 0.4 L (1.0-4.8) k/uL Sodium 132 L (137-145) mmol/L Chloride 97 L (98-107) mmol/L BUN 27 H (7-17) mg/dL Creatinine 1.38 H (0.52-1.04) mg/dL Glucose 189 H (74-99) mg/dL Plasma Lactic Acid Black 4.1 H* (0.7-2.0) mmol/L Total Bilirubin 1.9 H (0.2-1.3) mg/dL Total Protein 5.5 L (6.3-8.2) g/dL Amylase <30 L (30-110) U/L Lipase 13 L (23-300) U/L Urine Protein (Negative) Ur Leukocyte Esterase (Negative) Hyaline Casts (0-2) /lpf Urine Mucus (None) /hpf 10/07/24 10/07/24 Range/Units 00:16 06:45 WBC (3.8-10.6) k/uL RDW (11.5-15.5) % Plt Count (150-450) k/uL Neutrophils # (1.3-7.7) k/uL Lymphocytes # (1.0-4.8) k/uL Sodium (137-145) mmol/L Chloride (98-107) mmol/L BUN (7-17) mg/dL Creatinine (0.52-1.04) mg/dL Glucose (74-99) mg/dL Plasma Lactic Acid Black 2.1 H* (0.7-2.0) mmol/L Total Bilirubin (0.2-1.3) mg/dL Total Protein (6.3-8.2) g/dL Amylase (30-110) U/L Lipase (23-300) U/L Urine Protein Trace H (Negative) Ur Leukocyte Esterase Trace H (Negative) Hyaline Casts 5 H (0-2) /lpf Urine Mucus Rare H (None) /hpf Thrombosis Risk Factor Assmnt - DVT/VTE Prophylaxis DVT/VTE Prophylaxis: Pharmacologic Prophylaxis ordered - Choose All That Apply Any of the Below Risk Factors Present?: Yes Each Factor Represents 1 point: Swollen legs (current) Each Risk Factor Represents 3 Points: Age 75 years or older, Family history of DVT/PE Thrombosis Risk Factor Assessment Total Risk Factor Score: 7 Thrombosis Risk Factor Assessment Level: High Risk Assessment and Plan Assessment: Left lower lobe pneumonia. Possible aspiration cannot be excluded. Sepsis secondary to above Intractable nausea and vomiting and epigastric abdominal pain on admission. Improving now. Acute kidney injury likely prerenal with CKD stage III Hypovolemic hyponatremia Lactic acidosis 4.1 on admission improved now. History of non-Hodgkin's lymphoma in 2021 currently in remission. History of TIA no residual weakness Chronic low back pain and abdominal pain and low platelets Alzheimer's dementia Anxiety/depression GI and DVT prophy with PPI and heparin subcu Plan: Patient will be continued on IV hydration with normal saline at 100 cc/h. Was given a dose of Levaquin and Flagyl in the ER. Patient was started on ceftriaxone and azithromycin. Procalcitonin level was ordered. Follow-up blood cultures and sputum cultures. Follow-up repeat CBC and BMP. Start back on home medications. Follow-up closely. Prognosis guarded. Discu ssed with her daughter at bedside in detail. Time with Patient: Greater than 30
[2024-10-08] MEDS: SODIUM CHLORIDE 0.9% 1,000 ML IV SCH (02:15)
[2024-10-08 08:53] LABS: % Iron Saturation 5.07 (12.00-45.00); BUN/Creat Ratio 13.91 Ratio (12.00-20.00); Basophils # (A) 0.01 X 10*3/uL (0.00-0.10); Basophils % (A) 0.2 %; Blood Urea Nitrogen 15.3 mg/dL (9.0-27.0); Calcium 8.1 mg/dL (8.7-10.3); Carbon Dioxide 23.6 mmol/L (21.6-31.8); Chloride 106 mmol/L (96-109); Eosinophils # (A) 0.03 X 10*3/uL (0.04-0.35); Eosinophils % (A) 0.5 %; Glucose 93 mg/dL (70-110); HCT 33.1 % (37.2-46.3); HGB 10.5 g/dL (12.0-15.0); Iron 11 UG/DL (50-170); Lymphocytes # (A) 0.29 X 10*3/uL (0.90-5.00); Lymphocytes % (A) 4.5 %; MCH 28.7 pg (27.0-32.0); MCHC 31.7 g/dL (32.0-37.0); MCV 90.4 FL (80.0-97.0); Mean Platelet Volume 12.6 FL (9.5-12.2); Monocytes % (A) 4.6 %; NRBC Per 100 WBC 0 X 10*3/uL (0.00-0.01); Neutrophils # (A) 5.73 X 10*3/uL (1.80-7.70); Neutrophils % (A) 88.7 %; Platelet Count 122 X 10*3/uL (140-440); RBC 3.66 X 10*6/uL (4.10-5.20); RDW 16.4 % (11.5-14.5); Sodium 141 mmol/L (135-145); Total Iron Binding Capacity 217 UG/DL (228-460); WBC 6.46 X 10*3/uL (4.50-10.00)
[2024-10-08] MEDS: POTASSIUM CHLORIDE ER 20 MEQ TAB.ER PO STA (11:08)
[2024-10-08] MEDS: FOLIC ACID 1 MG TAB PO SCH (11:09)
[2024-10-08] MEDS: ASPIRIN 81 MG PO SCH (11:09)
[2024-10-08] MEDS: QUEtiapine 25 MG TAB PO SCH (11:09)
[2024-10-08] MEDS: POTASSIUM CHLORIDE ER 20 MEQ TAB.ER PO ONE (11:09)
[2024-10-08] MEDS: ESCITALOPRAM 10 MG TAB PO SCH (11:10)
[2024-10-08] MEDS: MULTIVITAMINS, THERA 1 EACH TAB PO SCH (11:10)
--- NOTE | 2024-10-09 06:24 | P.PN ---
Subjective Progress Note Date: 10/08/24 Patient is a 79-year-old female with a past medical history of non-Hodgkin's lymphoma in 2021 currently in remission, CKD, Alzheimer's dementia, chronic back pain. Patient is currently staying with her daughter who is her legal guardian. Patient was brought to the hospital due to complaints of nausea and vomiting. Started yesterday. Patient also having some left lower quadrant abdominal pain and epigastric pain on admission. Denied any chest pain or shortness of breath. Patient was also having subjective fevers. Patient's daughter states that there is a chance that she may have aspirated. On admission blood pressure 89/45 pulse is 100 respiration 17 pulse ox 93% on room air. Laboratory data showed WBC 23.9 hemoglobin 12.2, RDW 16.2 and platelets 124 and neutrophils 22.3 Sodium 132 potassium 3.7 chloride 97 BUN 27 and creatinine 1.38 and blood sugar 189 and lactic acid 4.1 on admission magnesium 1.7 AST ALT alk phos within normal limits. Lipase 13 amylase less than 30 and influenza A B RSV and COVID- 19 PCR not detected. Patient was given a dose of levofloxacin and metronidazole in the ER. CT of the abdomen pelvis showed no bowel obstruction. Mild splenomegaly is improved from prior study. No significant new or acute finding to account for patient's symptoms. Tiny left pleural effusion. There is focal lingular consolidation with air bronchograms. Correlate for pneumonia. Chest x-ray showed there is new lingular and posterior left lower lobe acute infiltrate and or atelectasis. EKG showed sinus rhythm with heart rate 79. 10/08/2024 Patient is seen and evaluated in follow-up today reports to feeling well currently not reporting any shortness of breath and sitting up in bed on room air. Daughter at the bedside and appears frustrated as patient wants to go home and reports to feeling well although blood cultures were positive today and awaiting repeats. Patient is continued on antibiotics with concerns of pneumonia. Will consult infectious disease and appreciate input and recommendations. Recommend monitoring for clearance of bacteremia. Other home medications reviewed and resumed as appropriate. Review of systems: Constitutional: No reports of fatigue, fever, or chills Cardiovascular: No reports of chest pain or palpitations Respiratory: No reports of shortness of breath or cough GI: No reports of nausea, vomiting, or diarrhea : No reports of dysuria or retention Neurovascular: No reports of weakness or numbness All medications have been reviewed PHYSICAL EXAMINATION: Patient is sitting up in the bed comfortably, no acute distress, awake alert and oriented.. Elderly appearing HEENT: Normocephalic. Neck is supple. Pupils reactive. Nostrils clear. Oral cavity is moist. Neck reveals no JVD, carotid bruits, or thyromegaly. CHEST EXAMINATION: Trachea is central. Symmetrical expansion. Left basilar crackles/coarse sounds. No wheezing. Nonlabored breathing.. CARDIAC: Normal S1, S2 with no gallops. No murmurs ABDOMEN: Soft. Bowel sounds normal. No organomegaly. No abdominal bruits. Extremities: reveal no edema. No clubbing or cyanosis Neurologically awake, alert, oriented x 1-2. Baseline. Cognitive impairment. Able to move all extremities. No gross focal deficits noted Skin: No rash or skin lesions. Psychiatric: Cooperative. Non-suicidal Musculoskeletal: No joint swelling or deformity. Normal range of motion. Assessment: Left lower lobe pneumonia. Likely aspiration, with positive blood cultures Sepsis secondary to above Intractable nausea and vomiting and epigastric abdominal pain on admission. Improving now. Acute kidney injury likely prerenal with CKD stage III Hypovolemic hyponatremia Lactic acidosis 4.1 on admission improved now. History of non-Hodgkin's lymphoma in 2021 currently in remission. History of TIA, no residual weakness Chronic low back pain and abdominal pain and low platelets Alzheimer's dementia Anxiety/depression GI and DVT prophy with PPI and heparin subcu Plan: Patient will be continued on IV hydration with normal saline at reduced rate. Was given a dose of Levaquin and Flagyl in the ER. Continue on ceftriaxone and azithromycin. Procalcitonin level was elevated abo ve 9. Blood cultures positive for Streptococcus pneumonia and will await finalized cultures. Consult infectious disease and appreciate input and recommendations. Recent repeat blood cultures negative for 24 hours. Follow-up repeat CBC and BMP. Will medications reviewed and resumed as appropriate. Will await recommendations from infectious disease to discuss discharge planning. Patient and family are anxious to go home. The impression and plan of care has been dictated by Malbe Mann, Nurse Practitioner as directed. Dr. Nell MD I have performed a history and examination and MDM of this patient, discussed the same with the dictator, and agree with the dictator's assessment and plan as written ,documented as a scribe. Based on total visit time, I have performed more than 50% of the visit. Objective - Vital Signs Vital signs: Vital Signs Temp 98.9 F 10/08/24 07:27 Pulse 107 H 10/08/24 07:27 Resp 16 10/08/24 07:27 BP 134/77 10/08/24 07:27 Pulse Ox 92 L 10/08/24 07:27 FiO2 Intake & Output 10/07/24 10/08/24 10/08/24 18:59 06:59 18:59 Intake Total 1250 850 Balance 1250 850 Intake: Intake, IV Titration 1250 850 Amount Sodium Chloride 0.9% 1, 1200 400 000 ml @ 100 mls/hr IV . Q10H [facility] Rx#:[id number] Sodium Chloride 0.9% 1, 450 000 ml @ 75 mls/hr IV . [id number] [facility] Rx#:[id number] cefTRIAXone 2 gm In 50 Sodium Chloride 0.9% 50 ml @ 100 mls/hr IVPB Q24HR [facility] Rx#:[id number] Other: Voiding Method Toilet # Voids 5 3 - Labs CBC & Chem 7: 10/08/24 05:33 10/08/24 05:33 Labs: Abnormal Lab Results - Last 24 Hours (Table) 10/07/24 10/07/24 10/07/24 Range/Units 10:37 10:37 10:37 WBC 14.2 H (3.8-10.6) k/uL RBC 3.77 L (3.80-5.40) m/uL Hgb 11.3 L (11.4-16.0) gm/dL Hct (37.2-46.3) % MCHC (32.0-37.0) g/dL RDW 16.5 H (11.5-15.5) % Plt Count 109 L (150-450) k/uL MPV (9.5-12.2) FL Immature Gran # (0.00-0.04) X 10*3/uL Neutrophils # 13.1 H (1.3-7.7) k/uL Lymphocytes # 0.5 L (1.0-4.8) k/uL Eosinophils # (0.04-0.35) X 10*3/uL Sodium 134 L (137-145) mmol/L Potassium (3.5-5.5) mmol/L BUN 25 H (7-17) mg/dL Creatinine 1.07 H (0.52-1.04) mg/dL Est GFR (CKD-EPI) (>=60) Calcium 8.3 L (8.4-10.2) mg/dL Iron (50-170) UG/DL TIBC (228-460) UG/DL % Saturation (12.00-45.00) Transferrin (204.0-354.0) mg/dL Procalcitonin 9.53 H (0.02-0.50) ng/mL 10/08/24 10/08/24 Range/Units 05:33 05:33 WBC (3.8-10.6) k/uL RBC 3.66 L (3.80-5.40) m/uL Hgb 10.5 L (11.4-16.0) gm/dL Hct 33.1 L (37.2-46.3) % MCHC 31.7 L (32.0-37.0) g/dL RDW 16.4 H (11.5-15.5) % Plt Count 122 L (150-450) k/uL MPV 12.6 H (9.5-12.2) FL Immature Gran # 0.10 H (0.00-0.04) X 10*3/uL Neutrophils # (1.3-7.7) k/uL Lymphocytes # 0.29 L (1.0-4.8) k/uL Eosinophils # 0.03 L (0.04-0.35) X 10*3/uL Sodium (137-145) mmol/L Potassium 3.0 L (3.5-5.5) mmol/L BUN (7-17) mg/dL Creatinine (0.52-1.04) mg/dL Est GFR (CKD-EPI) 50 L (>=60) Calcium 8.1 L (8.4-10.2) mg/dL Iron 11 L (50-170) UG/DL TIBC 217 L (228-460) UG/DL % Saturation 5.07 L (12.00-45.00) Transferrin 155.0 L (204.0-354.0) mg/dL Procalcitonin (0.02-0.50) ng/mL Microbiology - Last 24 Hours (Table) 10/06/24 22:55 Blood Culture Gram Stain - Preliminary Blood Blood Culture - Preliminary Streptococcus pneumoniae Molecular ID
--- NOTE | 2024-10-09 07:43 | P.CONS ---
History of Present Illness - Reason for Consult Consult date: 10/08/24 Pneumonia, bacteremia Requesting physician: Mable Mann - Chief Complaint Nausea and vomiting x 1 day - History of Present Illness Patient is a 79-year-old female with a past medical history significant for TIAs non-Hodgkin lymphoma Alzheimer dementia chronic kidney disease patient has been brought into the hospital 2 days ago for evaluation of nausea and vomiting and the patient is having some left lower quadrant abdominal pain no documented shortness of breath or fever as reported by the ER physician on presentation to the hospital the patient was afebrile he did have 1 low-grade fever of 99.3 F patient was tachycardic but not hypotensive or hypoxic and no need for supplemental oxygen patient did have a white count of 23.9 with a left shift BUN and creatinine has been mildly elevated subsequently improved elevated lactic acid liver isms are normal urine has been negative influenza RSV COVID testing was negative patient did have abdominal pelvis CT no bowel obstruction mild splenomegaly focal lingular consolidation with air bronchogram patient blood cultures came back positive with Streptococcus pneumoniae prompted this consultation patient is currently on Rocephin 2 g daily most information has been obtained from review the chart talking nursing staff with the patient apparently was agitated and has received some sedation to calm her down and could not provide any history so information was also provided by the daughter at the bedside Review of Systems Positive points has been mentioned in HPI complete review could not be obtained because of his underlying mental status Past Medical History Past Medical History: Cancer Additional Past Medical History / Comment(s): having abdominal and back pain,low platelets, increased fatigue,hx TIAs-no residual, splenomegaly, bone marrow positive for lymphoma. NON HODGKINS LYMPHOMA 2021 and in remission for past 2 years, CKD, alxheimers dementia, pt's daughter is legal guardian (paperwork scan dav in paper chart) History of Any Multi-Drug Resistant Organisms: None Reported Past Surgical History: Section, Hysterectomy Additional Past Surgical History / Comment(s): 3 c sections Past Anesthesia/Blood Transfusion Reactions: No Reported Reaction Past Psychological History: No Psychological Hx Reported Smoking Status: Never smoker Past Alcohol Use History: None Reported Past Drug Use History: None Reported - Past Family History Son(s) Family Medical History: Diabetes Mellitus Additional Family Medical History / Comment(s): kidney recipient Medications and Allergies Home Medications Medication Instructions Recorded Confirmed Type Folic Acid 1 mg PO DAILY #30 tab 03/28/22 10/07/24 Rx Potassium Chloride ER [K-Dur 10] 10 meq PO BID 04/12/22 10/07/24 History Aspirin EC [Ecotrin Low Dose] 81 mg PO DAILY 10/07/24 10/07/24 History Escitalopram Oxalate [Lexapro] 10 mg PO DAILY 10/07/24 10/07/24 History Memantine [Namenda] 5 mg PO BID 10/07/24 10/07/24 History Multivitamins, Thera [Multivitamin 1 tab PO DAILY 10/07/24 10/07/24 History (formulary)] QUEtiapine [SEROquel] 25 mg PO QAM 10/07/24 10/07/24 History QUEtiapine [SEROquel] 100 mg PO HS 10/07/24 10/07/24 History Allergies Allergy/AdvReac Type Severity Reaction Status Date / Time ibuprofen Allergy Unknown Verified 10/07/24 07:02 Penicillins Allergy Dyspnea Verified 10/07/24 07:02 strawberry Allergy Rash/Hives Verified 10/07/24 07:02 Sulfa (Sulfonamide Allergy Anaphylaxis Verified 10/07/24 07:02 Antibiotics) Physical Exam Vitals: Vital Signs Temp Pulse Pulse Resp BP Pulse Ox 10/08/24 13:29 98.8 F 105 H 17 106/51 93 L 10/08/24 07:27 98.9 F 107 H 16 134/77 92 L 10/08/24 01:39 98.6 F 94 16 120/59 96 10/07/24 19:37 98.8 F 104 H 16 158/91 95 Intake and Output 10/07/24 10/08/24 10/08/24 22:59 06:59 14:59 Intake Total 1250 850 120 Balance 1250 850 120 Intake: Intake, IV Titration 1250 850 Amount Sodium Chloride 0.9% 1, 1200 400 000 ml @ 100 mls/hr IV . Q10H [facility] Rx#:[id number] Sodium Chloride 0.9% 1, 450 000 ml @ 75 mls/hr IV . [id number] [facility] Rx#:[id number] cefTRIAXone 2 gm In 50 Sodium Chloride 0.9% 50 ml @ 100 mls/hr IVPB Q24HR [facility] Rx#:[id number] Oral 120 Other: Voiding Method Toilet # Voids 5 3 GENERAL DESCRIPTION: Elderly female lying in bed, no distress. No tachypnea or accessory muscle of respiration use. HEENT: Shows Pallor , no scleral icterus. Oral mucous membrane is dry. NECK: Trachea central, no thyromegaly. LUNGS: Unlabored breathing. Decreased breath sound at the base HEART: S1, S2, regular rate and rhythm. No loud murmur ABDOMEN: Soft, no tenderness , EXTREMITIES: No edema of feet. SKIN: No rash, no masses palpable. NEUROLOGICAL: The patient is sleepy orientation without determined Results CBC & Chem 7: 10/08/24 05:33 10/08/24 05:33 Labs: Abnormal Lab Results - Last 24 Hours (Table) 10/07/24 10/08/24 10/08/24 Range/Units 10:37 05:33 05:33 RBC 3.66 L (4.10-5.20) X 10*6/uL Hgb 10.5 L (12.0-15.0) g/dL Hct 33.1 L (37.2-46.3) % MCHC 31.7 L (32.0-37.0) g/dL RDW 16.4 H (11.5-14.5) % Plt Count 122 L (140-440) X 10*3/uL MPV 12.6 H (9.5-12.2) FL Immature Gran # 0.10 H (0.00-0.04) X 10*3/uL Lymphocytes # 0.29 L (0.90-5.00) X 10*3/uL Eosinophils # 0.03 L (0.04-0.35) X 10*3/uL Potassium 3.0 L (3.5-5.5) mmol/L Est GFR (CKD-EPI) 50 L (>=60) Calcium 8.1 L (8.7-10.3) mg/dL Iron 11 L (50-170) UG/DL TIBC 217 L (228-460) UG/DL % Saturation 5.07 L (12.00-45.00) Transferrin 155.0 L (204.0-354.0) mg/dL Procalcitonin 9.53 H (0.02-0.50) ng/mL Microbiology - Last 24 Hours (Table) 10/06/24 23:10 Blood Culture - Preliminary Blood 10/06/24 22:55 Blood Culture Gram Stain - Preliminary Blood Blood Culture - Preliminary Streptococcus pneumoniae Molecular ID Assessment and Plan (1) Sepsis Current Visit: Yes Status: Acute Code(s): A41.9 - SEPSIS, UNSPECIFIED ORGANISM SNOMED Code(s): 47564219 (2) Allergy to multiple antibiotics Current Visit: Yes Status: Acute Code(s): Z88.1 - ALLERGY STATUS TO OTHER ANTIBIOTIC AGENTS SNOMED Code(s): 432031357 (3) CAP (community acquired pneumonia) Current Visit: Yes Status: Acute Code(s): J18.9 - PNEUMONIA, UNSPECIFIED ORGANISM SNOMED Code(s): 952876679 Plan: 1patient presented to hospital with sepsis in this patient who did have tachycardia low-grade fever elevated white count source is pneumonia likely community-acquired. 2patient with Streptococcus pneumonia bacteremia source is pneumonia. 3patient with multiple antibiotic ALLERGIES that would limit the number of antibiotic safe to use. 4Rocephin 2 g daily to continue while waiting for the final sensitivity discontinue Zithromax. Daughter at the bedside multiple question concern answered. We will follow on clinical condition and cultures to further adjust medication if needed Thank you for this consultation we will follow the patient along with you Dictation was produced using [employer] dictation software. please excuse any grammatical, word or spelling errors. Time with Patient: Greater than 30
--- NOTE | 2024-10-09 13:45 | P.PN ---
Subjective Progress Note Date: 10/09/24 Principal diagnosis: Reason for follow-up is strep pneumo bacteremia and pneumonia Patient is a 79-year-old female with a past medical history significant for TIAs non-Hodgkin lymphoma Alzheimer dementia chronic kidney disease patient has been brought into the hospital concerning for nausea vomiting and the patient having some left lower quadrant abdominal pain CT was negative did shows evidence of lingular pneumonia blood culture positive for strep pneumo prompted this consultation. On today's evaluation that is 10/09/2024,the patient remains to be afebrile, pat ient is on room air not requiring supplemental oxygen and breathing comfortably the patient is currently sleepy apparently he did not have a good sleep last night as reported by the daughter at the bedside no vomiting or diarrhea has been reported. No new labs today blood culture with strep pneumo Objective - Vital Signs Vital signs: Vital Signs Temp 99.7 F H 10/09/24 12:40 Pulse 93 10/09/24 12:40 Resp 17 10/09/24 12:40 BP 119/68 10/09/24 12:40 Pulse Ox 94 L 10/09/24 12:40 FiO2 Intake & Output 10/08/24 10/09/24 10/09/24 18:59 06:59 18:59 Intake Total 1010 825 Balance 1010 825 Intake: Intake, IV Titration 350 825 Amount Sodium Chloride 0.9% 1, 300 825 000 ml @ 75 mls/hr IV . [id number] [facility] Rx#:[id number] cefTRIAXone 2 gm In 50 Sodium Chloride 0.9% 50 ml @ 100 mls/hr IVPB Q24HR [facility] Rx#:[id number] Oral 660 Other: Voiding Method Toilet # Voids 5 3 # Bowel Movements 1 - Exam GENERAL DESCRIPTION: An elderly female lying in bed in no distress RESPIRATORY SYSTEM: Unlabored breathing , decreased breath sounds at bases HEART: S1 S2 regular rate and rhythm , ABDOMEN: Soft , no tenderness EXTREMITIES: No edema feet - Labs CBC & Chem 7: 10/08/24 05:33 10/08/24 05:33 Labs: Abnormal Lab Results - Last 24 Hours (Table) 10/08/24 Range/Units 05:33 RBC Folate 872 H (280 - 791) ng/mL Microbiology - Last 24 Hours (Table) 10/06/24 23:10 Blood Culture - Preliminary Blood 10/06/24 22:55 Blood Culture Gram Stain - Final Blood Blood Culture - Final Streptococcus pneumoniae Molecular ID Assessment and Plan (1) Sepsis Current Visit: Yes Status: Acute Code(s): A41.9 - SEPSIS, UNSPECIFIED ORGANISM SNOMED Code(s): 33671950 (2) Allergy to multiple antibiotics Current Visit: Yes Status: Acute Code(s): Z88.1 - ALLERGY STATUS TO OTHER ANTIBIOTIC AGENTS SNOMED Code(s): 221084254 (3) CAP (community acquired pneumonia) Current Visit: Yes Status: Acute Code(s): J18.9 - PNEUMONIA, UNSPECIFIED ORGANISM SNOMED Code(s): 333362929 Plan: 1patient presented to hospital with sepsis in this patient who did have tachy cardia low-grade fever elevated white count source is pneumonia likely community-acquired. 2patient with Streptococcus pneumonia bacteremia source is pneumonia. 3patient with multiple antibiotic ALLERGIES that would limit the number of antibiotic safe to use. 4patient will be given a dose of Rocephin today and 1 dose tomorrow afterwards a 10-day course of oral Ceftin on discharge discussed with SOAPING DEPARTMENT SUPERVISOR for admitting team Daughter at the bedside questions answered Dictation was produced using [employer] dictation software. please excuse any grammatical, word or spelling errors. Time with Patient: Less than 30
--- NOTE | 2024-10-09 15:58 | P.PN ---
Subjective Progress Note Date: 10/09/24 Patient is a 79-year-old female with a past medical history of non-Hodgkin's lymphoma in 2021 currently in remission, CKD, Alzheimer's dementia, chronic back pain. Patient is currently staying with her daughter who is her legal guardian. Patient was brought to the hospital due to complaints of nausea and vomiting. Started yesterday. Patient also having some left lower quadrant abdominal pain and epigastric pain on admission. Denied any chest pain or shortness of breath. Patient was also having subjective fevers. Patient's daughter states that there is a chance that she may have aspirated. On admission blood pressure 89/45 pulse is 100 respiration 17 pulse ox 93% on room air. Laboratory data showed WBC 23.9 hemoglobin 12.2, RDW 16.2 and platelets 124 and neutrophils 22.3 Sodium 132 potassium 3.7 chloride 97 BUN 27 and creatinine 1.38 and blood sugar 189 and lactic acid 4.1 on admission magnesium 1.7 AST ALT alk phos within normal limits. Lipase 13 amylase less than 30 and influenza A B RSV and COVID- 19 PCR not detected. Patient was given a dose of levofloxacin and metronidazole in the ER. CT of the abdomen pelvis showed no bowel obstruction. Mild splenomegaly is improved from prior study. No significant new or acute finding to account for patient's symptoms. Tiny left pleural effusion. There is focal lingular consolidation with air bronchograms. Correlate for pneumonia. Chest x-ray showed there is new lingular and posterior left lower lobe acute infiltrate and or atelectasis. EKG showed sinus rhythm with heart rate 79. 10/08/2024 Patient is seen and evaluated in follow-up today reports to feeling well currently not reporting any shortness of breath and sitting up in bed on room air. Daughter at the bedside and appears frustrated as patient wants to go home and reports to feeling well although blood cultures were positive today and awaiting repeats. Patient is continued on antibiotics with concerns of pneumonia. Will consult infectious disease and appreciate input and recommendations. Recommend monitoring for clearance of bacteremia. Other home medications reviewed and resumed as appropriate. 10/09/2024 Patient is seen in follow-up today with no acute overnight issues noted. Patient is maintained on ceftriaxone with infectious disease following as blood cultures were shown to be positive for streptococcal pneumonia and repeat blood cultures thus far is negative for 24 hours. Patient will transition to a course of oral Ceftin on discharge. Patient is currently afebrile denies any chest pain or shortness of breath. Will monitor overnight and discussed discharge planning with family in the morning. Review of systems: Constitutional: No reports of fatigue, fever, or chills Cardiovascular: No reports of chest pain or palpitations Respiratory: No reports of shortness of breath or cough GI: No reports of nausea, vomiting, or diarrhea : No reports of dysuria or retention Neurovascular: No reports of weakness or numbness All medications have been reviewed PHYSICAL EXAMINATION: Patient is sitting up in the bed comfortably, no acute distress, awake alert and oriented x 1-2, baseline.. Elderly appearing HEENT: Normocephalic. Neck is supple. Pupils reactive. Nostrils clear. Oral cavity is moist. Neck reveals no JVD, carotid bruits, or thyromegaly. CHEST EXAMINATION: Trachea is central. Symmetrical expansion. Left basilar crackles/coarse sounds. No wheezing. Nonlabored breathing.. CARDIAC: Normal S1, S2 with no gallops. No murmurs ABDOMEN: Soft. Bowel sounds normal. No organomegaly. No abdominal bruits. Extremities: reveal no edema. No clubbing or cyanosis Neurologically awake, alert, oriented x 1-2. Baseline. Cognitive impairment. Able to move all extremities. No gross focal deficits noted Skin: No rash or skin lesions. Psychiatric: Cooperative. Non-suicidal Musculoskeletal: No joint swelling or deformity. Normal range of motion. Assessment: Left lower lobe pneumonia. Likely aspiration, with positive blood cultures for streptococcal pneumonia. Repeat blood cultures are negative Sepsis secondary to above Intractable nausea and vomiting and epigastric abdominal pain on admission. Improving now. Acute kidney injury likely prerenal with CKD stage III Hypovolemic hyponatremia, improving Lactic acidosis 4.1 on admission improved now. History of non-Hodgkin's lymphoma in 2021 currently in remission. History of TIA, no residual weakness Chronic low back pain and abdominal pain and low platelets Alzheimer's dementia Anxiety/depression GI and DVT prophy with PPI and heparin subcu Plan: Patient will be continued on IV hydration with normal saline at reduced rate. Infectious disease following maintained on ceftriaxone and will receive another dose tomorrow and continue with oral Ceftin on discharge per ID. Patient initial blood cultures positive for streptococcal pneumonia and repeat blood cultures are negative. Encouraged increase activity as tolerated Encourage small frequent meals Will monitor overnight with 1 more dose of IV antibiotics on day of discharge tomorrow and will transition to oral Ceftin 500 mg twice daily for 10 days. Probable discharge in 24 hours. The impression and plan of care has been dictated by Mable Mann, Nurse Practitioner as directed. Dr. Nell MD I have performed a history and examination and MDM of this patient, discussed the same with the dictator, and agree with the dictator's assessment and plan as written ,documented as a scribe. Based on total visit time, I have performed more than 50% of the visit. Objective - Vital Signs Vital signs: Vital Signs Temp 99.7 F H 10/09/24 12:40 Pulse 93 10/09/24 12:40 Resp 17 10/09/24 12:40 BP 119/68 10/09/24 12:40 Pulse Ox 94 L 10/09/24 12:40 FiO2 Intake & Output 10/08/24 10/09/24 10/09/24 18:59 06:59 18:59 Intake Total 1010 825 Balance 1010 825 Intake: Intake, IV Titration 350 825 Amount Sodium Chloride 0.9% 1, 300 825 000 ml @ 75 mls/hr IV . [id number] [facility] Rx#:[id number] cefTRIAXone 2 gm In 50 Sodium Chloride 0.9% 50 ml @ 100 mls/hr IVPB Q24HR [facility] Rx#:[id number] Oral 660 Other: Voiding Method Toilet # Voids 5 3 # Bowel Movements 1 - Labs CBC & Chem 7: 10/08/24 05:33 10/08/24 05:33 Labs: Abnormal Lab Results - Last 24 Hours (Table) 10/08/24 Range/Units 05:33 RBC Folate 872 H (280 - 791) ng/mL Microbiology - Last 24 Hours (Table) 10/06/24 23:10 Blood Culture - Preliminary Blood 10/06/24 22:55 Blood Culture Gram Stain - Final Blood Blood Culture - Final Streptococcus pneumoniae Molecular ID
[2024-10-10] MEDS: IPRATROPIUM-ALBUTEROL 3 ML NEB INHALATION PRN (05:33)
[2024-10-10] MEDS: diphenhydrAMINE 25 MG CAP PO STA (05:38)
[2024-10-10] MEDS: PANTOPRAZOLE 40 MG TABLET PO SCH (09:00)
[2024-10-10] MEDS: POTASSIUM CHLORIDE ER 10 MEQ TAB.ER.PRT PO SCH (10:18)
[2024-10-10 10:33] LABS: Basophils # (A) 0.01 X 10*3/uL (0.00-0.10); Basophils % (A) 0.1 %; Eosinophils # (A) 0.15 X 10*3/uL (0.04-0.35); Eosinophils % (A) 2.2 %; HCT 31.8 % (37.2-46.3); Lymphocytes # (A) 0.17 X 10*3/uL (0.90-5.00); Lymphocytes % (A) 2.4 %; MCH 28.3 pg (27.0-32.0); MCHC 31.4 g/dL (32.0-37.0); MCV 90.1 FL (80.0-97.0); Mean Platelet Volume 11.6 FL (9.5-12.2); Monocytes # (A) 0.45 X 10*3/uL (0.20-1.00); Monocytes % (A) 6.5 %; NRBC Per 100 WBC 0 X 10*3/uL (0.00-0.01); Neutrophils # (A) 6.07 X 10*3/uL (1.80-7.70); Neutrophils % (A) 87.1 %; Platelet Count 132 X 10*3/uL (140-440); RBC 3.53 X 10*6/uL (4.10-5.20); RDW 16.9 % (11.5-14.5); WBC 6.97 X 10*3/uL (4.50-10.00)
[2024-10-10 10:41] LABS: BUN/Creat Ratio 11.12 Ratio (12.00-20.00); Blood Urea Nitrogen 8.9 mg/dL (9.0-27.0); Calcium 7.5 mg/dL (8.7-10.3); Carbon Dioxide 21.5 mmol/L (21.6-31.8); Chloride 109 mmol/L (96-109); Glucose 106 mg/dL (70-110); Potassium 3.2 mmol/L (3.5-5.5); Sodium 142 mmol/L (135-145)
--- NOTE | 2024-10-10 11:38 | XR ---
EXAMINATION TYPE: XR chest 1V portable DATE OF EXAM: 10/10/2024 10:54 AM COMPARISON: Chest radiographs from 10/07/2024, 10/06/2024 CLINICAL INDICATION: Female, 79 years old with history of shortness of breath; [facility] TECHNIQUE: XR chest 1V portable Frontal view of the chest. FINDINGS: Lungs/Pleura: Blunting of left costophrenic angle left lower airspace opacities. There is no evidence of right pleural effusion, focal consolidation, or pneumothorax. Pulmonary vascularity: Unremarkable. Heart/mediastinum: Cardiomediastinal silhouette is unremarkable. Musculoskeletal: No acute osseous pathology. IMPRESSION: Left pleural effusion/airspace opacities correlate for pneumonia/pleural effusion [facility], , 10/10/2024 11:36 AM
[2024-10-10] MEDS ORDERED: CALAMINE/ZINC OXIDE LOTION 177 ML BTL TOPICAL PRN (12:30)
[2024-10-10] MEDS: FUROSEMIDE 10 MG/ML 2 ML VIAL IV ONE (13:00)
[2024-10-10] MEDS: methylPREDNISolone SOD SUCCI 40 MG/ML 1 ML VIAL IV STA (13:00)
[2024-10-10] MEDS: LEVOFLOXACIN 500 MG TAB PO SCH (14:42)
--- NOTE | 2024-10-10 15:45 | P.CNPUL ---
History of Present Illness Consult date: 10/10/24 Reason for consult: dyspnea, pneumonia History of present illness: This is a consultation note for a pneumococcal pneumonia and septicemia. The patient is a 79-year-old female with history of non-Hodgkin's lymphoma that has been in remission and the patient also has chronic Alzheimer's dementia, chronic kidney disease, who presented to the emergency department with fever, tachycardia and leukocytosis. At that point, the patient was found to have a lingular patchy pulmonary infiltrates consistent with pneumonia. CAT scan of the abdomen and pelvis was also done at the time of admission and the patient was found to have a tiny left-sided pleural effusion along with focal lingular consolidation with air bronchograms consistent with pneumonia. Subsequently, the blood culture was Positive for Streptococcus pneumonia and the patient was being given IV Rocephin. She did not receive antibiotics for 24 hours and the patient had lost IV access. She received IV Rocephin yesterday. Overnight, the patient developed a diffuse maculopapular rash and based on that, the patient was given IV Solu-Medrol and Rocephin has been discontinued and the patient was switched to Levaquin. For now, the patient has spiking low-grade temperature of 100. Pulse ox 90% room air oxygen. Hemodynamically stable. Repeat chest x-ray was done today and shows a lingular consolidation questionable small left-sided pleural effusion. Otherwise, no significant respiratory distress. The white cell count is 6.9 with a hemoglobin of 10 and a platelet count of 132. BUN is 8 with a creatinine of 0.8 and sodium levels at 142 and a potassium level of 3.2. Procalcitonin level at time of admission was 9.5. Review of Systems Constitutional: Reports fatigue, Reports fever, Reports weakness Eyes: denies as per HPI, denies blurred vision, denies bulging eye, denies decreased vision, denies diplopia, denies discharge, denies dry eye, denies irritation, denies itching, denies pain, denies photophobia, denies loss of peripheral vision, denies loss of vision, denies tunnel vision/blind spots Ears: deny: decreased hearing, ear discharge, earache, tinnitus Ears, nose, mouth and throat: Reports as per HPI Breasts: absent: as per HPI, change in shape, gynecomastia, masses, nipple discharge, pain, skin changes, swelling Cardiovascular: Reports as per HPI Respiratory: Reports cough Gastrointestinal: Reports as per HPI Menstruation: Reports as per HPI Musculoskeletal: Reports as per HPI Musculoskeletal: absent: ankle pain, ankle stiffness, ankle swelling, as per H PI, elbow pain, elbow stiffness, elbow swelling, foot pain, foot stiffness, foot swelling, hand pain, hand stiffness, hand swelling, hip pain, hip stiffness, hip swelling, knee pain, knee stiffness, knee swelling, shoulder pain, shoulder stiffness, shoulder swelling, wrist pain, wrist stiffness, wrist swelling Neurological: Reports weakness Psychiatric: Reports as per HPI Endocrine: Reports as per HPI, Reports fatigue Hematologic/Lymphatic: Reports as per HPI Allergic/Immunologic: Reports as per HPI Past Medical History Past Medical History: Cancer Additional Past Medical History / Comment(s): having abdominal and back pain,low platelets, increased fatigue,hx TIAs-no residual, splenomegaly, bone marrow positive for lymphoma. NON HODGKINS LYMPHOMA 2021 and in remission for past 2 years, CKD, alxheimers dementia, pt's daughter is legal guardian (paperwork scanned in paper chart) History of Any Multi-Drug Resistant Organisms: None Reported Past Surgical History: Section, Hysterectomy Additional Past Surgical History / Comment(s): 3 c sections Past Anesthesia/Blood Transfusion Reactions: No Reported Reaction Past Psychological History: No Psychological Hx Reported Smoking Status: Never smoker Past Alcohol Use History: None Reported Past Drug Use History: None Reported - Past Family History Son(s) Family Medical History: Diabetes Mellitus Additional Family Medical History / Comment(s): kidney recipient Medications and Allergies Home Medications Medication Instructions Recorded Confirmed Type Folic Acid 1 mg PO DAILY #30 tab 03/28/22 10/07/24 Rx Potassium Chloride ER [K-Dur 10] 10 meq PO BID 04/12/22 10/07/24 History Aspirin EC [Ecotrin Low Dose] 81 mg PO DAILY 10/07/24 10/07/24 History Escitalopram Oxalate [Lexapro] 10 mg PO DAILY 10/07/24 10/07/24 History Memantine [Namenda] 5 mg PO BID 10/07/24 10/07/24 History Multivitamins, Thera [Multivitamin 1 tab PO DAILY 10/07/24 10/07/24 History (formulary)] QUEtiapine [SEROquel] 25 mg PO QAM 10/07/24 10/07/24 History QUEtiapine [SEROquel] 100 mg PO HS 10/07/24 10/07/24 History Allergies Allergy/AdvReac Type Severity Reaction Status Date / Time ceftriaxone Allergy Rash/Hives Verified 10/10/24 12:52 ibuprofen Allergy Unknown Verified 10/07/24 07:02 Penicillins Allergy Dyspnea Verified 10/07/24 07:02 strawberry Allergy Rash/Hives Verified 10/07/24 07:02 Sulfa (Sulfonamide Allergy Anaphylaxis Verified 10/07/24 07:02 Antibiotics) Physical Exam Vitals: Vital Signs Temp Pulse Pulse Resp BP Pulse Ox 10/10/24 07:57 100 F H 99 19 124/76 97 10/10/24 05:39 98 10/10/24 05:33 100 10/10/24 05:24 98.7 F 95 22 129/77 99 10/10/24 02:00 98.1 F 97 16 127/70 97 10/09/24 23:31 94 L 10/09/24 21:15 90 L 10/09/24 19:29 99.1 F 99 16 143/82 92 L Intake and Output 10/09/24 10/10/24 10/10/24 22:59 06:59 14:59 Intake Total 1452.5 Balance 1452.5 Intake: Intake, IV Titration 912.5 Amount Sodium Chloride 0.9% 1, 862.5 000 ml @ 75 mls/hr IV . [id number] [facility] Rx#:[id number] cefTRIAXone 2 gm In 50 Sodium Chloride 0.9% 50 ml @ 100 mls/hr IVPB Q24HR [facility] Rx#:[id number] Oral 540 Other: # Voids 4 3 The patient appeared well nourished and normally developed. Vital signs as documented. Head exam is unremarkable. No scleral icterus or corneal arcus noted. Neck is without jugular venous distension, thyromegaly, or carotid bruits. Carotid upstrokes are brisk bilaterally. Lungs are clear to auscultation and percussion. Faint crackles over the anterior left chest area. Breath sounds are equal and symmetric in size diminished in left lung base. Cardiac exam reveals the PMI to be normally sized and situated. Rhythm is regular. First and second heart sounds normal. No murmurs, rubs or gallops. Abdominal exam reveals normal bowel sounds, no masses, no organomegaly and no aortic enlargement. Extremities are nonedematous and both femoral and pedal pulses are normal. Examination of the skin revealed diffuse maculopapular rash suggestive Rocephin allergy. Neurologically, the patient is awake and alert and the patient does not have any focal neurological deficit. Cranial nerves are essentially intact. Results - Laboratory Findings CBC and BMP: 10/10/24 07:11 10/10/24 07:11 Abnormal lab findings: Abnormal Labs 10/06/24 10/06/24 10/06/24 20:46 20:46 20:46 WBC 23.9 H RBC Hgb Hct MCHC RDW 16.2 H Plt Count 124 L MPV Immature Gran # Neutrophils # 22.3 H Lymphocytes # 0.4 L Eosinophils # Sodium 132 L Potassium Chloride 97 L Carbon Dioxide BUN 27 H Creatinine 1.38 H Est GFR (CKD-EPI) BUN/Creatinine Ratio Glucose 189 H Plasma Lactic Acid Black 4.1 H* Calcium Iron TIBC % Saturation Transferrin Total Bilirubin 1.9 H Total Protein 5.5 L Amylase <30 L Lipase 13 L RBC Folate Procalcitonin Urine Protein Ur Leukocyte Esterase Hyaline Casts Urine Mucus 10/07/24 10/07/24 10/07/24 00:16 06:45 10:37 WBC 14.2 H RBC 3.77 L Hgb 11.3 L Hct MCHC RDW 16.5 H Plt Count 109 L MPV Immature Gran # Neutrophils # 13.1 H Lymphocytes # 0.5 L Eosinophils # Sodium Potassium Chloride Carbon Dioxide BUN Creatinine Est GFR (CKD-EPI) BUN/Creatinine Ratio Glucose Plasma Lactic Acid Black 2.1 H* Calcium Iron TIBC % Saturation Transferrin Total Bilirubin Total Protein Amylase Lipase RBC Folate Procalcitonin Urine Protein Trace H Ur Leukocyte Esterase Trace H Hyaline Casts 5 H Urine Mucus Rare H 10/07/24 10/07/24 10/08/24 10:37 10:37 05:33 WBC RBC Hgb Hct MCHC RDW Plt Count MPV Immature Gran # Neutrophils # Lymphocytes # Eosinophils # Sodium 134 L Potassium Chloride Carbon Dioxide BUN 25 H Creatinine 1.07 H Est GFR (CKD-EPI) BUN/Creatinine Ratio Glucose Plasma Lactic Acid Black Calcium 8.3 L Iron TIBC % Saturation Transferrin Total Bilirubin Total Protein Amylase Lipase RBC Folate 872 H Procalcitonin 9.53 H Urine Protein Ur Leukocyte Esterase Hyaline Casts Urine Mucus 10/08/24 10/08/24 10/10/24 05:33 05:33 07:11 WBC RBC 3.66 L 3.53 L Hgb 10.5 L 10.0 L Hct 33.1 L 31.8 L MCHC 31.7 L 31.4 L RDW 16.4 H 16.9 H Plt Count 122 L 132 L MPV 12.6 H Immature Gran # 0.10 H 0.12 H Neutrophils # Lymphocytes # 0.29 L 0.17 L Eosinophils # 0.03 L Sodium Potassium 3.0 L Chloride Carbon Dioxide BUN Creatinine Est GFR (CKD-EPI) 50 L BUN/Creatinine Ratio Glucose Plasma Lactic Acid Black Calcium 8.1 L Iron 11 L TIBC 217 L % Saturation 5.07 L Transferrin 155.0 L Total Bilirubin Total Protein Amylase Lipase RBC Folate Procalcitonin Urine Protein Ur Leukocyte Esterase Hyaline Casts Urine Mucus 10/10/24 07:11 WBC RBC Hgb Hct MCHC RDW Plt Count MPV Immature Gran # Neutrophils # Lymphocytes # Eosinophils # Sodium Potassium 3.2 L Chloride Carbon Dioxide 21.5 L BUN 8.9 L Creatinine Est GFR (CKD-EPI) BUN/Creatinine Ratio 11.12 L Glucose Plasma Lactic Acid Black Calcium 7.5 L Iron TIBC % Saturation Transferrin Total Bilirubin Total Protein Amylase Lipase RBC Folate Procalcitonin Urine Protein Ur Leukocyte Esterase Hyaline Casts Urine Mucus Assessment and Plan Plan: Acute pneumococcal pneumonia with septicemia. The patient is a lingular pneumonia with airspace disease and consolidation with possible culture and the patient was started on IV Rocephin and subsequent switch to Levaquin as the patient developed diffuse maculopapular rash consistent with cephalosporin allergy. The patient has penicillin allergy. Hemodynamically stable. Procalcitonin level was elevated at time of admission. The white cell count was also elevated and it has dropped and normalized. Cephalosporin allergy with diffuse maculopapular rash Acute leukocytosis improving Fever secondary to above Non-Hodgkin's lymphoma, in remission Alzheimer's dementia Previous history of recurrent pneumonias Previous history of TIA without any residual deficits Sputum negative secondary to lymphoma in remission since 2021 Acute kidney injury, improved Plan Continue Levaquin IV Solu-Medrol for the diffuse maculopapular rash Monitor fever pattern Monitor procalcitonin Repeat chest x-ray in the morning ID is on the case Currently on room air oxygen Hemodynamically stable White cell count is improving Will continue to follow
[2024-10-10] MEDS: diphenhydrAMINE 25 MG CAP PO PRN (20:25)
--- NOTE | 2024-10-11 08:10 | XR ---
EXAMINATION TYPE: XR chest 1V DATE OF EXAM: 10/11/2024 6:53 AM COMPARISON: Chest radiographs from CLINICAL INDICATION: Female, 79 years old with history of Lingular pneumonia; [facility] TECHNIQUE: XR chest 1V Frontal view of the chest. FINDINGS: Lungs/Pleura: Blunting of the left costophrenic angle with left lower lung airspace opacities. No estephania dence of focal consolidation or pneumothorax. Blunting of the costophrenic angles is present. Pulmonary vascularity: Pulmonary vascular congestion. Heart/mediastinum: Cardiomediastinal silhouette is unremarkable. Musculoskeletal: No acute osseous pathology. IMPRESSION: Left basilar airspace disease with associated probable pleural effusion. [facility], , 10/11/2024 8:08 AM
--- NOTE | 2024-10-11 08:28 | P.PN ---
Subjective Progress Note Date: 10/10/24 Patient is a 79-year-old female with a past medical history of non-Hodgkin's lymphoma in 2021 currently in remission, CKD, Alzheimer's dementia, chronic back pain. Patient is currently staying with her daughter who is her legal guardian. Patient was brought to the hospital due to complaints of nausea and vomiting. Started yesterday. Patient also having some left lower quadrant abdominal pain and epigastric pain on admission. Denied any chest pain or shortness of breath. Patient was also having subjective fevers. Patient's daughter states that there is a chance that she may have aspirated. On admission blood pressure 89/45 pulse is 100 respiration 17 pulse ox 93% on room air. Laboratory data showed WBC 23.9 hemoglobin 12.2, RDW 16.2 and platelets 124 and neutrophils 22.3 Sodium 132 potassium 3.7 chloride 97 BUN 27 and creatinine 1.38 and blood sugar 189 and lactic acid 4.1 on admission magnesium 1.7 AST ALT alk phos within normal limits. Lipase 13 amylase less than 30 and influenza A B RSV and COVID- 19 PCR not detected. Patient was given a dose of levofloxacin and metronidazole in the ER. CT of the abdomen pelvis showed no bowel obstruction. Mild splenomegaly is improved from prior study. No significant new or acute finding to account for patient's symptoms. Tiny left pleural effusion. There is focal lingular consolidation with air bronchograms. Correlate for pneumonia. Chest x-ray showed there is new lingular and posterior left lower lobe acute infiltrate and or atelectasis. EKG showed sinus rhythm with heart rate 79. 10/08/2024 Patient is seen and evaluated in follow-up today reports to feeling well currently not reporting any shortness of breath and sitting up in bed on room air. Daughter at the bedside and appears frustrated as patient wants to go home and reports to feeling well although blood cultures were positive today and awaiting repeats. Patient is continued on antibiotics with concerns of pneumonia. Will consult infectious disease and appreciate input and recommendations. Recommend monitoring for clearance of bacteremia. Other home medications reviewed and resumed as appropriate. 10/09/2024 Patient is seen in follow-up today with no acute overnight issues noted. Patient is maintained on ceftriaxone with infectious disease following as blood cultures were shown to be positive for streptococcal pneumonia and repeat blood cultures thus far is negative for 24 hours. Patient will transition to a course of oral Ceftin on discharge. Patient is currently afebrile denies any chest pain or shortness of breath. Will monitor overnight and discussed discharge planning with family in the morning. 10/10/2024 Patient is seen in follow-up today apparently overnight became itchy developing a rash that was maculopapular and diffuse on the upper torso and back. Patient is on ceftriaxone which has been canceled per ID recommendations and will be transition to oral Levaquin. Patient was given a dose of oral Benadryl and will give IV steroid showing some improvements already on the rash. Will consult pulmonary as patient was having some wheezing and placed on 2 L of oxygen. Patient denies shortness of breath although is slightly fatigued today. Patient is arousable and answering questions appropriately. Repeat blood cultures are negative and patient remains afebrile. White count has normalized., Review of systems: Constitutional: No reports of fatigue, fever, or chills,Reports developing a rash on the upper torso and back Cardiovascular: No reports of chest pain or palpitations Respiratory: No reports of shortness of breath or cough GI: No reports of nausea, vomiting, or diarrhea : No reports of dysuria or retention Neurovascular: No reports of weakness or numbness All medications have been reviewed PHYSICAL EXAMINATION: Patient is laying in the bed comfortably, no acute distress, awake alert and oriented x 1-2, baseline.. Elderly appearing HEENT: Normocephalic. Neck is supple. Pupils reactive. Nostrils clear. Oral cavity is moist. Neck reveals no JVD, carotid bruits, or thyromegaly. CHEST EXAMINATION: Trachea is central. Symmetrical expansion. Left basilar crackles/coarse sounds. No wheezing. Nonlabored breathing.. CARDIAC: Normal S1, S2 with no gallops. No murmurs ABDOMEN: Soft. Bowel sounds normal. No organomegaly. No abdominal bruits. Extremities: reveal no edema. No clubbing or cyanosis Neurologically awake, alert, oriented x 1-2. Baseline. Cognitive impairment. Able to move all extremities. No gross focal deficits noted Skin: Diffuse maculopapular rash of the upper torso and back with some redness that is improving and swelling has improved Psychiatric: Cooperative. Non-suicidal Musculoskeletal: No joint swelling or deformity. Normal range of motion. Assessment: Left lower lobe pneumonia. Likely aspiration, with positive blood cultures for streptococcal pneumonia. Repeat blood cultures are negative Sepsis secondary to above Allergic reaction, likely to ceftriaxone (cephalosporin) with diffuse maculopapular rash on upper torso and back, improving Intractable nausea and vomiting and epigastric abdominal pain on admission. Improving now. Acute kidney injury likely prerenal with CKD stage III Hypovolemic hyponatremia, improving Lactic acidosis 4.1 on admission improved now. History of non-Hodgkin's lymphoma in 2021 currently in remission. History of TIA, no residual weakness Chronic low back pain and abdominal pain and low platelets Alzheimer's dementia Anxiety/depression GI and DVT prophy with PPI and heparin subcu Plan: Patient will be continued on as needed Benadryl and will be given a dose of steroid and calamine lotion as needed for diffuse maculopapular rash most likely secondary to ceftriaxone which has been discontinued per ID. Patient will be given oral Levaquin and monitor for any further side effects. Patient had some increased wheezing and placed on 2 L, will obtain a chest x-ray and also consult pulmonary and appreciate input and recommendations. Patient initial blood cultures positive for streptococcal pneumonia and repeat blood cultures are negative. Encouraged increase activity as tolerated Encourage small frequent meals Repeat labs and replace electrolytes per protocol. Potassium slightly low and will replace and oral daily supplementation has been increased. Overall prognosis is guarded Possible discharge planning in the next 24 to 48 hours if patient is improving The impression and plan of care has been dictated by Mable Mann, Nurse Practitioner as directed. Dr. Nell MD I have performed a history and examination and MDM of this patient, discussed the same with the dictator, and agree with the dictator's assessment and plan as written ,documented as a scribe. Based on total visit time, I have performed more than 50% of the visit. Objective - Vital Signs Vital signs: Vital Signs Temp 100 F H 10/10/24 07:57 Pulse 99 10/10/24 07:57 Resp 19 10/10/24 07:57 BP 124/76 10/10/24 07:57 Pulse Ox 97 10/10/24 07:57 FiO2 Intake & Output 10/09/24 10/10/24 10/10/24 18:59 06:59 18:59 Intake Total 1452.5 Balance 1452.5 Intake: Intake, IV Titration 912.5 Amount Sodium Chloride 0.9% 1, 862.5 000 ml @ 75 mls/hr IV . [id number] [facility] Rx#:[id number] cefTRIAXone 2 gm In 50 Sodium Chloride 0.9% 50 ml @ 100 mls/hr IVPB Q24HR [facility] Rx#:[id number] Oral 540 Other: # Voids 4 3 - Labs CBC & Chem 7: 10/10/24 07:11 10/10/24 07:11 Labs: Abnormal Lab Results - Last 24 Hours (Table) 10/08/24 10/10/24 Range/Units 05:33 07:11 RBC 3.53 L (4.10-5.20) X 10*6/uL Hgb 10.0 L (12.0-15.0) g/dL Hct 31.8 L (37.2-46.3) % MCHC 31.4 L (32.0-37.0) g/dL RDW 16.9 H (11.5-14.5) % Plt Count 132 L (140-440) X 10*3/uL Immature Gran # 0.12 H (0.00-0.04) X 10*3/uL Lymphocytes # 0.17 L (0.90-5.00) X 10*3/uL RBC Folate 872 H (280 - 791) ng/mL Microbiology - Last 24 Hours (Table) 10/08/24 12:31 Blood Culture - Preliminary Blood 10/06/24 23:10 Blood Culture - Preliminary Blood 10/06/24 22:55 Blood Culture Gram Stain - Final Blood Blood Culture - Final Streptococcus pneumoniae Molecular ID
[2024-10-11 10:11] LABS: African American GFR (CKD) 72 (>60 ml/min/1.73 sqM); Anion Gap 8 mmol/L; Blood Urea Nitrogen 10 mg/dL (7-17); Calcium 8.8 mg/dL (8.4-10.2); Carbon Dioxide 28 mmol/L (22-30); Chloride 106 mmol/L (98-107); Glucose 124 mg/dL (74-99); Non-African American GFR(CKD) 63 (>60 ml/min/1.73 sqM); Potassium 3.2 mmol/L (3.5-5.1); Sodium 142 mmol/L (137-145)
[2024-10-11] MEDS: POTASSIUM CHLORIDE ER 10 MEQ TAB.ER.PRT PO SCH (10:53)
[2024-10-11] MEDS: LEVOFLOXACIN 250 MG TAB PO SCH (10:54)
--- NOTE | 2024-10-11 14:31 | P.PN ---
Subjective Progress Note Date: 10/11/24 This is a consultation note for a pneumococcal pneumonia and septicemia. The patient is a 79-year-old female with history of non-Hodgkin's lymphoma that has been in remission and the patient also has chronic Alzheimer's dementia, chronic kidney disease, who presented to the emergency department with fever, tachycardia and leukocytosis. At that point, the patient was found to have a lingular patchy pulmonary infiltrates consistent with pneumonia. CAT scan of the abdomen and pelvis was also done at the time of admission and the patient was found to have a tiny left-sided pleural effusion along with focal lingular consolidation with air bronchograms consistent with pneumonia. Subsequently, the blood culture was Positive for Streptococcus pneumonia and the patient was being given IV Rocephin. She did not receive antibiotics for 24 hours and the patient had lost IV access. She received IV Rocephin yesterday. Overnight, the patient developed a diffuse maculopapular rash and based on that, the patient was given IV Solu-Medrol and Rocephin has been discontinued and the patient was switched to Levaquin. For now, the patient has spiking low-grade temperature of 100. Pulse ox 90% room air oxygen. Hemodynamically stable. Repeat chest x-ray was done today and shows a lingular consolidation questionable small left-sided pleural effusion. Otherwise, no significant respiratory distress. The white cell count is 6.9 with a hemoglobin of 10 and a platelet count of 132. BUN is 8 with a creatinine of 0.8 and sodium levels at 142 and a potassium level of 3.2. Procalcitonin level at time of admission was 9.5. On 10/11/2024, the patient is being seen in follow-up regarding her pneumococcal pneumonia. Chest x-ray shows a stable left lower lobe consolidation. Clinically improved. She is on room air oxygen. Rash is subsiding. Her electrolytes from today show a potassium level of 3.2 that needs to be replaced, BUN is 10 with a creatinine of 0.8. Procalcitonin level is dropped from 9.5- 1.4. She remains on Levaquin. No other new complaints otherwise for now. No fever. No chills. No chest pain. Objective - Vital Signs Vital signs: Vital Signs Temp 97.6 F 10/11/24 07:20 Pulse 89 10/11/24 07:20 Resp 16 10/11/24 07:20 BP 136/71 10/11/24 07:20 Pulse Ox 92 L 10/11/24 07:20 FiO2 Intake & Output 10/10/24 10/11/24 10/11/24 18:59 06:59 18:59 Intake Total 480 240 Balance 480 240 Intake: Oral 480 240 Other: Voiding Method Toilet # Voids 2 5 - Exam The patient appeared well nourished and normally developed. Vital signs as documented. Head exam is unremarkable. No scleral icterus or corneal arcus noted. Neck is without jugular venous distension, thyromegaly, or carotid bruits. Carotid upstrokes are brisk bilaterally. Lungs are clear to auscultation and percussion. Faint crackles over the anteri or left chest area. Breath sounds are equal and symmetric in size diminished in left lung base. Cardiac exam reveals the PMI to be normally sized and situated. Rhythm is regular. First and second heart sounds normal. No murmurs, rubs or gallops. Abdominal exam reveals normal bowel sounds, no masses, no organomegaly and no aortic enlargement. Extremities are nonedematous and both femoral and pedal pulses are normal. Examination of the skin revealed diffuse maculopapular rash suggestive Rocephin allergy. Neurologically, the patient is awake and alert and the patient does not have any focal neurological deficit. Cranial nerves are essentially intact. - Labs CBC & Chem 7: 10/10/24 07:11 10/11/24 08:27 Labs: Abnormal Lab Results - Last 24 Hours (Table) 10/11/24 Range/Units 08:27 Potassium 3.2 L (3.5-5.1) mmol/L Glucose 124 H (74-99) mg/dL Microbiology - Last 24 Hours (Table) 10/08/24 12:31 Blood Culture - Preliminary Blood 10/06/24 23:10 Blood Culture - Preliminary Blood Assessment and Plan Plan: Acute pneumococcal pneumonia with septicemia. The patient is a lingular pneumonia with airspace disease and consolidation with possible culture and the patient was started on IV Rocephin and subsequent switch to Levaquin as the patient developed diffuse maculopapular rash consistent with cephalosporin allergy. The patient has penicillin allergy. Hemodynamically stable. Procalcitonin level continues to improve and the patient is currently on Levaquin. Chest x-ray showed a stable consolidation of the left lung base. Cephalosporin allergy with diffuse maculopapular rash, currently off Rocephin and the patient is improving Acute leukocytosis improving Fever secondary to above Non-Hodgkin's lymphoma, in remission Alzheimer's dementia Previous history of recurrent pneumonias Previous history of TIA without any residual deficits Sputum negative secondary to lymphoma in remission since 2021 Acute kidney injury, improved Plan Currently on room air oxygen Continue Levaquin IV Solu-Medrol for the diffuse maculopapular rash Monitor fever pattern Procalcitonin level is improving Repeat chest x-ray in the morning shows stable left basilar consolidation ID is on the case Currently on room air oxygen Hemodynamically stable White cell count is improving Will continue to follow
--- NOTE | 2024-10-11 14:34 | P.PN ---
Subjective Progress Note Date: 10/11/24 Principal diagnosis: Reason for follow-up is strep pneumo bacteremia and pneumonia Patient is a 79-year-old female with a past medical history significant for TIAs non-Hodgkin lymphoma Alzheimer dementia chronic kidney disease patient has been brought into the hospital concerning for nausea vomiting and the patient having some left lower quadrant abdominal pain CT was negative did shows evidence of lingular pneumonia blood culture positive for strep pneumo prompted this consultation. On today's evaluation that is 10/11/2024, patient did not have any fever and den ies any chills, patient is breathing comfortably on room air, patient with no chest pain, did have mild cough patient did not have any abdominal pain nausea vomiting or any loose stools, her rash has decreased in intensity. Patient did have creatinine 0.87, no CBC was done today blood culture repeat negative Objective - Vital Signs Vital signs: Vital Signs Temp 98.4 F 10/11/24 12:06 Pulse 87 10/11/24 12:06 Resp 16 10/11/24 12:06 BP 134/67 10/11/24 12:06 Pulse Ox 92 L 10/11/24 12:06 FiO2 Intake & Output 10/10/24 10/11/24 10/11/24 18:59 06:59 18:59 Intake Total 480 240 Balance 480 240 Intake: Oral 480 240 Other: Voiding Method Toilet Toilet # Voids 2 5 - Exam GENERAL DESCRIPTION: An elderly female lying in bed in no distress RESPIRATORY SYSTEM: Unlabored breathing , decreased breath sounds at bases HEART: S1 S2 regular rate and rhythm , ABDOMEN: Soft , no tenderness EXTREMITIES: No edema feet - Labs CBC & Chem 7: 10/10/24 07:11 10/11/24 08:27 Labs: Abnormal Lab Results - Last 24 Hours (Table) 10/11/24 10/11/24 Range/Units 05:00 08:27 Potassium 3.2 L (3.5-5.1) mmol/L Glucose 124 H (74-99) mg/dL Procalcitonin 1.43 H (0.02-0.50) ng/mL Microbiology - Last 24 Hours (Table) 10/08/24 12:31 Blood Culture - Preliminary Blood 10/06/24 23:10 Blood Culture - Preliminary Blood Assessment and Plan (1) Sepsis Current Visit: Yes Status: Acute Code(s): A41.9 - SEPSIS, UNSPECIFIED ORGANISM SNOMED Code(s): 25489436 (2) Allergy to multiple antibiotics Current Visit: Yes Status: Acute Code(s): Z88.1 - ALLERGY STATUS TO OTHER ANTIBIOTIC AGENTS SNOMED Code(s): 988923461 (3) CAP (community acquired pneumonia) Current Visit: Yes Status: Acute Code(s): J18.9 - PNEUMONIA, UNSPECIFIED ORGANISM SNOMED Code(s): 702402250 Plan: 1patient presented to hospital with sepsis in this patient who did have tachycardia low-grade fever elevated white count source is pneumonia likely community-acquired. 2patient with Streptococcus pneumonia bacteremia source is pneumonia. 3patient with multiple antibiotic ALLERGIES that would limit the number of antibiotic safe to use. 4patient right she has decreased in intensity and the patient is more awake and alert I will continue the patient on oral Levaquin to finish a 10-day course of therapy Daughter at the bedside questions answered Dictation was produced using [employer] dictation software. please excuse any grammatical, word or spelling errors. Time with Patient: Less than 30
--- NOTE | 2024-10-11 14:34 | P.PN ---
Subjective Progress Note Date: 10/10/24 Principal diagnosis: Reason for follow-up is strep pneumo bacteremia and pneumonia Patient is a 79-year-old female with a past medical history significant for TIAs non-Hodgkin lymphoma Alzheimer dementia chronic kidney disease patient has been brought into the hospital concerning for nausea vomiting and the patient having some left lower quadrant abdominal pain CT was negative did shows evidence of lingular pneumonia blood culture positive for strep pneumo prompted this consultation. On today's evaluation that is 10/10/2024, the patient continues to be afebrile, the patient is on room air and breathing comfortably, the Pt denies having any chest pain or cough, the patient denies having any abdominal pain no vomiting or any diarrhea, patient has developed a rash and Lasix and has been put on hold Patient white count normalized to 6.97, creatinine 0.8 procalcitonin is down to 1.43 blood culture repeat has been negative Objective - Vital Signs Vital signs: Vital Signs Temp 100 F H 10/10/24 07:57 Pulse 99 10/10/24 07:57 Resp 19 10/10/24 07:57 BP 124/76 10/10/24 07:57 Pulse Ox 97 10/10/24 07:57 FiO2 Intake & Output 10/09/24 10/10/24 10/10/24 18:59 06:59 18:59 Intake Total 1452.5 Balance 1452.5 Intake: Intake, IV Titration 912.5 Amount Sodium Chloride 0.9% 1, 862.5 000 ml @ 75 mls/hr IV . [id number] [facility] Rx#:[id number] cefTRIAXone 2 gm In 50 Sodium Chloride 0.9% 50 ml @ 100 mls/hr IVPB Q24HR [facility] Rx#:[id number] Oral 540 Other: # Voids 4 3 - Exam GENERAL DESCRIPTION: An elderly female lying in bed in no distress RESPIRATORY SYSTEM: Unlabored breathing , decreased breath sounds at bases HEART: S1 S2 regular rate and rhythm , ABDOMEN: Soft , no tenderness EXTREMITIES: No edema feet - Labs CBC & Chem 7: 10/10/24 07:11 10/11/24 08:27 Labs: Abnormal Lab Results - Last 24 Hours (Table) 10/10/24 10/10/24 Range/Units 07:11 07:11 RBC 3.53 L (4.10-5.20) X 10*6/uL Hgb 10.0 L (12.0-15.0) g/dL Hct 31.8 L (37.2-46.3) % MCHC 31.4 L (32.0-37.0) g/dL RDW 16.9 H (11.5-14.5) % Plt Count 132 L (140-440) X 10*3/uL Immature Gran # 0.12 H (0.00-0.04) X 10*3/uL Lymphocytes # 0.17 L (0.90-5.00) X 10*3/uL Potassium 3.2 L (3.5-5.5) mmol/L Carbon Dioxide 21.5 L (21.6-31.8) mmol/L BUN 8.9 L (9.0-27.0) mg/dL BUN/Creatinine Ratio 11.12 L (12.00-20.00) Ratio Calcium 7.5 L (8.7-10.3) mg/dL Microbiology - Last 24 Hours (Table) 10/08/24 12:31 Blood Culture - Preliminary Blood 10/06/24 23:10 Blood Culture - Preliminary Blood 10/06/24 22:55 Blood Culture Gram Stain - Final Blood Blood Culture - Final Streptococcus pneumoniae Molecular ID Assessment and Plan (1) Sepsis Current Visit: Yes Status: Acute Code(s): A41.9 - SEPSIS, UNSPECIFIED ORGANISM SNOMED Code(s): 02643823 (2) Allergy to multiple antibiotics Current Visit: Yes Status: Acute Code(s): Z88.1 - ALLERGY STATUS TO OTHER ANTIBIOTIC AGENTS SNOMED Code(s): 409290460 (3) CAP (community acquired pneumonia) Current Visit: Yes Status: Acute Code(s): J18.9 - PNEUMONIA, UNSPECIFIED ORGANISM SNOMED Code(s): 662444296 (4) Drug rash Current Visit: Yes Status: Acute Code(s): L27.0 - GEN SKIN ERUPTION DUE TO DRUGS AND MEDS TAKEN INTERNALLY SNOMED Code(s): 18077113 Plan: 1patient presented to hospital with sepsis in this patient who did have tachycardia low-grade fever elevated white count source is pneumonia likely community-acquired. 2patient with Streptococcus pneumonia bacteremia source is pneumonia. 3patient with multiple antibiotic ALLERGIES that would limit the number of antibiotic safe to use. 4patient has developed a rash possible need to Rocephin which has been discontinued we will start the patient on oral Levaquin RN to call micro lab to confirm sensitivity as it has not been reported on the initial culture data Daughter at the bedside questions answered Dictation was produced using [employer] dictation software. please excuse any grammatical, word or spelling errors. Time with Patient: Less than 30
[2024-10-11] MEDS: methylPREDNISolone SOD SUCCI 40 MG/ML 1 ML VIAL IV SCH (17:19)
--- NOTE | 2024-10-12 08:10 | P.PN ---
Subjective Progress Note Date: 10/11/24 Patient is a 79-year-old female with a past medical history of non-Hodgkin's lymphoma in 2021 currently in remission, CKD, Alzheimer's dementia, chronic back pain. Patient is currently staying with her daughter who is her legal guardian. Patient was brought to the hospital due to complaints of nausea and vomiting. Started yesterday. Patient also having some left lower quadrant abdominal pain and epigastric pain on admission. Denied any chest pain or shortness of breath. Patient was also having subjective fevers. Patient's daughter states that there is a chance that she may have aspirated. On admission blood pressure 89/45 pulse is 100 respiration 17 pulse ox 93% on room air. Laboratory data showed WBC 23.9 hemoglobin 12.2, RDW 16.2 and platelets 124 and neutrophils 22.3 Sodium 132 potassium 3.7 chloride 97 BUN 27 and creatinine 1.38 and blood sugar 189 and lactic acid 4.1 on admission magnesium 1.7 AST ALT alk phos within normal limits. Lipase 13 amylase less than 30 and influenza A B RSV and COVID- 19 PCR not detected. Patient was given a dose of levofloxacin and metronidazole in the ER. CT of the abdomen pelvis showed no bowel obstruction. Mild splenomegaly is improved from prior study. No significant new or acute finding to account for patient's symptoms. Tiny left pleural effusion. There is focal lingular consolidation with air bronchograms. Correlate for pneumonia. Chest x-ray showed there is new lingular and posterior left lower lobe acute infiltrate and or atelectasis. EKG showed sinus rhythm with heart rate 79. 10/08/2024 Patient is seen and evaluated in follow-up today reports to feeling well currently not reporting any shortness of breath and sitting up in bed on room air. Daughter at the bedside and appears frustrated as patient wants to go home and reports to feeling well although blood cultures were positive today and awaiting repeats. Patient is continued on antibiotics with concerns of pneumonia. Will consult infectious disease and appreciate input and recommendations. Recommend monitoring for clearance of bacteremia. Other home medications reviewed and resumed as appropriate. 10/09/2024 Patient is seen in follow-up today with no acute overnight issues noted. Patient is maintained on ceftriaxone with infectious disease following as blood cultures were shown to be positive for streptococcal pneumonia and repeat blood cultures thus far is negative for 24 hours. Patient will transition to a course of oral Ceftin on discharge. Patient is currently afebrile denies any chest pain or shortness of breath. Will monitor overnight and discussed discharge planning with family in the morning. 10/10/2024 Patient is seen in follow-up today apparently overnight became itchy developing a rash that was maculopapular and diffuse on the upper torso and back. Patient is on ceftriaxone which has been canceled per ID recommendations and will be transition to oral Levaquin. Patient was given a dose of oral Benadryl and will give IV steroid showing some improvements already on the rash. Will consult pulmonary as patient was having some wheezing and placed on 2 L of oxygen. Patient denies shortness of breath although is slightly fatigued today. Patient is arousable and answering questions appropriately. Repeat blood cultures are negative and patient remains afebrile. White count has normalized., 10/11/2024 Patient is seen in follow-up today with no acute overnight issues noted. Pulmonary evaluated the patient recommend to continue with current regimen. Procalcitonin rechecked and has significantly improved and patient clinically appears more improved and more awake. Patient being weaned off oxygen and tolerating room air above 90% and is continued on oral Levaquin. Rash is improving and will continue with Benadryl and calamine as needed. Encouraged increase activity as tolerated and will follow-up on repeat labs. Replace potassium per protocol and supplemental daily dose has been increased to 20 twic e daily. Review of systems: Constitutional: No reports of fatigue, fever, or chills, Reports rash is improving Cardiovascular: No reports of chest pain or palpitations Respiratory: No reports of shortness of breath or cough GI: No reports of nausea, vomiting, or diarrhea : No reports of dysuria or retention Neurovascular: No reports of weakness or numbness All medications have been reviewed PHYSICAL EXAMINATION: Patient is laying in the bed comfortably, no acute distress, awake alert and o riented x 1-2, baseline.. Elderly appearing HEENT: Normocephalic. Neck is supple. Pupils reactive. Nostrils clear. Oral cavity is moist. Neck reveals no JVD, carotid bruits, or thyromegaly. CHEST EXAMINATION: Trachea is central. Symmetrical expansion. Left basilar crackles/coarse sounds. No wheezing. Nonlabored breathing.. CARDIAC: Normal S1, S2 with no gallops. No murmurs ABDOMEN: Soft. Bowel sounds normal. No organomegaly. No abdominal bruits. Extremities: reveal no edema. No clubbing or cyanosis Neurologically awake, alert, oriented x 1-2. Baseline. Cognitive impairment. Able to move all extremities. No gross focal deficits noted Skin: Diffuse maculopapular rash of the upper torso and back with some redness that is improving and swelling is minimal Psychiatric: Cooperative. Non-suicidal Musculoskeletal: No joint swelling or deformity. Normal range of motion. Assessment: Left lower lobe pneumonia. Likely aspiration, with positive blood cultures for streptococcal pneumonia. Repeat blood cultures are negative Sepsis secondary to above Allergic reaction, likely to ceftriaxone (cephalosporin) with diffuse maculopapular rash on upper torso and back, improving Intractable nausea and vomiting and epigastric abdominal pain on admission. Improving now. Acute kidney injury likely prerenal with CKD stage III Hypovolemic hyponatremia, improving Lactic acidosis 4.1 on admission improved now. History of non-Hodgkin's lymphoma in 2021 currently in remission. History of TIA, no residual weakness Chronic low back pain and abdominal pain and low platelets Alzheimer's dementia Anxiety/depression GI and DVT prophy with PPI and heparin subcu Plan: Patient will be continued on as needed Benadryl and was given a dose of steroid and calamine lotion as needed for diffuse maculopapular rash most likely secondary to ceftriaxone which has been discontinued per ID. Patient will be given oral Levaquin and monitor for any further side effects. Continue a 10-day course on discharge Patient had some increased wheezing and placed on 2 L, chest x-ray showing stable left findings, pulmonary following and continuing with current regimen Patient initial blood cultures positive for streptococcal pneumonia and repeat blood cultures are negative. Encouraged increase activity as tolerated Encourage small frequent meals, monitor for aspiration precautions Repeat labs and replace electrolytes per protocol. Potassium remains low and will replace and oral daily supplementation has been increased to 20 mEq twice daily. Overall prognosis is guarded Possible discharge planning in the next 24 to 48 hours if patient is improving The impression and plan of care has been dictated by Mable Mann, Nurse Practitioner as directed. Dr. Nell MD I have performed a history and examination and MDM of this patient, discussed the same with the dictator, and agree with the dictator's assessment and plan as written ,documented as a scribe. Based on total visit time, I have performed more than 50% of the visit. Objective - Vital Signs Vital signs: Vital Signs Temp 98.2 F 10/12/24 07:21 Pulse 83 10/12/24 07:21 Resp 15 10/12/24 07:21 BP 150/74 10/12/24 07:21 Pulse Ox 95 10/12/24 07:21 FiO2 Intake & Output 10/11/24 10/12/24 10/12/24 18:59 06:59 18:59 Intake Total 240 Balance 240 Intake: Oral 240 Other: Voiding Method Toilet Toilet - Labs CBC & Chem 7: 10/10/24 07:11 10/11/24 08:27 Labs: Abnormal Lab Results - Last 24 Hours (Table) 10/11/24 10/11/24 Range/Units 05:00 08:27 Potassium 3.2 L (3.5-5.1) mmol/L Glucose 124 H (74-99) mg/dL Procalcitonin 1.43 H (0.02-0.50) ng/mL Microbiology - Last 24 Hours (Table) 10/08/24 12:31 Blood Culture - Preliminary Blood
[2024-10-12 08:35] LABS: Anisocytosis Slight; Basophils # (A) 0.1 k/uL (0-0.2); Basophils % (A) 1 %; Eosinophils % (A) 0 %; HCT 34.2 % (34.0-46.0); HGB 10.8 gm/dL (11.4-16.0); Hypochromasia Slight; Lymphocytes # (A) 0.4 k/uL (1.0-4.8); Lymphocytes % (A) 5 %; MCH 28.7 pg (25.0-35.0); MCHC 31.6 g/dL (31.0-37.0); MCV 90.8 fL (80.0-100.0); Mean Platelet Volume 9.1; Monocytes # (A) 0.3 k/uL (0-1.0); Monocytes % (A) 3 %; Neutrophils # (A) 8.7 k/uL (1.3-7.7); Neutrophils % (A) 91 %; RBC 3.76 m/uL (3.80-5.40); RDW 16.2 % (11.5-15.5); WBC 9.5 k/uL (3.8-10.6)
[2024-10-12 08:36] LABS: Platelet Count 245 k/uL (150-450)
[2024-10-12 08:39] LABS: African American GFR (CKD) 75 (>60 ml/min/1.73 sqM); Anion Gap 9 mmol/L; Blood Urea Nitrogen 14 mg/dL (7-17); Calcium 8.8 mg/dL (8.4-10.2); Carbon Dioxide 26 mmol/L (22-30); Chloride 107 mmol/L (98-107); Glucose 131 mg/dL (74-99); Non-African American GFR(CKD) 65 (>60 ml/min/1.73 sqM); Potassium 3.8 mmol/L (3.5-5.1); Sodium 142 mmol/L (137-145)
[2024-10-12 12:33] VITALS: BP 149/73; PULSE 88; RESP 16; TEMP 98
--- NOTE | 2024-10-12 12:57 | P.PN ---
Subjective Progress Note Date: 10/12/24 This is a consultation note for a pneumococcal pneumonia and septicemia. The patient is a 79-year-old female with history of non-Hodgkin's lymphoma that has been in remission and the patient also has chronic Alzheimer's dementia, chronic kidney disease, who presented to the emergency department with fever, tachycardia and leukocytosis. At that point, the patient was found to have a lingular patchy pulmonary infiltrates consistent with pneumonia. CAT scan of the abdomen and pelvis was also done at the time of admission and the patient was found to have a tiny left-sided pleural effusion along with focal lingular consolidation with air bronchograms consistent with pneumonia. Subsequently, the blood culture was Positive for Streptococcus pneumonia and the patient was being given IV Rocephin. She did not receive antibiotics for 24 hours and the patient had lost IV access. She received IV Rocephin yesterday. Overnight, the patient developed a diffuse maculopapular rash and based on that, the patient was given IV Solu-Medrol and Rocephin has been discontinued and the patient was switched to Levaquin. For now, the patient has spiking low-grade temperature of 100. Pulse ox 90% room air oxygen. Hemodynamically stable. Repeat chest x-ray was done today and shows a lingular consolidation questionable small left-sided pleural effusion. Otherwise, no significant respiratory distress. The white cell count is 6.9 with a hemoglobin of 10 and a platelet count of 132. BUN is 8 with a creatinine of 0.8 and sodium levels at 142 and a potassium level of 3.2. Procalcitonin level at time of admission was 9.5. On 10/11/2024, the patient is being seen in follow-up regarding her pneumococcal pneumonia. Chest x-ray shows a stable left lower lobe consolidation. Clinically improved. She is on room air oxygen. Rash is subsiding. Her electrolytes from today show a potassium level of 3.2 that needs to be replaced, BUN is 10 with a creatinine of 0.8. Procalcitonin level is dropped from 9.5- 1.4. She remains on Levaquin. No other new complaints otherwise for now. No fever. No chills. No chest pain. On 10/12/2024, the patient is doing well. No complaints. Being treated with Levaquin regarding her pneumococcal pneumonia. She is on room air oxygen. Hemodynamically stable. No altered mentation. White cell count 9.5, it was 10.8. Electrolytes are all stable. Diffuse maculopapular rash is essentially subsided. Objective - Vital Signs Vital signs: Vital Signs Temp 98.2 F 10/12/24 07:21 Pulse 83 10/12/24 07:21 Resp 15 10/12/24 07:21 BP 150/74 10/12/24 07:21 Pulse Ox 95 10/12/24 07:21 FiO2 Intake & Output 10/11/24 10/12/24 10/12/24 18:59 06:59 18:59 Intake Total 240 Balance 240 Intake: Oral 240 Other: Voiding Method Toilet Toilet - Exam The patient appeared well nourished and normally developed. Vital signs as documented. Head exam is unremarkable. No scleral icterus or corneal arcus noted. Neck is without jugular venous distension, thyromegaly, or carotid bruits. Carotid upstrokes are brisk bilaterally. Lungs are clear to auscultation and percussion. Faint crackles over the anteri or left chest area. Breath sounds are equal and symmetric in size diminished in left lung base. Cardiac exam reveals the PMI to be normally sized and situated. Rhythm is regular. First and second heart sounds normal. No murmurs, rubs or gallops. Abdominal exam reveals normal bowel sounds, no masses, no organomegaly and no aortic enlargement. Extremities are nonedematous and both femoral and pedal pulses are normal. Examination of the skin revealed diffuse maculopapular rash suggestive Rocephin allergy. Neurologically, the patient is awake and alert and the patient does not have any focal neurological deficit. Cranial nerves are essentially intact. - Labs CBC & Chem 7: 10/12/24 07:42 10/12/24 07:42 Labs: Abnormal Lab Results - Last 24 Hours (Table) 10/11/24 10/12/24 10/12/24 Range/Units 05:00 07:42 07:42 RBC 3.76 L (3.80-5.40) m/uL Hgb 10.8 L (11.4-16.0) gm/dL RDW 16.2 H (11.5-15.5) % Neutrophils # 8.7 H (1.3-7.7) k/uL Lymphocytes # 0.4 L (1.0-4.8) k/uL Glucose 131 H (74-99) mg/dL Procalcitonin 1.43 H (0.02-0.50) ng/mL Microbiology - Last 24 Hours (Table) 10/08/24 12:31 Blood Culture - Preliminary Blood Assessment and Plan Plan: Acute pneumococcal pneumonia with septicemia. The patient is a lingular pneumonia with airspace disease and consolidation with possible culture and the patient was started on IV Rocephin and subsequent switch to Levaquin as the patient developed diffuse maculopapular rash consistent with cephalosporin allergy. The patient has penicillin allergy. Hemodynamically stable. Procalcitonin level continues to improve and the patient is currently on Levaquin. Chest x-ray showed a stable consolidation of the left lung base. Cephalosporin allergy with diffuse maculopapular rash, currently off Rocephin, recovered Acute leukocytosis improving Fever secondary to above Non-Hodgkin's lymphoma, in remission Alzheimer's dementia Previous history of recurrent pneumonias Previous history of TIA without any residual deficits Sputum negative secondary to lymphoma in remission since 2021 Acute kidney injury, improved Plan Currently on room air oxygen Continue Levaquin, recommend completing a total of 14 days of antibiotics IV Solu-Medrol for the diffuse maculopapular rash, recovered Monitor fever pattern, currently afebrile Procalcitonin level is improving Repeat chest x-ray in the morning shows stable left basilar consolidation ID is on the case Currently on room air oxygen Hemodynamically stable White cell count is improving Consider discharge. Will need to complete antibiotics f to complete a 14-day course. Outpatient follow-up with repeat chest x-ray in 3 weeks time.
--- NOTE | 2024-10-13 15:50 | P.PN ---
Subjective Progress Note Date: 10/12/24 Principal diagnosis: Reason for follow-up is strep pneumo bacteremia and pneumonia Patient is a 79-year-old female with a past medical history significant for TIAs non-Hodgkin lymphoma Alzheimer dementia chronic kidney disease patient has been brought into the hospital concerning for nausea vomiting and the patient having some left lower quadrant abdominal pain CT was negative did shows evidence of lingular pneumonia blood culture positive for strep pneumo prompted this consultation. On today's evaluation that is 10/12/2024, Patient is afebrile patient is current ly on room air and denies having any shortness of breath, the patient denies any chest pain or cough, the patient denies any nausea vomiting did not have any abdominal pain and no diarrhea, her rash has decreased in intensity feeling better wants to go home. Patient white count is 9.5 creatinine 0.84 Objective - Vital Signs Vital signs: Vital Signs Temp 98.2 F 10/12/24 07:21 Pulse 83 10/12/24 07:21 Resp 15 10/12/24 07:21 BP 150/74 10/12/24 07:21 Pulse Ox 95 10/12/24 07:21 FiO2 Intake & Output 10/11/24 10/12/24 10/12/24 18:59 06:59 18:59 Intake Total 240 Balance 240 Intake: Oral 240 Other: Voiding Method Toilet Toilet - Exam GENERAL DESCRIPTION: An elderly female lying in bed in no distress RESPIRATORY SYSTEM: Unlabored breathing , decreased breath sounds at bases HEART: S1 S2 regular rate and rhythm , ABDOMEN: Soft , no tenderness EXTREMITIES: No edema feet - Labs CBC & Chem 7: 10/12/24 07:42 10/12/24 07:42 Labs: Abnormal Lab Results - Last 24 Hours (Table) 10/11/24 10/11/24 10/12/24 Range/Units 05:00 08:27 07:42 RBC 3.76 L (3.80-5.40) m/uL Hgb 10.8 L (11.4-16.0) gm/dL RDW 16.2 H (11.5-15.5) % Neutrophils # 8.7 H (1.3-7.7) k/uL Lymphocytes # 0.4 L (1.0-4.8) k/uL Potassium 3.2 L (3.5-5.1) mmol/L Glucose 124 H (74-99) mg/dL Procalcitonin 1.43 H (0.02-0.50) ng/mL 10/12/24 Range/Units 07:42 RBC (3.80-5.40) m/uL Hgb (11.4-16.0) gm/dL RDW (11.5-15.5) % Neutrophils # (1.3-7.7) k/uL Lymphocytes # (1.0-4.8) k/uL Potassium (3.5-5.1) mmol/L Glucose 131 H (74-99) mg/dL Procalcitonin (0.02-0.50) ng/mL Microbiology - Last 24 Hours (Table) 10/08/24 12:31 Blood Culture - Preliminary Blood Assessment and Plan (1) Sepsis Status: Acute Code(s): A41.9 - SEPSIS, UNSPECIFIED ORGANISM SNOMED Code(s): 20313487 (2) Allergy to multiple antibiotics Status: Acute Code(s): Z88.1 - ALLERGY STATUS TO OTHER ANTIBIOTIC AGENTS SNOMED Code(s): 431272666 (3) CAP (community acquired pneumonia) Status: Acute Code(s): J18.9 - PNEUMONIA, UNSPECIFIED ORGANISM SNOMED Code(s): 713785589 Plan: 1patient presented to hospital with sepsis in this patient who did have tachycardia low-grade fever elevated white count source is pneumonia likely community-acquired. 2patient with Streptococcus pneumonia bacteremia source is pneumonia. 3patient with multiple antibiotic ALLERGIES that would limit the number of antibiotic safe to use. 4patient rash has almost resolved, the patient seems to be doing well on oral Levaquin to continue to finish a 10-day course of therapy Dictation was produced using [employer] dictation software. please excuse any grammatical, word or spelling errors. Time with Patient: Less than 30
== END 2024-10-12 13:36 | disposition home or self-care (01) | DRG 871 ==
LOC: EC 19:59 → SUPCPDRO 19:59 → 5NMEDONC 23:16
PROVIDERS: ADMIT Hospitalist; ATTEND Hospitalist
DX: A40.3 Sepsis due to Streptococcus pneumoniae (principal); J13 Pneumonia due to Streptococcus pneumoniae; R65.20 Severe sepsis without septic shock; E87.1 Hypo-osmolality and hyponatremia; E87.20 Acidosis, unspecified; N17.9 Acute kidney failure, unspecified; C85.9A Non-Hodgkin lymphoma, unspecified, in remission; E86.0 Dehydration; E86.1 Hypovolemia; F32.A Depression, unspecified; G30.9 Alzheimer's disease, unspecified; F02.80 Dementia in other diseases classified elsewhere, unspecified severity, without behavioral disturbance, psychotic disturbance, mood disturbance, and anxiety; G89.29 Other chronic pain; L27.0 Generalized skin eruption due to drugs and medicaments taken internally; N18.30 Chronic kidney disease, stage 3 unspecified; Z86.73 Personal history of transient ischemic attack (TIA), and cerebral infarction without residual deficits; Z88.1 Allergy status to other antibiotic agents; Z79.899 Other long term (current) drug therapy; Z79.82 Long term (current) use of aspirin
CPT/HCPCS: 36415; 71045; 71046; 74176; 80048; 80053; 81001; 82150; 82747; 83540; 83550; 83605; 83690; 83735; 84100; 84145; 85025; 87040; 87077; 87186; 87449; 87636; 93005; 94640; 94760; 96361; 96374; 99285

== ENCOUNTER 2025-02-01 11:56 | Observation (INO) | payer MEDICARE ==
[2025-02-01 12:56] LABS: Basophils # (A) 0.03 10*3/uL (0.00-0.10); Basophils % (A) 0.3 %; Eosinophils # (A) 0.02 10*3/uL (0.04-0.35); Eosinophils % (A) 0.2 %; HCT 37.8 % (37.2-46.3); HGB 12.6 g/dL (12.0-15.0); Lymphocytes # (A) 0.23 10*3/uL (0.90-5.00); MCH 30.1 pg (27.0-32.0); MCHC 33.3 g/dL (32.0-37.0); MCV 90.4 fL (80.0-97.0); Mean Platelet Volume 11.4 fL (9.5-12.2); Monocytes % (A) 3.5 %; Neutrophils # (A) 10.69 10*3/uL (1.80-7.70); Neutrophils % (A) 93.5 %; Platelet Count 186 10*3/uL (140-440); RBC 4.18 10*6/uL (4.10-5.20); RDW 14.6 % (11.5-14.5); WBC 11.43 10*3/uL (4.50-10.00)
--- NOTE | 2025-02-01 12:57 | ED ---
General Adult HPI - General Chief complaint: Shortness of Breath Stated complaint: SOB Time Seen by Provider: 02/01/25 12:09 Source: patient, RN notes reviewed, old records reviewed Mode of arrival: wheelchair Limitations: no limitations - History of Present Illness Initial comments: 80-year-old female presenting for evaluation of dyspnea, fever and cough. Cough is nonproductive. Patient does have previous history of reactive airway. She had taken an albuterol with some improvement. She was seen at urgent care and was noted to be hypoxic and was sent to the emergency department. She denies central chest pain. Denies lower extremity pain or swelling. She has had upper respiratory symptoms according to family. - Related Data Home Medications Medication Instructions Recorded Confirmed Potassium Chloride ER [K-Dur 10] 10 meq PO DAILY 04/12/22 02/01/25 Aspirin EC [Ecotrin Low Dose] 81 mg PO DAILY 10/07/24 02/01/25 Escitalopram Oxalate [Lexapro] 10 mg PO DAILY 10/07/24 02/01/25 Memantine [Namenda] 5 mg PO BID 10/07/24 02/01/25 Multivitamins, Thera [Multivitamin 1 tab PO DAILY 10/07/24 02/01/25 (formulary)] QUEtiapine [SEROquel] 50 mg PO DAILY 10/07/24 02/01/25 QUEtiapine [SEROquel] 100 mg PO HS 10/07/24 02/01/25 LORazepam [Ativan] 1 mg PO BID PRN 02/01/25 02/01/25 Previous Rx's Medication Instructions Recorded Folic Acid 1 mg PO DAILY #30 tab 03/28/22 Allergies Allergy/AdvReac Type Severity Reaction Status Date / Time ceftriaxone Allergy Rash/Hives Verified 02/01/25 12:54 ibuprofen Allergy Unknown Verified 02/01/25 12:54 Penicillins Allergy Dyspnea Verified 02/01/25 12:54 strawberry Allergy Rash/Hives Verified 02/01/25 12:54 Sulfa (Sulfonamide Allergy Anaphylaxis Verified 02/01/25 12:54 Antibiotics) Review of Systems ROS Statement: Those systems with pertinent positive or pertinent negative responses have been documented in the HPI. ROS Other: All systems not noted in ROS Statement are negative. 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 NON HODGKINS LYMPHOMA 2021 and in remission for past 2 years, CKD, alxheimers dementia, pt's daughter is legal guardian (paperwork scanned in paper chart) History of Any Multi-Drug Resistant Organisms: None Reported Past Surgical History: Section, Hysterectomy Additional Past Surgical History / Comment(s): 3 c sections Past Anesthesia/Blood Transfusion Reactions: No Reported Reaction Past Psychological History: No Psychological Hx Reported Smoking Status: Never smoker Past Alcohol Use History: None Reported Past Drug Use History: None Reported - Past Family History Son(s) Family Medical History: Diabetes Mellitus Additional Family Medical History / Comment(s): kidney recipient General Exam Limitations: no limitations General appearance: alert, in no apparent distress Head exam: Present: atraumatic, normocephalic Eye exam: Present: normal appearance, PERRL ENT exam: Present: mucous membranes moist Respiratory exam: Present: wheezes. Absent: respiratory distress Cardiovascular Exam: Present: regular rate, normal rhythm GI/Abdominal exam: Present: soft. Absent: distended, tenderness, guarding Extremities exam: Present: normal inspection, normal capillary refill. Absent: pedal edema, calf tenderness Neurological exam: Present: alert, oriented X3, CN II-XII intact. Absent: motor sensory deficit Skin exam: Present: warm, dry, intact. Absent: cyanosis, diaphoretic Course Vital Signs 02/01/25 02/01/25 12:00 12:28 Temperature 100.7 F H Pulse Rate 113 H 104 H Respiratory 17 18 Rate Blood Pressure 118/71 131/72 O2 Sat by Pulse 92 L 93 L Oximetry Medical Decision Making - Medical Decision Making Was pt. sent in by a medical professional or institution (, PA, KEG VARNISHER, urgent care, hospital, or longterm...) When possible be specific @ -No Did you speak to anyone other than the patient for history (EMS, parent, family, police, friend...)? What history was obtained from this source @ -No Did you review nursing and triage notes (agree or disagree)? Why? @ -I reviewed and agree with nursing and triage notes Were old charts reviewed (outside hosp., previous admission, EMS record, old EKG, old radiological studies, urgent care reports/EKG's, longterm records)? Report findings @ -No old charts were reviewed Differential Dyspnea: Coronary syndrome, arrhythmia, tamponade, asthma, COPD, pulmonary embolism, pneumonia, pneumothorax, pulmonary effusion, anaphylaxis, diabetic ketoacidosis, flailed chest, pulmonary contusion, diaphragmatic rupture, anemia, neuromuscular, this is not meant to be an all-inclusive list. EKG interpreted by me (3pts min.). @ -EKG: Sinus tachycardia rate of 108, AR interval 139, QRS duration 91, QTc 4 4 T wave inversion in precordial leads with artifact limiting assessment, no ST segment elevation. X-rays interpreted by me (1pt min.). @Chest x-ray concerning for pneumonia CT interpreted by me (1pt min.). @ -None done U/S interpreted by me (1pt. min.). @ -None done What testing was considered but not performed or refused? (CT, X-rays, U/S, labs)? Why? @ -None What meds were considered but not given or refused? Why? @ -None Did you discuss the management of the patient with other professionals (professionals i.e. , PA, KEG VARNISHER, lab, RT, psych nurse, social studies teacher, it security analyst, teacher, svp chief marketing officer, watch case polisher)? Give summary @ -EMH Was smoking cessation discussed for >3mins.? @ -No Was critical care preformed (if so, how long)? @ -No Were there social determinants of health that impacted care today? How? (Homelessness, low income, unemployed, alcoholism, drug addiction, transportation, low edu. Level, literacy, decrease access to med. care, snf, rehab)? @ -No Was there de-escalation of care discussed even if they declined (Discuss DNR or withdrawal of care, Hospice)? DNR status @ -No What co-morbidities impacted this encounter? (DM, HTN, Smoking, COPD, CAD, Cancer, CVA, ARF, Chemo, Hep., AIDS, mental health diagnosis, sleep apnea, morbid obesity)? @ -None Was patient admitted / discharged? Hospital course, mention meds given and route, prescriptions, significant lab abnormalities, going to OR and other pertinent info. @ -80-year-old female with fever, cough, wheezing. Patient was sent from urgent care for hypoxia. Patient is in the low 90s on room air. She does have wheezing bilaterally. She is febrile upon arrival. She has a mildly elevated white blood cell count, negative viral panel, negative D-dimer, troponin and BNP. Patient x-ray is concerning for developing pneumonia. She will be covered with IV antibiotics, admitted for reactive airway and pneumonia with hypoxia. Undiagnosed new problem with uncertain prognosis? @ -No Drug Therapy requiring intensive monitoring for toxicity (Heparin, Nitro, Insulin, Cardizem)? @ -No Were any procedures done? @ -No Diagnosis/symptom? @ -Pneumonia, reactive airway hypoxia Acute, or Chronic, or Acute on Chronic? @ -[Acute Uncomplicated (without systemic symptoms) or Complicated (systemic symptoms)? @Complicated Side effects of treatment? @ -No Exacerbation, Progression, or Severe Exacerbation? @ -No Poses a threat to life or bodily function? How? (Chest pain, USA, SC, pneumonia, PE, COPD, DKA, ARF, appy, cholecystitis, CVA, Diverticulitis, Homicidal, Suicidal, threat to staff... and all critical care pts) @Yes, pneumonia, sepsis - Lab Data Result diagrams: 02/01/25 12:27 02/01/25 12:27 Lab Results 02/01/25 02/01/25 02/01/25 Range/Units 12:27 12:27 12:27 WBC 11.43 H (4.50-10.00) 10*3/uL RBC 4.18 (4.10-5.20) 10*6/uL Hgb 12.6 (12.0-15.0) g/dL Hct 37.8 (37.2-46.3) % MCV 90.4 (80.0-97.0) fL MCH 30.1 (27.0-32.0) pg MCHC 33.3 (32.0-37.0) g/dL Plt Count 186 (140-440) 10*3/uL MPV 11.4 (9.5-12.2) fL Immature Gran % (Auto) 0.5 % Neutrophils % 93.5 % Lymphocytes % 2.0 % Monocytes % 3.5 % Eosinophils % 0.2 % Basophils % 0.3 % Immature Gran # 0.06 H (0.00-0.04) 10*3/uL Neutrophils # 10.69 H (1.80-7.70) 10*3/uL Lymphocytes # 0.23 L (0.90-5.00) 10*3/uL Monocytes # 0.40 (0.20-1.00) 10*3/uL Eosinophils # 0.02 L (0.04-0.35) 10*3/uL Basophils # 0.03 (0.00-0.10) 10*3/uL PT 11.9 (10.0-12.5) sec INR 1.1 (<1.2) APTT 24.9 (22.0-30.0) sec D-Dimer (<0.60) mg/L FEU Sodium 135 L (137-145) mmol/L Potassium 4.2 (3.5-5.1) mmol/L Chloride 100 (98-107) mmol/L Carbon Dioxide 23 (22-30) mmol/L Anion Gap 12 mmol/L BUN 11 (7-17) mg/dL Creatinine 0.98 (0.52-1.04) mg/dL Est GFR (CKD-EPI)AfAm 62 (>60 ml/min/1.73 sqM) Est GFR (CKD-EPI)NonAf 54 (>60 ml/min/1.73 sqM) Glucose 146 H (74-99) mg/dL Plasma Lactic Acid Black (0.7-2.0) mmol/L Calcium 9.1 (8.4-10.2) mg/dL Magnesium 2.0 (1.6-2.3) mg/dL Total Bilirubin 1.7 H (0.2-1.3) mg/dL AST 36 (14-36) U/L ALT 41 H (4-34) U/L Alkaline Phosphatase 173 H (38-126) U/L Troponin I (0.000-0.034) ng/mL NT-Pro-B Natriuret Pep 485 pg/mL Total Protein 6.3 (6.3-8.2) g/dL Albumin 4.1 (3.5-5.0) g/dL Influenza Type A (PCR) (Not Detectd) Influenza Type B (PCR) (Not Detectd) RSV (PCR) (Not Detectd) SARS-CoV-2 (PCR) (Not Detectd) 02/01/25 02/01/25 02/01/25 Range/Units 12:27 12:27 12:27 WBC (4.50-10.00) 10*3/uL RBC (4.10-5.20) 10*6/uL Hgb (12.0-15.0) g/dL Hct (37.2-46.3) % MCV (80.0-97.0) fL MCH (27.0-32.0) pg MCHC (32.0-37.0) g/dL Plt Count (140-440) 10*3/uL MPV (9.5-12.2) fL Immature Gran % (Auto) % Neutrophils % % Lymphocytes % % Monocytes % % Eosinophils % % Basophils % % Immature Gran # (0.00-0.04) 10*3/uL Neutrophils # (1.80-7.70) 10*3/uL Lymphocytes # (0.90-5.00) 10*3/uL Monocytes # (0.20-1.00) 10*3/uL Eosinophils # (0.04-0.35) 10*3/uL Basophils # (0.00-0.10) 10*3/uL PT (10.0-12.5) sec INR (<1.2) APTT (22.0-30.0) sec D-Dimer (<0.60) mg/L FEU Sodium (137-145) mmol/L Potassium (3.5-5.1) mmol/L Chloride (98-107) mmol/L Carbon Dioxide (22-30) mmol/L Anion Gap mmol/L BUN (7-17) mg/dL Creatinine (0.52-1.04) mg/dL Est GFR (CKD-EPI)AfAm (>60 ml/min/1.73 sqM) Est GFR (CKD-EPI)NonAf (>60 ml/min/1.73 sqM) Glucose (74-99) mg/dL Plasma Lactic Acid Black 2.3 H* (0.7-2.0) mmol/L Calcium (8.4-10.2) mg/dL Magnesium (1.6-2.3) mg/dL Total Bilirubin (0.2-1.3) mg/dL AST (14-36) U/L ALT (4-34) U/L Alkaline Phosphatase (38-126) U/L Troponin I <0.012 (0.000-0.034) ng/mL NT-Pro-B Natriuret Pep pg/mL Total Protein (6.3-8.2) g/dL Albumin (3.5-5.0) g/dL Influenza Type A (PCR) Not Detected (Not Detectd) Influenza Type B (PCR) Not Detected (Not Detectd) RSV (PCR) Not Detected (Not Detectd) SARS-CoV-2 (PCR) Not Detected (Not Detectd) 02/01/25 Range/Units 12:27 WBC (4.50-10.00) 10*3/uL RBC (4.10-5.20) 10*6/uL Hgb (12.0-15.0) g/dL Hct (37.2-46.3) % MCV (80.0-97.0) fL MCH (27.0-32.0) pg MCHC (32.0-37.0) g/dL Plt Count (140-440) 10*3/uL MPV (9.5-12.2) fL Immature Gran % (Auto) % Neutrophils % % Lymphocytes % % Monocytes % % Eosinophils % % Basophils % % Immature Gran # (0.00-0.04) 10*3/uL Neutrophils # (1.80-7.70) 10*3/uL Lymphocytes # (0.90-5.00) 10*3/uL Monocytes # (0.20-1.00) 10*3/uL Eosinophils # (0.04-0.35) 10*3/uL Basophils # (0.00-0.10) 10*3/uL PT (10.0-12.5) sec INR (<1.2) APTT (22.0-30.0) sec D-Dimer 0.55 (<0.60) mg/L FEU Sodium (137-145) mmol/L Potassium (3.5-5.1) mmol/L Chloride (98-107) mmol/L Carbon Dioxide (22-30) mmol/L Anion Gap mmol/L BUN (7-17) mg/dL Creatinine (0.52-1.04) mg/dL Est GFR (CKD-EPI)AfAm (>60 ml/min/1.73 sqM) Est GFR (CKD-EPI)NonAf (>60 ml/min/1.73 sqM) Glucose (74-99) mg/dL Plasma Lactic Acid Black (0.7-2.0) mmol/L Calcium (8.4-10.2) mg/dL Magnesium (1.6-2.3) mg/dL Total Bilirubin (0.2-1.3) mg/dL AST (14-36) U/L ALT (4-34) U/L Alkaline Phosphatase (38-126) U/L Troponin I (0.000-0.034) ng/mL NT-Pro-B Natriuret Pep pg/mL Total Protein (6.3-8.2) g/dL Albumin (3.5-5.0) g/dL Influenza Type A (PCR) (Not Detectd) Influenza Type B (PCR) (Not Detectd) RSV (PCR) (Not Detectd) SARS-CoV-2 (PCR) (Not Detectd) Disposition Clinical Impression: CAP (community acquired pneumonia) Disposition: ADMITTED IP TO THIS HOSP Condition: Stable Is patient prescribed a controlled substance at d/c from ED?: No Referrals: Sameer Hawkins [Primary Care Provider] - 1-2 days Time of Disposition: 14:26
[2025-02-01 13:07] LABS: ALT 41 U/L (4-34); AST 36 U/L (14-36); African American GFR (CKD) 62 (>60 ml/min/1.73 sqM); Albumin 4.1 g/dL (3.5-5.0); Alkaline Phosphatase 173 U/L (38-126); Anion Gap 12 mmol/L; Blood Urea Nitrogen 11 mg/dL (7-17); Calcium 9.1 mg/dL (8.4-10.2); Carbon Dioxide 23 mmol/L (22-30); Chloride 100 mmol/L (98-107); Glucose 146 mg/dL (74-99); Non-African American GFR(CKD) 54 (>60 ml/min/1.73 sqM); Potassium 4.2 mmol/L (3.5-5.1); Sodium 135 mmol/L (137-145); Total Bilirubin 1.7 mg/dL (0.2-1.3); Total Protein 6.3 g/dL (6.3-8.2)
[2025-02-01 13:15] LABS: NT-Pro-B-Type Natriuretic Pept 485 pg/mL
[2025-02-01] MEDS: ACETAMINOPHEN TAB 325 MG TAB PO STA (13:19)
[2025-02-01 13:32] LABS: Influenza A Not Detected (Not Detectd); Influenza B Not Detected (Not Detectd); RSV Not Detected (Not Detectd)
--- NOTE | 2025-02-01 13:47 | XR ---
EXAMINATION TYPE: XR chest 2V DATE OF EXAM: 02/01/2025 1:32 PM COMPARISON: None. CLINICAL INDICATION: Female, 80 years old with history of difficulty breathing, TECHNIQUE: XR chest 2V view(s) obtained. FINDINGS: The heart size is normal. The pulmonary vasculature is normal. Mild infiltrates in the periphery of the left lung. Correlate for atelectasis or pneumonia. Remaining portions of the lung [place] are clear.. IMPRESSION: 1. Mild intrahepatic periphery left midlung. Correlate for atelectasis or pneumonia [facility], , 02/01/2025 1:45 PM
[2025-02-01 13:58] LABS: INR 1.1 (<1.2); Partial Thromboplastin Time 24.9 sec (22.0-30.0); Prothrombin Time 11.9 sec (10.0-12.5)
[2025-02-01] MEDS ORDERED: ACETAMINOPHEN TAB 325 MG TAB PO PRN (14:08)
[2025-02-01] MEDS ORDERED: NALOXONE 0.4 MG/ML 1 ML VIAL IV PRN (14:08)
[2025-02-01] MEDS: LEVOFLOXACIN 500MG-D5W PMX 500 MG in DEXTROSE/WATER 1 100ML.BAG IVPB STA (14:29)
[2025-02-01] MEDS: IPRATROPIUM-ALBUTEROL 3 ML NEB INHALATION STA (14:31)
[2025-02-01] MEDS: methylPREDNISolone SOD SUCCI 125 MG/2 ML VIAL IV SCH (14:40)
[2025-02-01] MEDS: SODIUM CHLORIDE 0.9% 1,000 ML IV SCH (14:41)
[2025-02-01] MEDS: SODIUM CHLORIDE 0.9% 500 ML 500 ML IV ONE (14:41)
[2025-02-01] MEDS: IPRATROPIUM-ALBUTEROL 3 ML NEB INHALATION SCH (15:37)
[2025-02-02] MEDS: MEMANTINE 5 MG TAB PO SCH (09:17)
[2025-02-02] MEDS: POTASSIUM CHLORIDE ER 10 MEQ TAB.ER.PRT PO SCH (09:17)
[2025-02-02] MEDS: MULTIVITAMINS, THERA 1 EACH TAB PO SCH (09:17)
[2025-02-02] MEDS: ASPIRIN 81 MG PO SCH (09:17)
[2025-02-02] MEDS: QUEtiapine 50 MG TAB PO SCH (09:18)
[2025-02-02] MEDS: FOLIC ACID 1 MG TAB PO SCH (09:18)
[2025-02-02] MEDS: ESCITALOPRAM 10 MG TAB PO SCH (09:18)
[2025-02-02] MEDS: ENOXAPARIN 40 MG/0.4 ML SYRINGE SQ SCH (09:19)
[2025-02-02] MEDS: LEVOFLOXACIN 750MG-D5W PMX 750 MG in DEXTROSE/WATER 1 150ML.BAG IVPB SCH (09:33)
--- NOTE | 2025-02-02 14:32 | P.HPIM ---
History of Present Illness H&P Date: 02/02/25 History of present illness; Patient has 80-year-old female with CKD, Alzheimer's dementia, history of TIAs and non-Hodgkin's lymphoma in remission for 2 years who presents for evaluation of dyspnea, fever and cough. Cough began yesterday and is nonproductive. She was noted to be hypoxic at urgent care and recommended to come to emergency room. Patient does have previous history of reactive airway. She had taken an albuterol with some improvement. She denies central chest pain. Denies lower e xtremity pain or swelling. She has had upper respiratory symptoms according to family. She has no other symptoms at this time. Spoke with the ER physician, patient admission was accepted by internal medicine service for treatment. REVIEW OF SYSTEMS: Pertinent positives and negatives noted in HPI. PHYSICAL EXAMINATION: Vitals reviewed GENERAL: Resting comfortably in bed. EYES: PERRL, no scleral injection or icterus. No vision loss HENT: Normocephalic, atraumatic, hearing grossly intact, moist mucous membranes NECK: No tracheal deviation, full range of motion. CARDIOVASCULAR: S1 and S2 present. No murmurs, rubs, or gallops. PULMONARY: Chest is clear to auscultation, no wheezing, rhonchi, or crackles. ABDOMEN: Soft, nontender, nondistended. No palpable organomegaly. MUSCULOSKELETAL: No apparent joint swelling and deformities. EXTREMITIES: No apparent cyanosis, clubbing. No pedal edema. NEUROLOGICAL: Alert and oriented. Gross neurological examination with no apparent focal deficits. SKIN: No apparent rashes. ER FINDINGS: Labs significant for WBC 11.4, sodium 135, GFR 54, glucose 146, lactic acid 2.3 => 1.2, bilirubin 1.7, AST 36, ALT 41, ALP 173, troponin negative, proBNP 485, viral respiratory panel negative EKG independently interpreted showed sinus tachycardia heart rate of 108, QTc 404, no ST segment elevation or depression seen, nonspecific ST changes. Chest x-ray done independently interpreted showed mild infiltrates in periphery left midlung. Assessment and Plan: In summary, patient has 80-year-old female with CKD, Alzheimer's dementia, history of TIAs and non-Hodgkin's lymphoma in remission for 2 years who presents for evaluation of dyspnea, fever and cough. #Pneumonia, unspecified organism - CXR findings of mild infiltrates in periphery left midlung. - Blood and sputum cultures pending - Legionella ordered Procalcitonin ordered - Viral respiratory panel negative - begin IV levofloxacin 750 daily for 7 days Continue bronchodilators - give supplemental O2 via NC goal of >92% spO2 - encourage incentive spirometry #Elevated bilirubin #Elevated ALP Asymptomatic Continue to monitor CMP Chronic Medical Conditions #Anxiety depression #History of TIAs Resume home medications DVT ppx: Subq Lovenox 40 meq daily Code status: Full code F: IV Normal saline 75 mL/hr E: Replete as needed N: Regular diet Anticipated discharge place: Home Anticipated discharge time: [address] Veliz seen patient with resident, present during exam, and agreed with findings. Dictation was produced using [employer] dictation software. Please excuse any grammatical, word or spelling errors. 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 NON HODGKINS LYMPHOMA 2021 and in remission for past 2 years, CKD, alzheimers dementia, pt's daughter is legal guardian (paperwork scanned in paper chart) History of Any Multi-Drug Resistant Organisms: None Reported Past Surgical History: Section, Hysterectomy Additional Past Surgical History / Comment(s): 3 c sections Past Anesthesia/Blood Transfusion Reactions: No Reported Reaction Past Psychological History: No Psychological Hx Reported Smoking Status: Never smoker Past Alcohol Use History: None Reported Past Drug Use History: None Reported - Past Family History Son(s) Family Medical History: Diabetes Mellitus Additional Family Medical History / Comment(s): kidney recipient Medications and Allergies Home Medications Medication Instructions Recorded Confirmed Type Folic Acid 1 mg PO DAILY #30 tab 03/28/22 02/01/25 Rx Potassium Chloride ER [K-Dur 10] 10 meq PO DAILY 04/12/22 02/01/25 History Aspirin EC [Ecotrin Low Dose] 81 mg PO DAILY 10/07/24 02/01/25 History Escitalopram Oxalate [Lexapro] 10 mg PO DAILY 10/07/24 02/01/25 History Memantine [Namenda] 5 mg PO BID 10/07/24 02/01/25 History Multivitamins, Thera [Multivitamin 1 tab PO DAILY 10/07/24 02/01/25 History (formulary)] QUEtiapine [SEROquel] 50 mg PO DAILY 10/07/24 02/01/25 History QUEtiapine [SEROquel] 100 mg PO HS 10/07/24 02/01/25 History LORazepam [Ativan] 1 mg PO BID PRN 02/01/25 02/01/25 History Allergies Allergy/AdvReac Type Severity Reaction Status Date / Time ceftriaxone Allergy Rash/Hives Verified 02/01/25 12:54 ibuprofen Allergy Unknown Verified 02/01/25 12:54 Penicillins Allergy Dyspnea Verified 02/01/25 12:54 strawberry Allergy Rash/Hives Verified 02/01/25 12:54 Sulfa (Sulfonamide Allergy Anaphylaxis Verified 02/01/25 12:54 Antibiotics) Physical Exam Vitals: Vital Signs Temp Pulse Pulse Resp BP BP Pulse Ox 02/02/25 07:00 97.6 F 77 18 117/69 93 L 02/02/25 01:11 97.8 F 84 18 124/72 94 L 02/01/25 20:49 90 02/01/25 20:37 90 02/01/25 19:53 98.1 F 89 16 117/65 94 L 02/01/25 17:00 99.6 F 94 20 123/70 92 L 02/01/25 16:30 117/67 02/01/25 16:00 91 23 117/67 02/01/25 15:30 93 24 127/76 02/01/25 15:00 93 18 127/76 02/01/25 14:45 99.4 F 02/01/25 14:39 92 02/01/25 14:35 98.2 F 90 18 109/70 93 L 02/01/25 14:31 89 02/01/25 14:30 92 14 127/76 92 L 02/01/25 14:00 94 17 144/77 93 L 02/01/25 13:30 100 23 128/71 93 L 02/01/25 13:00 100 23 117/76 92 L 02/01/25 12:30 106 H 20 131/72 93 L 02/01/25 12:28 104 H 18 131/72 93 L 02/01/25 12:00 100.7 F H 113 H 17 118/71 92 L Intake and Output 02/01/25 02/02/25 02/02/25 22:59 06:59 14:59 Intake Total 120 Balance 120 Intake: Oral 120 Other: Voiding Method Toilet # Voids 3 Results CBC & Chem 7: 02/01/25 12:27 02/01/25 12:27 Labs: Abnormal Lab Results - Last 24 Hours (Table) 02/01/25 02/01/25 02/01/25 Range/Units 12:27 12:27 12:27 WBC 11.43 H (4.50-10.00) 10*3/uL Immature Gran # 0.06 H (0.00-0.04) 10*3/uL Neutrophils # 10.69 H (1.80-7.70) 10*3/uL Lymphocytes # 0.23 L (0.90-5.00) 10*3/uL Eosinophils # 0.02 L (0.04-0.35) 10*3/uL Sodium 135 L (137-145) mmol/L Glucose 146 H (74-99) mg/dL Plasma Lactic Acid Black 2.3 H* (0.7-2.0) mmol/L Total Bilirubin 1.7 H (0.2-1.3) mg/dL ALT 41 H (4-34) U/L Alkaline Phosphatase 173 H (38-126) U/L Thrombosis Risk Factor Assmnt - Choose All That Apply Any of the Below Risk Factors Present?: Yes Each Factor Represents 1 point: Obesity (BMI >25), Serious lung disease incl. pneumonia (< 1month) Each Risk Factor Represents 3 Points: Age 75 years or older Other congenital or acquired thrombophilia - If yes, enter type in comment: No Thrombosis Risk Factor Assessment Total Risk Factor Score: 5 Thrombosis Risk Factor Assessment Level: High Risk
[2025-02-02] MEDS: QUEtiapine 100 MG TAB PO SCH (21:38)
[2025-02-02] MEDS: LORazepam 1 MG TAB PO PRN (21:39)
[2025-02-03 08:32] LABS: BUN/Creat Ratio 17.33 Ratio (12.00-20.00); Blood Urea Nitrogen 15.6 mg/dL (9.0-27.0); Chloride 99 mmol/L (96-109); Glucose 135 mg/dL (70-110); Sodium 132 mmol/L (135-145)
[2025-02-03 08:33] LABS: ALT 41 U/L (8-44); AST 35 U/L (13-35); Albumin 3.6 g/dL (3.8-4.9); Alkaline Phosphatase 165 U/L (41-126); Calcium 8.6 mg/dL (8.7-10.3); Carbon Dioxide 18.1 mmol/L (21.6-31.8); Globulin 1.8 g/dL (1.6-3.3); Total Bilirubin 0.2 mg/dL (0.3-1.2); Total Protein 5.4 g/dL (6.2-8.2)
[2025-02-03 09:01] VITALS: BP 139/73; RESP 18; TEMP 97.5
[2025-02-03 09:27] LABS: Basophils # (A) 0.02 X 10*3/uL (0.00-0.10); Basophils % (A) 0.1 %; Eosinophils # (A) 0 X 10*3/uL (0.04-0.35); Eosinophils % (A) 0 %; HCT 35.4 % (37.2-46.3); HGB 11.5 g/dL (12.0-15.0); Lymphocytes % (A) 3.6 %; MCH 30.2 pg (27.0-32.0); MCHC 32.5 g/dL (32.0-37.0); MCV 92.9 FL (80.0-97.0); Mean Platelet Volume 11.8 FL (9.5-12.2); Monocytes # (A) 0.34 X 10*3/uL (0.20-1.00); NRBC Per 100 WBC 0 X 10*3/uL (0.00-0.01); Neutrophils # (A) 15.44 X 10*3/uL (1.80-7.70); Neutrophils % (A) 92.8 %; Platelet Count 209 X 10*3/uL (140-440); RBC 3.81 X 10*6/uL (4.10-5.20); RDW 14.5 % (11.5-14.5); WBC 16.65 X 10*3/uL (4.50-10.00)
[2025-02-03 09:46] VITALS: PULSE 92
--- NOTE | 2025-02-03 13:37 | P.DS ---
Providers Date of admission: 02/01/25 14:10 Expected date of discharge: 02/03/25 Attending physician: Alexx Veliz Primary care physician: Sameer Hawkins Hospital Course: Discharge diagnoses; #Pneumonia, unspecified organism #Elevated bilirubin #Elevated ALP #Anxiety depression #History of TIAs Hospital course; History of present illness; Patient has 80-year-old female with CKD, Alzheimer's dementia, history of TIAs and non-Hodgkin's lymphoma in remission for 2 years who presents for evaluation of dyspnea, fever and cough. Cough began yesterday and is nonproductive. She was noted to be hypoxic at urgent care and recommended to come to emergency room. Patient does have previous history of reactive airway. She had taken an albuterol with some improvement. She denies central chest pain. Denies lower extremity pain or swelling. She has had upper respiratory symptoms according to family. She has no other symptoms at this time. While in hospital patient was found to be febrile with tachycardia. Chest x-ray was found to have mild infiltrates in periphery left midlung. Patient subsequently treated with Levaquin. Labs significant for WBC 11.4, sodium 135, GFR 54, glucose 146, lactic acid 2.3 => 1.2, bilirubin 1.7, AST 36, ALT 41, ALP 173, troponin negative, proBNP 485, viral respiratory panel negative. Patient discharged in stable condition to home. Patient to continue Levaquin starting tomorrow for 2 days. She is a follow-up with her PCP. Follow-up CMP for elevated bilirubin and ALP. Return to hospital if worsening shortness of breath. PHYSICAL EXAMINATION: Vitals reviewed GENERAL: Resting comfortably in bed. NECK: No tracheal deviation, full range of motion. CARDIOVASCULAR: S1 and S2 present. No murmurs, rubs, or gallops. PULMONARY: Chest is clear to auscultation, no wheezing, rhonchi, or crackles. ABDOMEN: Soft, nontender, nondistended. No palpable organomegaly. EXTREMITIES: No apparent cyanosis, clubbing. No pedal edema. NEUROLOGICAL: Alert and oriented. Gross neurological examination with no apparent focal deficits. Dr. Veliz seen patient with resident, present during exam, and agreed with findings. Dictation was produced using [employer] dictation software. please excuse any grammatical, word or spelling errors. Patient Condition at Discharge: Stable Plan - Discharge Summary Discharge Rx Participant: Yes New Discharge Prescriptions: New Levofloxacin [Levaquin] 750 mg PO DAILY 2 Days #2 tab Continue Folic Acid 1 mg PO DAILY #30 tab Potassium Chloride ER [K-Dur 10] 10 meq PO DAILY Aspirin EC [Ecotrin Low Dose] 81 mg PO DAILY QUEtiapine [SEROquel] 100 mg PO HS Escitalopram Oxalate [Lexapro] 10 mg PO DAILY LORazepam [Ativan] 1 mg PO BID PRN PRN Reason: Anxiety Multivitamins, Thera [Multivitamin (formulary)] 1 tab PO DAILY QUEtiapine [SEROquel] 50 mg PO DAILY Memantine [Namenda] 5 mg PO BID Discharge Medication List Folic Acid 1 mg PO DAILY #30 tab 03/28/22 [Rx] Potassium Chloride ER [K-Dur 10] 10 meq PO DAILY 04/12/22 [History] Aspirin EC [Ecotrin Low Dose] 81 mg PO DAILY 10/07/24 [History] Escitalopram Oxalate [Lexapro] 10 mg PO DAILY 10/07/24 [History] Memantine [Namenda] 5 mg PO BID 10/07/24 [History] Multivitamins, Thera [Multivitamin (formulary)] 1 tab PO DAILY 10/07/24 [History] QUEtiapine [SEROquel] 50 mg PO DAILY 10/07/24 [History] QUEtiapine [SEROquel] 100 mg PO HS 10/07/24 [History] LORazepam [Ativan] 1 mg PO BID PRN 02/01/25 [History] Levofloxacin [Levaquin] 750 mg PO DAILY 2 Days #2 tab 02/03/25 [Rx] Follow up Appointment(s)/Referral(s): Sameer Hawkins [Primary Care Provider] - 1-2 days (Office is not answering at time of discharge. Please call [phone] for follow-up appointment.) Activity/Diet/Wound Care/Special Instructions: Take Levaquin to 750 mg 1 pill daily for 2 days starting tomorrow. Follow-up with PCP. Discharge Disposition: HOME SELF-CARE
[2025-02-04] MEDS ORDERED: LEVOFLOXACIN 750MG-D5W PMX 750 MG in DEXTROSE/WATER 1 150ML.BAG IVPB SCH (09:00)
== END 2025-02-03 13:15 | disposition home or self-care (01) ==
LOC: EC 11:56 → EEVIPCON 11:56 → 4SSUR 14:10 → INTOOBSV 14:10 → 4SSUR 16:04
PROVIDERS: ADMIT Internal Medicine; ATTEND Internal Medicine
DX: J18.9 Pneumonia, unspecified organism (principal); R17 Unspecified jaundice; R74.8 Abnormal levels of other serum enzymes; G30.9 Alzheimer's disease, unspecified; F02.83 Dementia in other diseases classified elsewhere, unspecified severity, with mood disturbance; F02.84 Dementia in other diseases classified elsewhere, unspecified severity, with anxiety; F32.A Depression, unspecified; F41.9 Anxiety disorder, unspecified; C85.9A Non-Hodgkin lymphoma, unspecified, in remission; N18.9 Chronic kidney disease, unspecified; Z79.82 Long term (current) use of aspirin; Z79.899 Other long term (current) drug therapy; Z86.73 Personal history of transient ischemic attack (TIA), and cerebral infarction without residual deficits; Z88.6 Allergy status to analgesic agent; Z88.0 Allergy status to penicillin; Z88.2 Allergy status to sulfonamides; Z88.1 Allergy status to other antibiotic agents
CPT/HCPCS: 96376 ×3; 96361; 96366 ×2; 96372 ×2; 96375; 96365; 99285; 36415; 94640 ×4; 93005; 85379; 83880; 80053 ×2; 87449; 83605; 83735; 84484; 85025 ×2; 85610; 85730; 87040; 84145; 87636; 71046; G0378 ×3; J1956 ×2; J1650 ×2; J2919 ×3